=== PATIENT | female | born 1985 | race Caucasian/White ===

== ENCOUNTER 2017-02-21 11:07 | Emergency (ER) | payer MEDICAID, SELFPAY ==
[2017-02-21 11:39] VITALS: BP 122/83; PULSE 104; RESP 18; TEMP 36.9; O2SAT 97; BMI 53.9
--- NOTE | 2017-02-21 12:00 | HMH.EDUTC ---
[facility] [place] Clinical Impression: Otitis media, Nausea & vomiting, Rash Disposition: Home, Self-Care Condition on Discharge: Good Instructions: Ear Infections (Alternative Therapy), DI for Nausea -- Adult, DI for Rash Additional Instructions: Take medication as prescribed Follow up with family doctor Return if needed Over the counter Motrin/Tylenol as needed for fever or pain Prescriptions: Amoxicillin [Amoxicillin 500mg Cap] 500 mg PO TID #30 cap Ondansetron [Zofran 4mg ODT] 4 mg PO DIRECTED #20 tab.rapdis Referrals: Alka Tracy [Primary Care Provider] - Time of Disposition: 12:29 Medical Decision Making Vital Signs: 02/21/17 11:39 Temperature 98.4 F Temperature Source Oral Pulse Rate [Right Brachial] 104 H Respiratory Rate 18 Blood Pressure [Right Arm] 122/83 Blood Pressure Mean [Right Arm] 96 Blood Pressure Source [Right Arm] Automatic Cuff Blood Pressure Position [Right Arm] Supine 02 Sat by Pulse Oximetry 97 Oxygen Delivery Method Room Air - Travon Inquiry Pt receiving controlled substance: No Travon was queried for this patient: No [facility] [place] - General Stated complaint: vomiting chills Time Seen by Provider: 02/21/17 12:02 Mode of Arrival: Ambulatory Source of Information: Patient Limitations: No Limitations Description of Symptoms (Recalled from Triage Doc. by RN): FLU LIKE SYMPTOMS; RASH ON BOTH ARMS SINCE YESTERDAY HEENT Symptoms (Recalled from RN notes): Yes Resp Symptoms (Recalled from RN notes): Yes (FLU LIKE SYMPTOMS) Skin Symptoms (Recalled from RN notes): Yes (RASH ON SKIN) MS Symptoms (Recalled from RN notes): No Functional Status (Recalled from RN notes): Na - History of Present Illness Provider Complaint: Patient state that she has been having some eppisodes of vomiting along with fever and chills State that she is also having pain in her left ear State that ear feels full and hurts State that her symptoms have continued to get worse so she came in to get checked out Onset (ago): day(s) (2) Radiation: non-radiation Severity: mild Severity scale (1-10): 4 Quality: other Consistency: constant, intermittent Relieving factors: none Exacerbating factors: none Associated symptoms: cough, fever/chills, nausea/vomiting, other Treatments prior to arrival: none - Related Data Previous Rx's Medication Instructions Recorded Amoxicillin [Amoxicillin 500mg 500 mg PO TID #30 cap 02/21/17 Cap] Ondansetron [Zofran 4mg ODT] 4 mg PO DIRECTED #20 tab.rapdis 02/21/17 Allergies Allergy/AdvReac Type Severity Reaction Status Date / Time No Known Allergies Allergy Verified 02/21/17 11:44 - Worker's Comp Is this a Worker's Comp case?: No [facility] History Medical History: Denies:: Cancer, Diabetes Mellitus Type 1, Diabetes Mellitus Type 2, MRSA Amputation: No Fractures: No - *Social History Smoking Status: Never smoker Alcohol Intake: never - Psychiatric History Expresses thoughts of harming self/others: None Suicide Plan Description: No Plan - Constitutional Reports chills, Reports fever(s) - ENT Reports ear pain - Cardiovascular Denies chest pain - Respiratory Denies chest congestion, Denies shortness of breath - Gastrointestinal Reports nausea, Reports vomiting - Integumentary/Breasts Reports rash Physical Exam Patient state that she has been having nausea and vomiting, state that she is also having pain in her left ear State that ear feels full - General General appearance: alert - Eye Eye exam: Present: normal appearance, PERRL - Expanded ENT Exam TM/Canal exam: Left TM: erythema, bulging - Neck Neck exam: Present: normal inspection - Chest Chest inspection: Present: normal inspection - Respiratory Respiratory exam: Present: normal lung sounds bilaterally. Absent: wheezes - Cardiovascular Cardiovascular exam: Present: regular rate - Abdominal Exam Abdominal exam: Present: soft. Absen
--- NOTE | 2017-02-21 12:12 | ED_ITS ---
[facility] [place]ression: Otitis media, Nausea & vomiting, Rash Disposition: Home, Self-Care Condition on Discharge: Good Instructions: Ear Infections (Alternative Therapy), DI for Nausea -- Adult, DI for Rash Additional Instructions: Take medication as prescribed Follow up with family doctor Return if needed Over the counter Motrin/Tylenol as needed for fever or pain Prescriptions: Amoxicillin [Amoxicillin 500mg Cap] 500 mg PO TID #30 cap Ondansetron [Zofran 4mg ODT] 4 mg PO DIRECTED #20 tab.rapdis Referrals: Alka Tracy [Primary Care Provider] - Time of Disposition: 12:29 Medical Decision Making Vital Signs: 02/21/17 11:39 Temperature 98.4 F Temperature Source Oral Pulse Rate [Right Brachial] 104 H Respiratory Rate 18 Blood Pressure [Right Arm] 122/83 Blood Pressure Mean [Right Arm] 96 Blood Pressure Source [Right Arm] Automatic Cuff Blood Pressure Position [Right Arm] Supine 02 Sat by Pulse Oximetry 97 Oxygen Delivery Method Room Air - Travon Inquiry Pt receiving controlled substance: No Travon was queried for this patient: No [facility] [place] - General Stated complaint: vomiting chills Time Seen by Provider: 02/21/17 12:02 Mode of Arrival: Ambulatory Source of Information: Patient Limitations: No Limitations Description of Symptoms (Recalled from Triage Doc. by RN): FLU LIKE SYMPTOMS; RASH ON BOTH ARMS SINCE YESTERDAY HEENT Symptoms (Recalled from RN notes): Yes Resp Symptoms (Recalled from RN notes): Yes (FLU LIKE SYMPTOMS) Skin Symptoms (Recalled from RN notes): Yes (RASH ON SKIN) MS Symptoms (Recalled from RN notes): No Functional Status (Recalled from RN notes): Na - History of Present Illness Provider Complaint: Patient state that she has been having some eppisodes of vomiting along with fever and chills State that she is also having pain in her left ear State that ear feels full and hurts State that her symptoms have continued to get worse so she came in to get checked out Onset (ago): day(s) (2) Radiation: non-radiation Severity: mild Severity scale (1-10): 4 Quality: other Consistency: constant, intermittent Relieving factors: none Exacerbating factors: none Associated symptoms: cough, fever/chills, nausea/vomiting, other Treatments prior to arrival: none - Related Data Previous Rx's Medication Instructions Recorded Amoxicillin [Amoxicillin 500mg 500 mg PO TID #30 cap 02/21/17 Cap] Ondansetron [Zofran 4mg ODT] 4 mg PO DIRECTED #20 tab.rapdis 02/21/17 Allergies Allergy/AdvReac Type Severity Reaction Status Date / Time No Known Allergies Allergy Verified 02/21/17 11:44 - Worker's Comp Is this a Worker's Comp case?: No [facility] History Medical History: Denies:: Cancer, Diabetes Mellitus Type 1, Diabetes Mellitus Type 2, MRSA Amputation: No Fractures: No - *Social History Smoking Status: Never smoker Alcohol Intake: never - Psychiatric History Expresses thoughts of harming self/others: None Suicide Plan Description: No Plan - Constitutional Reports chills, Reports fever(s) - ENT Reports ear pain - Cardiovascular Denies chest pain - Respiratory Denies chest congestion, Denies shortness of breath - Gastrointestinal Reports nausea, Reports vomiting - Integumentary/[place]
[2017-02-21 16:25] LABS: UTC Influenza A Antigen Negative (Negative); UTC Influenza B Antigen Negative (Negative)
== END 2017-02-21 12:49 | disposition home or self-care (01) ==
PROVIDERS: Emergency Provider Nurse Practitioner; Family Provider Nurse Practitioner Family; PCP Nurse Practitioner Family
DX: H66.92 Otitis media, unspecified, left ear (principal); R21 Rash and other nonspecific skin eruption
CPT/HCPCS: 87276; 87430; 87804; 87880; 96372; 99202

== ENCOUNTER → 2017-07-05 08:34 | Outpatient (CLI) | payer OTHER, SELFPAY ==
--- NOTE | 2017-07-05 08:49 | XR_ITS ---
XR knee LT 3V HISTORY: ITS.REASON: LEFT KNEE PAIN ORDERING PHYSICIAN: Alka Tracy PATIENT AGE: 32 years COMPARISON: 12/20/2016 FINDINGS: There are mild tricompartmental osteoarthritic changes similar to the previous exam. No fracture or dislocation. No lytic or blastic change. IMPRESSION: Overall no change mild tricompartmental osteoarthritis
== END ==
PROVIDERS: PCP Nurse Practitioner Family; Visit Provider Nurse Practitioner Family
DX: M25.562 Pain in left knee (principal)
CPT/HCPCS: 73562

== ENCOUNTER → 2017-09-29 11:29 | Outpatient (CLI) | payer MEDICAID, SELFPAY ==
[2017-09-29 13:13] LABS: Alanine Aminotransferase 25 U/L (12-78); Albumin Level 3.7 gm/dL (3.4-5.0); Albumin/Globulin Ratio 0.9 (1.1-1.8); Alkaline Phosphatase 114 U/L (46-116); Anion Gap 14.1 mEq/L (5-15); Aspartate Amino Transferase 10 U/L (15-37); Bilirubin,Total 0.3 mg/dL (0.2-1.0); Blood Urea Nitrogen 13 mg/dL (7-18); Carbon Dioxide 28 mmol/L (21.0-32.0); Chloride 102 mmol/L (98-107); Creatinine,Serum 1.25 mg/dL (0.55-1.02); Estimated Glomerular Filt Rate 49 ml/min (>60); GFR (African American) 59 ML/MIN (>60); Glucose 150 mg/dL (74-106); HCG,Quantitative 0 mIU/mL; Potassium 4.1 mmoL/L (3.5-5.1); Sodium 140 mmol/L (136-145); Total Protein,Serum 7.7 gm/dL (6.4-8.2)
[2017-09-29 13:30] LABS: Basophils # 0.1 K/mm3 (0-0.2); Basophils % 0.6 % (0.1-2.0); Eosinophils # 0.3 K/mm3 (0.0-0.4); Eosinophils % 3.5 % (0.1-12.0); Hematocrit 43.8 % (37.0-47.0); Hemoglobin 14.3 g/dL (12.2-16.2); Lymphocytes # 1.5 K/mm3 (0.7-4.5); Lymphocytes % 19.3 K/mm3 (10-50); Mean Corpuscular HGB Conc 32.6 g/dL (31.8-35.4); Mean Corpuscular Hemoglobin 29.5 pg (27.0-31.2); Mean Corpuscular Volume 90.3 fl (81-99); Mean Platelet Volume 8.7 fl (7.4-10.4); Monocytes # 0.3 K/mm3 (0.1-1.0); Monocytes % 3.8 % (1.7-9.3); Neutrophils # 5.6 K/mm3 (1.8-7.8); Neutrophils % 72.9 % (37.0-80.0); Platelet Count 386 K/mm3 (142-424); Red Blood Count 4.85 M/mm3 (4.20-5.40); Red Cell Distribution Width 13.5 % (11.5-17.5); White Blood Count 7.6 K/mm3 (4.8-10.8)
== END ==
PROVIDERS: Visit Provider Surgery
DX: K80.80 Other cholelithiasis without obstruction (principal)
CPT/HCPCS: 36415; 80053; 84702; 85025

== ENCOUNTER → 2018-11-14 20:03 | Outpatient (CLI) | payer MEDICARE, MEDICAID, SELFPAY | PROVIDERS: PCP Nurse Practitioner Family; Visit Provider Nurse Practitioner Psychiatric/Mental Health | DX: G47.33 Obstructive sleep apnea (adult) (pediatric) (principal); G47.30 Sleep apnea, unspecified; E66.9 Obesity, unspecified | CPT/HCPCS: 95810 ==

== ENCOUNTER → 2019-01-28 09:35 | Outpatient (CLI) | payer MEDICARE, MEDICAID, SELFPAY ==
[2019-01-28 11:20] LABS: Anion Gap 16.9 mEq/L (5-15); Blood Urea Nitrogen 8 mg/dL (7-18); Calcium 8.7 mg/dL (8.5-10.1); Carbon Dioxide 22 mmol/L (21.0-32.0); Chloride 107 mmol/L (98-107); Creatinine,Serum 1.16 mg/dL (0.55-1.02); Estimated Glomerular Filt Rate 53 ml/min (>60); GFR (African American) 64 ML/MIN (>60); Glucose 104 mg/dL (74-106); Potassium 3.9 mmoL/L (3.5-5.1); Sodium 142 mmol/L (136-145)
== END ==
PROVIDERS: Visit Provider Nurse Practitioner Family
DX: R89.9 Unspecified abnormal finding in specimens from other organs, systems and tissues (principal)
CPT/HCPCS: 36415; 80048

== ENCOUNTER → 2019-02-11 10:20 | Outpatient (CLI) | payer MEDICARE, MEDICAID, SELFPAY ==
[2019-02-11 14:03] LABS: Anion Gap 16.7 mEq/L (5-15); Blood Urea Nitrogen 12 mg/dL (7-18); Calcium 8.6 mg/dL (8.5-10.1); Carbon Dioxide 22 mmol/L (21.0-32.0); Chloride 105 mmol/L (98-107); Creatinine,Serum 1.08 mg/dL (0.55-1.02); Estimated Glomerular Filt Rate 58 ml/min (>60); GFR (African American) 70 ML/MIN (>60); Glucose 92 mg/dL (74-106); Potassium 4.7 mmoL/L (3.5-5.1); Sodium 139 mmol/L (136-145)
== END ==
PROVIDERS: Visit Provider Nurse Practitioner Family
DX: R89.9 Unspecified abnormal finding in specimens from other organs, systems and tissues (principal)
CPT/HCPCS: 36415; 80048

== ENCOUNTER → 2019-02-25 11:51 | Outpatient (CLI) | payer MEDICARE, MEDICAID, SELFPAY ==
[2019-02-25 14:06] LABS: Hemoglobin A1C 5.8 % (0.0-7.0)
[2019-02-25 21:01] LABS: Thyroid Stimulating Hormone 4.85 uIU/ml (0.358-3.740)
[2019-02-26 08:33] LABS: Iron 54 ug/dL (27-159); UIBC 246 ug/dL (131-425)
[2019-02-26 16:10] LABS: Iron Saturation 18 % (15-55); Progesterone 0.2 ng/mL (.); Vitamin B12 295 pg/mL (232-1245)
[2019-02-28 08:14] LABS: Testosterone, Total, LC/MS 11.5 ng/dL (10.0-55.0)
[2019-03-01 06:29] LABS: Estrogen 121 pg/mL (.)
== END ==
PROVIDERS: Visit Provider Nurse Practitioner Psychiatric/Mental Health
DX: Z00.00 Encounter for general adult medical examination without abnormal findings (principal); R53.83 Other fatigue; Z79.899 Other long term (current) drug therapy
CPT/HCPCS: 36415; 82607; 82652; 82672; 83036; 83540; 83550; 84144; 84403; 84443

== ENCOUNTER → 2019-04-26 09:37 | Outpatient (CLI) | payer MEDICARE, MEDICAID, SELFPAY ==
[2019-04-26 10:45] LABS: Chloride 105 mmol/L (98-107); Potassium 4.2 mmoL/L (3.5-5.1); Sodium 140 mmol/L (136-145)
[2019-04-26 10:48] LABS: Blood Urea Nitrogen 13 mg/dl (7-17); Estimated Glomerular Filt Rate 63 ml/min (>60); GFR (African American) 76 ML/MIN (>60)
[2019-04-26 10:49] LABS: Anion Gap 15.2 mEq/L (5-15); Calcium 9.3 mg/dl (8.4-10.2); Carbon Dioxide 24 mmol/L (22.0-30.0); Glucose 130 mg/dl (74-100)
== END ==
PROVIDERS: Visit Provider Nurse Practitioner Family
DX: R89.9 Unspecified abnormal finding in specimens from other organs, systems and tissues (principal)
CPT/HCPCS: 36415; 80048

== ENCOUNTER 2019-10-08 10:26 | Emergency (ER) | payer MEDICARE, MEDICAID, SELFPAY ==
[2019-10-08 10:35] VITALS: BP 132/91; PULSE 113; RESP 20; TEMP 36.6; O2SAT 98; BMI 58.5
--- NOTE | 2019-10-08 10:38 | HMH.EDGENADL ---
ED Disposition Clinical Impression: Sinusitis Qualifiers: Sinusitis location: maxillary Chronicity: acute Recurrence: non-recurrent Qualified Code(s): J01.00 - Acute maxillary sinusitis, unspecified Disposition: Home, Self-Care Condition on Discharge: Good Instructions: DI for Sinusitis Referrals: Alka Tracy [Primary Care Provider] - 3 days - Critical Care Critical Care Time: No Attestation: On , the high probability of a clinically significant, sudden or life threatening deterioration of the following system(s) required my full and direct attention, intervention and personal management. The time I documented below is in addition to time spent performing reported procedures but includes the following listed in this critical care notation. Medical Decision Making - Medical Records Medical records reviewed: Yes: I reviewed the patient's medical records. - Travon Inquiry Pt receiving controlled substance: No Medical Decision Narrative: Patient with facial tenderness, but no fever and no purulent nasal drainage, unlikely acute bacterial sinusitis at this time. Possibly viral or allergic in nature. Recommended [id number] decongestants and ibuprofen/Tylenol for general malaise or discomfort. Advise follow-up with PCP within 3 days for reevaluation. Discharged home. General Adult HPI - General Stated complaint: sinus face swollen on left side Time Seen by Provider: 10/08/19 10:38 Source of Information: Patient Limitations: No Limitations - History of Present Illness HPI narrative: This is a 34-year-old female with a past medical history significant for legal blindness who presents to the emergency department for evaluation of nasal congestion, ear popping , dry cough for the last several days. She feels like the left side of her face is swollen and has tenderness along her sinuses. No fevers. No vomiting or difficulty breathing. She feels generally weak and unwell. She has not tried any medications. She does take Claritin daily. - Related Data Home Medications Medication Instructions Recorded Confirmed amitriptyline 100 mg tablet 100 mg PO DAILY 03/12/18 04/22/19 cyclobenzaprine 5 mg tablet 5 mg PO BID PRN tab 03/12/18 04/22/19 dicyclomine 20 mg tablet 20 mg PO .COMPLEX 03/12/18 04/22/19 fluticasone propionate 50 1 inh INHALATION BID 03/12/18 04/22/19 mcg/actuation blister powder for inhalation loratadine 10 mg tablet 10 mg PO DAILY 03/12/18 04/22/19 omeprazole 40 mg capsule,delayed 40 mg PO DAILY 03/12/18 04/22/19 release ropinirole 2 mg tablet 2 mg PO QHS 03/12/18 04/22/19 topiramate 100 mg tablet 100 mg PO BID 07/26/18 04/22/19 oxybutynin chloride 5 mg tablet 5 mg PO DAILY #60 tab 11/07/18 04/22/19 sumatriptan succinate 50 mg tablet PO #9 tab 11/07/18 04/22/19 levothyroxine 88 mcg tablet 88 mcg PO DAILY #30 tab 12/25/18 04/22/19 Previous Rx's Medication Instructions Recorded hydroxyzine pamoate 50 mg capsule 50 mg PO .COMPLEX #120 cap 09/23/19 mirtazapine 30 mg tablet 45 mg PO QHS #45 tab 09/23/19 paroxetine HCl 20 mg tablet 20 mg PO DAILY #30 tab 09/23/19 prazosin 1 mg capsule 3 mg PO .COMPLEX #90 cap 09/23/19 sertraline 100 mg tablet 100 mg PO DAILY #30 tab 09/23/19 Allergies Allergy/AdvReac Type Severity Reaction Status Date / Time No Known Allergies Allergy Verified 05/20/19 11:15 [facility] History - Hepatitis A Screen Attestation statement:: This patient has been screened for Hepatitis A risk factors. I have reviewed the patient's past medical history: Yes Medical History: Reports:: Anxiety, Depression, Gastroesophageal Reflux Disease(GERD), Migraine, Ulcer Denies:: Cancer, Diabetes Mellitus Type 1, Diabetes Mellitus Type 2, MRSA Other Medical History: Reports: Thyroid Disease, Other Comment: TIAGO, blindness Laterality Cases: Bilateral: Carpal Tunnel Release Other Surgeries: Yes: Cholecystectomy Amputation: No Fractures: No - Social History Smoking St
[2019-10-08 11:01] VITALS: BP 132/91; PULSE 113; RESP 20; TEMP 36.6; O2SAT 98
== END 2019-10-08 11:03 | disposition home or self-care (01) ==
PROVIDERS: Emergency Provider Emergency Medicine; PCP Nurse Practitioner Family
DX: J01.00 Acute maxillary sinusitis, unspecified (principal); H54.8 Legal blindness, as defined in USA; E03.9 Hypothyroidism, unspecified; F41.8 Other specified anxiety disorders; K21.9 Gastro-esophageal reflux disease without esophagitis; G43.709 Chronic migraine without aura, not intractable, without status migrainosus; Z90.49 Acquired absence of other specified parts of digestive tract; Z79.899 Other long term (current) drug therapy
CPT/HCPCS: 99281

== ENCOUNTER → 2019-12-16 10:53 | Outpatient (CLI) | payer MEDICARE, MEDICAID, SELFPAY ==
[2019-12-16 12:11] LABS: Basophils % 0.3 % (0.1-2.0); Eosinophils # 0.2 K/mm3 (0.0-0.4); Eosinophils % 2.2 % (0.1-12.0); Hematocrit 37.2 % (37.0-47.0); Hemoglobin 11.4 g/dL (12.2-16.2); Lymphocytes # 1.3 K/mm3 (0.7-4.5); Lymphocytes % 17.4 % (10-50); Mean Corpuscular HGB Conc 30.6 g/dL (31.8-35.4); Mean Corpuscular Hemoglobin 28.5 pg (27.0-31.2); Mean Platelet Volume 8.2 fl (7.4-10.4); Monocytes # 0.3 K/mm3 (0.1-1.0); Monocytes % 4.6 % (1.7-9.3); Neutrophils # 5.7 K/mm3 (1.8-7.8); Neutrophils % 75.5 % (37.0-80.0); Platelet Count 275 K/mm3 (142-424); White Blood Count 7.5 K/mm3 (4.8-10.8)
[2019-12-16 12:54] LABS: Chloride 106 mmol/L (98-107); Potassium 4.1 mmoL/L (3.5-5.1); Sodium 139 mmol/L (136-145)
[2019-12-16 12:56] LABS: Blood Urea Nitrogen 11 mg/dl (7-17); Estimated Glomerular Filt Rate 63 ml/min (>60); GFR (African American) 76 ML/MIN (>60)
[2019-12-16 12:57] LABS: Alanine Aminotransferase 20 U/L (12-78); Albumin Level 4.3 g/dl (3.5-5.0); Albumin/Globulin Ratio 1.4 (1.1-1.8); Alkaline Phosphatase 78 U/L (38-126); Anion Gap 15.1 mEq/L (5-15); Aspartate Amino Transferase 20 U/L (14-36); Bilirubin,Total 0.4 mg/dl (0.2-1.3); Calcium 9.4 mg/dl (8.4-10.2); Carbon Dioxide 22 mmol/L (22.0-30.0); Globulin 3.1 g/dL (1.3-3.2); Glucose 140 mg/dl (74-100); Total Protein,Serum 7.4 g/dl (6.3-8.2)
[2019-12-16 13:29] LABS: Thyroid Stimulating Hormone 6.37 uIU/mL (0.465-4.68)
== END ==
PROVIDERS: Visit Provider Nurse Practitioner Family
DX: E03.9 Hypothyroidism, unspecified (principal); B37.2 Candidiasis of skin and nail; Z79.899 Other long term (current) drug therapy
CPT/HCPCS: 36415; 80053; 83036; 84443; 85025

== ENCOUNTER → 2020-01-31 09:49 | Outpatient (CLI) | payer MEDICARE, MEDICAID, SELFPAY ==
--- NOTE | 2020-01-31 10:00 | MR_ITS ---
PROCEDURE: MR CERVICAL SPINE WO/W CON CLINICAL INDICATION: NECK PAIN Neck pain, evaluate for possible surgery COMPARISON: No exams were available for comparison TECHNIQUE: Standard multiplanar multiecho sequences are performed without contrast. 3-D MIP and myelographic images are also rendered and reviewed FINDINGS: There is dorsal angulation of the odontoid process. This is without compression upon the spinal cord. C2-C3: Mild facet hypertrophic changes with mild right-sided foraminal narrowing. C3-C4: Mild facet hypertrophic changes with mild bilateral foraminal narrowing. C4-C5: Unremarkable. C5-C6: Degenerative disc disease. There appears to be a bilobular disc osteophyte complex in both the right paracentral and the left paracentral region. This is causing compression upon the spinal cord with canal stenosis. The canal only measures approximately 5 mm in AP dimension centrally. The disc osteophyte complex does show some contrast enhancement. The cord compression is slightly greater on the right. C6-C7 and C7-T1 have an unremarkable appearance. IMPRESSION: There is a prominent central disc protrusion/disc osteophyte complex at C5-C6 as described above with resultant canal stenosis which does appear to be slightly eccentric toward the right on the post enhanced images causing cord compression and cord flattening on the right.. There is some enhancement around this area suggesting some inflammatory changes. Dictated by: Mele Munoz MD 02/01/2020 12:03 Mele Munoz MD in [place] 02/01/2020 12:03
== END ==
PROVIDERS: PCP Nurse Practitioner Family; Visit Provider Ophthalmology Neuro-ophthalmology
DX: M48.02 Spinal stenosis, cervical region (principal)
CPT/HCPCS: 72156; 76376; A9576

== ENCOUNTER 2020-08-10 10:30 | Outpatient (RCR) | payer MEDICARE, MEDICAID, SELFPAY | END 2020-08-10 10:35 | disposition home or self-care (01) | LOC: PT 10:30 | PROVIDERS: PCP Nurse Practitioner Family | DX: M54.2 Cervicalgia (principal); Z98.1 Arthrodesis status | CPT/HCPCS: 97010; 97014; 97035; 97110; 97163; G0283 ==

== ENCOUNTER → 2020-12-09 08:01 | Outpatient (CLI) | payer MEDICARE, MEDICAID, SELFPAY ==
--- NOTE | 2020-12-09 08:05 | CT_ITS ---
PROCEDURE: CT CERVICAL SPINE WO CON CLINICAL INDICATION: CERVICAL MYELOPATHY COMPARISON: MR MR CERVICAL SPINE WO CON from 12/09/2020 TECHNIQUE: Axial images obtained with sagittal and coronal reformats. All CT scans at the facility use one or more dose reduction, viz: automated exposure control, ma/kV adjustment per patient size (including targeted exams where dose is matched to indication, i.e. head), or iterative reconstruction technique. Axial spiral CT scanning performed of the cervical spine beginning at the base of the skull and continuing to the upper T-spine. 3-D multiplanar reconstruction with 3-D manipulation of volumetric data set in image rendering was completed by the radiologist and/or technologist with the supervision of the radiologist on independent workstation. FINDINGS: There is normal alignment with straightening of the cervical lordosis. The craniocervical junction has an unremarkable appearance. C2-C3: Unremarkable. C3-C4: There is a small osteophyte projecting from the inferior and medial aspect of the facet at C3 causing mild right foraminal narrowing. C4-C5: Unremarkable. C5-C6: Postsurgical changes. Prior anterior cervical disc fusion with disc spacer device. C6-C7: Unremarkable. Thyroid gland is somewhat prominent with scattered areas of decreased density suggesting small nodules. IMPRESSION: 1. Postsurgical changes at C5-C6 with prior anterior cervical disc fusion and disc spacer device. No canal stenosis. 2. Mild right foraminal narrowing at C3-C4 from a medial osteophyte from the facet of C3. Dictated by: Mele Munoz MD 12/10/2020 07:32 Mele Munoz MD in [place] 12/10/2020 07:32
--- NOTE | 2020-12-09 08:41 | MR_ITS ---
PROCEDURE INFORMATION: Exam: MR Cervical Spine Without Contrast Exam date and time: 12/09/2020 8:41 AM Age: 35 years old Clinical indication: Neck pain; Prior surgery; Surgery date: 6+ months; Additional info: Cervical myelopathy. Prior HX neck surgery May 26 2020. Intermittent bilateral arm pain. Headache. Neck pain worse after surgery. Prior MR 01-31-20 TECHNIQUE: Imaging protocol: Multiplanar magnetic resonance images of the cervical spine without contrast. COMPARISON: CT CERVICAL SPINE WO CON 12/09/2020 8:22 AM FINDINGS: Vertebrae: The patient has had prior anterior cervical fusion at C5/6. Surgical hardware causes moderate magnetic susceptibility artifact which limits evaluation of the surrounding anatomy. Spinal cord: Normal signal. Mild deformity of the cervical cord at C5/6 due to disc herniation. C2-C3: No significant disc disease. No significant spinal stenosis. C3-C4: There is bilateral uncovertebral joint arthropathy, worse on the left. There is moderate left-sided neuroforaminal narrowing. C4-C5: No significant disc disease. No significant spinal stenosis. C5-C6: There is a small central disc protrusion. There is effacement of the ventral subarachnoid space and indentation of the ventral cervical cord. There is mild/moderate spinal canal stenosis. C6-C7: There is a small central disc protrusion. There is mild spinal canal stenosis. C7-T1: No significant disc disease. No significant spinal stenosis. Soft tissues: Unremarkable. IMPRESSION: 1. The patient has had prior anterior cervical fusion at C5/6. Surgical hardware causes moderate magnetic susceptibility artifact which limits evaluation of the surrounding anatomy. Please correlate with surgical history. 2. Multilevel degenerative changes as described above. Central disc herniation at C5/6 with associated spinal canal stenosis and deformity of the cervical cord.
== END ==
PROVIDERS: PCP Nurse Practitioner Family; Visit Provider Nurse Practitioner Family
DX: G95.9 Disease of spinal cord, unspecified (principal)
CPT/HCPCS: 72125; 72141; 76376

== ENCOUNTER → 2021-01-07 08:48 | Outpatient (POV) | payer MEDICARE, MEDICAID, SELFPAY ==
[2021-01-07 09:29] VITALS: BP 142/94; PULSE 85; RESP 18; O2SAT 99; BMI 55.7
--- NOTE | 2021-01-07 12:12 | HMH.PMCON ---
Assessment and Plan (1) Degenerative joint disease of cervical spine Status: Chronic Category: Medical Code(s): M47.812 - Spondylosis without myelopathy or radiculopathy, cervical region (2) Cervical radiculopathy Status: Chronic Category: Medical Code(s): M54.12 - Radiculopathy, cervical region - Assessment and plan all Dx Assessment and Plan for all problems:: Patient is a 35-year-old female who is post ACDF from May 26, 2020 at C5-C6 area. This was performed by Dr. Doll at [facility]. The patient says her pain has worsened since surgery. She is having pain in the neck bilateral upper extremities as well as weakness in her bilateral hands. She is having numbness and tingling as well. She is currently undergoing Botox injections with [facility]. She does have chronic headaches and migraines. She has never had injective therapy and was referred to our clinic for injections. She does have imaging from her cervical spine that we did review today. Given her imaging results and symptoms, we will schedule the patient for cervical epidural steroid injection at C5-C6 area. Patient is not on any anticoagulation therapy. She is not diabetic. We will schedule her for the injection and see her back afterwards for reevaluation of symptoms. Possible side effects of corticosteroids have been discussed with the patient. Risks and benefits of the procedure have been explained to the patient. Patient would like to proceed with the procedure. Patient has been instructed to contact the clinic with any concerns before the next appointment. Dr. Michelle has reviewed this note and agrees with this plan of care. This note was dictated using voice recognition software and make contain errors or omissions. Patient has been instructed to contact the clinic with any concerns before the next appointment. Dr. Michelle has reviewed this note and agrees with this plan of care. This note was dictated using voice recognition software and make contain errors or omissions. HPI - Data of Consult Patient: new to practice Consult date: 01/07/21 Requesting Physician: Georgie Madsen APRN - Consult Narrative Reason for consult: Neck pain History of present illness: Ms. Bell is a 35 year old female who presents today for consultation for worsening neck pain. Patient has been seen by neurosurgery at [facility] and did undergo surgical intervention in May 2020 with ACDF. Prior to surgery, the patient was having severe neck pain with radiation into bilateral upper extremities. Since surgery, she has now having more tingling in her hands which is worsening each day. The pain is sharp in nature. She says that the pain is also made worse with any type of movement of her neck. She does undergo Botox injections for chronic neck pain and headaches. She is now having difficulty grasping objects due to weakness and pain in her bilateral hands. She has been to physical therapy prior to and following surgery for more than 6 weeks with minimal relief. She is also tried home stretching and anti-inflammatories with minimal relief. She has difficulty raising her arms. She has significant pain with decreased range of motion. She does have an area to her right forearm that she says is a knot-like area that seems to be worsening the pain as well. She is unsure if this is the reason she is now having numbness and tingling in her hands. She has had carpal tunnel surgery in the past. Today, the patient's pain is a 7 or an 8 out of 10. CC: Georgie Madsen APRN [facility] History I have reviewed the patient's past medical history: Yes Medical History: Reports:: Anxiety, Depression, Gastroesophageal Reflux Disease(GERD), Migraine, Ulcer Denies:: Cancer, Diabetes Mellitus Type 1, Diabetes Mellitus Type 2, MRSA *Have you ever received a pneumonia vaccine?: No *Have you received a flu vaccine this season?: No Other Medical History: [place]
== END ==
PROVIDERS: Visit Provider Clinical Nurse Specialist Family Health
DX: M47.892 Other spondylosis, cervical region (principal); M54.12 Radiculopathy, cervical region
CPT/HCPCS: 99202; G0463

== ENCOUNTER → 2021-01-18 20:31 | Outpatient (CLI) | payer MEDICARE, MEDICAID, SELFPAY | PROVIDERS: PCP Nurse Practitioner Family; Visit Provider Nurse Practitioner Family | DX: G47.33 Obstructive sleep apnea (adult) (pediatric) (principal); R09.02 Hypoxemia | CPT/HCPCS: 95810 ==

== ENCOUNTER 2021-02-05 09:49 | Day surgery (SDC) | payer MEDICARE, MEDICAID, SELFPAY ==
[2021-02-05 10:10] VITALS: BP 138/72; PULSE 102; RESP 18; TEMP 36.4; O2SAT 98; BMI 126.5
[2021-02-05 10:40] VITALS: BP 151/84; PULSE 101; RESP 18; O2SAT 99
[2021-02-05 10:41] VITALS: PULSE 102; RESP 18; O2SAT 100
--- NOTE | 2021-02-05 10:50 | P.PCN_ITS ---
- Procedure Date: 02/05/21 Time: 10:50 Anesthesiologist:: Shaista Trujillo MD Complications:: None Pre-procedure Diagnosis:: degenerative disease of the cervical spine, cervical radiculopathy Post-procedure Diagnosis:: Same Indications for Procedure:: Patient is a very pleasant 35-year-old white female who presents today with chronic neck pain radiating to her arms related to the above diagnosis. She has previously undergone ACDF on May 26, 2020 at C5-C6. Unfortunately she continues to experience pain in her neck radiating down her arms into her hands. She also notes numbness and tingling in this distribution as well. Of note, she also has chronic headaches and migraines and is undergoing Botox injections at [facility]. She has trialed and failed conservative treatment including oral pain medications and home stretching program for greater than 6 weeks. The plan for today is for the patient to undergo a cervical epidural steroid injection under fluoroscopy at C7-T1 #1. Procedure Details:: Cervical epidural steroid injection under fluoroscopy Informed consent was obtained and the risks and benefits of the procedure was explained to the patient. The patient was taken to the procedure room placed prone on the procedure table. The neck was prepped using ChloraPrep. The skin and subcutaneous tissues were anesthetized using lidocaine. I placed a 18-gauge epidural needle into the knee C7-T1 interspace and advanced using [id number] to air and fluoroscopic guidance. After confirmation of needle placement in the epidural space with dye, I injected 3 mL's lidocaine 1.0% and Depo-Medrol 80 mg. The patient tolerated the procedure well with no complications. Plan and Disposition:: We will follow-up with this patient in 2 weeks. Will reevaluate pain symptoms at that time.
[2021-02-05 11:01] VITALS: BP 134/83; PULSE 110; RESP 20; O2SAT 99
== END 2021-02-05 11:02 | disposition home or self-care (01) ==
LOC: SC.PAINP 09:50
PROVIDERS: PCP Nurse Practitioner Family; Visit Provider Anesthesiology Pain Medicine
DX: G43.909 Migraine, unspecified, not intractable, without status migrainosus; K21.9 Gastro-esophageal reflux disease without esophagitis; E03.9 Hypothyroidism, unspecified; F32.A Depression, unspecified; Z79.899 Other long term (current) drug therapy; M50.13 Cervical disc disorder with radiculopathy, cervicothoracic region
CPT/HCPCS: 62321; J1040; Q9966

== ENCOUNTER 2021-07-21 10:16 | Emergency (ER) | payer MEDICARE, MEDICAID, SELFPAY ==
--- NOTE | 2021-07-21 10:54 | XR_ITS ---
FINAL REPORT CLINICAL HISTORY: fall 1 week ago, pain in lower back and legs FINDINGS: LUMBAR SPINE. Three views demonstrate no acute fracture. Mild degenerative change with osteophytes are present. There is no malalignment. IMPRESSION: Mild degenerative changes without acute bony abnormality. Reviewed, Interpreted and Dictated by Valdez Thomas III, MD Transcribed by Valeria Doyle Authenticated by Valdez Thomas III, MD on 07/21/2021 12:28:17 PM [facility]
[2021-07-21 10:56] VITALS: BP 141/91; PULSE 102; RESP 19; TEMP 36.6; O2SAT 99; BMI 52.1
--- NOTE | 2021-07-21 11:13 | HMH.EDUTC ---
[facility] [place] Clinical Impression: Low back pain Qualifiers: Chronicity: unspecified Back pain laterality: bilateral Sciatica presence: with sciatica Sciatica laterality: bilateral sciatica Qualified Code(s): M54.42 - Lumbago with sciatica, left side Disposition: Home, Self-Care Condition on Discharge: Good Instructions: Low Back Pain, DI for Low Back Pain, DI for Chronic Pain -- Adult, Ibuprofen Additional Instructions: Ice to area for the first 48 hours then moist heat may help with back pain Make sure to keep active and keep moving around Naproxen as prescribed may help with pain if you need something else and you can take it Tylenol may help Return if needed Straight to ER if any life threatening symptoms Prescriptions: methylPREDNISolone [Medrol 4mg tab] 4 mg PO DIRECTED #21 tab Transmission Status: Received by [facility] Naproxen [Naproxen 500mg tab] 500 mg PO BID PRN #10 tab PRN Reason: Moderate Pain Transmission Status: Received by [facility] Referrals: Alka Tracy [Primary Care Provider] - As needed Medical Decision Making - Travon Inquiry Pt receiving controlled substance: No Travon was queried for this patient: No Vital Signs: 07/21/21 10:56 07/21/21 12:15 Temperature 97.8 F 97.8 F Temperature Source Oral Pulse Rate 102 H Pulse Rate [Left Radial] 102 H Respiratory Rate 19 19 Blood Pressure 141/91 H Blood Pressure [Right Arm] 141/91 H Blood Pressure Mean [Right Arm] 107 Blood Pressure Source [Right Arm] Automatic Cuff Blood Pressure Position [Right Arm] Sitting 02 Sat by Pulse Oximetry 99 Oxygen Delivery Method Room Air Room Air - Radiology Data #1 Image(s): L-Spine Image Reviewed: Yes I reviewed the patient's radiology image Preliminary Findings: No Fracture Seen Medical Decision Narrative: Patient states that she has taken ibuprofen in the past without complications or reactions denies [facility] [place] H[place] - General Stated complaint: ao 07/11 fall, back pain and bilateral leg pain Time Seen by Provider: 07/21/21 11:13 Mode of Arrival: Ambulatory Source of Information: Patient Limitations: No Limitations Description of Symptoms (Recalled from Triage Doc. by RN): c/o fell 2 weeks ago and is having lower back pain and both legs HEENT Symptoms (Recalled from RN notes): No Resp Symptoms (Recalled from RN notes): No Skin Symptoms (Recalled from RN notes): No MS Symptoms (Recalled from RN notes): Yes Functional Status (Recalled from RN notes): na - History of Present Illness Provider Complaint: Patient states that she fell about 2 weeks ago States that she woke up this morning with pain in her lower back that radiates into her buttock area and down up upper legs States that pain is worse with movement Denies loss of control of bowel or bladder Denies numbness or tingling Denies new injury - Related Data Home Medications Medication Instructions Recorded Confirmed cyclobenzaprine 5 mg tablet 5 mg PO BID PRN tab 03/12/18 06/08/21 dicyclomine 20 mg tablet 20 mg PO .COMPLEX 03/12/18 06/08/21 loratadine 10 mg tablet 10 mg PO DAILY 03/12/18 06/08/21 ropinirole 2 mg tablet 2 mg PO QHS 03/12/18 06/08/21 oxybutynin chloride 5 mg tablet 5 mg PO DAILY #60 tab 11/07/18 06/08/21 erenumab-aooe 70 mg/mL 1 mg SQ MONTHLY 10/21/20 06/08/21 subcutaneous auto-injector medroxyprogesterone 150 mg/mL 150 mg IM [id number] ml 10/21/20 06/08/21 intramuscular suspension rizatriptan 10 mg tablet 10 mg PO DAILY tab 10/21/20 06/08/21 levothyroxine 112 mcg tablet 112 mcg PO DAILY tab 01/28/21 06/08/21 pantoprazole 40 mg tablet,delayed 40 mg PO DAILY tab 01/28/21 06/08/21 release topiramate 100 mg tablet 150 mg PO BID tab 01/28/21 06/08/21 Previous Rx's Medication Instructions Recorded amitriptyline 100 mg tablet 125 mg PO DAILY #38 tab 06/08/21 buspirone 10 mg tablet 10 mg PO BID #60 tab 06/08/21 hydroxyzine pamoate 50 mg capsule 50 mg PO .COMPLE
[2021-07-21 12:15] VITALS: BP 141/91; PULSE 102; RESP 19; TEMP 36.6; O2SAT 99
== END 2021-07-21 12:21 | disposition home or self-care (01) ==
PROVIDERS: Emergency Provider Nurse Practitioner; PCP Nurse Practitioner Family
DX: M54.42 Lumbago with sciatica, left side (principal); F41.8 Other specified anxiety disorders; K21.9 Gastro-esophageal reflux disease without esophagitis; E03.9 Hypothyroidism, unspecified
CPT/HCPCS: 72100; 99212; G0463

== ENCOUNTER → 2021-08-18 10:35 | Outpatient (CLI) | payer MEDICARE, MEDICAID, SELFPAY ==
--- NOTE | 2021-08-18 | CA_ITS ---
FINAL REPORT CLINICAL HISTORY: .Extreme body habitus, with leg pain FINDINGS: Color Doppler, duplex Doppler and compression sonography of the bilateral lower extremities was performed. There is no evidence of deep venous thrombosis from the level of the groin to the calf. The deep veins are patent and compressible. IMPRESSION: No evidence of deep venous thrombosis bilateral lower extremities. Reviewed, Interpreted and Dictated by Valdez Thomas III, MD Transcribed by Lucille Howell Authenticated and [facility]
== END ==
PROVIDERS: PCP Nurse Practitioner Family
DX: R60.0 Localized edema (principal); M79.605 Pain in left leg; M79.604 Pain in right leg
CPT/HCPCS: 93970

== ENCOUNTER → 2021-08-27 13:45 | Outpatient (CLI) | payer MEDICARE, MEDICAID, SELFPAY ==
[2021-08-27 13:49] LABS: Microscopic, Urine URINE MICROSCOPIC (MICROSCOPIC)
[2021-08-27 14:00] LABS: Appearance,Urine CLEAR (Clear); Bilirubin,Urine Negative (Negative); Blood, Urine Negative (Negative); Color,Urine YELLOW (Yellow); Glucose,Urine (UA) Negative (Negative); Ketones,Urine Negative (Negative); Leukocyte Esterase,Urine Negative (Negative); Nitrate,Urine Negative (Negative); Protein,Urine Negative (Negative); Specific Gravity, Urine >= 1.030 (1.005-1.030); Urobilinogen,Urine 0.2 EU/dl (0.2)
[2021-08-27 14:23] LABS: Bacteria,Urine 1+ /lpf; Calcium Oxalate Crystals,Urine 4+ /lpf
== END ==
PROVIDERS: Visit Provider Nurse Practitioner Family
DX: R30.0 Dysuria (principal); R35.0 Frequency of micturition
CPT/HCPCS: 81001; 87086

== ENCOUNTER → 2021-12-02 11:35 | Outpatient (CLI) | payer MEDICARE, MEDICAID, SELFPAY ==
--- NOTE | 2021-12-02 11:40 | XR_ITS ---
FINAL REPORT CLINICAL HISTORY: ACUTE PAIN LEFT KNEE COMPARISON: June 2017 FINDINGS: 2 views of the left knee were obtained. There is no acute fracture or dislocation. The joint spaces are intact. There is no acute soft tissue abnormality. IMPRESSION: No acute process. Reviewed, Interpreted and Dictated by José Antonio Betancur MD Transcribed by Marcelino Cross Authenticated and [facility]
== END ==
PROVIDERS: PCP Nurse Practitioner Family; Visit Provider Nurse Practitioner Family
DX: M25.562 Pain in left knee (principal)
CPT/HCPCS: 73560

== ENCOUNTER 2021-12-31 11:08 | Emergency (ER) | payer MEDICARE, MEDICAID, SELFPAY ==
[2021-12-31 11:16] VITALS: BP 130/72; PULSE 82; RESP 18; TEMP 37.2; O2SAT 98; BMI 59.4
[2021-12-31 11:31] VITALS: BP 124/65; PULSE 81; RESP 22; O2SAT 99
--- NOTE | 2021-12-31 11:45 | XR_ITS ---
FINAL REPORT CLINICAL HISTORY: pain COMPARISON: 12/02/2021 FINDINGS: Left knee Three views were obtained. There is no acute fracture or dislocation. There is mild medial compartment joint space narrowing which appears more evident than previous but probably related to differences in rotation. No soft tissue abnormality is identified. IMPRESSION: Mild degenerative change of the medial compartment. Reviewed, Interpreted and Dictated by José Antonio Betancur MD Transcribed by Valeria Doyle Authenticated and [facility]
[2021-12-31 12:01] VITALS: BP 138/69; PULSE 85; RESP 22; O2SAT 98
[2021-12-31 12:32] VITALS: BP 136/47; PULSE 77; RESP 18; O2SAT 97
--- NOTE | 2021-12-31 13:16 | PC.NURSE ---
checked on pt at this time, pt requesting a lunch. Contacting [employer] for tray for pt. notified pt we are waiting on final xray reports
--- NOTE | 2021-12-31 13:29 | HMH.EDEXTP ---
Discharge Plan Disposition Patient Disposition: Home, Self-Care Condition: Good Prescriptions Prescriptions: No Action ropinirole 2 mg tablet 2 mg PO QHS loratadine 10 mg tablet 10 mg PO DAILY dicyclomine 20 mg tablet 20 mg PO .COMPLEX Label Comments: 20 mg PO twice daily; Rx Instructions: 20 mg PO twice daily; cyclobenzaprine 5 mg tablet 5 mg PO BID PRN (Reason: MUSCLE SPASMS) topiramate [Topamax] 100 mg tablet 150 mg PO BID rizatriptan 10 mg tablet 10 mg PO DAILY Label Comments: TAKE 1 TABLET BY MOUTH AT ONSET OF MIGRAINE. MAY REPEAT ONCE AFTER 2 HOURS IF NEEDED Aimovig Autoinjector 70 mg/mL auto-injector 1 mg SQ MONTHLY medroxyprogesterone 150 mg/mL suspension 150 mg IM [id number] Label Comments: INJECT 1ML INTRAMUSCULARLY ONCE EVERY 3 MONTHS DIRECTED levothyroxine 112 mcg tablet 112 mcg PO DAILY pantoprazole 40 mg tablet,delayed release (DR/EC) 40 mg PO DAILY Ubrelvy 50 mg tablet 50 mg PO PRN oxybutynin chloride 5 mg tablet 5 mg PO DAILY Qty: 60 amitriptyline 100 mg tablet 125 mg PO DAILY Qty: 38 1RF buspirone 10 mg tablet 10 mg PO BID Qty: 60 1RF hydroxyzine pamoate [Vistaril] 50 mg capsule 50 mg PO .COMPLEX Qty: 120 1RF Rx Instructions: 50 mg PO take BID PRN; and 2 capsule scheduled at bedtime; not to exceed 4 capsules per day paroxetine HCl 20 mg tablet 20 mg PO DAILY Qty: 30 1RF prazosin 2 mg capsule 4 mg PO QHS Qty: 60 1RF quetiapine [Seroquel] 100 mg tablet 100 mg PO QHS Qty: 30 1RF sertraline 100 mg tablet 100 mg PO DAILY Qty: 30 1RF naproxen 500 MG tablet 500 mg PO BID PRN (Reason: Moderate Pain) Qty: 10 0RF Referrals Follow up/Referrals: Alka Tracy [Primary Care Provider] - See instructions Clinical Impressions Clinical Impression: Acute pain of left knee Instructions Patient Instructions: DI for Knee Pain, DI for Macias Cyst Discharge ED Provider: Juan Grajeda Extremity Problem HPI General Chief complaint: Extremity Injury, Lower Stated complaint: AO [id number], Left knee twisted and popped Time Seen by Provider: 12/31/21 11:15 Mode of Arrival: Wheelchair Source of Information: Patient Limitations: No Limitations Description of Symptoms (Recalled from ER Triage Doc. by RN): Pt c/o L knee pain. Pt reports she kicked her leg out and had a pulling sensaton in posterior knee area. Pt reports unable to bear weight on LLE at this time r/t pain. Pt reports had a shot in her L knee done yesterday by Dr. Noble. Pt reports the shot was for pain but unknown what the medication injected was. Pt reports hx of arthritis. History of Present Illness HPI Narrative: Patient is a 36-year-old female with a history of chronic left knee pain who presents with concern for acute left knee pain. She says that she had a left knee intra-articular injection yesterday. She says that her symptoms improved but she kicked her leg out today and then had a pulling sensation in the back of her knee. She says that she has been unable to really walk since then due to pain and was concerned that something may have broke. She denies any numbness or tingling into the extremity. She did not fall and no loss consciousness. Related Data Home Medications Medication Instructions Recorded Confirmed cyclobenzaprine 5 mg tablet 5 mg PO BID PRN MUSCLE SPASMS 03/12/18 12/09/21 dicyclomine 20 mg tablet 20 mg PO .COMPLEX STOMACH 03/12/18 12/09/21 loratadine 10 mg tablet 10 mg PO DAILY ALLERGIES 03/12/18 12/09/21 ropinirole 2 mg tablet 2 mg PO QHS * 03/12/18 12/09/21 oxybutynin chloride 5 mg tablet 5 mg PO DAILY * #60 tabs 11/07/18 12/09/21 erenumab-aooe 70 mg/mL 1 mg SQ MONTHLY MIGRAINE 10/21/20 12/09/21 subcutaneous auto-injector (Aimovig Autoinjector) medroxyprogesterone 150 mg/mL 150 mg IM [id number] control 10/21/20 12/09/21 intramuscula
[2021-12-31 13:31] VITALS: BP 143/98; PULSE 73; RESP 16; RESP 18; TEMP 37.2; O2SAT 99
== END 2021-12-31 13:31 | disposition home or self-care (01) ==
PROVIDERS: Emergency Provider Student in an Organized Health Care Education/Training Program; PCP Nurse Practitioner Family
DX: M25.562 Pain in left knee (principal); Z79.899 Other long term (current) drug therapy; K21.9 Gastro-esophageal reflux disease without esophagitis; G43.909 Migraine, unspecified, not intractable, without status migrainosus; F41.9 Anxiety disorder, unspecified; F31.81 Bipolar II disorder
CPT/HCPCS: 73562; 99283

== ENCOUNTER → 2022-01-03 16:55 | Outpatient (CLI) | payer MEDICARE, MEDICAID, SELFPAY | PROVIDERS: Visit Provider Podiatrist | DX: L98.9 Disorder of the skin and subcutaneous tissue, unspecified (principal) | CPT/HCPCS: 87220 ==

== ENCOUNTER → 2022-01-27 09:01 | Outpatient (CLI) | payer MEDICARE, MEDICAID, SELFPAY ==
--- NOTE | 2022-01-27 09:05 | XR_ITS ---
FINAL REPORT CLINICAL HISTORY: foot pain FINDINGS: RIGHT FOOT Three weight. views of the right foot demonstrate no acute fracture or dislocation. There are mild degenerative changes. There is a small posterior calcaneal spur. There is a calcification in the distal Achilles tendon. The soft tissues are unremarkable. IMPRESSION: Mild degenerative changes with a small posterior calcaneal spur. Reviewed, Interpreted and Dictated by Valdez Thomas III, MD Transcribed by Lucille Howell Authenticated and [facility]
--- NOTE | 2022-01-27 09:05 | XR_ITS ---
FINAL REPORT CLINICAL HISTORY: foot pain FINDINGS: LEFT FOOT Three weight-bearing views of the left foot demonstrate no acute fracture or dislocation. There are mild degenerative changes. There are small calcaneal spurs. There are calcifications in the distal Achilles tendon. The soft tissues are unremarkable. IMPRESSION: Mild degenerative changes with small calcaneal spurs. Reviewed, Interpreted and Dictated by Valdez Thomas III, MD Transcribed by Lucille Howell Authenticated and [facility]
== END ==
PROVIDERS: PCP Nurse Practitioner Family; Visit Provider Podiatrist
DX: M72.2 Plantar fascial fibromatosis (principal); M79.672 Pain in left foot; M79.671 Pain in right foot
CPT/HCPCS: 73630

== ENCOUNTER → 2022-03-08 12:47 | Outpatient (CLI) | payer MEDICARE, MEDICAID, SELFPAY ==
--- NOTE | 2022-03-08 12:52 | MR_ITS ---
FINAL REPORT TECHNIQUE: Multiplanar and multisequence imaging the left knee was obtained without contrast. CLINICAL HISTORY: PAIN IN KNEE DUE TO A TEAR LEFT KNEE PAIN X 2 MONTH FINDINGS: Bones: There is no acute fracture or marrow edema. There is mild degenerative joint disease. There are no full thickness cartilage defects. Menisci: There is intrameniscal degeneration bobbing the posterior horn of the medial meniscus. There may be a radial tear of the posterior horn of the medial meniscus at the meniscal tibial root attachment. The lateral meniscus is intact. Ligaments: No cruciate or collateral ligament tear is present. Tendons/Muscles: The quadriceps and patellar tendons are within normal limits. The biceps femoris tendon and iliotibial tract are intact. The popliteus tendon is normal. Other: There is is a small joint effusion. There is prepatellar edema. Remaining soft tissues are normal. IMPRESSION: Mild degenerative joint disease. Possible radial tear posterior horn medial meniscus. Reviewed, Interpreted and Dictated by Samaria Aguilar MD Transcribed by Valeria Doyle Authenticated and . [facility]
== END ==
PROVIDERS: PCP Nurse Practitioner Family; Visit Provider Orthopaedic Surgery Adult Reconstructive Orthopaedic Surgery
DX: M25.562 Pain in left knee (principal)
CPT/HCPCS: 73721

== ENCOUNTER → 2022-04-12 09:20 | Outpatient (CLI) | payer MEDICARE, MEDICAID, SELFPAY ==
[2022-04-12 09:24] LABS: Microscopic, Urine URINE MICROSCOPIC (MICROSCOPIC)
[2022-04-12 09:42] LABS: Appearance,Urine CLEAR (Clear); Bilirubin,Urine Negative (Negative); Blood, Urine Negative (Negative); Color,Urine YELLOW (Yellow); Glucose,Urine (UA) Negative (Negative); Ketones,Urine Negative (Negative); Leukocyte Esterase,Urine TRACE (Negative); Nitrate,Urine Negative (Negative); Protein,Urine Negative (Negative); Specific Gravity, Urine >= 1.030 (1.005-1.030); Urobilinogen,Urine 0.2 EU/dl (0.2)
[2022-04-12 09:54] LABS: RBC,Urine Occasional #/hpf (0-3)
== END ==
PROVIDERS: PCP Nurse Practitioner Family; Visit Provider Nurse Practitioner Family
DX: R11.2 Nausea with vomiting, unspecified (principal)
CPT/HCPCS: 81001

== ENCOUNTER → 2022-05-12 12:57 | Outpatient (CLI) | payer MEDICARE, MEDICAID, SELFPAY ==
--- NOTE | 2022-05-12 13:02 | CT_ITS ---
FINAL REPORT TECHNIQUE: Axial images through the abdomen and pelvis were performed without contrast.This study was performed with techniques to keep radiation doses as low as reasonably achievable, (ALARA). Individualized dose reduction techniques using automated exposure control or adjustment of mA and/or kV according to the patient's size were employed. CLINICAL HISTORY: Mid ABD PAIN FINDINGS: ABDOMEN: The lung bases are clear. The heart size is normal. Limited images of the liver are unremarkable. Gallbladder is not visualized. The spleen is normal. No adrenal mass is identified. The aorta is normal in caliber. There is no significant free fluid or adenopathy. There is no nephrolithiasis. There is no hydronephrosis. PELVIS: The appendix is not identified. The urinary bladder is unremarkable. There is no significant free fluid or adenopathy. IMPRESSION: No acute process. Reviewed, Interpreted and Dictated by José Antonio Betancur MD Transcribed by Geovanna Florentino Authenticated and [facility]
== END ==
PROVIDERS: PCP Nurse Practitioner Family; Visit Provider Nurse Practitioner Family
DX: R10.84 Generalized abdominal pain (principal); R63.4 Abnormal weight loss
CPT/HCPCS: 74176

== ENCOUNTER 2022-10-17 08:41 | Emergency (ER) | payer MEDICARE, MEDICAID, SELFPAY ==
[2022-10-17 08:51] VITALS: BP 176/104; PULSE 103; RESP 19; TEMP 36.9; O2SAT 99; BMI 57.6
[2022-10-17 09:00] VITALS: BP 165/101; PULSE 94; O2SAT 99
--- NOTE | 2022-10-17 09:00 | XR_ITS ---
FINAL REPORT CLINICAL HISTORY: fall injury, lt arm pain FINDINGS: LEFT ELBOW Four views of the elbow were obtained. There is no acute fracture or dislocation. The joint spaces are intact. There is not soft tissue abnormality. IMPRESSION: No acute fracture Reviewed, Interpreted and Dictated by José Antonio Betancur MD Transcribed by Geovanna Florentino Authenticated and [facility]
--- NOTE | 2022-10-17 09:00 | XR_ITS ---
FINAL REPORT CLINICAL HISTORY: fall injury, lt upper arm pain COMPARISON: None FINDINGS: Two views of the left humerus were obtained. There is no acute fracture or dislocation. The joint spaces are well preserved. There is no acute soft tissue abnormality. IMPRESSION: No acute abnormality identified. Reviewed, Interpreted and Dictated by José Antonio Betancur MD Transcribed by Judith Aparicio Authenticated and [facility]
--- NOTE | 2022-10-17 09:00 | XR_ITS ---
FINAL REPORT CLINICAL HISTORY: twisting injury lt knee, hx of surgery x 1 month ago COMPARISON: None FINDINGS: LEFT KNEE 3 views of the left knee were obtained. There is no acute fracture or dislocation. There is mild narrowing of the medial compartment joint space. Large joint effusion is present. Visualized joint spaces are normally aligned. Soft tissues are unremarkable. IMPRESSION: Large joint effusion. Mild changes of osteoarthritis. Reviewed, Interpreted and Dictated by José Antonio Betancur MD Transcribed by Judith Aparicio Authenticated and [facility]
--- NOTE | 2022-10-17 09:00 | XR_ITS ---
FINAL REPORT CLINICAL HISTORY: fall injury, lt arm pain FINDINGS: LEFT FOREARM 2 views of the left forearm were obtained. There is no acute fracture or dislocation. The joints are intact. There are no soft tissue abnormalities. IMPRESSION: No acute process. Reviewed, Interpreted and Dictated by José Antonio Betancur MD Transcribed by Geovanna Florentino Authenticated and [facility]
--- NOTE | 2022-10-17 09:01 | HMH.EDGENADL ---
Discharge Plan Disposition Patient Disposition: Home, Self-Care Prescriptions Prescriptions: New ibuprofen 800 mg tablet 800 mg PO TID PRN (Reason: pain) 7 Days Qty: 20 0RF cyclobenzaprine 5 mg tablet 5 mg PO TID PRN (Reason: muscle spasm) 5 Days Qty: 15 0RF No Action ropinirole 2 mg tablet 2 mg PO QHS loratadine 10 mg tablet 10 mg PO DAILY dicyclomine 20 mg tablet 20 mg PO .COMPLEX Patient Comments: 20 mg PO twice daily; Rx Instructions: 20 mg PO twice daily; cyclobenzaprine 5 mg tablet 5 mg PO BID PRN (Reason: MUSCLE SPASMS) topiramate [Topamax] 100 mg tablet 150 mg PO BID Aimovig Autoinjector 70 mg/mL auto-injector 1 mg SQ MONTHLY medroxyprogesterone 150 mg/mL suspension 150 mg IM [id number] Patient Comments: INJECT 1ML INTRAMUSCULARLY ONCE EVERY 3 MONTHS DIRECTED pantoprazole 40 mg tablet,delayed release (DR/EC) 40 mg PO DAILY Ubrelvy 50 mg tablet 50 mg PO PRN levothyroxine 125 mcg tablet 125 mcg PO DAILY Patient Comments: TAKE ONE TABLET BY MOUTH EVERY DAY amitriptyline 100 mg tablet 125 mg PO DAILY Qty: 38 1RF paroxetine HCl 20 mg tablet 20 mg PO DAILY Qty: 30 1RF oxycodone-acetaminophen 5-325 mg tablet 1 tab PO PRN buspirone 10 mg tablet 10 mg PO BID Qty: 60 1RF hydroxyzine pamoate [Vistaril] 50 mg capsule 50 mg PO .COMPLEX Qty: 120 1RF Rx Instructions: 50 mg PO take BID PRN; and 2 capsule scheduled at bedtime; not to exceed 4 capsules per day prazosin 2 mg capsule 4 mg PO QHS Qty: 60 1RF oxybutynin chloride 5 mg tablet 5 mg PO DAILY Qty: 60 meloxicam 7.5 mg tablet See Rx Instructions .ROUTE .COMPLEX Qty: 30 2RF Dose Instruction: TAKE ONE TABLET BY MOUTH EVERY DAY FOR PAIN --TAKE WITH FOOD-- Rx Instructions: TAKE ONE TABLET BY MOUTH EVERY DAY FOR PAIN --TAKE WITH FOOD-- naproxen 500 MG tablet 500 mg PO BID PRN (Reason: Moderate Pain) Qty: 10 0RF Referrals Follow up/Referrals: Alka Tracy [Primary Care Provider] - See instructions Activity Restrictions/Add. Instructions Additional Instructions/Restrictions: Follow-up with your orthopedic surgeon if your symptoms do not improve for an outpatient MRI of your knee. Clinical Impressions Clinical Impression: Left knee sprain, Contusion of arm, left, Effusion of knee joint, left Discharge ED Provider: Fransico Oliva General Adult HPI General Chief complaint: Fall Stated complaint: AO [id number] left knee pain, same surgery knee Time Seen by Provider: 10/17/22 08:57 Mode of Arrival: Ambulatory Source of Information: Patient Limitations: No Limitations Description of Symptoms (Recalled from ER Triage Doc. by RN): 37 yo F presents to ED with c/o left knee pain. pt has hx of surgery on that knee approx 1 month ago. pt reports pain began yesterday after she twisted it while walking on carpet. pt called surgeon and he instructed her to come to ED. History of Present Illness HPI narrative: Patient is a 37-year-old female who presented to the emergency department with left knee pain. States that she had surgery with Dr. Gaitan in [place] on the of last month for a meniscal tear this was a scope. She twisted her knee yesterday and had significant pain in the knee called their office and they told her to come to the emergency department get an x-ray. Additionally while she was waiting to see me she tried to sit on the side of the stretcher and fell off the side and hit her left arm into the wall with significant force she states. She now has a left humeral elbow and forearm pain from the fall while she was in the emergency department. Related Data Home Medications Medication Instructions Recorded Confirmed cyclobenzaprine 5 mg tablet 5 mg PO BID PRN MUSCLE SPASMS 03/12/18 09/29/22 dicyclomine 20 mg tablet 20 mg PO .COMPLEX STOMACH 03/12/18 09/29/22 loratadine 10 mg tablet 1
[2022-10-17 09:54] VITALS: BP 160/98; PULSE 90; RESP 20; TEMP 36.8; O2SAT 97
== END 2022-10-17 09:56 | disposition home or self-care (01) ==
PROVIDERS: Emergency Provider Student in an Organized Health Care Education/Training Program; PCP Nurse Practitioner Family
DX: S83.92XA Sprain of unspecified site of left knee, initial encounter (principal); S40.022A Contusion of left upper arm, initial encounter; M25.462 Effusion, left knee; X50.1XXA Overexertion from prolonged static or awkward postures, initial encounter; F41.1 Generalized anxiety disorder; F31.81 Bipolar II disorder; K21.9 Gastro-esophageal reflux disease without esophagitis; G47.33 Obstructive sleep apnea (adult) (pediatric)
CPT/HCPCS: 73060; 73080; 73090; 73562; 99285

== ENCOUNTER → 2022-11-10 09:04 | Outpatient (CLI) | payer MEDICARE, MEDICAID, SELFPAY ==
[2022-11-10 10:44] LABS: Basophils # 0.1 K/mm3 (0-0.2); Basophils % 0.7 % (0.1-2.0); Eosinophils # 0.3 K/mm3 (0.0-0.4); Eosinophils % 2.7 % (0.1-12.0); Hematocrit 47.7 % (37.0-47.0); Hemoglobin 15.2 g/dL (12.2-16.2); Lymphocytes # 1.8 K/mm3 (0.7-4.5); Lymphocytes % 16.5 % (10-50); Mean Corpuscular HGB Conc 31.9 g/dL (31.8-35.4); Mean Corpuscular Hemoglobin 30.3 pg (27.0-31.2); Mean Corpuscular Volume 94.8 fl (81-99); Monocytes # 0.4 K/mm3 (0.1-1.0); Monocytes % 3.9 % (1.7-9.3); Neutrophils # 8.4 K/mm3 (1.8-7.8); Neutrophils % 76.2 % (37.0-80.0); Platelet Count 426 K/mm3 (142-424); Red Blood Count 5.03 M/mm3 (4.20-5.40); Red Cell Distribution Width 13.4 % (11.5-17.5)
[2022-11-10 11:04] LABS: Alanine Aminotransferase 31 U/L (12-78); Albumin Level 4.2 g/dl (3.5-5.0); Albumin/Globulin Ratio 1.3 (1.1-1.8); Alkaline Phosphatase 95 U/L (38-126); Anion Gap 15.7 mEq/L (5-15); Aspartate Amino Transferase 27 U/L (14-36); Bilirubin,Total 0.6 mg/dl (0.2-1.3); Blood Urea Nitrogen 12 mg/dl (7-17); Calcium 9.7 mg/dl (8.4-10.2); Carbon Dioxide 23 mmol/L (22.0-30.0); Chloride 103 mmol/L (98-107); Estimated Glomerular Filt Rate 80 ml/min (>60); GFR (African American) 97 ML/MIN (>60); Globulin 3.3 g/dL (1.3-3.2); Glucose 172 mg/dl (74-100); Potassium 4.7 mmoL/L (3.5-5.1); Sodium 137 mmol/L (136-145); Total Protein,Serum 7.5 g/dl (6.3-8.2)
[2022-11-10 11:10] LABS: Hemoglobin A1C 7.1 % (4.0-6.0)
[2022-11-10 11:34] LABS: Thyroid Stimulating Hormone 4.15 uIU/mL (0.465-4.68)
== END ==
PROVIDERS: PCP Nurse Practitioner Family; Visit Provider Nurse Practitioner Family
DX: Z00.00 Encounter for general adult medical examination without abnormal findings (principal); R73.09 Other abnormal glucose; Z79.899 Other long term (current) drug therapy
CPT/HCPCS: 36415; 80053; 83036; 84443; 85025

== ENCOUNTER 2023-02-14 12:08 | Emergency (ER) | payer MEDICARE, MEDICAID, SELFPAY ==
--- NOTE | 2023-02-14 13:00 | EXP.UTC ---
Discharge Plan Disposition Patient Disposition: Home, Self-Care Condition: Good Prescriptions Prescriptions: New amoxicillin [amoxicillin] 875 mg tablet 875 mg PO Q12H Qty: 20 0RF benzonatate [benzonatate] 100 mg capsule 100 mg PO TIDP PRN (Reason: Cough) Qty: 30 0RF prednisone [prednisone] 20 mg tablet 20 mg PO BID 4 Days Qty: 8 0RF No Action ropinirole 2 mg tablet 2 mg PO QHS loratadine 10 mg tablet 10 mg PO DAILY dicyclomine 20 mg tablet 20 mg PO .COMPLEX Patient Comments: 20 mg PO twice daily; Rx Instructions: 20 mg PO twice daily; topiramate [Topamax] 100 mg tablet 150 mg PO BID Aimovig Autoinjector 70 mg/mL auto-injector 1 mg SQ MONTHLY medroxyprogesterone 150 mg/mL suspension 150 mg IM [id number] Patient Comments: INJECT 1ML INTRAMUSCULARLY ONCE EVERY 3 MONTHS DIRECTED pantoprazole 40 mg tablet,delayed release (DR/EC) 40 mg PO DAILY Ubrelvy 50 mg tablet 50 mg PO PRN levothyroxine 125 mcg tablet 125 mcg PO DAILY Patient Comments: TAKE ONE TABLET BY MOUTH EVERY DAY amitriptyline 100 mg tablet 125 mg PO DAILY Qty: 38 1RF oxybutynin chloride 5 mg tablet 5 mg PO DAILY Qty: 60 topiramate 50 mg tablet 50 mg PO DAILY Patient Comments: TAKE THREE TABLETS BY MOUTH TWICE DAILY (DME) BD Luer-George Syringe 3 mL 25 gauge x 1 syringe See Rx Instructions .ROUTE .MEDSUPPLY Qty: 1 Patient Comments: USE DIRECTED FOR depo shot Rx Instructions: As directed amitriptyline 25 mg tablet 25 mg PO DAILY Patient Comments: TAKE ONE TABLET BY MOUTH EVERY NIGHT fluticasone propionate 50 mcg/actuation spray,suspension 1 spray intranasal DAILY nystatin 100,000 unit/gram cream topical Patient Comments: APPLY TOPICALLY TO THE AFFECTED AREA(S) TWICE DAILY -- FOR EXTERNAL USE ONLY-- cyclosporine [Restasis] 0.05 % dropperette 1 drp Eye-Both ONCE neomycin-polymyxin B-dexameth 3.5mg/mL-10,000 unit/mL-0.1 % drops,suspension 1 drp Eye-Both Q6H Patient Comments: INSTILL ONE DROP IN EACH EYE FOUR TIMES DAILY FOR 7 DAYS meloxicam 7.5 mg tablet See Rx Instructions .ROUTE .COMPLEX Qty: 30 2RF Dose Instruction: TAKE ONE TABLET BY MOUTH EVERY DAY FOR PAIN --TAKE WITH FOOD-- Rx Instructions: TAKE ONE TABLET BY MOUTH EVERY DAY FOR PAIN --TAKE WITH FOOD-- paroxetine HCl 20 mg tablet 20 mg PO DAILY Qty: 30 1RF prazosin 2 mg capsule 4 mg PO QHS Qty: 60 1RF buspirone 10 mg tablet 10 mg PO BID Qty: 60 1RF hydroxyzine pamoate 50 mg capsule 50 mg PO .COMPLEX Qty: 120 1RF Rx Instructions: 50 mg PO take BID PRN; and 2 capsule scheduled at bedtime; not to exceed 4 capsules per day naproxen 500 MG tablet 500 mg PO BID PRN (Reason: Moderate Pain) Qty: 10 0RF cyclobenzaprine 5 mg tablet 5 mg PO TID PRN (Reason: muscle spasm) 5 Days Qty: 15 0RF Referrals Follow up/Referrals: Alka Tracy [Primary Care Provider] - See instructions Activity Restrictions/Add. Instructions Additional Instructions/Restrictions: Drink plenty of fluids. Take tylenol or ibuprofen for pain or fever. Take the medications as directed. Follow up with your regular doctor. GO TO THE ER FOR ANY WORSENING SYMPTOMS Clinical Impressions Clinical Impression: Pharyngitis, Bronchitis Instructions Patient Instructions: DI for Pharyngitis/Tonsillopharyngitis -- Adult, DI for Acute Bronchitis [place] ED [place]ud[place] [facility] [place] General Stated complaint: cough, congestion, sore throat Time Seen by Provider: 02/14/23 13:00 History of Present Illness Provider Complaint: She states that she has had sore throat, productive cough, and she has felt bad for the past 3 days. Related Data Home Medications Medication Instructions Recorded Confirmed dicyclomine 20 mg tablet 20 mg PO .COMPLEX STOMACH 03/12/18 11/10/22 loratadine 10 mg tablet 10 mg PO DAILY ALLERGIES 03/12/18 11/10/22 ropinirole 2 mg tablet 2 mg PO QHS * 03/12/18 11/10/22 oxybutynin chloride 5 mg tablet 5 mg PO DAILY * #60 tabs 11/07/18 11/10/22 erenumab-aooe 70 mg/mL 1 mg SQ MONTHLY MIGRAINE 10/21/20 11/10/22 subcutaneous auto-injector (Aimovig Autoinjector) medroxyprogesterone 150 mg/mL 150 mg IM [id number] control 10/21/20 11/10/22 intramuscular suspension pantoprazole 40 mg tablet,delayed 40 mg PO DAILY ACID REFLUX 01/28/21 11/10/22 release topiramate 100 mg tablet (Topamax) 150 mg PO BID * 01/28/21 11/10/22 ubrogepant 50 mg tablet (Ubrelvy) 50 mg PO PRN 12/09/21 11/10/22 levothyroxine 125 mcg tablet 125 mcg PO DAILY 03/10/22 11/10/22 amitriptyline 25 mg tablet 25 mg PO DAILY 12/29/22 12/29/22 cyclosporine 0.05 % eye drops in a 1 drp Eye-Both ONCE 12/29/22 12/29/22 dropperette (Restasis) fluticasone propionate 50 1 spray intranasal DAILY 12/29/22 12/29/22 mcg/actuation nasal spray,suspension hniwiobz-ggmhssbpq-yviopacl 3.5 1 drp Eye-Both Q6H 12/29/22 12/29/22 mg/mL-10,000 unit/mL-0.1% eye drops nystatin 100,000 unit/gram topical topical 12/29/22 12/29/22 cream syringe with needle 3 mL 25 gauge #1 ea 12/29/22 12/29/22 x 1 (BD Luer-George Syringe) topiramate 50 mg tablet 50 mg PO DAILY 12/29/22 12/29/22 Previous Rx's Medication Instructions Recorded naproxen 500 mg tablet 500 mg PO BID PRN Moderate Pain 07/21/21 #10 tabs meloxicam 7.5 mg tablet See Rx Instructions .Route 07/07/22 .COMPLEX #30 tabs amitriptyline 100 mg tablet 125 mg PO DAILY Depression #38 tabs 08/09/22 cyclobenzaprine 5 mg tablet 5 mg PO TID PRN muscle spasm 5 10/17/22 days #15 tabs paroxetine HCl 20 mg tablet 20 mg PO DAILY Depression #30 tabs 12/13/22 buspirone 10 mg tablet 10 mg PO BID Depression #60 tabs 02/08/23 hydroxyzine pamoate 50 mg capsule 50 mg PO .COMPLEX increased 02/08/23 anxiety #120 caps prazosin 2 mg capsule 4 mg PO QHS * #60 caps 02/08/23 amoxicillin 875 mg tablet 875 mg PO Q12H #20 tabs 02/14/23 benzonatate 100 mg capsule 100 mg PO TIDP PRN Cough #30 caps 02/14/23 prednisone 20 mg tablet 20 mg PO BID 4 days #8 tabs 02/14/23 Allergies Allergy/AdvReac Type Severity Reaction Status Date / Time No Known Allergies Allergy Verified 12/29/22 09:06 [facility] Disclaimer: The information contained in this section may have been updated after the patient was seen, as this information can be updated by other users. Medical History Anxiety Bipolar II disorder Depression Generalized anxiety disorder GERD (gastroesophageal reflux disease) Insomnia Migraine TIAGO on CPAP Severe TIAGO with hypoxemia. Poor compliance in the setting of GI symptoms Severe obesity (BMI >= 40) Ulcer Surgical History History of bilateral carpal tunnel release History of fusion of cervical spine Hx of cholecystectomy Family History Other Family history unknown Social History Smoking Status: Never smoker alcohol intake: never substance use type: denies use current occupational status: disabled Travel in the last 8 weeks: None household members: none housing: apartment number of children: 0 caffeine: Yes ROS Obtained: Yes All systems reviewed & no additional complaints except as documented Constitutional Constitutional: Reports chills and Reports fever(s) Eyes Eyes: Denies eye discharge ENT Ears, Nose, Mouth, and Throat: Reports as per HPI Cardiovascular Cardiovascular: Denies chest pain Respiratory Respiratory: Denies chest congestion and Reports cough Gastrointestinal Gastrointestingal: Reports nausea; Denies abdominal pain, constipation, cramping, diarrhea or vomiting Musculoskeletal Musculoskeletal: Denies arthralgias Integumentary/Breasts Skin/Breast: Denies rash Neurologic Neurologic: Denies paresthesias Physical Exam General General appearance: alert and in no apparent distress Head Head exam: atraumatic, normocephalic and normal inspection Eye Eye exam: Present normal appearance, PERRL and EOMI ENT ENT exam: Present mucous membranes moist and normal external ear exam Expanded ENT Exam TM/Canal exam: Bilateral TM: erythema and bulging Nose exam: Absent sinus tenderness Mouth exam: Present normal external inspection; Absent drooling Teeth exam: Present normal inspection Throat exam: Present tonsillar erythema, tonsillomegaly and tonsillar exudate Neck Neck exam: Present normal inspection, full ROM and trachea midline; Absent tenderness, meningismus or lymphadenopathy Chest Chest inspection: Present normal inspection and symmetric chest wall rise; Absent tenderness Respiratory Respiratory exam: Present normal lung sounds bilaterally; Absent respiratory distress, wheezes or stridor Cardiovascular Cardiovascular exam: Present regular rate and normal rhythm; Absent systolic murmur or diastolic murmur Abdominal Exam Abdominal exam: Present soft and normal bowel sounds; Absent distention, tenderness, guarding, rebound or rigidity Extremities Exam Extremities exam: Present normal inspection and normal capillary refill; Absent calf tenderness Back Exam Back exam: Present normal inspection and full ROM; Absent tenderness, CVA tenderness (R) or CVA tenderness (L) Neurological Exam Neurological exam: Present alert, oriented X3 and CN II-XII intact Psychiatric Psychiatric exam: Present normal affect and normal mood Skin Skin exam: Present warm, dry, intact and normal color Medical Decision Making Medical Records Medical records reviewed: No I reviewed the patient's medical records. Travon Poe Pt receiving controlled substance: No Lab Data Lab results reviewed: Yes I reviewed the patient's lab results.
[2023-02-14 13:06] VITALS: BP 151/94; PULSE 102; RESP 18; TEMP 37; O2SAT 97; BMI 57.8
[2023-02-14 13:16] LABS: UTC Strep Screen (Rapid) Negative (Negative)
[2023-02-14 13:36] VITALS: BP 151/94; PULSE 102; RESP 18; TEMP 37; O2SAT 97
== END 2023-02-14 13:38 | disposition home or self-care (01) ==
PROVIDERS: Emergency Provider Nurse Practitioner Family; PCP Nurse Practitioner Family
DX: J20.9 Acute bronchitis, unspecified (principal); J02.9 Acute pharyngitis, unspecified; R05.9 Cough, unspecified; R09.89 Other specified symptoms and signs involving the circulatory and respiratory systems; K21.9 Gastro-esophageal reflux disease without esophagitis; E66.01 Morbid (severe) obesity due to excess calories; Z68.43 Body mass index [BMI] 50.0-59.9, adult
CPT/HCPCS: 87880; 99212; 99214; G0463

== ENCOUNTER 2023-02-22 23:27 | Emergency (ER) | payer MEDICARE, MEDICAID, SELFPAY ==
[2023-02-22 23:29] VITALS: BP 169/100; PULSE 100; O2SAT 97
[2023-02-22 23:30] VITALS: BP 169/100; PULSE 122; RESP 20; TEMP 36.9; O2SAT 98; BMI 59.4
--- NOTE | 2023-02-22 23:33 | ED_ITS ---
Discharge Plan Disposition Patient Disposition: Home, Self-Care Condition: Good Prescriptions Prescriptions: New loperamide [Imodium A-D] 2 mg tablet 2 mg PO Q6H PRN (Reason: loose stool) Qty: 14 0RF No Action ropinirole 2 mg tablet 2 mg PO QHS loratadine 10 mg tablet 10 mg PO DAILY dicyclomine 20 mg tablet 20 mg PO .COMPLEX Patient Comments: 20 mg PO twice daily; Rx Instructions: 20 mg PO twice daily; topiramate [Topamax] 100 mg tablet 150 mg PO BID Aimovig Autoinjector 70 mg/mL auto-injector 1 mg SQ MONTHLY medroxyprogesterone 150 mg/mL suspension 150 mg IM [id number] Patient Comments: INJECT 1ML INTRAMUSCULARLY ONCE EVERY 3 MONTHS DIRECTED pantoprazole 40 mg tablet,delayed release (DR/EC) 40 mg PO DAILY Ubrelvy 50 mg tablet 50 mg PO DAILY levothyroxine 125 mcg tablet 125 mcg PO DAILY Patient Comments: TAKE ONE TABLET BY MOUTH EVERY DAY amitriptyline 100 mg tablet 125 mg PO DAILY Qty: 38 1RF oxybutynin chloride 5 mg tablet 5 mg PO DAILY Qty: 60 topiramate 50 mg tablet 50 mg PO DAILY Patient Comments: TAKE THREE TABLETS BY MOUTH TWICE DAILY amitriptyline 25 mg tablet 25 mg PO DAILY Patient Comments: TAKE ONE TABLET BY MOUTH EVERY NIGHT fluticasone propionate 50 mcg/actuation spray,suspension 1 spray intranasal DAILY meloxicam 7.5 mg tablet See Rx Instructions .ROUTE .COMPLEX Qty: 30 2RF Dose Instruction: TAKE ONE TABLET BY MOUTH EVERY DAY FOR PAIN --TAKE WITH FOOD-- Rx Instructions: TAKE ONE TABLET BY MOUTH EVERY DAY FOR PAIN --TAKE WITH FOOD-- paroxetine HCl 20 mg tablet 20 mg PO DAILY Qty: 30 1RF prazosin 2 mg capsule 4 mg PO QHS Qty: 60 1RF buspirone 10 mg tablet 10 mg PO BID Qty: 60 1RF hydroxyzine pamoate 50 mg capsule 50 mg PO .COMPLEX Qty: 120 1RF Rx Instructions: 50 mg PO take BID PRN; and 2 capsule scheduled at bedtime; not to exceed 4 capsules per day naproxen 500 MG tablet 500 mg PO BID PRN (Reason: Moderate Pain) Qty: 10 0RF cyclobenzaprine 5 mg tablet 5 mg PO TID PRN (Reason: muscle spasm) 5 Days Qty: 15 0RF prednisone [prednisone] 20 mg tablet 20 mg PO BID 4 Days Qty: 8 0RF Activity Restrictions/Add. Instructions Additional Instructions/Restrictions: You were evaluated in the emergency department today. Please car pick up driver your prescription and take as needed for diarrhea. Make sure that you are staying hydrated. Eat a bland diet until your symptoms resolve. 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 Take Tylenol at home as needed for pain. Clinical Impressions Clinical Impression: Diarrhea, Abdominal pain Instructions Patient Instructions: DI for Diarrhea and Traveler's Diarrhea -- Adult, DI for Acute Abdominal Pain, DI for Nausea -- Adult Discharge ED Provider: Amy Jeter General Adult HPI General Chief complaint: Abdominal Pain Stated complaint: diarrhea x 2 weeks Time Seen by Provider: 02/22/23 23:28 History of Present Illness HPI narrative: This patient is a 37-year-old female with a history of morbid obesity, IBS, bipolar disorder, anxiety, TIAGO, peptic ulcers, and recurrent diarrhea presenting to the emergency department for evaluation with concern for diarrhea that start ed 02/10/2023. Patient reports that every time she eats, she has a loose bowel movement. She notes she has approximately 4 loose bowel movements in a day. Her diarrhea is nonbloody and there is no melena. She has had associated abdominal pain all across her upper abdomen that is not localized. She notes she is also had chills. She had nausea and 1 episode of emesis today that was nonbloody and nonbilious. She has a history of cholecystectomy but denies prior other intra-abdominal history. She states she has had a colonoscopy in the past but was not told that anything was abnormal. She denies any recent changes in medications aside from starting antibiotics on 02/14 2023, and she was diagnosed with bronchitis at the urgent treatment center. She was also put on steroids at that time. On medical record review, it appears that she was prescribed amoxicillin, Tessalon Perles, and prednisone. Patient arrives by EMS who noted that she was hemodynamically stable en route. Related Data Home Medications Medication Instructions Recorded Confirmed dicyclomine 20 mg tablet 20 mg PO .COMPLEX STOMACH 03/12/18 02/22/23 loratadine 10 mg tablet 10 mg PO DAILY ALLERGIES 03/12/18 02/22/23 ropinirole 2 mg tablet 2 mg PO QHS * 03/12/18 02/22/23 oxybutynin chloride 5 mg tablet 5 mg PO DAILY * #60 tabs 11/07/18 02/22/23 erenumab-aooe 70 mg/mL 1 mg SQ MONTHLY MIGRAINE 10/21/20 02/22/23 subcutaneous auto-injector (Aimovig Autoinjector) medroxyprogesterone 150 mg/mL 150 mg IM [id number] control 10/21/20 02/22/23 intramuscular suspension pantoprazole 40 mg tablet,delayed 40 mg PO DAILY ACID REFLUX 01/28/21 02/22/23 release topiramate 100 mg tablet (Topamax) 150 mg PO BID * 01/28/21 02/22/23 ubrogepant 50 mg tablet (Ubrelvy) 50 mg PO DAILY 12/09/21 02/22/23 levothyroxine 125 mcg tablet 125 mcg PO DAILY 03/10/22 02/22/23 amitriptyline 25 mg tablet 25 mg PO DAILY 12/29/22 02/22/23 fluticasone propionate 50 1 spray intranasal DAILY 12/29/22 02/22/23 mcg/actuation nasal spray,suspension topiramate 50 mg tablet 50 mg PO DAILY 12/29/22 02/22/23 Previous Rx's Medication Instructions Recorded naproxen 500 mg tablet 500 mg PO BID PRN Moderate Pain 07/21/21 #10 tabs meloxicam 7.5 mg tablet See Rx Instructions .Route 07/07/22 .COMPLEX #30 tabs amitriptyline 100 mg tablet 125 mg PO DAILY Depression #38 tabs 08/09/22 cyclobenzaprine 5 mg tablet 5 mg PO TID PRN muscle spasm 5 10/17/22 days #15 tabs paroxetine HCl 20 mg tablet 20 mg PO DAILY Depression #30 tabs 12/13/22 buspirone 10 mg tablet 10 mg PO BID Depression #60 tabs 02/08/23 hydroxyzine pamoate 50 mg capsule 50 mg PO .COMPLEX increased 02/08/23 anxiety #120 caps prazosin 2 mg capsule 4 mg PO QHS * #60 caps 02/08/23 prednisone 20 mg tablet 20 mg PO BID 4 days #8 tabs 02/14/23 loperamide 2 mg tablet (Imodium 2 mg PO Q6H PRN loose stool #14 02/23/23 A-D) tabs Allergies Allergy/AdvReac Type Severity Reaction Status Date / Time No Known Allergies Allergy Verified 12/29/22 09:06 [facility] Disclaimer: The information contained in this section may have been updated after the patient was seen, as this information can be updated by other users. Medical History Anxiety Bipolar II disorder Depression Generalized anxiety disorder GERD (gastroesophageal reflux disease) Insomnia Migraine TIAGO on CPAP Severe obesity (BMI >= 40) Ulcer Surgical History History of bilateral carpal tunnel release History of fusion of cervical spine Hx of cholecystectomy Family History Other Family history unknown Social History Smoking Status: Never smoker alcohol intake: never substance use type: denies use current occupational status: disabled Travel in the last 8 weeks: None household members: none housing: apartment number of children: 0 caffeine: Yes ROS Obtained: Yes All systems reviewed & no additional complaints except as documented Physical Exam General General appearance: alert, in no apparent distress and obese Head Head exam: atraumatic and normocephalic Eye Eye exam: Present normal appearance, PERRL and EOMI ENT ENT exam: Present normal exam, normal oropharynx, mucous membranes moist and normal external ear exam Neck Neck exam: Present normal inspection, full ROM and trachea midline; Absent tenderness Chest Chest inspection: Present normal inspection and symmetric chest wall rise; Absent tenderness Respiratory Respiratory exam: Present normal lung sounds bilaterally; Absent respiratory distress, wheezes, stridor or accessory muscle use Cardiovascular Cardiovascular exam: Present regular rate and normal rhythm Abdominal Exam Abdominal exam: Present soft; Absent distention, tenderness, guarding, rebound or rigidity Extremities Exam Extremities exam: Present normal inspection, full ROM and normal capillary refill; Absent tenderness or edema Back Exam Back exam: Present normal inspection and full ROM; Absent tenderness Neurological Exam Neurological exam: Present alert, oriented X3, CN II-XII intact and normal gait; Absent motor sensory deficit Psychiatric Psychiatric exam: Present normal affect and normal mood Skin Skin exam: Present warm and dry Medical Decision Making Medical Records Medical records reviewed: Yes I reviewed the patient's medical records. Travon Inquiry Pt receiving controlled substance: No Vital Signs: 02/22/23 23:30 02/22/23 23:29 02/23/23 01:55 Temperature 98.5 F Temperature Source Oral Pulse Rate 100 H 119 H Pulse Rate [Left Radial] 122 H Respiratory Rate 20 20 Blood Pressure 169/100 H 129/99 H Blood Pressure [Right Arm] 169/100 H Blood Pressure Mean 116 Blood Pressure Mean [Right Arm] 123 02 Sat by Pulse Oximetry 98 97 Oxygen Delivery Method Room Air Lab Data Lab results reviewed: Yes I reviewed the patient's lab results. Lab Results 02/22/23 23:34: Urine Color Yellow, Urine Appearance Clear, Urine pH 6.0, Ur Specific [place] >= 1.030, Urine Protein Negative, Urine Glucose (UA) Negative, Urine Ketones Negative, Urine Blood Negative, Urine Nitrate Negative, Urine Bi lirubin Negative, Urine Urobilinogen 0.2, Ur Leukocyte Esterase Negative, Urine RBC None, Urine WBC Occasional, Ur Squamous Epith Cells 3-5, Urine Bacteria Trace, Urine Mucus Trace 02/23/23 00:00: Urine HCG, Qual Negative 02/23/23 00:20: WBC 14.5 H, RBC 4.97, Hgb 15.7, Hct 46.1, MCV 92.9, MCH 31.6 H, MCHC 34.0, RDW 14.1, Plt Count 404, MPV 8.1, Neut % (Auto) 75.5, Lymph % (Auto) 15.8, Stewart % (Auto) 5.2, Eos % (Auto) 2.8, Baso % (Auto) 0.5, Neut # (Auto) 11.0 H, Lymph # (Auto) 2.3, Stewart # (Auto) 0.8, Eos # (Auto) 0.4, Baso # (Auto) 0.1, Sodium 134 L, Potassium 4.3, Chloride 100, Carbon Dioxide 26, Anion Gap 12.3, BUN 13, Creatinine 0.90, Estimated Creat Clear 66, Estimated GFR 70, Est GFR ( Amer) 84, Glucose 213 H, Calcium 9.4, Magnesium 1.6, Total Bilirubin 0.8, AST 32, ALT 40, Alkaline Phosphatase 114, Total Protein 7.5, Albumin 4.1, Globulin 3.4 H, Albumin/Globulin Ratio 1.2, Lipase 64, TSH 7.44 H, Thyroxine (T4) 11.8 H 02/23/23 00:20 02/23/23 00:20 Orders (Tests/Meds): ED MEDICATIONS Generic Name Dose Route Start Last Admin Trade Name Jose PRN Reason Stop Dose Admin Sodium Chloride 10 ml 02/23/23 01:16 02/23/23 01:17 Sodium Chloride 0.9% 10ml Syr (Rad Only) IV 03/25/23 01:15 10 ml NEEDED PRN Administration Maintain IV Site Discontinued Medications Generic Name Dose Route Start Last Admin Trade Name Freq PRN Reason Stop Dose Admin Acetaminophen 1,000 mg 02/23/23 02:19 02/23/23 02:31 Acetaminophen 1,000mg/100ml Vial IV 02/23/23 02:20 1,000 mg ONCE ONE Administration Lactated Ringer's 1,000 mls @ 999 mls/hr 02/22/23 23:32 02/23/23 00:30 Lactated Ringer's 1000 Ml Bag IV 02/23/23 00:32 999 mls/hr .Q1H1M ONE Administration Iopamidol 75 ml 02/23/23 01:16 02/23/23 01:17 Iopamidol-370 (76%);100ml Bottle IV 02/23/23 01:17 75 ml ONCE ONE Administration Ketorolac Tromethamine 15 mg 02/23/23 02:19 02/23/23 02:31 Ketorolac 30mg/Ml Vial IV 02/23/23 02:20 15 mg ONCE ONE Administration Ondansetron HCl 4 mg 02/22/23 23:32 02/23/23 00:30 Ondansetron 4mg/2ml Vial IV 02/22/23 23:33 4 mg ONCE ONE Administration ORDERS Category Date Time Status CT abdomen pelvis w con Stat Cat Scan 02/23/23 00:37 Completed Complete Blood Count Auto Diff Stat Lab 02/22/23 23:32 Completed Comprehensive Metabolic Panel Stat Lab 02/22/23 23:32 Completed Lipase Stat Lab 02/22/23 23:32 Completed Magnesium Stat Lab 02/22/23 23:32 Completed T4 (Thyroxine) Stat Lab 02/22/23 23:32 Completed Thyroid Stimulating Hormone Stat Lab 02/22/23 23:32 Completed Urinalysis and Microscopic Stat Lab 02/22/23 23:34 Completed Urine , HCG Qual. Stat Lab 02/23/23 00:00 Completed Medical Decision Narrative: In summary, this patient is a 37-year-old female presenting to the Emergency Department for evaluation of diarrhea and abdominal pain. Differential diagnoses considered include but are not limited to gastroenteritis, IBS, colitis, diverticulitis, dehydration, electrolyte derangement. Ruling out the most morbid conditions drove assessment. It should be noted patient's history includes obesity and IBS which are not at goal therapy. This complicates all aspects of care by increasing patient's risk for morbidity. I reviewed patient's past medical records and noted previous evaluations multiple times for abdominal pain and gastrointestinal symptoms in the past. She was prescribed Bentyl. On exam, the patient is well-appearing with benign abdominal exam. Workup included, CMP, lipase, magnesium, TSH, T4, CT scan, and urinalysis. She was given a bolus of IV fluids as well as IV Zofran. I asked if she would be able to provide us with a stool sample here, but she declined and said she would not be able to.. I independently interpreted CT scan prior to the radiologist read and noted no obvious acute inflammation or obstructive pattern. Please see their read for final interpretation. Labs were obtained that demonstrated mild leukocytosis, which could be due to her steroid use in the setting of her upper respiratory infection. No other acutely concerning abnormalities at this time. Radiology did note mild fashion around the pancreas, however lipase is normal.. On reassessment, patient had good improvement after administration of bolus of IV fluids, IV Zofran, IV Toradol, and IV acetaminophen. She states she is feeling better and is ready to go home. Given reassuring workup and exam, feel discharge is appropriate. 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 She was given instructions for supportive management and discharged with strict return precautions. Critical Care Critical Care Time Critical Care Time: No
[2023-02-22 23:36] LABS: Microscopic, Urine URINE MICROSCOPIC (MICROSCOPIC)
[2023-02-22 23:37] LABS: Appearance,Urine CLEAR (Clear); Bilirubin,Urine Negative (Negative); Blood, Urine Negative (Negative); Color,Urine YELLOW (Yellow); Glucose,Urine (UA) Negative (Negative); Ketones,Urine Negative (Negative); Leukocyte Esterase,Urine Negative (Negative); Nitrate,Urine Negative (Negative); Protein,Urine Negative (Negative); Specific Gravity, Urine >= 1.030 (1.005-1.030); Urobilinogen,Urine 0.2 EU/dl (0.2)
[2023-02-22 23:58] LABS: Bacteria,Urine Trace /lpf; Mucus,Urine Trace /lpf; WBC,Urine Occasional #/hpf (0-3)
[2023-02-23] MEDS: ONDANSETRON 4MG/2ML VIAL 4 MG IV (00:30)
[2023-02-23] MEDS: LACTATED RINGERS 1000ML 1,000 ML 999 ML IV (00:30)
[2023-02-23 00:34] LABS: Basophils # 0.1 K/mm3 (0-0.2); Basophils % 0.5 % (0.1-2.0); Chloride 100 mmol/L (98-107); Eosinophils # 0.4 K/mm3 (0.0-0.4); Eosinophils % 2.8 % (0.1-12.0); Hematocrit 46.1 % (37.0-47.0); Hemoglobin 15.7 g/dL (12.2-16.2); Lymphocytes # 2.3 K/mm3 (0.7-4.5); Lymphocytes % 15.8 % (10-50); Mean Corpuscular Hemoglobin 31.6 pg (27.0-31.2); Mean Corpuscular Volume 92.9 fl (81-99); Mean Platelet Volume 8.1 fl (7.4-10.4); Monocytes # 0.8 K/mm3 (0.1-1.0); Monocytes % 5.2 % (1.7-9.3); Neutrophils % 75.5 % (37.0-80.0); Platelet Count 404 K/mm3 (142-424); Potassium 4.3 mmoL/L (3.5-5.1); Red Blood Count 4.97 M/mm3 (4.20-5.40); Red Cell Distribution Width 14.1 % (11.5-17.5); Sodium 134 mmol/L (136-145); White Blood Count 14.5 K/mm3 (4.8-10.8)
[2023-02-23 00:36] LABS: Alanine Aminotransferase 40 U/L (12-78); Aspartate Amino Transferase 32 U/L (14-36); Blood Urea Nitrogen 13 mg/dl (7-17); Creatinine Clearance Estimated 66 mL/min (50-200); Estimated Glomerular Filt Rate 70 ml/min (>60); GFR (African American) 84 ML/MIN (>60)
[2023-02-23 00:37] LABS: Albumin Level 4.1 g/dl (3.5-5.0); Albumin/Globulin Ratio 1.2 (1.1-1.8); Alkaline Phosphatase 114 U/L (38-126); Anion Gap 12.3 mEq/L (5-15); Bilirubin,Total 0.8 mg/dl (0.2-1.3); Calcium 9.4 mg/dl (8.4-10.2); Carbon Dioxide 26 mmol/L (22.0-30.0); Globulin 3.4 g/dL (1.3-3.2); Glucose 213 mg/dl (74-100); Lipase 64 U/L (23-300); Magnesium 1.6 mg/dl (1.6-2.3); Total Protein,Serum 7.5 g/dl (6.3-8.2)
--- NOTE | 2023-02-23 00:37 | CT_ITS ---
PROCEDURE INFORMATION: Exam: CT Abdomen And Pelvis With Contrast Exam date and time: 02/23/2023 1:07 AM Age: 37 years old Clinical indication: Abdominal pain; Additional info: Abd pain, diarrhea TECHNIQUE: Imaging protocol: Computed tomography of the abdomen and pelvis with contrast. Radiation optimization: All CT scans at this facility use at least one of these dose optimization techniques: automated exposure control; mA and/or kV adjustment per patient size (includes targeted exams where dose is matched to clinical indication); or iterative reconstruction. Contrast material: ISOVUE; Contrast volume: 75 ml; Contrast route: IV; COMPARISON: 1. CT ABDOMEN PELVIS WO CON 05/12/2022 1:11 PM 2. PTV US PELVIS-TRANSVAGINAL ONLY 11/10/2016 11:18 AM 3. CR XR LUMBAR SPINE 2-3V 07/21/2021 11:01 AM FINDINGS: Liver: There is early morphologic changes of cirrhosis with volume redistribution. No concerning focal liver lesion. Gallbladder and bile ducts: The patient is status post cholecystectomy. Pancreas: Mild stranding adjacent to the pancreatic tail is perhaps minimally increased please correlate any abnormalities. There is fatty replacement of the pancreas. Spleen: The spleen is normal in size and attenuation. No splenic masses or cysts are observed. Adrenal glands: The adrenal glands appear normal. 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 Stomach and bowel: The stomach, small bowel, and colon are well-distended and show no evidence of wall thickening, masses, or obstruction. Appendix: No evidence of appendicitis. Intraperitoneal space: Unremarkable. No free air. No significant fluid collection. Vasculature: The abdominal aorta and its major branches appear normal without evidence of aneurysm or stenosis. There are pelvic phleboliths. Lymph nodes: There are mildly prominent but nonenlarged and nonspecific retroperitoneal nodes. Mildly prominent nodes in the central mesentery, nonspecific. Urinary bladder: Unremarkable as visualized. Reproductive: Is some stable stranding associated with the ovaries of uncertain significance. Bones/joints: The visualized osseous structures of the abdomen and pelvis appear intact and normal for patient age with no evidence of fractures or lytic or sclerotic lesions. Soft tissues: There is a small fat containing umbilical hernia. IMPRESSION: 1. Mild stranding adjacent to the pancreatic tail is perhaps minimally increased; please correlate any abnormalities. 2. Otherwise, incidental findings as above.
[2023-02-23 00:54] LABS: T4 (Thyroxine) 11.8 ug/dl (5.53-11.0)
--- NOTE | 2023-02-23 01:07 | PC.NURSE ---
pt in CT
[2023-02-23 01:08] LABS: Thyroid Stimulating Hormone 7.44 uIU/mL (0.465-4.68)
[2023-02-23 01:12] LABS: Urine Pregnancy, HCG Qual. Negative (Negative)
[2023-02-23] MEDS: SODIUM CHLORIDE 0.9% 10ML SYR (RAD ONLY) 10 ML IV (01:17)
[2023-02-23] MEDS: IOPAMIDOL-370 (76%);100ML BOTTLE 75 ML IV (01:17)
[2023-02-23 01:55] VITALS: BP 129/99; PULSE 119; RESP 20
--- NOTE | 2023-02-23 01:57 | PC.NURSE ---
pt assisted to bathroom and given a warm blanket
[2023-02-23] MEDS: ACETAMINOPHEN 1,000MG/100ML VIAL 1000 MG IV (02:31)
[2023-02-23] MEDS: KETOROLAC 30MG/ML VIAL 15 MG IV (02:31)
--- NOTE | 2023-02-23 02:36 | PC.NURSE ---
120 ML of Starry drink given to patient for PO challenge
[2023-02-23 02:51] VITALS: BP 138/97; PULSE 113; RESP 20; TEMP 36.8
--- NOTE | 2023-02-23 02:52 | PC.NURSE ---
Patient was able to keep liquid down. States she feels better and is ready to go home but declines having a ride.
--- NOTE | 2023-02-23 02:58 | PC.NURSE ---
Police is unable to take patient home. Kb her emergency contact was called per patient request. Kb states she will try to come up here patient informed. Patient wanted to sit in lobby.
== END 2023-02-23 03:06 | disposition home or self-care (01) ==
PROVIDERS: Emergency Provider Emergency Medicine; PCP Nurse Practitioner Family
DX: R10.9 Unspecified abdominal pain (principal); R19.7 Diarrhea, unspecified; R11.2 Nausea with vomiting, unspecified; G47.33 Obstructive sleep apnea (adult) (pediatric)
CPT/HCPCS: 74177; 80053; 81001; 81025; 83690; 83735; 84436; 84443; 85025; 96361; 96374; 96375; 99285; J0131; J2405; Q9967

== ENCOUNTER 2023-03-23 09:56 | Day surgery (SDC) | payer MEDICARE, MEDICAID, SELFPAY ==
[2023-03-21 13:54] VITALS: BMI 59.6
[2023-03-23 10:16] VITALS: BP 124/71; PULSE 97; RESP 17; TEMP 36.1; O2SAT 96
[2023-03-23 10:26] LABS: Urine Pregnancy, HCG Qual. Negative (Negative)
--- NOTE | 2023-03-23 10:48 | EXP.ANES.CKL ---
[facility] Disclaimer: The information contained in this section may have been updated after the patient was seen, as this information can be updated by other users. Medical History Anxiety Bipolar II disorder Depression Generalized anxiety disorder GERD (gastroesophageal reflux disease) Insomnia Migraine TIAGO on CPAP Severe obesity (BMI >= 40) Ulcer Surgical History History of bilateral carpal tunnel release History of fusion of cervical spine Hx of cholecystectomy Family History Other Family history unknown Social History Smoking Status: Never smoker alcohol intake: never substance use type: denies use current occupational status: disabled Travel in the last 8 weeks: None household members: none housing: apartment number of children: 0 caffeine: No [facility] Anesthesia Checklist Patient Identification Patient Identification: Arm Band Structural Data Admitted From: Home Planned Operative Procedure/s: EGD Consent for Planned Operative Procedure(s) Verified: Yes Verified Documents: Surgical Consent and History and Physical NPO Status Verified Time NPO: 00:00 Additional verifications Anesthesia Reactions: No Airway Assessment Mallampati Score:: Class III C-Spine Mobility Assessed: Yes TMJ Mobility Assessed: Yes Dentition: Edentulous Neurological Assessment Level of Consciousness: Awake and Alert Anesthesia Plan Anesthesia Risk discussed: Yes Anesthesia Plan: Verified ASA Class: III Anesthesia Type: MAC
[2023-03-23 10:49] VITALS: O2SAT 96
--- NOTE | 2023-03-23 11:02 | HMH.SCOPE ---
Procedure: Date: 03/23/23 Patient Date of :: 1985 Procedure Performed:: EGD & biopsies and dilation Indications:: Dysphagia, dyspepsia Performing Provider:: Munir Matta MD Referring Provider:: Lucille Matta APRN Sedation:: Propofol Procedure:: The gastroscope was gently passed through the incisoral orifice into the oral cavity and under direct visualization the esophagus was intubated. The endoscope was passed down the esophagus, through the stomach, and into the duodenum. Color, texture, mucosa, and anatomy of the esophagus, stomach, and duodenum were carefully examined with the scope. Findings:: Oropharynx: normal Esophagus: normal, grade B distal esophagitis noted, empiric bougie dilation performed EG Junction: intact at 40 cm Cardia: normal Fundus: normal, biopsies obtained for evaluation of h.pylori Body: normal Antrum: normal Duodenal bulb: normal Duodenum (second and third portion): normal Impression: Distal reflux esophagitis Symptomatic dysphagia treated with bougie dilation Specimens:: Gastric Recommendations:: PPI therapy, no food at least 4 hours before bed time Rpeat EGD and dilation in about THREE years or so, sooner if clinically indicated. Complications:: None Estimated blood obtained (mL): 0 Colonoscopy Component Colonoscopy Component Was a colonoscopy performed during today's procedure?: No
[2023-03-23 11:05] VITALS: BP 145/84; PULSE 92; RESP 18; TEMP 36.2; O2SAT 95
[2023-03-23 11:15] VITALS: BP 152/93; PULSE 92; RESP 18; O2SAT 96
[2023-03-23 11:25] VITALS: BP 184/81; PULSE 92; RESP 18; O2SAT 95
[2023-03-23 11:35] VITALS: BP 186/90; PULSE 94; RESP 18; O2SAT 97
== END 2023-03-23 11:35 | disposition home or self-care (01) ==
PROVIDERS: PCP Nurse Practitioner Family; Visit Provider Internal Medicine Gastroenterology
PROC: 0DJ08ZZ Inspection of Upper Intestinal Tract, Via Natural or Artificial Opening Endoscopic (ICD-10-PCS; CPT 43235; principal; 2023-03-23 11:00)
DX: R13.10 Dysphagia, unspecified (principal); R10.13 Epigastric pain; K31.89 Other diseases of stomach and duodenum; K21.00 Gastro-esophageal reflux disease with esophagitis, without bleeding
CPT/HCPCS: 43239; 43248; 81025; 88305

== ENCOUNTER 2023-05-05 13:50 | Outpatient (CLI) | payer MEDICARE, MEDICAID, SELFPAY ==
--- NOTE | 2023-05-05 13:53 | MM_ITS ---
PROCEDURE INFORMATION: Exam: MG Bilateral Screening 3D Mammography Exam date and time: 05/05/2023 1:46 PM Age: 38 years old Clinical indication: Screening examination TECHNIQUE: Imaging protocol: Bilateral Screening tomosynthesis and 2D mammography including computer-aided detection (CAD) when performed. COMPARISON: No relevant prior studies available. FINDINGS: MAMMOGRAPHY: Breast composition: The breasts are almost entirely fatty. Mass: None. Architectural distortion: None. Calcifications: No suspicious calcifications. Asymmetric density: None. Skin thickening: None. Axillary adenopathy: None. IMPRESSION: No mammographic evidence of malignancy. Annual screening is recommended unless otherwise clinically indicated. ASSESSMENT: BI-RADS Category 1: Negative
== END 2023-05-05 23:59 ==
PROVIDERS: PCP Nurse Practitioner Family; Visit Provider Nurse Practitioner Family
DX: Z12.31 Encounter for screening mammogram for malignant neoplasm of breast (principal)
CPT/HCPCS: 77063; 77067

== ENCOUNTER 2023-05-30 13:54 | Outpatient (CLI) | payer MEDICARE, MEDICAID, SELFPAY ==
[2023-05-31 08:55] VITALS: BMI 26.4
== END 2023-05-30 23:59 ==
LOC: DIETICIAN 13:54
PROVIDERS: PCP Nurse Practitioner Family; Visit Provider Nurse Practitioner Family
DX: E11.9 Type 2 diabetes mellitus without complications (principal); Z71.3 Dietary counseling and surveillance
CPT/HCPCS: 97802

== ENCOUNTER 2023-06-29 10:30 | Emergency (ER) | payer MEDICARE, MEDICAID, SELFPAY ==
[2023-06-29 10:40] VITALS: BP 145/86; PULSE 99; RESP 20; TEMP 36.6; O2SAT 98; BMI 55.2
--- NOTE | 2023-06-29 10:58 | EXP.UTC ---
Discharge Plan Disposition Patient Disposition: Home, Self-Care Condition: Good Prescriptions Prescriptions: New triamcinolone acetonide 0.1 % cream 1 applic topical BID PRN (Reason: itching) Qty: 30 0RF No Action ropinirole 2 mg tablet 2 mg PO QHS loratadine 10 mg tablet 10 mg PO DAILY dicyclomine 20 mg tablet 20 mg PO .COMPLEX Patient Comments: 20 mg PO twice daily; Rx Instructions: 20 mg PO twice daily; topiramate [Topamax] 100 mg tablet 150 mg PO HS Aimovig Autoinjector 70 mg/mL auto-injector 1 mg SQ MONTHLY medroxyprogesterone [Depo-Provera] 150 mg/mL suspension 150 mg IM [id number] Patient Comments: INJECT 1ML INTRAMUSCULARLY ONCE EVERY 3 MONTHS DIRECTED pantoprazole 40 mg tablet,delayed release (DR/EC) 40 mg PO DAILY Ubrelvy 50 mg tablet 50 mg PO DAILY PRN levothyroxine 125 mcg tablet 125 mcg PO DAILY Patient Comments: TAKE ONE TABLET BY MOUTH EVERY DAY mirtazapine [Remeron] 30 mg tablet 30 mg PO QHS Qty: 30 1RF urea 40 % cream 1 applic topical BID 30 Days Qty: 28 3RF methylprednisolone [Medrol (Martell)] 4 mg tablets,dose pack 4 mg PO PER PKG DIR Qty: 21 0RF oxybutynin chloride 5 mg tablet 5 mg PO DAILY Qty: 60 topiramate [Topamax] 50 mg tablet 50 mg PO DAILY Patient Comments: TAKE THREE TABLETS BY MOUTH TWICE DAILY fluticasone propionate 50 mcg/actuation spray,suspension 1 spray intranasal DAILY meloxicam 7.5 mg tablet See Rx Instructions .ROUTE .COMPLEX Qty: 30 2RF Dose Instruction: TAKE ONE TABLET BY MOUTH EVERY DAY FOR PAIN --TAKE WITH FOOD-- Rx Instructions: TAKE ONE TABLET BY MOUTH EVERY DAY FOR PAIN --TAKE WITH FOOD-- paroxetine HCl 20 mg tablet 20 mg PO DAILY Qty: 30 1RF buspirone 10 mg tablet 10 mg PO BID Qty: 60 1RF prazosin 2 mg capsule 4 mg PO QHS Qty: 60 1RF hydroxyzine pamoate 50 mg capsule 100 mg PO QID Qty: 120 1RF Rx Instructions: 50 mg PO take BID PRN; and 2 capsule scheduled at bedtime; not to exceed 4 capsules per day naproxen 500 MG tablet 500 mg PO BID PRN (Reason: Moderate Pain) Qty: 10 0RF amitriptyline 100 mg tablet 125 mg PO HS loperamide [Imodium A-D] 2 mg tablet 2 mg PO Q6H PRN (Reason: loose stool) Qty: 14 0RF Referrals Follow up/Referrals: Alka Tracy [Primary Care Provider] - See instructions Activity Restrictions/Add. Instructions Additional Instructions/Restrictions: Try to identify and avoid contact with the offending substance. Don't put the topical steroids (triamcinolone) on your face or your groin. Follow up with your regular doctor regarding this rash and the swelling of your feet. GO TO THE ER FOR ANY WORSENING SYMPTOMS OR CONCERNS Clinical Impressions Clinical Impression: Contact dermatitis, Pedal edema Instructions Patient Instructions: DI for Contact Dermatitis, DI for Dependent Edema, Triamcinolone Topical Discharge ED Provider: Terry Agudelo [facility] General Stated complaint: red bumps on breast Time Seen by Provider: 06/29/23 10:54 History of Present Illness Provider Complaint: She states that for the past 2 days she has had a rash on her left breast. She denies that it itches or hurts. She denies any fever/chills/malaise. She also states that her feet have been swelling on and off over the past few weeks. She denies that they are swollen now. Related Data Home Medications Medication Instructions Recorded Confirmed dicyclomine 20 mg tablet 20 mg PO .COMPLEX STOMACH 03/12/18 06/16/23 loratadine 10 mg tablet 10 mg PO DAILY ALLERGIES 03/12/18 06/16/23 ropinirole 2 mg tablet 2 mg PO QHS * 03/12/18 06/16/23 oxybutynin chloride 5 mg tablet 5 mg PO DAILY * #60 tabs 11/07/18 06/16/23 erenumab-aooe 70 mg/mL 1 mg SQ MONTHLY MIGRAINE 10/21/20 06/16/23 subcutaneous auto-injector (Aimovig Autoinjector) medroxyprogesterone 150 mg/mL 150 mg IM [id number] control 10/21/20 06/16/23 intramuscular suspension (Depo-Provera) pantoprazole 40 mg tablet,delayed 40 mg PO DAILY ACID REFLUX 01/28/21 06/16/23 release topiramate 100 mg tablet (Topamax) 150 mg PO HS * 01/28/21 06/16/23 levothyroxine 125 mcg tablet 125 mcg PO DAILY 03/10/22 06/16/23 fluticasone propionate 50 1 spray intranasal DAILY 12/29/22 06/16/23 mcg/actuation nasal spray,suspension topiramate 50 mg tablet (Topamax) 50 mg PO DAILY 12/29/22 06/16/23 amitriptyline 100 mg tablet 125 mg PO HS Depression 03/21/23 06/16/23 ubrogepant 50 mg tablet (Ubrelvy) 50 mg PO DAILY PRN 03/28/23 06/16/23 Previous Rx's Medication Instructions Recorded naproxen 500 mg tablet 500 mg PO BID PRN Moderate Pain 07/21/21 #10 tabs meloxicam 7.5 mg tablet See Rx Instructions .Route 07/07/22 .COMPLEX #30 tabs paroxetine HCl 20 mg tablet 20 mg PO DAILY Depression #30 tabs 12/13/22 loperamide 2 mg tablet (Imodium 2 mg PO Q6H PRN loose stool #14 02/23/23 A-D) tabs buspirone 10 mg tablet 10 mg PO BID Depression #60 tabs 06/07/23 hydroxyzine pamoate 50 mg capsule 100 mg (2 x 50 mg) PO QID 06/07/23 increased anxiety #120 caps prazosin 2 mg capsule 4 mg (2 x 2 mg) PO QHS * #60 caps 06/07/23 methylprednisolone 4 mg tablets in 4 mg PO PER PKG DIR #21 tabs 06/15/23 a dose pack (Medrol (Martell)) urea 40 % topical cream 1 applic topical BID 30 days #28 06/15/23 grams mirtazapine 30 mg tablet (Remeron) 30 mg PO QHS #30 tabs 06/19/23 triamcinolone acetonide 0.1 % 1 applic topical BID PRN itching 06/29/23 topical cream #30 grams Allergies Allergy/AdvReac Type Severity Reaction Status Date / Time No Known Allergies Allergy Verified 06/15/23 11:11 [facility] Disclaimer: The information contained in this section may have been updated after the patient was seen, as this information can be updated by other users. Medical History Severe obesity (BMI >= 40) TIAGO on CPAP Severe TIAGO with hypoxemia. Perfect compliance since 03/23/2023, status post EGD with dilatation Insomnia Generalized anxiety disorder Bipolar II disorder Ulcer Migraine GERD (gastroesophageal reflux disease) Depression Anxiety Surgical History History of fusion of cervical spine Hx of cholecystectomy History of bilateral carpal tunnel release Family History Other Family history unknown Social History Smoking Status: Never smoker alcohol intake: never substance use type: denies use current occupational status: disabled Travel in the last 8 weeks: None household members: none housing: apartment number of children: 0 caffeine: No ROS Obtained: Yes All systems reviewed & no additional complaints except as documented Constitutional Constitutional: Denies chills and Denies fever(s) Eyes Eyes: Denies eye discharge ENT Ears, Nose, Mouth, and Throat: Denies dizziness, Denies otalgia and Denies sore throat Cardiovascular Cardiovascular: Denies chest pain Respiratory Respiratory: Denies shortness of breath, Denies chest congestion, Denies cough, Denies stridor and Denies wheezing Gastrointestinal Gastrointestingal: Denies nausea or vomiting Musculoskeletal Musculoskeletal: Reports system reviewed and no additional complaints, except as documented and Denies arthralgias Integumentary/Breasts Skin/Breast: Reports as per HPI and Reports rash Neurologic Neurologic: Denies dizziness and Denies paresthesias Allergic/Immunologic Allergic/Immunologic: Denies wheezing Physical Exam General General appearance: alert and in no apparent distress Head Head exam: atraumatic, normocephalic and normal inspection Eye Eye exam: Present normal appearance, PERRL and EOMI ENT ENT exam: Present normal exam, normal oropharynx, mucous membranes moist, TM's normal bilaterally and normal external ear exam Neck Neck exam: Present normal inspection, full ROM and trachea midline; Absent meningismus or lymphadenopathy Chest Chest inspection: Present normal inspection and symmetric chest wall rise; Absent tenderness Respiratory Respiratory exam: Present normal lung sounds bilaterally; Absent respiratory distress Cardiovascular Cardiovascular exam: Present regular rate and normal rhythm; Absent JVD Abdominal Exam Abdominal exam: Present soft and normal bowel sounds; Absent distention, tenderness or guarding Extremities Exam Extremities exam: Present normal inspection, full ROM and normal capillary refill; Absent calf tenderness Back Exam Back exam: Present normal inspection; Absent tenderness Neurological Exam Neurological exam: Present alert and oriented X3 Psychiatric Psychiatric exam: Present normal affect and normal mood Skin Skin exam: Present rash (there is a patch of maculopapular lesions on the lateral aspect of her left breast. no erythema, no edema, no wounds noted. ) Lymphatic Lymphatic Findings: no adenopathy Medical Decision Making Medical Records Medical records reviewed: No I reviewed the patient's medical records. [place] Inquiry Pt receiving controlled substance: No Lab Data Lab results reviewed: Yes I reviewed the patient's lab results.
[2023-06-29 11:50] VITALS: BP 145/86; PULSE 99; RESP 20; TEMP 36.6; O2SAT 98
== END 2023-06-29 11:54 | disposition home or self-care (01) ==
PROVIDERS: Emergency Provider Nurse Practitioner Family; PCP Nurse Practitioner Family
DX: L25.9 Unspecified contact dermatitis, unspecified cause (principal); R60.0 Localized edema
CPT/HCPCS: 99212; 99214; G0463

== ENCOUNTER 2023-07-10 15:32 | Outpatient (CLI) | payer MEDICARE, MEDICAID, SELFPAY ==
--- NOTE | 2023-07-10 15:37 | MR_ITS ---
FINAL REPORT CLINICAL HISTORY: LEFT KNEE PAIN HX OF TON MENISCUS 1 YR AGO POPPING ON MEDIAL SIDE OF KNEE X2 MONTHS COMPARISON: 03/08/2022 FINDINGS: Multi planar MR imaging was performed of the right knee. The anterior and posterior cruciate ligaments are intact. The quadriceps and patellar tendons are intact. The lateral meniscus is intact. There is linear abnormal signal in the posterior horn of the medial meniscus which appears to extend to the medial aspect of the posterior horn, best seen on image #18 of series 10. The lateral meniscus is intact. The medial and lateral collateral ligaments appear intact. The medial and lateral retinacula appear intact. There are osteochondral lesions of the medial femoral condyle, new since prior exam, measuring up to 8 mm in size. There is a new osteochondral lesion in the medial tibial plateau, measuring 7 mm in size. There is mild hypertrophic change of the medial and lateral joint compartments. No evidence of soft tissue inflammatory reaction. IMPRESSION: Linear signal posterior horn of the medial meniscus which appears to extend to the medial aspect of the posterior horn as described. New osteochondral lesions in the medial femoral condyle and the medial tibial plateau when compared to the prior exam of February 2022. Reviewed, Interpreted and Dictated by José Antonio Betancur MD Transcribed by Brittany Valdez Authenticated and [facility]
== END 2023-07-10 23:59 | disposition home or self-care (01) ==
LOC: RAD 15:32
PROVIDERS: PCP Nurse Practitioner Family; Visit Provider Orthopaedic Surgery Adult Reconstructive Orthopaedic Surgery
DX: M25.562 Pain in left knee (principal)
CPT/HCPCS: 73721

== ENCOUNTER 2023-09-13 08:42 | Outpatient (CLI) | payer MEDICARE, MEDICAID, SELFPAY ==
--- NOTE | 2023-09-13 | MR_ITS ---
FINAL REPORT TECHNIQUE: Multiplanar MR, without and with gadolinium enhancement CLINICAL HISTORY: HEADACHE COMPARISON: None FINDINGS: Diffusion sequences show no signal abnormality to indicate acute infarct. No mass, hemorrhage or edema is seen. Ventricles are normal. Major vascular flow voids are intact. Following contrast administration, no mass or abnormal enhancement is seen. Chronic left maxillary sinusitis is present. IMPRESSION: Unremarkable MR evaluation the brain with and without contrast Chronic left maxillary sinusitis. Reviewed, Interpreted and Dictated by See Appiah MD Transcribed by Brittany Valdez Authenticated and . [facility]
[2023-09-13] MEDS: SODIUM CHLORIDE 0.9% 10ML SYR (RAD ONLY) 10 ML IV (09:48)
[2023-09-13] MEDS: GADOTERIDOL INJ 10ML SYRINGE 8 ML IV (09:48)
[2023-09-13] MEDS: GADOTERIDOL INJ 20ML SYRINGE 20 ML IV (09:49)
== END 2023-09-13 23:59 | disposition home or self-care (01) ==
LOC: RAD 08:43
PROVIDERS: PCP Nurse Practitioner Family; Visit Provider Ophthalmology Neuro-ophthalmology
DX: R51.9 Headache, unspecified (principal); G95.9 Disease of spinal cord, unspecified
CPT/HCPCS: 70553; A9576

== ENCOUNTER 2023-09-13 10:01 | Emergency (ER) | payer MEDICARE, MEDICAID, SELFPAY ==
[2023-09-13 10:25] VITALS: BP 139/88; PULSE 102; RESP 21; TEMP 36.9; O2SAT 100; BMI 56.1
[2023-09-13 10:37] LABS: Apearance,Urine Clear (Clear); Bilirubin,Urine Negative (Negative); Blood, Urine Negative (Negative); Color,Urine Yellow (Yellow); Glucose,Urine (UA) Negative (Negative); Ketones,Urine Negative (Negative); Protein,Urine Negative (Negative); Specific Gravity, Urine <= 1.005 (1.005-1.030); UTC Leukocyte Esterase,Urine Negative (Negative); UTC Nitrate,Urine Negative (Negative); Urobilinogen,Urine 0.2 EU/dl (0.2)
--- NOTE | 2023-09-13 10:45 | EXP.UTC ---
Discharge Plan Disposition Patient Disposition: Home, Self-Care Condition: Good Prescriptions Prescriptions: No Action ropinirole 2 mg tablet 2 mg PO QHS loratadine 10 mg tablet 10 mg PO DAILY dicyclomine 20 mg tablet 20 mg PO .COMPLEX Patient Comments: 20 mg PO twice daily; Rx Instructions: 20 mg PO twice daily; topiramate [Topamax] 100 mg tablet 150 mg PO HS Aimovig Autoinjector 70 mg/mL auto-injector 1 mg SQ MONTHLY medroxyprogesterone [Depo-Provera] 150 mg/mL suspension 150 mg IM [id number] Patient Comments: INJECT 1ML INTRAMUSCULARLY ONCE EVERY 3 MONTHS DIRECTED pantoprazole 40 mg tablet,delayed release (DR/EC) 40 mg PO DAILY Ubrelvy 50 mg tablet 50 mg PO DAILY PRN levothyroxine 125 mcg tablet 125 mcg PO DAILY Patient Comments: TAKE ONE TABLET BY MOUTH EVERY DAY urea 40 % cream 1 applic topical BID 30 Days Qty: 28 3RF methylprednisolone [Medrol (Martell)] 4 mg tablets,dose pack 4 mg PO PER PKG DIR Qty: 21 0RF oxybutynin chloride 5 mg tablet 5 mg PO DAILY Qty: 60 topiramate [Topamax] 50 mg tablet 50 mg PO DAILY Patient Comments: TAKE THREE TABLETS BY MOUTH TWICE DAILY fluticasone propionate 50 mcg/actuation spray,suspension 1 spray intranasal DAILY meloxicam 7.5 mg tablet See Rx Instructions .ROUTE .COMPLEX Qty: 30 2RF Dose Instruction: TAKE ONE TABLET BY MOUTH EVERY DAY FOR PAIN --TAKE WITH FOOD-- Rx Instructions: TAKE ONE TABLET BY MOUTH EVERY DAY FOR PAIN --TAKE WITH FOOD-- paroxetine HCl 20 mg tablet 20 mg PO DAILY Qty: 30 1RF buspirone 10 mg tablet 10 mg PO BID Qty: 60 3RF hydroxyzine pamoate 50 mg capsule 100 mg PO QID Qty: 120 3RF Rx Instructions: 50 mg PO take BID PRN; and 2 capsule scheduled at bedtime; not to exceed 4 capsules per day prazosin 2 mg capsule 4 mg PO QHS Qty: 60 1RF mirtazapine 30 mg tablet See Rx Instructions .ROUTE .COMPLEX Qty: 30 1RF Dose Instruction: TAKE ONE TABLET BY MOUTH EVERY DAY AT BEDTIME Rx Instructions: TAKE ONE TABLET BY MOUTH EVERY DAY AT BEDTIME naproxen 500 MG tablet 500 mg PO BID PRN (Reason: Moderate Pain) Qty: 10 0RF triamcinolone acetonide 0.1 % cream 1 applic topical BID PRN (Reason: itching) Qty: 30 0RF amitriptyline 100 mg tablet 125 mg PO HS loperamide [Imodium A-D] 2 mg tablet 2 mg PO Q6H PRN (Reason: loose stool) Qty: 14 0RF Referrals Follow up/Referrals: Alka Tracy [Primary Care Provider] - See instructions Activity Restrictions/Add. Instructions Additional Instructions/Restrictions: Follow up with your Family Doctor if symptoms persist Return if needed Straight to ER if any life threatening symptoms Clinical Impressions Clinical Impression: UTI symptoms Instructions Patient Instructions: DI for Dysuria -- Adult Print Language Print Language: French Discharge ED Provider: Eda Yi [facility] General Stated complaint: freq. urination and pain in back Mode of Arrival: Ambulatory Source of Information: Patient Limitations: No Limitations Time Seen by Provider: 09/13/23 10:46 Description of Symptoms (Recalled from Triage Doc. by RN): PATIENT C/O PAIN AND FREQUENCY WITH URINATION, LOWER BACK PAIN AND HEADACHE X 2 DAYS HEENT Symptoms (Recalled from RN notes): No Resp Symptoms (Recalled from RN notes): No Skin Symptoms (Recalled from RN notes): No MS Symptoms (Recalled from RN notes): No Functional Status (Recalled from RN notes): WNL History of Present Illness Provider Complaint: Patient states that she she wanted to get checked for UTI States that she has been urinating more frequently than she normally does and having achy like feeling on and off in her lower back so today she came in wanting to get checked for UTI Related Data Home Medications ?Medication ?Instructions ?Recorded ?Confirmed dicyclomine 20 mg tablet 20 mg PO .COMPLEX STOMACH 03/12/18 08/07/23 loratadine 10 mg tablet 10 mg PO DAILY ALLERGIES 03/12/18 08/07/23 ropinirole 2 mg tablet 2 mg PO QHS * 03/12/18 08/07/23 oxybutynin chloride 5 mg tablet 5 mg PO DAILY * #60 tabs 11/07/18 08/07/23 erenumab-aooe 70 mg/mL 1 mg SQ MONTHLY MIGRAINE 10/21/20 08/07/23 subcutaneous auto-injector (Aimovig Autoinjector) medroxyprogesterone 150 mg/mL 150 mg IM [id number] control 10/21/20 08/07/23 intramuscular suspension (Depo-Provera) pantoprazole 40 mg tablet,delayed 40 mg PO DAILY ACID REFLUX 01/28/21 08/07/23 release topiramate 100 mg tablet (Topamax) 150 mg PO HS * 01/28/21 08/07/23 levothyroxine 125 mcg tablet 125 mcg PO DAILY 03/10/22 08/07/23 fluticasone propionate 50 1 spray intranasal DAILY 12/29/22 08/07/23 mcg/actuation nasal spray,suspension topiramate 50 mg tablet (Topamax) 50 mg PO DAILY 12/29/22 08/07/23 amitriptyline 100 mg tablet 125 mg PO HS Depression 03/21/23 08/07/23 ubrogepant 50 mg tablet (Ubrelvy) 50 mg PO DAILY PRN 03/28/23 08/07/23 Previous Rx's ?Medication ?Instructions ?Recorded naproxen 500 mg tablet 500 mg PO BID PRN Moderate Pain 07/21/21 #10 tabs meloxicam 7.5 mg tablet See Rx Instructions .Route 07/07/22 .COMPLEX #30 tabs paroxetine HCl 20 mg tablet 20 mg PO DAILY Depression #30 tabs 12/13/22 loperamide 2 mg tablet (Imodium 2 mg PO Q6H PRN loose stool #14 02/23/23 A-D) tabs methylprednisolone 4 mg tablets in 4 mg PO PER PKG DIR #21 tabs 06/15/23 a dose pack (Medrol (Martell)) urea 40 % topical cream 1 applic topical BID 30 days #28 06/15/23 grams triamcinolone acetonide 0.1 % 1 applic topical BID PRN itching 06/29/23 topical cream #30 grams buspirone 10 mg tablet 10 mg PO BID Depression #60 tabs 08/02/23 hydroxyzine pamoate 50 mg capsule 100 mg (2 x 50 mg) PO QID 08/02/23 increased anxiety #120 caps prazosin 2 mg capsule 4 mg (2 x 2 mg) PO QHS * #60 caps 08/08/23 mirtazapine 30 mg tablet See Rx Instructions .Route 08/29/23 .COMPLEX #30 tabs Allergies Allergy/AdvReac Type Severity Reaction Status Date / Time No Known Allergies Allergy Verified 08/07/23 15:33 Worker's Comp Is this a Worker's Comp case?: No [facility] Disclaimer: The information contained in this section may have been updated after the patient was seen, as this information can be updated by other users. Medical History Severe obesity (BMI >= 40) TIAGO on CPAP Severe TIAGO with hypoxemia. Perfect compliance since 03/23/2023, status post EGD with dilatation Insomnia Generalized anxiety disorder Bipolar II disorder Ulcer Migraine GERD (gastroesophageal reflux disease) Depression Anxiety Surgical History History of fusion of cervical spine Hx of cholecystectomy History of bilateral carpal tunnel release Family History Other Family history unknown Social History Smoking Status: Never smoker alcohol intake: never substance use type: denies use current occupational status: disabled Travel in the last 8 weeks: None household members: none housing: apartment number of children: 0 caffeine: No ROS Obtained: Yes All systems reviewed & no additional complaints except as documented and Yes Systems reviewed as appropriate & no additional complaints except as documented Constitutional Constitutional: Reports system reviewed and no additional complaints, except as documented and Reports as per HPI ENT Ears, Nose, Mouth, and Throat: Reports system reviewed and no additional complaints, except as documented and Reports as per HPI Cardiovascular Cardiovascular: Reports system reviewed and no additional complaints, except as documented and Reports as per HPI Respiratory Respiratory: Reports system reviewed and no additional complaints, except as documented and Reports as per HPI Gastrointestinal Gastrointestingal: Reports system reviewed and no additional complaints, except as documented and as per HPI; Denies abdominal pain Genitourinary Female Genitourinary: Reports system reviewed and no additional complaints, except as documented, Reports as per HPI, Reports dysuria, Reports urinary frequency and Reports urinary urgency Musculoskeletal Musculoskeletal: Reports system reviewed and no additional complaints, except as documented, Reports as per HPI and Reports other (achy like feeling on and off in lower back) Physical Exam General General appearance: alert and in no apparent distress ENT ENT exam: Present normal exam, normal oropharynx and mucous membranes moist Respiratory Respiratory exam: Present normal lung sounds bilaterally; Absent respiratory distress or wheezes Cardiovascular Cardiovascular exam: Present regular rate and normal heart sounds; Absent normal rhythm or bradycardia Abdominal Exam Abdominal exam: Present soft and normal bowel sounds; Absent distention or tenderness Neurological Exam Neurological exam: Present alert, oriented X3 and normal gait Medical Decision Making Travon Inquiry Pt receiving controlled substance: No Travon was queried for this patient: No Vital Signs: 09/13/23 10:25 Temperature 98.5 F Temperature Source Oral Pulse Rate [Left Brachial] 102 H Respiratory Rate 21 Blood Pressure [Left Arm] 139/88 Blood Pressure Mean [Left Arm] 105 Blood Pressure Source [Left Arm] Automatic Cuff Blood Pressure Position [Left Arm] Sitting 02 Sat by Pulse Oximetry 100 Oxygen Delivery Method Room Air Lab Data Lab results reviewed: Yes I reviewed the patient's lab results. Lab Results 09/13/23 10:36: Urine Color Yellow, Urine Appearance Clear, Urine pH 6.0, Ur Specific [place] <= 1.005, Urine Protein Negative, Urine Glucose (UA) Negative, Urine Ketones Negative, Urine Blood Negative, Urine Nitrate Negative, Urine Bilirubin Negative, Urine Urobilinogen 0.2, Ur Leukocyte Esterase Negative
[2023-09-13 10:56] VITALS: BP 139/88; PULSE 102; RESP 21; TEMP 36.9; O2SAT 100
== END 2023-09-13 10:58 | disposition home or self-care (01) ==
PROVIDERS: Emergency Provider Nurse Practitioner; PCP Nurse Practitioner Family
DX: R51.9 Headache, unspecified (principal); N39.0 Urinary tract infection, site not specified; G43.909 Migraine, unspecified, not intractable, without status migrainosus; M54.50 Low back pain, unspecified
CPT/HCPCS: 70553; 81003; 99212; A9576; G0463

== ENCOUNTER 2023-12-28 12:26 | Outpatient (POV) | payer MEDICARE, MEDICAID, SELFPAY ==
--- NOTE | 2023-12-28 13:12 | EXP.PAIN.OV ---
HPI Data of Consult Patient: new to practice Consult date: 12/28/23 Requesting Physician: Amy Dunn APRN Primary Care Provider: Alka Tracy Consult Narrative Reason for consult: Low back pain, bilateral leg pain, neck pain, bilateral shoulder pain History of present illness: Ms. Bell is a 38 year old female who presents today as a new patient. She is a referral from Alka Tracy's office. Today she rates her pain a 10 out of 10. Patient states she has chronic pain throughout her neck, bilateral shoulders, low back and bilateral lower extremities. Patient does also states she has a torn meniscus in her left knee that also causes additional issues. Patient states that this has all been going on for years and progressively worsened. She describes it as an aching, throbbing sensation with numbness in different areas. Patient does state that above all of it her overall low back and leg symptoms are the worst. She does have numbness that goes from her back all the way down to her feet. Patient does also state that she has neuropathy related to her diabetes. Patient states that she was not aware that she even had diabetes until being diagnosed this summer. Patient states that her A1c had been around 8 but now at her last check it was 6.5 and that she is having it checked again next week. Patient states she is seeing orthopedics for her left knee pain and that she has had a knee scope in the past however where she is legally blind she was given crutches and that set her off balance more than she normally is in any way and she fell. Patient states that she ended up tearing additional areas however the orthopedic doctor will not do another surgery until her BMI is under 45. Patient has tried oral medications such as Tylenol along with heat and ice and topicals with no additional relief. Patient has tried injection therapy in the past with our office and states that it did help. She states that she thinks it has been a couple of years since she has been with those. Patient is open to additional injection therapy. She has tried physical therapy in the past with no additional relief and has continued to do at home stretching exercise for longer than 12 weeks with no additional improvement.She is not on any scheduled medications. Her Travon has been reviewed and is appropriate. CC: Amy Dunn APRN [facility] Disclaimer: The information contained in this section may have been updated after the patient was seen, as this information can be updated by other users. Medical History Borderline personality disorder Severe obesity (BMI >= 40) TIAGO on CPAP Severe TIAGO with hypoxemia. Perfect compliance since 03/23/2023, status post EGD with dilatation Insomnia Generalized anxiety disorder Bipolar II disorder Ulcer Migraine GERD (gastroesophageal reflux disease) Depression Anxiety Surgical History History of fusion of cervical spine Hx of cholecystectomy History of bilateral carpal tunnel release Family History Other Family history unknown Social History Smoking Status: Never smoker alcohol intake: never substance use type: denies use current occupational status: disabled Travel in the last 8 weeks: None household members: none housing: apartment number of children: 0 caffeine: No Review of Systems Review of Systems Review of systems:: pertinent systems reviewed and negative unless documented below Review of systems (narrative): Review of Systems: General: No recent weight changes, no fever, no sleep disturbances Respiratory: No cough, no shortness of air, no recurring pulmonary infections Cardiovascular/peripheral vascular: No chest pain, no palpitations, no edema, no shortness of breath Gastrointestinal: No new onset incontinence, normal bowel movements reported Genitourinary: No new onset incontinence Musculoskeletal: Neck pain, bilateral shoulder pain, low back pain, leg pain, left knee pain Psychiatric: [Normal mood/affect] Neurological: [Denies weakness in extremities], [denies balance issues] Meds Home Medications and Allergies Home Medications ?Medication ?Instructions ?Recorded ?Confirmed ?Type dicyclomine 20 mg tablet 20 mg PO .COMPLEX STOMACH 03/12/18 12/11/23 History loratadine 10 mg tablet 10 mg PO DAILY ALLERGIES 03/12/18 12/11/23 History ropinirole 2 mg tablet 2 mg PO QHS * 03/12/18 10/22/23 History oxybutynin chloride 5 mg tablet 5 mg PO DAILY * #60 tabs 11/07/18 10/22/23 History erenumab-aooe 70 mg/mL 1 mg SQ MONTHLY MIGRAINE 10/21/20 12/11/23 History subcutaneous auto-injector (Aimovig Autoinjector) medroxyprogesterone 150 mg/mL 150 mg IM [id number] control 10/21/20 12/11/23 History intramuscular suspension (Depo-Provera) pantoprazole 40 mg tablet,delayed 40 mg PO DAILY ACID REFLUX 01/28/21 10/22/23 History release topiramate 100 mg tablet (Topamax) 150 mg PO HS * 01/28/21 10/22/23 History naproxen 500 mg tablet 500 mg PO BID PRN Moderate Pain 07/21/21 10/22/23 Rx #10 tabs levothyroxine 125 mcg tablet 125 mcg PO DAILY 03/10/22 12/11/23 History meloxicam 7.5 mg tablet See Rx Instructions .Route 07/07/22 10/22/23 Rx .COMPLEX #30 tabs paroxetine HCl 20 mg tablet 20 mg PO DAILY Depression #30 tabs 12/13/22 10/22/23 Rx fluticasone propionate 50 1 spray intranasal DAILY 12/29/22 12/11/23 History mcg/actuation nasal spray,suspension topiramate 50 mg tablet (Topamax) 50 mg PO DAILY 12/29/22 10/22/23 History loperamide 2 mg tablet (Imodium 2 mg PO Q6H PRN loose stool #14 02/23/23 12/11/23 Rx A-D) tabs amitriptyline 100 mg tablet 125 mg PO HS Depression 03/21/23 12/11/23 History ubrogepant 50 mg tablet (Ubrelvy) 50 mg PO DAILY PRN 03/28/23 10/22/23 History triamcinolone acetonide 0.1 % 1 applic topical BID PRN itching 06/29/23 10/22/23 Rx topical cream #30 grams hydroxyzine pamoate 50 mg capsule 100 mg (2 x 50 mg) PO QID 08/02/23 12/11/23 Rx increased anxiety #120 caps methylprednisolone 4 mg tablets in 4 mg PO PER PKG DIR #21 tabs 09/14/23 10/22/23 Rx a dose pack (Medrol (Martell)) prazosin 2 mg capsule 4 mg (2 x 2 mg) PO QHS * #60 caps 10/03/23 10/22/23 Rx mirtazapine 45 mg tablet 45 mg PO HS #30 tabs 10/05/23 10/05/23 Rx buspirone 10 mg tablet 10 mg PO BID Depression #60 tabs 12/04/23 12/11/23 Rx cyanocobalamin (vitamin B-12) 1,000 mcg IM WEEKLY 12/11/23 12/11/23 History 1,000 mcg/mL injection solution tirzepatide 7.5 mg/0.5 mL mg SQ 12/11/23 12/11/23 History subcutaneous pen injector (Yevgeniy) urea 40 % topical cream 1 applic topical BID 30 days #28 12/11/23 12/11/23 Rx grams New Prescriptions to Start Prescriptions: Allergies Allergy/AdvReac Type Severity Reaction Status Date / Time No Known Allergies Allergy Verified 12/11/23 08:40 Objective Narrative: Physical Exam: General: Alert and oriented x3, no acute distress, pleasant and cooperative Lungs: Respirations even and unlabored, symmetrical chest expansion Eyes: PERRL Musculoskeletal: Flexion and extension of lumbar [spine] somewhat guarded secondary to pain, [antalgic gait noted] extreme point tenderness along the lower lumbar spine with a positive leg raise Neurological: Speech clear, no gross sensory deficit Additional findings Additional findings: FINDINGS: LUMBAR SPINE. Three views demonstrate no acute fracture. Mild degenerative change with osteophytes are present. There is no malalignment. IMPRESSION: Mild degenerative changes without acute bony abnormality. Reviewed, Interpreted and Dictated by Valdez Thomas III, MD Transcribed by Valeria Doyle Authenticated by Valdez Thomas III, MD on 07/21/2021 12:28:[address] [facility] Assessment and Plan *Assessment and plan (1) Low back pain: Status: Acute Qualifiers: Back pain laterality: bilateral Chronicity: unspecified Sciatica laterality: bilateral sciatica Sciatica presence: with sciatica Qualified Code(s): M54.42 - Lumbago with sciatica, left side; M54.41 - Lumbago with sciatica, right side Category: Medical Code(s): M54.50 - Low back pain, unspecified (2) Cervical radiculopathy: Status: Chronic Category: Medical Code(s): M54.12 - Radiculopathy, cervical region (3) Lumbar radiculopathy: Status: Acute Category: Medical Code(s): M54.16 - Radiculopathy, lumbar region (4) Degenerative disc disease, lumbar: Status: Acute Category: Medical Code(s): M51.369 - Other intervertebral disc degeneration, lumbar region without mention of lumbar back pain or lower extremity pain (5) Left knee pain: Status: Acute Category: Medical Code(s): M25.562 - Pain in left knee Plan Patient is experiencing worsening pain in her low back with radiating numbness and tingling running down her bilateral lower extremities. Patient did have limited range of motion of her lumbar spine with extreme point tenderness along her lower lumbar spine during today's exam and a positive leg raise. Patient was counseled that I do believe she would benefit from a lumbar epidural steroid injection. Risk and benefits were discussed with the patient and she would like to proceed forward with this plan of care. Patient has tried and failed conservative therapy including continued at home stretching exercise for longer than 12 weeks. Patient will be scheduled for an LESI L4-L5 under fluoroscopy. I will also order the patient a compounded cream. Patient has been instructed to contact the clinic with any concerns before the next appointment. Dr. Michelle has reviewed this note and agrees with this plan of care. This note was dictated using voice recognition software and make contain errors or omissions. All injections are used with Lidocaine or Bupivacaine and Depo Medrol.
[2023-12-28 14:12] VITALS: BP 134/88; PULSE 93; RESP 18; O2SAT 100; BMI 53.7
== END 2023-12-28 23:59 | disposition home or self-care (01) ==
PROVIDERS: PCP Nurse Practitioner Family; Visit Provider Nurse Practitioner Family
DX: M25.562 Pain in left knee; M51.16 Intervertebral disc disorders with radiculopathy, lumbar region; Z79.899 Other long term (current) drug therapy; M25.511 Pain in right shoulder; M25.512 Pain in left shoulder; M79.604 Pain in right leg; M79.605 Pain in left leg
CPT/HCPCS: 73030; 99202; G0463

== ENCOUNTER 2024-01-31 08:22 | Emergency (ER) | payer MEDICARE, MEDICAID, SELFPAY ==
[2024-01-31 08:30] VITALS: BP 149/101; PULSE 107; RESP 20; TEMP 36.8; O2SAT 98; BMI 53.4
[2024-01-31 08:38] VITALS: BP 149/101; PULSE 107; RESP 20; TEMP 36.8; O2SAT 98
--- NOTE | 2024-01-31 08:42 | ED_ITS ---
Discharge Plan Disposition Patient Disposition: Home, Self-Care Condition: Good Prescriptions Prescriptions: No Action ropinirole 2 mg tablet 2 mg PO QHS loratadine 10 mg tablet 10 mg PO DAILY dicyclomine 20 mg tablet 20 mg PO .COMPLEX Patient Comments: 20 mg PO twice daily; Rx Instructions: 20 mg PO twice daily; topiramate [Topamax] 100 mg tablet 150 mg PO HS Aimovig Autoinjector 70 mg/mL auto-injector 1 mg SQ MONTHLY medroxyprogesterone [Depo-Provera] 150 mg/mL suspension 150 mg IM [id number] Patient Comments: INJECT 1ML INTRAMUSCULARLY ONCE EVERY 3 MONTHS DIRECTED pantoprazole 40 mg tablet,delayed release (DR/EC) 40 mg PO DAILY Ubrelvy 50 mg tablet 50 mg PO DAILY PRN (Reason: .) levothyroxine 125 mcg tablet 125 mcg PO DAILY Patient Comments: TAKE ONE TABLET BY MOUTH EVERY DAY methylprednisolone [Medrol (Martell)] 4 mg tablets,dose pack 4 mg PO PER PKG DIR Qty: 21 0RF cyanocobalamin (vitamin B-12) 1,000 mcg/mL solution 1,000 mcg IM WEEKLY Patient Comments: inject 1 ML into THE deltoid muscle ONCE a WEEK FOR 3 WEEKS STARTING THE WEEK of 10/10/23, THEN inject 1ml monthly FOR 3 MONTHS Mounjaro 7.5 mg/0.5 mL pen injector 7.5 mg SQ DIRECTED Patient Comments: INJECT THE CONTENTS OF 1 PEN (7.5 MG / 0.5ML) SUBCUTANEOUSLY ONCE A WEEK urea 40 % cream 1 applic topical BID 30 Days Qty: 28 3RF oxybutynin chloride 5 mg tablet 5 mg PO DAILY Qty: 60 topiramate [Topamax] 50 mg tablet 50 mg PO DAILY Patient Comments: TAKE THREE TABLETS BY MOUTH TWICE DAILY fluticasone propionate 50 mcg/actuation spray,suspension 1 spray intranasal DAILY meloxicam 7.5 mg tablet See Rx Instructions .ROUTE .COMPLEX Qty: 30 2RF Dose Instruction: TAKE ONE TABLET BY MOUTH EVERY DAY FOR PAIN --TAKE WITH FOOD-- Rx Instructions: TAKE ONE TABLET BY MOUTH EVERY DAY FOR PAIN --TAKE WITH FOOD-- paroxetine HCl 20 mg tablet 20 mg PO DAILY Qty: 30 1RF hydroxyzine pamoate 50 mg capsule 100 mg PO QID Qty: 120 3RF Rx Instructions: 50 mg PO take BID PRN; and 2 capsule scheduled at bedtime; not to exceed 4 capsules per day prazosin 2 mg capsule 4 mg PO QHS Qty: 60 3RF buspirone 10 mg tablet 10 mg PO BID Qty: 60 3RF mirtazapine 45 mg tablet 45 mg PO HS Qty: 30 2RF doxycycline hyclate 100 mg capsule 100 mg PO BID 14 Days Qty: 28 0RF mupirocin 2 % ointment 1 applic topical BID 14 Days Qty: 15 0RF naproxen 500 MG tablet 500 mg PO BID PRN (Reason: Moderate Pain) Qty: 10 0RF triamcinolone acetonide 0.1 % cream 1 applic topical BID PRN (Reason: itching) Qty: 30 0RF amitriptyline 100 mg tablet 125 mg PO HS loperamide [Imodium A-D] 2 mg tablet 2 mg PO Q6H PRN (Reason: loose stool) Qty: 14 0RF Referrals Follow up/Referrals: Alka Tracy [Primary Care Provider] - See instructions Activity Restrictions/Add. Instructions Additional Instructions/Restrictions: Go straight to the Podiatry office for further evaluation and treatment Further care per podiatry Clinical Impressions Clinical Impression: Toe problem Print Language Print Language: Arabic Discharge ED Provider: Eda Yi [facility] General Stated complaint: both big toes infection Mode of Arrival: Ambulatory Source of Information: Patient Limitations: No Limitations Time Seen by Provider: 01/31/24 08:43 Description of Symptoms (Recalled from Triage Doc. by RN): PATIENT C/O REDNESS AND DRAINAGE TO BILATERAL GREAT TOES X 1 WEEK HEENT Symptoms (Recalled from RN notes): No Resp Symptoms (Recalled from RN notes): No Skin Symptoms (Recalled from RN notes): Yes MS Symptoms (Recalled from RN notes): No Functional Status (Recalled from RN notes): WNL History of Present Illness Provider Complaint: Patient states that she has been having infected toenails in her left big toe and now she is starting to have redness in her right States that she has been having some drainage from the left great toe around the toenail, states that she was started on antibiotics last week by Podiatry but they have continued to get worse Related Data Home Medications ?Medication ?Instructions ?Recorded ?Confirmed amitriptyline 100 mg tablet 100 mg PO DAILY 01/31/24 01/31/24 buspirone 10 mg tablet 10 mg PO TID 01/31/24 01/31/24 cyclobenzaprine 5 mg tablet 5 mg PO TID 01/31/24 01/31/24 doxycycline hyclate 100 mg capsule 100 mg PO BID 01/31/24 01/31/24 doxycycline hyclate 100 mg capsule 100 mg PO DAILY 01/31/24 01/31/24 erenumab-aooe 140 mg/mL 140 mg SQ WEEKLY 01/31/24 01/31/24 subcutaneous auto-injector (Aimovig Autoinjector) hydroxyzine pamoate 50 mg capsule 50 mg PO BID 01/31/24 01/31/24 levothyroxine 137 mcg tablet 137 mcg PO DAILY 01/31/24 01/31/24 loratadine 10 mg tablet 10 mg PO DAILY 01/31/24 01/31/24 mirtazapine 45 mg tablet 45 mg PO HS 01/31/24 01/31/24 mupirocin 2 % topical ointment 1 applic topical BID 01/31/24 01/31/24 mupirocin 2 % topical ointment 1 applic topical DAILY 01/31/24 01/31/24 pantoprazole 40 mg tablet,delayed 40 mg PO DAILY 01/31/24 01/31/24 release paroxetine HCl 20 mg tablet 20 mg PO DAILY 01/31/24 01/31/24 prazosin 2 mg capsule 2 mg PO HS 01/31/24 01/31/24 tirzepatide 7.5 mg/0.5 mL 7.5 mg SQ WEEKLY 01/31/24 01/31/24 subcutaneous pen injector (Treunzuleimaro) topiramate 50 mg tablet 50 mg PO DAILY 01/31/24 01/31/24 Allergies Allergy/AdvReac Type Severity Reaction Status Date / Time No Known Allergies Allergy Verified 12/11/23 08:40 Worker's Comp Is this a Worker's Comp case?: No [facility] Disclaimer: The information contained in this section may have been updated after the patient was seen, as this information can be updated by other users. Medical History Borderline personality disorder Severe obesity (BMI >= 40) TIAGO on CPAP Severe TIAGO with hypoxemia. Perfect compliance since 03/23/2023, status post EGD with dilatation Insomnia Generalized anxiety disorder Bipolar II disorder Ulcer Migraine GERD (gastroesophageal reflux disease) Depression Anxiety Surgical History History of fusion of cervical spine Hx of cholecystectomy History of bilateral carpal tunnel release Family History Other Family history unknown Social History (Updated 12/28/23 @ 14:14 by Pepper Lozoya RN) Smoking Status: Never smoker alcohol intake: never substance use type: denies use current occupational status: disabled Travel in the last 8 weeks: None household members: none housing: apartment number of children: 0 caffeine: No ROS Obtained: Yes All systems reviewed & no additional complaints except as documented and Yes Systems reviewed as appropriate & no additional complaints except as documented Constitutional Constitutional: Reports system reviewed and no additional complaints, except as documented and Reports as per HPI Cardiovascular Cardiovascular: Reports system reviewed and no additional complaints, except as documented and Reports as per HPI Respiratory Respiratory: Reports system reviewed and no additional complaints, except as documented and Reports as per HPI Integumentary/Breasts Skin/Breast: Reports system reviewed and no additional complaints, except as documented and Reports as per HPI Comments: redness around toenails on both great toes with left toe being worse Physical Exam General General appearance: alert and in no apparent distress ENT ENT exam: Present mucous membranes moist Respiratory Respiratory exam: Present normal lung sounds bilaterally; Absent respiratory distress or wheezes Cardiovascular Cardiovascular exam: Present regular rate, normal rhythm and normal heart sounds Expanded Lower Extremity Exam bilateral: Foot/toe exam: Present other (mild redness noted bilateral great toes reports pain and reports that she had some drainage from around left great toenail but none noted at this time) Neurological Exam Neurological exam: Present alert, oriented X3 and normal gait Medical Decision Making Medical Records Screening: Per USPSTF and CDC recommendations, given the prevalence of disease in our region, it is our hospital?s policy to screen for HIV and viral Hepatitis for all patients aged 18 and over and those with ongoing risk factors. Travon Inquiry Pt receiving controlled substance: No Travon was queried for this patient: No Vital Signs: 01/31/24 08:30 Temperature 98.3 F Temperature Source Oral Pulse Rate [Left Brachial] 107 H Respiratory Rate 20 Blood Pressure [Left Arm] 149/101 H Blood Pressure Mean [Left Arm] 117 Blood Pressure Source [Left Arm] Automatic Cuff Blood Pressure Position [Left Arm] Sitting 02 Sat by Pulse Oximetry 98 Medical Decision Narrative: Patient is a diabetic and was started on oral antibiotics and topical ointment last week by Podiatry and she reports not getting any better now right great toe is starting to bother her, spoke with Podiatry and they advised to have her come on to the office they have an opening for them to evaluate her spoke with patient and she is agreeable to that patient will be dc'd from the [facility] and will go straight to the Podiatry clinic
== END 2024-01-31 08:45 | disposition home or self-care (01) ==
PROVIDERS: Emergency Provider Nurse Practitioner; PCP Nurse Practitioner Family
DX: M79.674 Pain in right toe(s) (principal); M79.675 Pain in left toe(s)
CPT/HCPCS: 99212; G0381

== ENCOUNTER 2024-02-06 11:40 | Day surgery (SDC) | payer MEDICARE, MEDICAID, SELFPAY ==
[2024-02-06 11:53] VITALS: BP 173/91; PULSE 97; RESP 16; TEMP 36.6; O2SAT 100; BMI 53.2
--- NOTE | 2024-02-06 12:09 | EXP.PAIN.PRO ---
Procedure Date: 02/06/24 Time: 12:00 Anesthesiologist:: Geovany Irving CRNA Complications:: None Pre-procedure Diagnosis:: Degenerative disc lumbar spine multilevels. Lumbar radiculopathy. Post-procedure Diagnosis:: Same. Indications for Procedure:: Patient is a pleasant 38-year-old female who comes our clinic today for repeat lumbar epidural steroid injection. She reports low lumbar back pain as well as bilateral hip and leg radicular symptoms. She rates her pain 7/10. She reports having significant improvement terms of her overall low back pain symptoms as well as radiculopathy symptoms with previous injections at same level. Procedure Details:: Procedure: Lumbar epidural steroid injection under fluoroscopy Informed consent was obtained and the risks and benefits of the procedure were explained to the patient. The patient was taken to the procedure room and noninvasive monitors placed, including noninvasive blood pressure cuff and pulse oximeter. The back was viewed using C-arm Fluoroscopy and prepped using Chloraprep as a cleansing solution and the L4-L5 interspace was palpated. Skin and subcutaneous tissues were anesthetized using lidocaine 1.5% and a 25-gauge needle. After this, an 18-gauge Touhy epidural needle was placed into the L4-L5 interspace and advanced using fluoroscopic guidance and loss of resistance to air until the epidural space was encountered. After confirmation of needle placement in the epidural space, with dye, a solution containing normal saline, 3 mL and Depo-Medrol 80 mg were incrementally injected into the lumbar epidural space. The patient tolerated the procedure well with no complications. The patient was observed in the Pain Clinic and then discharged home neurologically intact. Plan and Disposition:: Patient was discharged without incident.
[2024-02-06 12:26] VITALS: BP 122/76; PULSE 98; RESP 16; O2SAT 99
[2024-02-06] MEDS: methylPREDNISolone ACETATE 80MG/ML VIAL 80 MG (12:29)
== END 2024-02-06 12:26 | disposition home or self-care (01) ==
PROVIDERS: PCP Nurse Practitioner Family; Visit Provider Nurse Anesthetist, Certified Registered
DX: M51.16 Intervertebral disc disorders with radiculopathy, lumbar region (principal)
CPT/HCPCS: 62323; J1010

== ENCOUNTER 2024-02-29 14:00 | Outpatient (POV) | payer MEDICARE, MEDICAID, SELFPAY ==
[2024-02-29 14:52] VITALS: BP 160/97; PULSE 99; RESP 18; O2SAT 100; BMI 53.2
--- NOTE | 2024-02-29 14:53 | A.OFFVIS_ITS ---
[facility] Disclaimer: The information contained in this section may have been updated after the patient was seen, as this information can be updated by other users. Medical History Borderline personality disorder Severe obesity (BMI >= 40) TIAGO on CPAP Severe TIAGO with hypoxemia. Perfect compliance since 03/23/2023, status post EGD with dilatation Insomnia Generalized anxiety disorder Bipolar II disorder Ulcer Migraine GERD (gastroesophageal reflux disease) Depression Anxiety Surgical History History of fusion of cervical spine Hx of cholecystectomy History of bilateral carpal tunnel release Family History Other Family history unknown Social History Smoking Status: Never smoker alcohol intake: never substance use type: denies use current occupational status: disabled Travel in the last 8 weeks: None household members: none housing: apartment number of children: 0 caffeine: No PM Subjective & Objective Subjective Subjective:: Patient is a pleasant 38-year-old female who presents today for follow-up of her lumbar epidural steroid injection L4-L5 on 02/06/2024. Today she rates her pain a 9 out of 10. She denies any new trauma or injury. She does state that she is still experiencing significant pain in her low back that goes into her hips. She states the pain is constant and does seem worse with prolonged sitting or walking. She states she has to change positions frequently and states the pain does interfere with her ability perform activities of daily living such as cooking and cleaning. Patient states that she really did not seem to notice any additional improvement following the lumbar epidural. Patient does also state that she is scheduled for an MRI of her left shoulder on Monday. Patient was going to review over her x-ray imaging follow-up of her bilateral shoulders today as well. Patient has continued conservative therapy with no additional changes. Her Travon has been reviewed and is appropriate. Review of Systems: General: No recent weight changes, no fever, no sleep disturbances Respiratory: No cough, no shortness of air, no recurring pulmonary infections Cardiovascular/peripheral vascular: No chest pain, no palpitations, no edema, no shortness of breath Gastrointestinal: No new onset incontinence, normal bowel movements reported Genitourinary: No new onset incontinence Musculoskeletal: Low back pain, bilateral hip pain Psychiatric: [Normal mood/affect] Neurological: [Denies weakness in extremities], [denies balance issues] Pain at rest (0-10 scale): 9 Objective Objective:: Physical Exam: General: Alert and oriented x3, no acute distress, pleasant and cooperative Lungs: Respirations even and unlabored, symmetrical chest expansion Eyes: PERRL Musculoskeletal: Flexion and extension of lumbar [spine] somewhat guarded secondary to pain, [antalgic gait noted] point tenderness along bilateral SIs with positive bilateral Yanique's, Anil's, Gaenslen's, compression and distraction exam Neurological: Speech clear, no gross sensory deficit Has patient had previous pain injection?: Yes Percent improvement in pain since last injection: Minimal Conservative treatment options previously tried: Home exercise plan Length of treatment: Longer than 12 weeks Meds Home Medications and Allergies Home Medications ?Medication ?Instructions ?Recorded ?Confirmed ?Type amitriptyline 100 mg tablet 100 mg PO DAILY 01/31/24 02/22/24 History buspirone 10 mg tablet 10 mg PO TID 01/31/24 02/22/24 History cyclobenzaprine 5 mg tablet 5 mg PO TID 01/31/24 02/22/24 History doxycycline hyclate 100 mg capsule 100 mg PO BID 01/31/24 02/22/24 History doxycycline hyclate 100 mg capsule 100 mg PO DAILY 01/31/24 02/22/24 History erenumab-aooe 140 mg/mL 140 mg SQ WEEKLY 01/31/24 02/22/24 History subcutaneous auto-injector (Aimovig Autoinjector) hydroxyzine pamoate 50 mg capsule 50 mg PO BID 01/31/24 02/22/24 History levothyroxine 137 mcg tablet 137 mcg PO DAILY 01/31/24 02/22/24 History loratadine 10 mg tablet 10 mg PO DAILY 01/31/24 02/22/24 History mirtazapine 45 mg tablet 45 mg PO HS 01/31/24 02/22/24 History mupirocin 2 % topical ointment 1 applic topical DAILY 01/31/24 02/22/24 History pantoprazole 40 mg tablet,delayed 40 mg PO DAILY 01/31/24 02/22/24 History release tirzepatide 7.5 mg/0.5 mL 7.5 mg SQ WEEKLY 01/31/24 02/22/24 History subcutaneous pen injector (Yevgeniy) topiramate 50 mg tablet 50 mg PO DAILY 01/31/24 02/22/24 History paroxetine HCl 20 mg tablet 20 mg PO DAILY #30 tabs 02/05/24 02/22/24 Rx prazosin 2 mg capsule 2 mg PO HS #30 caps 02/05/24 02/22/24 Rx sulfamethoxazole 800 1 tab PO BID infection 10 days #20 02/09/24 02/22/24 Rx mg-trimethoprim 160 mg tablet tabs (Bactrim DS) erythromycin with ethanol 2 % 1 applic topical BID 14 days #60 02/22/24 02/22/24 Rx topical gel grams mupirocin 2 % topical ointment 1 applic topical BID #22 grams 02/22/24 02/22/24 Rx baclofen 10 mg tablet 10 mg PO TID #42 tabs 02/29/24 Rx New Prescriptions to Start Prescriptions: moizofen Amy Dunn Allergies Allergy/AdvReac Type Severity Reaction Status Date / Time No Known Allergies Allergy Verified 02/22/24 13:14 Assessment and Plan *Assessment and plan (1) Bilateral sacroiliitis: Status: Acute Category: Medical Code(s): M46.1 - Sacroiliitis, not elsewhere classified Plan Patient is experiencing significant pain in her low back and bilateral hips with limited range of motion. Patient did have point tenderness along her bilateral SIs as well as her bilateral greater trochanteric bursa's with positive Yanique's, Anil's, Gaenslen's, compression and distraction exam. I did discuss with the patient that I do believe she would benefit from bilateral SI injections as well as future bursa injections. Risk and benefits were discussed with the patient and she would like to proceed forward with this plan of care. Patient has continued conservative treatment including oral medications, heat and ice, topicals, at home stretching exercise for longer than 12 weeks. Patient has had longstanding low back and hip pain for longer than 3 months. Patient will be scheduled for bilateral SI injections under fluoroscopy. I will also send in a 2-week supply of baclofen 10 mg 3 times daily. Patient was counseled to discontinue the Flexeril. Patient states that it never really seem to make much difference anyway. Patient has been instructed to contact the clinic with any concerns before the next appointment. Dr. Michelle has reviewed this note and agrees with this plan of care. This note was dictated using voice recognition software and make contain errors or omissions. All injections are used with Lidocaine, Bupivacaine and Depo Medrol. Occasionally urine drug screen is needed to verify patient's compliance with our office pain contract. This is ordered based off specific treatments related to chronic pain with the potential to abuse certain medications.
== END 2024-02-29 23:59 | disposition home or self-care (01) ==
PROVIDERS: PCP Nurse Practitioner Family; Visit Provider Nurse Practitioner Family
DX: M46.1 Sacroiliitis, not elsewhere classified (principal); Z73.89 Other problems related to life management difficulty; Z79.899 Other long term (current) drug therapy
CPT/HCPCS: 99212; G0463

== ENCOUNTER 2024-03-28 13:49 | Outpatient (CLI) | payer MEDICARE, MEDICAID, SELFPAY ==
--- NOTE | 2024-03-28 13:53 | MR_ITS ---
FINAL REPORT CLINICAL HISTORY: LT SHOULDER PAIN limited rom x few years pt stated she hurt her shoulder x 7 years ago while lifting a refrigerator COMPARISON: None FINDINGS: Multi planar MR imaging of the left shoulder was performed. The supraspinatus tendon appears intact. There is no abnormal fluid in the subacromial/subdeltoid bursa. The anterior and posterior glenoid radha appear intact. The biceps tendon appears intact. Mild hypertrophic change is present in the acromioclavicular joint. IMPRESSION: Mild hypertrophic change of the acromioclavicular joint. Reviewed, Interpreted and Dictated by José Antonio Betancur MD Transcribed by Brittany Valdez Authenticated and [facility]
== END 2024-03-28 23:59 | disposition home or self-care (01) ==
LOC: RAD 13:50
PROVIDERS: PCP Nurse Practitioner Family; Visit Provider Orthopaedic Surgery Adult Reconstructive Orthopaedic Surgery
DX: M75.42 Impingement syndrome of left shoulder (principal)
CPT/HCPCS: 73221

== ENCOUNTER 2024-04-15 12:00 | Outpatient (CLI) | payer MEDICARE, MEDICAID, SELFPAY ==
[2024-04-15 15:02] LABS: Microscopic, Urine URINE MICROSCOPIC (MICROSCOPIC)
[2024-04-15 16:48] LABS: Appearance,Urine CLEAR (Clear); Bilirubin,Urine Negative (Negative); Blood, Urine Negative (Negative); Color,Urine YELLOW (Yellow); Glucose,Urine (UA) Negative (Negative); Ketones,Urine Negative (Negative); Leukocyte Esterase,Urine TRACE (Negative); Nitrate,Urine Negative (Negative); Protein,Urine Negative (Negative); Specific Gravity, Urine >= 1.030 (1.005-1.030); Urobilinogen,Urine 0.2 EU/dl (0.2)
[2024-04-15 17:27] LABS: Squamous Epithelial Cell,Urine Occasional #/hpf (0-5)
== END 2024-04-15 23:59 | disposition home or self-care (01) ==
LOC: LAB.DROPOF 04-16 16:36
PROVIDERS: PCP Urology; Visit Provider Urology
DX: N32.81 Overactive bladder (principal); N39.3 Stress incontinence (female) (male); R35.1 Nocturia
CPT/HCPCS: 81001; 87086

== ENCOUNTER 2024-05-14 09:54 | Outpatient (CLI) | payer MEDICARE, MEDICAID, SELFPAY ==
--- NOTE | 2024-05-14 09:57 | MM_ITS ---
PROCEDURE INFORMATION: Exam: MG Bilateral Screening 3D Mammography Exam date and time: 05/14/2024 10:06 AM Age: 39 years old Clinical indication: Screening examination TECHNIQUE: Imaging protocol: Bilateral Screening tomosynthesis and 2D mammography including computer-aided detection (CAD) when performed. COMPARISON: MG MM DIG SCREENING MAMM BI W/CAD 05/05/2023 1:46 PM FINDINGS: MAMMOGRAPHY: Breast composition: The breasts are almost entirely fatty. Mass: None. Architectural distortion: None. Calcifications: No suspicious calcifications. Asymmetric density: None. Skin thickening: None. Axillary adenopathy: None. IMPRESSION: No mammographic evidence of malignancy. Annual screening is recommended unless otherwise clinically indicated. ASSESSMENT: BI-RADS Category 1: Negative.
== END 2024-05-14 23:59 | disposition home or self-care (01) ==
LOC: RAD 09:55
PROVIDERS: PCP Urology; Visit Provider Nurse Practitioner Family
DX: Z12.31 Encounter for screening mammogram for malignant neoplasm of breast (principal)
CPT/HCPCS: 77063; 77067

== ENCOUNTER 2024-05-30 20:08 | Emergency (ER) | payer MEDICARE, MEDICAID, SELFPAY ==
[2024-05-30 20:14] VITALS: BP 181/92; PULSE 107; RESP 16; TEMP 36.6; O2SAT 99; BMI 53.2
--- NOTE | 2024-05-30 20:15 | PC.NURSE ---
pt's sugar was 337
[2024-05-30 20:30] VITALS: BP 157/105; PULSE 92; O2SAT 98
--- NOTE | 2024-05-30 20:35 | ED_ITS ---
Discharge Plan Disposition Patient Disposition: Home, Self-Care Condition: Good Prescriptions Prescriptions: New empagliflozin 10 mg tablet 10 mg PO DAILY Qty: 30 2RF No Action mupirocin 2 % ointment 1 applic TOPICAL BID Qty: 22 0RF erythromycin with ethanol 2 % gel 1 applic topical BID 14 Days Qty: 60 0RF oxybutynin chloride 10 mg tablet extended release 24hr 10 mg PO DAILY Qty: 30 1RF estradiol [Estrace] 0.01 % (0.1 mg/gram) cream 1 appful vaginal DAILY Qty: 42.5 2RF Rx Instructions: Use finger technique and not the applicator sticks. Apply daily for 14 days and then 3 times a week thereafter long-term. paroxetine HCl 20 mg tablet 20 mg PO DAILY Qty: 30 3RF sulfamethoxazole-trimethoprim [Bactrim DS] 800-160 mg tablet 1 tab PO BID 10 Days Qty: 20 0RF mirtazapine 45 mg tablet 45 mg PO HS Qty: 30 3RF hydroxyzine pamoate 50 mg capsule See Rx Instructions .ROUTE .COMPLEX PRN (Reason: anxiety) Qty: 120 1RF Rx Instructions: 50mg PO BID PRN; and 2 caps at HS. Not to exceed 4 caps daily. doxycycline hyclate 100 mg capsule 100 mg PO BID 7 Days Qty: 14 0RF mupirocin 2 % ointment 1 applic topical BID 14 Days Qty: 15 0RF prazosin 2 mg capsule 2 mg PO HS Qty: 30 3RF levothyroxine 137 mcg tablet 137 mcg PO DAILY Patient Comments: TAKE ONE TABLET BY MOUTH EVERY DAY doxycycline hyclate 100 mg capsule 100 mg PO BID Patient Comments: TAKE ONE CAPSULE BY MOUTH TWICE DAILY FOR FOURTEEN DAYS FOR infection -- FINISH ALL MEDICINE -- doxycycline hyclate 100 mg capsule 100 mg PO DAILY Patient Comments: TAKE ONE CAPSULE BY MOUTH TWICE DAILY FOR FOURTEEN DAYS FOR infection -- FINISH ALL MEDICINE -- pantoprazole 40 mg tablet,delayed release (DR/EC) 40 mg PO DAILY Patient Comments: TAKE ONE TABLET BY MOUTH TWICE DAILY buspirone 10 mg tablet 10 mg PO TID Patient Comments: TAKE ONE TABLET BY MOUTH THREE TIMES DAILY mupirocin 2 % ointment 1 applic TOPICAL DAILY Patient Comments: APPLY TOPICALLY TO THE AFFECTED AREA(S) TWICE DAILY FOR FOURTEEN DAYS FOR infection amitriptyline 100 mg tablet 100 mg PO DAILY loratadine 10 mg tablet 10 mg PO DAILY Patient Comments: TAKE ONE TABLET BY MOUTH EVERY DAY cyclobenzaprine 5 mg tablet 5 mg PO TID Patient Comments: TAKE ONE TABLET BY MOUTH THREE TIMES DAILY NEEDED FOR MUSCLE SPASMS MAY CAUSE DROWSINESS topiramate 50 mg tablet 50 mg PO DAILY Aimovig Autoinjector 140 mg/mL auto-injector 140 mg SQ WEEKLY Mounjaro 7.5 mg/0.5 mL pen injector 7.5 mg SQ WEEKLY Patient Comments: INJECT THE CONTENTS OF 1 PEN (7.5 MG / 0.5ML) SUBCUTANEOUSLY ONCE A WEEK baclofen 10 mg tablet 10 mg PO TID Qty: 42 0RF Referrals Follow up/Referrals: Alka Tracy [Primary Care Provider] - See instructions Activity Restrictions/Add. Instructions Additional Instructions/Restrictions: Call your family doctor to establish care for this visit to the emergency department and schedule follow-up within 48 hours to ensure improvement. If you have any worsening of your condition or any other concerning signs or symptoms, return to the emergency department or your primary care doctor for further evaluation. Take Jardiance once daily. Continue following up with your family doctor and checking her sugars multiple times a day. Clinical Impressions Clinical Impression: Acute hyperglycemia Instructions Patient Instructions: DI for Hyperglycemia -- Adult Print Language Print Language: Persian Discharge ED Provider: Sandro Lopez General Adult HPI <SHEKHAR Leo - Last Filed: 05/30/24 20:35> General Chief complaint: Hyper/Hypoglycemia Stated complaint: High blood sugar 381 Time Seen by Provider: 05/30/24 20:21 Mode of Arrival: Ambulatory Source of Information: Patient Description of Symptoms (Recalled from ER Triage Doc. by RN): Patient states her glucose at home was 309, then 384. States doctor took her off of [facility]. States last time she ate/drank was 3 hours ago. Current glucose on our machine is 337 Related Data Home Medications ?Medication ?Instructions ?Recorded ?Confirmed amitriptyline 100 mg tablet 100 mg PO DAILY 01/31/24 04/17/24 buspirone 10 mg tablet 10 mg PO TID 01/31/24 04/17/24 cyclobenzaprine 5 mg tablet 5 mg PO TID 01/31/24 04/17/24 doxycycline hyclate 100 mg capsule 100 mg PO BID 01/31/24 04/17/24 doxycycline hyclate 100 mg capsule 100 mg PO DAILY 01/31/24 04/17/24 erenumab-aooe 140 mg/mL 140 mg SQ WEEKLY 01/31/24 04/17/24 subcutaneous auto-injector (Aimovig Autoinjector) levothyroxine 137 mcg tablet 137 mcg PO DAILY 01/31/24 04/17/24 loratadine 10 mg tablet 10 mg PO DAILY 01/31/24 04/17/24 mupirocin 2 % topical ointment 1 applic topical DAILY 01/31/24 04/17/24 pantoprazole 40 mg tablet,delayed 40 mg PO DAILY 01/31/24 04/17/24 release tirzepatide 7.5 mg/0.5 mL 7.5 mg SQ WEEKLY 01/31/24 04/17/24 subcutaneous pen injector (Yevgeniy) topiramate 50 mg tablet 50 mg PO DAILY 01/31/24 04/17/24 Previous Rx's ?Medication ?Instructions ?Recorded paroxetine HCl 20 mg tablet 20 mg PO DAILY #30 tabs 02/05/24 sulfamethoxazole 800 1 tab PO BID infection 10 days #20 02/09/24 mg-trimethoprim 160 mg tablet tabs (Bactrim DS) erythromycin with ethanol 2 % 1 applic topical BID 14 days #60 02/22/24 topical gel grams mupirocin 2 % topical ointment 1 applic topical BID #22 grams 02/22/24 baclofen 10 mg tablet 10 mg PO TID #42 tabs 02/29/24 mirtazapine 45 mg tablet 45 mg PO HS #30 tabs 04/04/24 hydroxyzine pamoate 50 mg capsule See Rx Instructions .Route 04/05/24 .COMPLEX PRN anxiety #120 caps estradiol 0.01% (0.1 mg/gram) 1 appful vaginal DAILY #42.5 grams 04/15/24 vaginal cream (Estrace) oxybutynin chloride 10 mg 10 mg PO DAILY #30 tabs 04/15/24 tablet,extended release 24 hr doxycycline hyclate 100 mg capsule 100 mg PO BID infection 7 days 05/29/24 #14 caps mupirocin 2 % topical ointment 1 applic topical BID infection 14 05/29/24 days #15 grams prazosin 2 mg capsule 2 mg PO HS #30 caps 05/29/24 empagliflozin 10 mg tablet 10 mg PO DAILY #30 tabs 05/30/24 Allergies Allergy/AdvReac Type Severity Reaction Status Date / Time No Known Allergies Allergy Verified 04/15/24 09:22 <Sandro Lopez MD - Last Filed: 05/31/24 16:06> History of Present Illness HPI narrative: Please note that above description of symptoms, in this electronic medical record under categorization of recalled from ER triage doctor by RN are reflective of an initial nursing assessment, however, is not reflective of my full history and physical exam that was personally taken and clarified. Consequentially, this preceding description of symptoms, which may include the patient's categorized chief complaint in the EMR, do not reflect my personal clinical impression, and the ultimate description of history of present illness and patient stated complaints should be deferred to this section of the note. Unless stated otherwise or congruent with this section of the note, additional signs, symptoms, or incongruence should be interpreted as inaccurate with my clinical impression. [facility] <SHEKHAR Leo - Last Filed: 05/30/24 20:35> [facility] Disclaimer: The information contained in this section may have been updated after the patient was seen, as this information can be updated by other users. Medical History Borderline personality disorder Severe obesity (BMI >= 40) TIAGO on CPAP Severe TIAGO with hypoxemia. Perfect compliance since 03/23/2023, status post EGD with dilatation Insomnia Generalized anxiety disorder Bipolar II disorder Ulcer Migraine GERD (gastroesophageal reflux disease) Depression Anxiety Surgical History History of fusion of cervical spine Hx of cholecystectomy History of bilateral carpal tunnel release Family History Other Family history unknown Social History Smoking Status: Never smoker alcohol intake: never substance use type: denies use current occupational status: unemployed Travel in the last 8 weeks: None household members: none housing: apartment number of children: 0 caffeine: No Have you lived/traveled outside [place] in past 30 days?: No Contact w/someone who lives/traveled outside US past 30 days?: No Exposure to someone with infectious disease in past 14 days?: No Do you have a fever (greater than 100.4 F or 38 C)?: No Have you tested positive for COVID-19: No Exposed to someone with COVID-19 in past 14 days?: No Do you have a sore throat?: No Do you have a cough?: No Do you have any weakness?: No Do you have any diarrhea?: No Are you experiencing any unusual bleeding?: No Do you have any muscle aches/pain?: No Do you have any abdominal pain?: No Are you experiencing loss of taste or smell?: No Other Medical History Have you received the Flu Vaccine for this season: No Have you received the Pneumonia Vaccine: No <Sandro Lopez MD - Last Filed: 05/31/24 16:06> ROS Obtained: Yes All systems reviewed & no additional complaints except as documented Physical Exam <Sandro Lopez MD - Last Filed: 05/31/24 16:06> General General appearance: alert Head Head exam: atraumatic and normocephalic Eye Eye exam: Present normal appearance, PERRL and EOMI Neck Neck exam: Present normal inspection, full ROM and trachea midline Respiratory Respiratory exam: Absent respiratory distress, wheezes, stridor, accessory muscle use or prolonged expiratory phase Cardiovascular Cardiovascular exam: Present other (Pulses equal symmetric in upper and lower extremities) Abdominal Exam Abdominal exam: Present soft; Absent distention, tenderness or pulsatile mass Extremities Exam Extremities exam: Absent edema Neurological Exam Neurological exam: Present alert, oriented X3 and CN II-XII intact; Absent motor sensory deficit Skin Skin exam: Present warm and dry; Absent diaphoresis or erythema Medical Decision Making <SHEKHAR Leo - Last Filed: 05/30/24 20:35> Medical Records Screening: Per USPSTF and CDC recommendations, given the prevalence of disease in our region, it is our hospital?s policy to screen for HIV and viral Hepatitis for all patients aged 18 and over and those with ongoing risk factors. Vital Signs: 05/30/24 20:14 05/30/24 20:30 05/30/24 20:55 Temperature 97.9 F Temperature Source Oral Pulse Rate 92 H 98 H Pulse Rate [Right Radial] 107 H Respiratory Rate 16 Blood Pressure 157/105 H Blood Pressure [Right Arm] 181/92 H Blood Pressure Mean [Right Arm] 121 Blood Pressure Source Blood Pressure Source [Right Arm] Automatic Cuff Blood Pressure Position Blood Pressure Position [Right Arm] Sitting 02 Sat by Pulse Oximetry 99 98 97 Oxygen Delivery Method Room Air 05/30/24 21:00 05/30/24 21:15 05/30/24 22:06 Temperature 97.9 F Temperature Source Oral Pulse Rate 87 87 90 Pulse Rate [Right Radial] Respiratory Rate 16 Blood Pressure 152/90 H Blood Pressure [Right Arm] Blood Pressure Mean [Right Arm] Blood Pressure Source Automatic Cuff Blood Pressure Source [Right Arm] Blood Pressure Position Supine Blood Pressure Position [Right Arm] 02 Sat by Pulse Oximetry 95 95 Oxygen Delivery Method Room Air Lab Data Lab Results 05/30/24 20:47: WBC 18.1 H, RBC 5.38, Hgb 16.0, Hct 48.0 H, MCV 89.2, MCH 29.7, MCHC 33.3, RDW 13.0, Plt Count 398, MPV 10.0, Neut % (Auto) 82.6 H, Lymph % (Auto) 10.0, [place] % (Auto) 5.6, Eos % (Auto) 0.6, Baso % (Auto) 0.4, Neut # (Auto) 14.9 H, Lymph # (Auto) 1.8, [place] # (Auto) 1.0, Eos # (Auto) 0.1, Baso # (Auto) 0.1, Total Counted 100, Neutrophils % (Manual) 82 H, Lymphocytes % (Manual) 13, Monocytes % (Manual) 3, Eosinophils % (Manual) 1, Basophils % (Manual) 1.0, Platelet Estimate Normal, RBC Morphology Normal, PT 10.7, INR 0.95, APTT 28.4, VBG pH 7.38, VBG pCO2 42.1, VBG pO2 36.6, VBG HCO3 24.4, VBG Total CO2 25.7, VBG O2 Saturation 71.1 H, VBG Base Excess -0.7, VBG Lactic Acid 2.7 H, Sodium 136, Potassium 4.9, Chloride 99, Carbon Dioxide 25, Anion Gap 16.9 H, BUN 19 H, Creatinine 0.80, Estimated Creat Clear 73, Estimated GFR 79, Est GFR ( Amer) 96, Glucose 356 H, Calcium 9.7, Magnesium 2.0, Total Bilirubin 0.7, AST 24, ALT 30, Alkaline Phosphatase 156 H, Troponin I < 0.01, Total Protein 8.1, Albumin 4.3, Globulin 3.8 H, Albumin/Globulin Ratio 1.1 05/30/24 20:50: Urine Color Yellow, Urine Appearance Clear, Urine pH 6.0, Ur Specific [place] >= 1.030, Urine Protein Negative, Urine Glucose (UA) 3+, Urine Ketones Negative, Urine Blood Negative, Urine Nitrate Negative, Urine Bilirubin Negative, Urine Urobilinogen 0.2, Ur Leukocyte Esterase Negative, Urine RBC None, Urine WBC Occasional, Ur Squamous Epith Cells Occasional, Urine Bacteria Trace 05/30/24 20:47 05/30/24 20:47 Orders (Tests/Meds): ED MEDICATIONS Discontinued Medications Generic Name Dose Route Start Last Admin Trade Name Freq PRN Reason Stop Dose Admin Lactated Ringer's 1,000 mls @ 999 mls/hr 05/30/24 20:29 05/30/24 20:48 Lactated Ringer's 1000 Ml Bag IV 05/30/24 21:29 999 mls/hr .Q1H1M ONE Administration Insulin Human Regular 7 unit 05/30/24 21:54 05/30/24 21:59 Insulin Human Regular 100 Units/Ml 10ml Vial 0.05 unit/kg (7 unit) 05/30/24 21:55 7 unit IV Administration ONCE ONE ORDERS Category Date Time Status Complete Blood Count Auto Diff Stat Lab 05/30/24 20:47 Completed Comprehensive Metabolic Panel Stat Lab 05/30/24 20:47 Completed Magnesium Stat Lab 05/30/24 20:47 Completed PT INR [Prothrombin Time INR] Stat Lab 05/30/24 20:47 Completed PTT [Activated Partial Thrombo Time] Stat Lab 05/30/24 20:47 Completed Troponin I Stat Lab 05/30/24 20:47 Completed Urinalysis and Microscopic Stat Lab 05/30/24 20:50 Completed Venous Blood Gas Stat RT 05/30/24 20:47 Completed <Sandro Lopez MD - Last Filed: 05/31/24 16:06> Medical Records Medical records reviewed: Yes I reviewed the patient's medical records. Travon Inquiry Pt receiving controlled substance: No Travon was queried for this patient: No Vital Signs: 05/30/24 20:14 05/30/24 20:30 05/30/24 20:55 Temperature 97.9 F Temperature Source Oral Pulse Rate 92 H 98 H Pulse Rate [Right Radial] 107 H Respiratory Rate 16 Blood Pressure 157/105 H Blood Pressure [Right Arm] 181/92 H Blood Pressure Mean [Right Arm] 121 Blood Pressure Source Blood Pressure Source [Right Arm] Automatic Cuff Blood Pressure Position Blood Pressure Position [Right Arm] Sitting 02 Sat by Pulse Oximetry 99 98 97 Oxygen Delivery Method Room Air 05/30/24 21:00 05/30/24 21:15 05/30/24 22:06 Temperature 97.9 F Temperature Source Oral Pulse Rate 87 87 90 Pulse Rate [Right Radial] Respiratory Rate 16 Blood Pressure 152/90 H Blood Pressure [Right Arm] Blood Pressure Mean [Right Arm] Blood Pressure Source Automatic Cuff Blood Pressure Source [Right Arm] Blood Pressure Position Supine Blood Pressure Position [Right Arm] 02 Sat by Pulse Oximetry 95 95 Oxygen Delivery Method Room Air Lab Data Lab Results 05/30/24 20:47: WBC 18.1 H, RBC 5.38, Hgb 16.0, Hct 48.0 H, MCV 89.2, MCH 29.7, MCHC 33.3, RDW 13.0, Plt Count 398, MPV 10.0, Neut % (Auto) 82.6 H, Lymph % (Auto) 10.0, [place] % (Auto) 5.6, Eos % (Auto) 0.6, Baso % (Auto) 0.4, Neut # (Auto) 14.9 H, Lymph # (Auto) 1.8, [place] # (Auto) 1.0, Eos # (Auto) 0.1, Baso # (Auto) 0.1, Total Counted 100, Neutrophils % (Manual) 82 H, Lymphocytes % (Manual) 13, Monocytes % (Manual) 3, Eosinophils % (Manual) 1, Basophils % (Manual) 1.0, Platelet Estimate Normal, RBC Morphology Normal, PT 10.7, INR 0.95, APTT 28.4, VBG pH 7.38, VBG pCO2 42.1, VBG pO2 36.6, VBG HCO3 24.4, VBG Total CO2 25.7, VBG O2 Saturation 71.1 H, VBG Base Excess -0.7, VBG Lactic Acid 2.7 H, Sodium 136, Potassium 4.9, Chloride 99, Carbon Dioxide 25, Anion Gap 16.9 H, BUN 19 H, Creatinine 0.80, Estimated Creat Clear 73, Estimated GFR 79, Est GFR ( Amer) 96, Glucose 356 H, Calcium 9.7, Magnesium 2.0, Total Bilirubin 0.7, AST 24, ALT 30, Alkaline Phosphatase 156 H, Troponin I < 0.01, Total Protein 8.1, Albumin 4.3, Globulin 3.8 H, Albumin/Globulin Ratio 1.1 05/30/24 20:50: Urine Color Yellow, Urine Appearance Clear, Urine pH 6.0, Ur Specific [place] >= 1.030, Urine Protein Negative, Urine Glucose (UA) 3+, Urine Ketones Negative, Urine Blood Negative, Urine Nitrate Negative, Urine Bilirubin Negative, Urine Urobilinogen 0.2, Ur Leukocyte Esterase Negative, Urine RBC None, Urine WBC Occasional, Ur Squamous Epith Cells Occasional, Urine Bacteria Trace Orders (Tests/Meds): ED MEDICATIONS Discontinued Medications Generic Name Dose Route Start Last Admin Trade Name Freq PRN Reason Stop Dose Admin Lactated Ringer's 1,000 mls @ 999 mls/hr 05/30/24 20:29 05/30/24 20:48 Lactated Ringer's 1000 Ml Bag IV 05/30/24 21:29 999 mls/hr .Q1H1M ONE Administration Insulin Human Regular 7 unit 05/30/24 21:54 05/30/24 21:59 Insulin Human Regular 100 Units/Ml 10ml Vial 0.05 unit/kg (7 unit) 05/30/24 21:55 7 unit IV Administration ONCE ONE ORDERS Category Date Time Status Complete Blood Count Auto Diff Stat Lab 05/30/24 20:47 Completed Comprehensive Metabolic Panel Stat Lab 05/30/24 20:47 Completed Magnesium Stat Lab 05/30/24 20:47 Completed PT INR [Prothrombin Time INR] Stat Lab 05/30/24 20:47 Completed PTT [Activated Partial Thrombo Time] Stat Lab 05/30/24 20:47 Completed Troponin I Stat Lab 05/30/24 20:47 Completed Urinalysis and Microscopic Stat Lab 05/30/24 20:50 Completed Venous Blood Gas Stat RT 05/30/24 20:47 Completed Medical Decision Narrative: 39-year-old female history of hyperglycemia and diabetes not currently on any antidiabetic medications presenting with hyperglycemia. She states that she is no longer taking Mounjaro, was taken off a couple of weeks ago by her primary care provider. Not placed on any other antidiabetic medications. Patient states that she took her glucose today, it was reading near 400, so came in for further evaluation. She has no other acute symptoms. History was obtained via conversation with patient. On arrival, patient hemodynamically stable, alert, oriented x4, appropriate, GCS 15, moving all extremities spontaneously, pupils equal and reactive to light. Full physical exam performed and significant for chronically ill-appearing female no acute distress. Speaking full sentences, nontachycardic, normotensive, very clinically well. Neurologically intact. Cardiopulmonary exam within normal limits. No abdominal tenderness. Differential includes medication noncompliance, lost to follow-up, chronic diabetes, sepsis, urinary tract infection, ACS, AL, pneumonia, among others. Patient placed on continuous cardiac monitoring and continuous pulse ox with initial blood pressure 181/92, heart rate 107, saturation 99% on room air. Patient was given IV fluids, 0.05 units per keg of insulin for symptomatic management and correction of underlying abnormalities. Workup independently interpreted and significant for nonactionable hematologic labs other than hyperglycemia. Urinalysis negative. On reevaluation, patient still resting comfortably requesting to leave. I feel this is appropriate. Given history, workup this most likely represents uncontrolled diabetes. Empagliflozin was sent to the pharmacy of choice. Close return precautions discussed. Because patient at baseline without signs or symptoms of clinical decompensation, deemed appropriate for discharge. Results were relayed to patient who voiced understanding and were agreeable to outpatient management and follow up. I discussed my clinical impression with patient and answered all questions. At this time, the evidence for any other entities in the differential is insufficient to warrant any further testing or ED observation. This was explained as well. Advisory was given that persistent or worsening symptoms require further evaluation. I confirmed the understanding of this discussion. [employer] Admin disclaimer Much of this encounter note is an electronic environmental health nurse spoken language to printed text. Electronic environmental health nurse of the spoken language may permit errors. Although I have reviewed the note, some errors may still exist. Critical Care <Sandro Lopez MD - Last Filed: 05/31/24 16:06> Critical Care Time Critical Care Time: No
[2024-05-30] MEDS: LACTATED RINGERS 1000ML 1,000 ML 999 ML IV (20:48)
[2024-05-30 20:54] LABS: Lactate Venous 2.7 mmol/L (0.4-2.0); VBG Base Excess -0.7 mmol/L (-2.4-2.3); VBG HCO3 24.4 mmol/L (23-30); VBG Oxygen Saturation 71.1 % (50-70); VBG PCO2 42.1 mmol/L (35-51); VBG PH 7.38 mmol/L (7.31-7.41); VBG PO2 36.6 mmol/L (28-40); VBG Total CO2 25.7 mmol/L (23-27)
[2024-05-30 20:55] VITALS: PULSE 98; O2SAT 97
[2024-05-30 20:56] LABS: Microscopic, Urine URINE MICROSCOPIC (MICROSCOPIC)
[2024-05-30 20:58] LABS: Appearance,Urine CLEAR (Clear); Bilirubin,Urine Negative (Negative); Blood, Urine Negative (Negative); Color,Urine YELLOW (Yellow); Glucose,Urine (UA) 3+ (Negative); Ketones,Urine Negative (Negative); Leukocyte Esterase,Urine Negative (Negative); Nitrate,Urine Negative (Negative); Protein,Urine Negative (Negative); Specific Gravity, Urine >= 1.030 (1.005-1.030); Urobilinogen,Urine 0.2 EU/dl (0.2)
[2024-05-30 20:58] LABS: Basophils # 0.1 K/mm3 (0-0.2); Basophils % 0.4 % (0.1-2.0); Eosinophils # 0.1 K/mm3 (0.0-0.4); Eosinophils % 0.6 % (0.1-12.0); Lymphocytes # 1.8 K/mm3 (0.7-4.5); MANUAL DIFFERENTIAL MANUAL DIFFERENTIAL (MANUAL DIFF); Mean Corpuscular HGB Conc 33.3 g/dL (31.8-35.4); Mean Corpuscular Hemoglobin 29.7 pg (27.0-31.2); Mean Corpuscular Volume 89.2 fl (81-99); Monocytes % 5.6 % (1.7-9.3); Neutrophils # 14.9 K/mm3 (1.8-7.8); Neutrophils % 82.6 % (37.0-80.0); Nucleated Red Blood Cells # 0 10^3/uL; Nucleated Red Blood Cells % 0 %; Platelet Count 398 K/mm3 (142-424); Red Blood Count 5.38 M/mm3 (4.20-5.40); Red Cell Distribution Width-SD 42.1 fL; White Blood Count 18.1 K/mm3 (4.8-10.8)
[2024-05-30 21:00] VITALS: PULSE 87; O2SAT 95
[2024-05-30 21:07] LABS: Activated Partial Thrombo Time 28.4 seconds (22.8-30.6); INR 0.95 (0.9-1.1); Prothrombin Time 10.7 seconds (10.1-12.5)
[2024-05-30 21:15] VITALS: PULSE 87; O2SAT 95
[2024-05-30 21:34] LABS: Alanine Aminotransferase 30 U/L (12-78); Albumin Level 4.3 g/dl (3.5-5.0); Albumin/Globulin Ratio 1.1 (1.1-1.8); Alkaline Phosphatase 156 U/L (38-126); Anion Gap 16.9 mEq/L (5-15); Aspartate Amino Transferase 24 U/L (14-36); Bilirubin,Total 0.7 mg/dl (0.2-1.3); Blood Urea Nitrogen 19 mg/dl (7-17); Calcium 9.7 mg/dl (8.4-10.2); Carbon Dioxide 25 mmol/L (22.0-30.0); Chloride 99 mmol/L (98-107); Creatinine Clearance Estimated 73 mL/min (50-200); Estimated Glomerular Filt Rate 79 ml/min (>60); GFR (African American) 96 ML/MIN (>60); Globulin 3.8 g/dL (1.3-3.2); Glucose 356 mg/dl (74-100); Potassium 4.9 mmoL/L (3.5-5.1); Sodium 136 mmol/L (136-145); Total Protein,Serum 8.1 g/dl (6.3-8.2)
[2024-05-30 21:43] LABS: Eosinophils % 1 % (0-3); Lymphocytes % 13 % (10-50); Monocytes % 3 % (2-9); Neutrophils % 82 % (42-76); Platelet Estimate Normal; RBC Morphology Normal; Total Cells Counted 100
[2024-05-30 21:44] LABS: Bacteria,Urine Trace /lpf; Squamous Epithelial Cell,Urine Occasional #/hpf (0-5); WBC,Urine Occasional #/hpf (0-3)
[2024-05-30 21:44] LABS: Troponin I < 0.01 ng/ml (0.00-0.034)
[2024-05-30] MEDS: INSULIN HUMAN REGULAR 100 UNITS/ML 10ML VIAL 7 UNIT IV (21:59)
[2024-05-30 22:06] VITALS: BP 152/90; PULSE 90; RESP 16; TEMP 36.6; O2SAT 98
--- OUTSIDE RECORDS SUMMARY | 2024-05-30 23:40 | XMS_ITS | Data Portability ---
Author Organization [facility] NATAL[facility] [place] [facility] Address [address] [address] [place] [address] Assessment No assessment recorded. Plan of Treatment Reminders Order Date Submit Date Provider Last Modified By Organization Details Last Modified Time Details Appointments None recorded. Lab None recorded. Referral None recorded. Procedures None recorded. Surgeries None recorded. Imaging None recorded. Medication Orders cefdinir 300 mg capsule 2018 019 [facility], [address] [place] [address] [address] [place], [place], [phone], 9 11:37:02 Medrol (Martell) 4 mg tablets in a dose pack 2018 019 [facility], [address] [place] [address] [address] [place], [place], [phone], 9 11:37:01 Ciprodex 0.3 %-0.1 % ear drops,cody pension [email or web address] [place] [address] [facility]acy [facility], [address] [place] [address] [address] [place], [place], [id number], 9 09:58:54 Patient TargetsNo targets recorded. Patient Instructions Encounter Date Encounter Id Patient Instructions Last Modified By Organization Details Last Modified Time 07/17/2018 [id number] 1. Left ear debridement under microscopy performed 2. Rx - Ciprodex 0.3% otic drops, 5 drops left ear BID for 7 days 3. Dry left ear precautions recommended 4. Auto-inflate the ears using the modified Valsalva maneuver 10 times daily 5. Restart Flonase spray BID 6. TMJ precautions reviewed 7. Heat compress/pad to bilateral jaw/ears BID 8. F/U in 2 weeks with audio [facility] ENT MD Gaurang Conley Not available 07/17/2018 11:01:20 08/01/2018 [id number] earache: care instructions [email or web address] Not available 08/01/2018 10:58:04 08/01/2018 [id number] 1. Audiometry obtained and results reviewed with patient 2. Continue Flonase spray BID and auto-inflation of the ears 10-15x daily 3. Rx - Cefdinir 300mg PO, 2 tablets QD for 7 days 4. Rx - Medrol dose pack, take as directed 5. F/U in [address] Harvey for continued monitoring of left AOM and bilateral otalgia. If symptoms and issues persist, may be a candidate for left MT placement. She may also benefit for TMJ therapy at [facility]. [facility] ENT MD Gaurang Harvey [email or web address] Not available 08/01/2018 11:39:10 08/15/2018 [id number] hearing loss: care instructions [email or web address] Not available 08/16/2018 14:34:18 08/15/2018 [id number] 1. Audiogram obtained today- Type A tymps in the right, Type B tymps in the left, 15dbs in the right, 35dbs in the left, Right mild SNHL, Left moderate/mild SNHL 2. Keep scheduled dental appt on August 20 3. Continue using allergy nasal spray daily 4. F/u prn [email or web address] Not available 08/15/2018 15:48:29 She obviously tomlin s some middle ear effusion on the left but the bilateral ear pain is not explained by her effusion. Her audiogram findings were fair to say the least and her pure-tone stenotic coincide with her speech temporary receptionist numbers. She does have significant dental caries suspect this could be contributed to her referred otalgia. She is scheduled to see a dentist within the next 10 days. I suspect she'll need to have multiple extractions done. If her symptoms persist beyond the recovery period, she will contact us and we can reevaluate her. [email or web address] Not available 08/15/2018 17:00:42 Reason for Referral None Reported. Problems No Known Problems Procedures Surgical History Date Name Laterality Status Provider Name and Address Organization Details Recorded Time 9 Tympanogram completed KAE CLARK, AUD [address] [place], [address], [facility] 08/16/2018 14:33:22 9 Audiogram completed KAE CLARK, AUD [address] [place], [address], [facility] 08/16/2018 14:33:20 9 Tympanogram completed CARRILLO SUAREZ, AUD [address] [place], [address], [facility] 08/01/2018 10:56:38 9 Audiogram completed CARRILLO SUAREZ, AUD [address] [place], [address], [facility] 08/01/2018 10:56:36 9 Binocular Microscopy completed JULIANA SCHERER, [employer]ER [address] [place], [address], [facility] 07/17/2018 10:58:13 Imaging Results None recorded. Procedure Notes None recorded. Medical Equipment None Reported. Allergies No known drug allergies Medications Name Sig Start Date Stop Date Status Note LastModified by Organization Details LastModified Time clindamycin HCl 300 mg capsule 08/01 completed Not Available Not Available Not Available azithromyci n 250 mg tablet 08/01 completed Not Available Not Available Not Available prazosin 1 mg capsule active Not Available Not Available N ot Available meloxicam 15 mg tablet active Not Available Not Available Not Available prednisone 20 mg tablet 08/01 completed Not Available Not Available Not Available sertraline 100 mg tablet active Not Available Not Available Not Available sumatriptan 50 mg tablet active Not Available Not Available Not Available hydroxyzine pamoate 50 mg capsule active Not Available Not Available N ot Available topiramate 25 mg tablet 08/01 completed Not Available Not Available Not Available ciprofloxac in 500 mg tablet active Not Available Not Available Not Available omeprazole 40 mg capsule,del ayed release active Not Available Not Available Not Available triamcinolo ne acetonide 0.1 % topical cream 08/01 completed Not Available Not Available Not Available levothyroxi ne 75 mcg tablet active Not Available Not Available Not Available levothyroxi ne 88 mcg tablet active Not Available Not Available Not Available amoxicillin 875 mg tablet 08/01 completed Not Available Not Available Not Available dicyclomine 20 mg tablet active Not Available Not Available Not Available levothyroxi ne 50 mcg tablet 08/01 completed Not Available Not Available Not Available ropinirole 2 mg tablet active Not Available Not Available Not Available paroxetine 30 mg tablet active Not Available Not Available Not Available paroxetine 20 mg tablet active Not Available Not Available Not Available mirtazapine 30 mg tablet active Not Available Not Available Not Available neomycin-po lymyxin-dex ameth 3.5 mg/mL-10,00 0 unit/mL-0.1 % eye drops 08/01 completed Not Available Not Available Not Available ranitidine 150 mg tablet active Not Available Not Available Not Available nystatin-tr iamcinolone 100,000 unit/g-0.1 % topical cream active Not Available Not Available Not Available mirtazapine 15 mg tablet active Not Available Not Available Not Available nystatin 100,000 unit/gram topical powder active Not Available Not Available Not Available lorazepam 1 mg tablet active Not Available Not Available No t Available methylpredn isolone 4 mg tablets in a dose pack Take as directed, tapering over 6 days active Not Available Not Available No t Available paroxetine 40 mg tablet active Not Available Not Available Not Available oxybutynin chloride 5 mg tablet active Not Available Not Available No t Available cefdinir 300 mg capsule Take 2 capsules every day by oral route for 7 days. active Not Available Not Available No t Available topiramate 100 mg tablet active Not Available Not Available Not Available fluticasone propionate 50 mcg/actuati on nasal spray,suspe nsion active Not Available Not Available Not Available sertraline 50 mg tablet active Not Available Not Available Not Available amitriptyli ne 100 mg tablet active Not Available Not Available Not Available medroxyprog esterone 150 mg/mL intramuscul ar suspension 08/01 completed Not Available Not Available Not Available amoxicillin 875 mg-potassiu m clavulanate 125 mg tablet 08/01 completed Not Available Not Available Not Available tobramycin 0.3 %-dexametha sone 0.1 % eye drops,suspe nsion 08/01 completed Not Available Not Available Not Available neomycin-po lymyxin-hyd rocort 3.5 mg-10,000 unit/mL-1 % ear drops,susp 08/01 completed Not Available Not Available Not Available Ciprodex 0.3 %-0.1 % ear drops,suspe nsion Instill 5 drops in left ear BID for 7 days 08/01 completed Not Available Not Available Not Available Vitals Date Recorded Body height Body mass index (BMI) Body weight Body temperature Provider Name and Address Organization Details Last Updated DateTime 07/17/2018 157.48 cm 54 kg/m2 286012.75 g 97.7 [degF] Whitleyeunice Wises [facility] 07/17/2018 09:19:05 Date Recorded Body height Body temperature Body mass index (BMI) Body weight Heart rate Systolic blood pressure Diastolic blood pressure Provider Name and Address Organization Details Last Updated DateTime 9 157.48 cm 97.7 [degF] 54 kg/m2 072777. 75 g 103 /min 127 mm[Hg] 82 mm[Hg] [facility] 9 09:58:22 Date Recorded Body height Body temperature Heart rate Body mass index (BMI) Body weight Systolic blood pressure Diastolic blood pressure Provider Name and Address Organization Details Last Updated DateTime 9 157.48 cm 97.5 [degF] 113 /min 54 kg/m2 289469. 75 g 132 mm[Hg] 91 mm[Hg] [facility] 9 14:38:12 Social History Question Answer Notes LastModified by Organizat ion Details LastModified Time Tobacco Smoking Status Never Smoker Whitleyeunice Wises [facility] 07/17/2018 09:15:25 What Is Your Level Of Alcohol Consumption? None Information not available 07/17/2018 How Much Tobacco Do You Chew? None Information not available 07/17/2018 What Was The Date Of Your Most Recent Tobacco Screening? 07/17/2018 Information not available 04/09/2019 How Much Tobacco Do You Smoke? No Information not available 07/17/2018 Has Tobacco Cessation Counseling Been Provided? No Information not available 07/17/2018 Sex: Unknown Functional Status None recorded. Mental Status None recorded. Family History Relationship Description Onset Age of this Age Resolved Age Notes LastModified by Organization Details LastModified Time Father No current problems or disability Not available 07/17 09:15:18 Mother No current problems or disability Not available 07/17 09:15:18 Medical History Condition Response Anxiety Disorder Y Depression Y Stomach trouble Y Gynecological HistoryNo gynecological history recorded. Obstetrics History GPAL:G 0 P 0 0 0 0 Past Encounters Encounter ID Performer Location Encounter Start Date Encounter Closed Date Diagnosis/Indication Diagnosis SNOMED-CT Code Diagnosis ICD10 Code Diagnosis Note [id number] JULIANA SCHERER APRN [place] [facility] [address] [address] 07/17/2018 09:08:56 07/17/2018 11:46:02 Dysfunction of bilateral eustachian tubes 4680297421 628875 H69.93 Acute righ t otitis media 578323024 H66.91 Acute otit is externa of left ear 3629797883 229869 H60.502 Bilateral earache 211353 003 H92.03 - Temporoman dibular joint disorder 44483558 M26.346 [id number] DEVORAH KE[facility] [address] [place] [address] 08/01/2018 09:49:19 08/06/2018 12:05:12 Dysfunction of bilateral eustachian tubes 5250407263 811776 H69.93 - no improvemen t Acute otit is externa of left ear 3265121857 122282 H60.502 - resolved Bilateral earache 100163 003 H92.03 - secondary to combinatio n ETD and TMJ Temporoman dibular joint disorder 19956940 M26.609 Acute left otitis media 839577379 H66.92 Conductive hearing loss, bilateral 247391587 H90.0 - 08/01/18: mild, right tymp-A and left tymp-B, Speech R-100 and L-188 [id number] JOANN CASTORENA ENT [address] [place] [address] 08/01/2018 10:51:27 08/01/2018 10:58:51 Otalgia 00832226 H92.01 [id number] HOLLIE HARVEY III, MD [place] [facility] [address] [place] [address] 08/15/2018 14:27:51 08/24/2018 10:34:27 Dysfunction of bilateral eustachian tubes 5713949631 540348 H69.93 Acute left otitis media 261156856 H66.92 - Resolved Temporoman dibular joint disorder 61370838 M26.609 Dental caries 98219286 K 02.9 Asymmetric al sensorineural hearing loss 488182618 H90.5 Legal blindness 33346771 H54.8 Referred otalgia 3259784 8 H92.09 [id number] JOANN ANGELA [place] [facility] [address] [place] [address] 08/16/2018 14:33:07 08/16/2018 14:34:54 Bilateral earache 789167650 H92.03 Sensorineu ral hearing loss of bilateral ears 486802069 H90.3 Asymmetric al sensorineural hearing loss 585466655 H90.5 Dysfunctio n of bilateral eustachian tubes 7285102570 903962 H69.93 Health Concerns Section Related Observation LastModified by Organization Detai ls LastModified Time None Recorded Concern Status LastModified by Organization Details LastModified Time None Recorded Advance Directives Directive None Recorded Payers Encounter Date Sequence Insurance Name Policy Number Policy Martino Covered Member ID Martino Member ID Guarantor Name 07/17/2018 1 [place] Chantal Buitrago Immel [id number] Chantal Immel 07/17/2018 2 MEDICAID-[facility] L[employer] - FFS/TRADITIO NAL Chantal Buitrago Immel [id number] Chantal Immel 08/01/2018 1 [place] Chantal Buitrago Immel [id number] Chantal Immel 08/01/2018 2 MEDICAID-[facility] [employer] CHOICES - FFS/TRADITIO NAL Chantal Buitrago Immnanda [id number] Chantal Immel 08/01/2018 1 [place] Chantal Buitrago Immel [id number] Chantal Bell 08/01/2018 2 [facility]ICA[facility] CHOICES - FFS/TRADITIO NAL Chantal Bell [id number] Chantal Bell 08/15/2018 1 [place] Chantal Bell [id number] Chantal Bell 08/15/2018 2 [place] [facility] [place] - FFS/TRADITIO NAL Chantal Bell [id number] Chantal Bell 08/15/2018 1 [place] Chantal Bell [id number] Chantal Bell 08/15/2018 2 [place] [facility] [place] - FFS/TRADITIO NAL Chantal Bell [id number] Chantal Bell Notes Date Note Type Note Provider Name and Address Organization Details Recorded Time 07/17/2018 text/html Chantal Bell is seen today referred by [facility] for consultation of ear infection. She states that 2 weeks ago she began to experience bilateral ear aches with decreased hearing. Over those next few days the pain became worse. She was seen at the [facility] on 07/[facility]18 and placed on Medrol pack, Augmentin, and Cortisporin drops for a left otitis media and externa. There was no improvement after a few days so she was seen again a week and switched to a new antibiotic but she is unsure the name. She denies discharge or fever. She considers her baseline hearing to be good . She has never had her hearing tested. She does have a history of getting intermittent ear pain or infections. JULIANA SCHERER, [employer]ER [address] [place], [address], [facility] 07/17/2018 11:02:51 08/01/2018 text/html Chantal Bell returns today for follow up of ETD with left otitis media and left otitis externa. She was evaluated on 07/17/18 and the left ear was debrided and she was placed on Ciprodex drops. She was also advised to auto-inflate the ears and started on Flonase spray. There was evidence of TMJ upon examination and TMJ precautions were reviewed and use of heat compress recommended. Ms. Bell says that she continues to have intermittent, bilateral ear pain and pressure. Her hearing still feels muffled. There has been no discharge or fever. The ears are clearing easier. She denies jaw pain or lock-jaw. Ms. Bell has a history of migraines and is managed by neurology at . HPI from 07/17/18: Chantal Bell is seen today referred by [facility] for consultation of ear infection. She states that 2 weeks ago she began to experience bilateral ear aches with decreased hearing. Over those next few days the pain became worse. She was seen at the [facility] on 07/06/18 and placed on Medrol pack, Augmentin, and Cortisporin drops for a left otitis media and externa. There was no improvement after a few days so she was seen again a week and switched to a new antibiotic but she is unsure the name. She denies discharge or fever. She considers her baseline hearing to be good . She has never had her hearing tested. She does have a history of getting intermittent ear pain or infections. JULIANA SCHERER, [address] [place], [address], [facility] 08/01/2018 11:39:34 08/15/2018 text/html Chantal comes in today in follow up of acute left otitis media, bilateral eustachian tube dysfunction, bilateral conductive hearing loss along with TMJ Dysfunction. She was most recently seen by Gordon Scherer on 08/01/18 as was treated with a Medrol Dose Martell and a round of Cefdinir. Both ears hurt today. She is very sensitive to loud noises as well. Her hearing continues to be affected. Her symptoms initially began about a month ago. Chantal is legally blind. She has not had surgery on te ears in the past. She has dealt with left serous otitis media for about 6 weeks now. She is using an allergy nasal spray. She does have dental concerns, and has an appointment with her dentist on August 20. HOLLIE HARVEY III, MD [address] [place], [address], [facility] 08/15/2018 17:01:01 OBGyn Episode No OBEpisode recorded.
== END 2024-05-30 22:07 | disposition home or self-care (01) ==
PROVIDERS: Emergency Provider Emergency Medicine; PCP Nurse Practitioner Family
DX: E11.65 Type 2 diabetes mellitus with hyperglycemia (principal)
CPT/HCPCS: 80053; 81001; 82803; 83735; 84484; 85007; 85025; 85027; 85610; 85730; 96360; 99284; J7120

== ENCOUNTER 2024-06-19 08:37 | Outpatient (CLI) | payer MEDICARE, MEDICAID, SELFPAY ==
--- NOTE | 2024-06-19 08:40 | XR_ITS ---
FINAL REPORT CLINICAL HISTORY: lt knee pain COMPARISON: 10/17/2022 FINDINGS: LEFT KNEE Three views were obtained. There is no fracture or dislocation. There is moderate narrowing of the medial compartment. Osteophytes are seen in the medial joint margin. There are small osteophytes along the undersurface of the patella. No soft tissue abnormality is identified. IMPRESSION: Degenerative changes as above. Reviewed, Interpreted and Dictated by José Antonio Betancur MD Transcribed by Valeria Doyle Authenticated and [facility]
== END 2024-06-19 23:59 | disposition home or self-care (01) ==
LOC: RAD 08:38
PROVIDERS: PCP Nurse Practitioner Family; Visit Provider Orthopaedic Surgery
DX: M25.562 Pain in left knee (principal)
CPT/HCPCS: 73562

== ENCOUNTER 2024-07-03 08:48 | Outpatient (CLI) | payer MEDICARE, MEDICAID, SELFPAY ==
--- OUTSIDE RECORDS SUMMARY | 2024-07-03 08:50 | XMS_ITS | Data Portability ---
Author Organization [facility] [place] [facility] Address [address] [place] [address] Assessment No assessment recorded. Plan of Treatment Reminders Order Date Submit Date Provider Last Modified By Organization Details Last Modified Time Details Appointments None recorded. Lab None recorded. Referral None recorded. Procedures None recorded. Surgeries None recorded. Imaging None recorded. Medication Orders cefdinir 300 mg capsule 2018 019 [facility], [address] [place] [address] [address] [place], [id number], 9 11:37:02 Medrol (Martell) 4 mg tablets in a dose pack 2018 019 [facility], [address] [place] [address] [address] [place], [id number], 9 11:37:01 Ciprodex 0.3 %-0.1 % ear drops,cody pension [email or web address] [place] [address] Pharmacy [facility], [address] [place] [address] [address] [place], [place], [id number], 9 09:58:54 Patient TargetsNo targets recorded. Patient Instructions Encounter Date Encounter Id Patient Instructions Last Modified By Organization Details Last Modified Time 07/17/2018 [id number] 1. Left ear debridement under microscopy performed [...] Gaurang Conley Not available 07/17/2018 11:01:20 08/01/2018 [id number] earache: care instructions [email or web address] Not available 08/01/2018 10:58:04 08/01/2018 [id number] 1. Audiometry obtained and results reviewed with [...] may also benefit for TMJ therapy at [facility]. [facility] E[facility] MD Gaurang Harvey [email or web address] Not available 08/01/2018 11:39:10 08/15/2018 [id number] hearing loss: care instructions [email or web address] Not available 08/16/2018 14:34:18 08/15/2018 [id number] 1. Audiogram obtained today- Type A tymps [...] her pure-tone stenotic coincide with her speech information receptionist numbers. She does have significant dental [...] Tympanogram completed KAE CLARK, AUD [address] [place], [address], [facility] 08/16/2018 14:33:22 9 Audiogram completed KAE CLARK, AUD [address] [place], [address], [facility] 08/16/2018 14:33:20 9 Tympanogram completed CARRILLO SUAREZ, AUD [address] [place], [address], [facility] 08/01/2018 10:56:38 9 Audiogram completed CARRILLO SUAREZ, AUD [address] [place], [address], [facility] 08/01/2018 10:56:36 9 Binocular Microscopy completed JULIANA SCHERER, ONCOLOGY NAVIGATOR [address] [place], [address], [facility] 07/17/2018 10:58:13 Imaging Results None recorded. Procedure [...] Updated DateTime 07/17/2018 157.48 cm 54 kg/m2 409000.75 g 97.7 [degF] [facility] 07/17/2018 09:19:05 Date Recorded Body height Body temperature Body mass index (BMI) Body weight Heart rate Systolic blood pressure Diastolic blood pressure Provider Name and Address Organization Details Last Updated DateTime 9 157.48 cm 97.7 [degF] 54 kg/m2 199667. 75 g 103 /min 127 mm[Hg] 82 mm[Hg] [facility] 9 09:58:22 Date Recorded Body height Body temperature Heart rate Body mass index (BMI) Body weight Systolic blood pressure Diastolic blood pressure Provider Name and Address Organization Details Last Updated DateTime 9 157.48 cm 97.5 [degF] 113 /min 54 kg/m2 098500. 75 g 132 mm[Hg] 91 mm[Hg] [facility] 9 14:38:12 Social History Question Answer Notes LastModified by Organizat ion Details LastModified Time Tobacco Smoking Status Never Smoker [facility]unice [facility] 07/17/2018 09:15:25 How Much Tobacco Do You Chew? None Information not available 07/17/2018 What Was The Date Of Your Most Recent Tobacco Screening? 07/17/2018 [id number] Information not available 04/09/2019 How Much Tobacco Do You Smoke? No Information not available 07/17/2018 Has Tobacco Cessation Counseling Been Provided? No Information not available 07/17/2018 Sex: Unknown Functional Status Question Answer Note LastModified by Organization D etails LastModified Time What is your level of alcohol consumption? None Information not available 07/17/2018 Mental Status None recorded. Family History Relationship [...] SNOMED-CT Code Diagnosis ICD10 Code Diagnosis Note [id number] DEVORAH KEARNS [facility] [place] [facility] [address] [place] [address] 07/17/2018 09:08:56 07/17/2018 11:46:02 Dysfunction of bilateral eustachian tubes 5667667615 725583 H69.93 Acute righ t otitis media 476532728 H66.91 Acute otit is externa of left ear 9298194297 032923 H60.502 Bilateral earache 045604 003 H92.03 - Temporoman dibular joint disorder 69944895 M26.826 [id number] DEVORAH KEARNS [address] [address] [place] [address] 08/01/2018 09:49:19 08/06/2018 12:05:12 Dysfunction of bilateral eustachian tubes 1742502649 592997 H69.93 - no improvemen t Acute otit is externa of left ear 9142058975 086907 H60.502 - resolved Bilateral earache 794079 003 H92.03 - secondary to combinatio n ETD and TMJ Temporoman dibular joint disorder 62230257 M26.609 Acute left otitis media 261978017 H66.92 Conductive hearing loss, bilateral 494473714 H90.0 - 08/01/18: mild, right tymp-A and left tymp-B, Speech R-100 and L-061 [id number] JOANN CASTORENA ENT [address] [place] [address] 08/01/2018 10:51:27 08/01/2018 10:58:51 Otalgia 34212830 H92.01 [id number] HOLLIE HARVEY III, MD [place] [facility] [address] [place] [address] 08/15/2018 14:27:51 08/24/2018 10:34:27 Dysfunction of bilateral eustachian tubes 3063176119 101596 H69.93 Acute left otitis media 441243261 H66.92 - Resolved Temporoman dibular joint disorder 58724303 M26.609 Dental caries 69459013 K 02.9 Asymmetric al sensorineural hearing loss 064540443 H90.5 Legal blindness 07121276 H54.8 Referred otalgia 3807358 8 H92.09 [id number] JOANN ANGELA [place] [facility] [address] [place] [address] 08/16/2018 14:33:07 08/16/2018 14:34:54 Bilateral earache 425390986 H92.03 Sensorineu ral hearing loss of bilateral ears 464284729 H90.3 Asymmetric al sensorineural hearing loss 914225425 H90.5 Dysfunctio n of bilateral eustachian tubes 4402713743 371195 H69.93 Health Concerns Section Related Observation LastModified by Organization Detai ls LastModified Time None Recorded Concern Status LastModified by Organization Details LastModified Time None Recorded Advance Directives Directive None Recorded Payers Insurance Date Sequence Insurance Name Policy Number Policy Martino Covered Member ID Martino Member ID Guarantor Name 01/15/2020 2 MEDICAID-[facility] CHO[facility] - FFS/TRADITIO NAL Chantal Buitrago Ray [id number] Chantal Bell 01/15/2020 1 [place] Chantal Bell [id number] Chantal Bell Notes Date Note Type Note Provider Name and Address Organization Details Recorded Time 07/17/2018 text/html Chantal Bell is seen today referred by [facility] for consultation of ear infection. She states that 2 weeks ago she began to experience bilateral ear aches with decreased hearing. Over those next few days the pain became worse. She was seen at the [facility] on 07/06/18 and placed on Medrol pack, [...] intermittent ear pain or infections. JULIANA SCHERER, ONCOLOGY NAVIGATOR [address] [place], [address], [facility] 07/17/2018 11:02:51 08/01/2018 text/html Chantal Bell returns [...] Chantal Bell is seen today referred by [facility] for consultation of ear infection. She states that 2 weeks ago she began to experience bilateral ear aches with decreased hearing. Over those next few days the pain became worse. She was seen at the [facility] on 07/06/18 and placed on Medrol pack, [...] intermittent ear pain or infections. JULIANA SCHERER, ONCOLOGY NAVIGATOR [address] [place], [address], [facility] 08/01/2018 11:39:34 08/15/2018 text/html Chantal comes in [...] on August 20. HOLLIE HARVEY III, MD [facility] [place], [address], [facility] 08/15/2018 17:01:01 OBGyn Episode No OBEpisode recorded.
--- NOTE | 2024-07-03 09:00 | XR_ITS ---
FINAL REPORT CLINICAL HISTORY: Screening due to age/depo usage COMPARISON: None FINDINGS: Using L1-4, the bone mineral density of the spine is 0.010 g/cm2, corresponding to T-score of -0.3, within normal limits. Using the left hip, the bone mineral density of the femoral neck is 0.853 g/cm2, corresponding to a T-score of 0.0, within normal limits. Using the right hip, the bone mineral density of the femoral neck is 0.826 g/cm2, corresponding to a T-score of -0.2, within normal limits. FRAX not reported because all T-scores at or above -1.0. NOTE: T-score: Standard deviation compared with peak bone mass of young adult mean. *Following the recommendations of the International Society of Bone densitometry, classification of hip BMD is based on the lower of two T-scores; total hip or femoral neck. IMPRESSION: Normal bone mineral density of the lumbar spine and hips. Reviewed, Interpreted and Dictated by José Antonio Betancur MD Transcribed by Judith Aparicio Authenticated and [facility]
--- NOTE | 2024-07-03 09:15 | US_ITS ---
PROCEDURE: US TRANSVAGINAL CLINICAL INDICATION: Breakthrough bleeding COMPARISON: CT CT ABDOMEN PELVIS W CON from 02/23/2023 FINDINGS: Transvaginal sonographic images of the pelvis were obtained. UTERUS: 6.1cm x 3.7 cmx 3.0cm with a combined endometrial thickness of 3.6mm. There is a small amount of fluid in the cervical canal. LEFT OVARY: Not visualized RIGHT OVARY: Not visualized Both ovaries are not seen. There is no fluid in the cul-de-sac. IMPRESSION: 1. Anteverted, small uterus. The endometrium is thin. There is fluid in the endometrial canal. 2. The ovaries were not visualized due to patient discomfort. 3. No fluid in the cul-de-sac. Dictated by: Sushant Foreman MD 07/03/2024 10:32 Sushant Foreman MD in OV 07/03/2024 10:32
== END 2024-07-03 23:59 | disposition home or self-care (01) ==
LOC: RAD 08:49
PROVIDERS: PCP Nurse Practitioner Family; Visit Provider Obstetrics & Gynecology
DX: N92.1 Excessive and frequent menstruation with irregular cycle (principal); N93.9 Abnormal uterine and vaginal bleeding, unspecified; Z78.9 Other specified health status; R93.89 Abnormal findings on diagnostic imaging of other specified body structures
CPT/HCPCS: 76830; 77080

== ENCOUNTER 2024-07-12 10:22 | Outpatient (CLI) | payer MEDICARE, MEDICAID, SELFPAY ==
[2024-07-12 10:42] VITALS: BMI 52.8
--- NOTE | 2024-07-12 11:06 | ECG_ITS ---
APPROVED REPORT Exam: Resting ECG HR:96 bpm ECG Measurements Heart Rate 96 AXES CA 173 P 43 QRSd 90 QRS -27 QT 346 T 11 QTc 399 Conclusion SINUS RHYTHM LOW QRS VOLTAGE IN PRECORDIAL LEADS [QRS DEFLECTION < 1.0 mV IN CHEST LEADS] POSSIBLE ANTERIOR MYOCARDIAL INFARCTION , PROBABLY OLD [30 ms Q WAVE IN V3/V4, OR R < 0.2 mV IN V4] BORDERLINE ECG UNCONFIRMED REPORT Electronically signed by : Xander Riley MD 07/19/2024 14:42:35
[2024-07-12 11:10] LABS: Basophils # 0.1 K/mm3 (0-0.2); Basophils % 0.6 % (0.1-2.0); Eosinophils # 0.2 Kmm3 (0.0-0.4); Eosinophils % 1.9 % (0.1-12.0); Hematocrit 47.3 % (37.0-47.0); Hemoglobin 15.8 g/dL (12.2-16.2); Immature Granulocytes # 0.04 10^3uL; Immature Granulocytes % 0.4 %; Lymphocytes # 1.6 K/mm3 (0.7-4.5); Lymphocytes % 17.6 % (10-50); Mean Corpuscular HGB Conc 33.4 g/dL (31.8-35.4); Mean Corpuscular Hemoglobin 30.7 pg (27.0-31.2); Mean Corpuscular Volume 91.8 fl (81-99); Mean Platelet Volume 10.3 fl (7.4-10.4); Monocytes # 0.6 K/mm3 (0.1-1.0); Monocytes % 6.2 % (1.7-9.3); Neutrophils # 6.6 K/mm3 (1.8-7.8); Neutrophils % 73.3 % (37.0-80.0); Nucleated Red Blood Cells # 0 10^3/uL; Nucleated Red Blood Cells % 0 %; Platelet Count 308 K/mm3 (142-424); Red Blood Count 5.15 M/mm3 (4.20-5.40); Red Cell Distribution Width 13.9 % (11.5-17.5); White Blood Count 9.1 K/mm3 (4.8-10.8)
--- NOTE | 2024-07-12 11:11 | XR_ITS ---
FINAL REPORT CLINICAL HISTORY: S/P cervical spinal fusion 2 yrs ago, hardware check COMPARISON: None FINDINGS: CERVICAL SPINE Three views of the cervical spine were obtained. The patient is status post anterior fusion C5-6. There is loss of the normal lordosis. There is no subluxation. There is mild disc space narrowing C3-4 and C4-5. There is complete bony fusion at the discs at C5-6. IMPRESSION: Postoperative changes from fusion without malalignment or hardware abnormality. Reviewed, Interpreted and Dictated by See Appiah MD Transcribed by Angy Kulkarni Authenticated and [facility]
[2024-07-12 11:19] LABS: Chloride 111 mmol/L (98-107); Sodium 136 mmol/L (136-145)
[2024-07-12 11:20] LABS: Potassium 4.3 mmoL/L (3.5-5.1)
[2024-07-12 11:21] LABS: HCG Qualitative, Serum Negative (Negative)
[2024-07-12 11:22] LABS: Blood Urea Nitrogen 14 mg/dl (7-17); Creatinine Clearance Estimated 65 mL/min (50-200); Estimated Glomerular Filt Rate 69 ml/min (>60); GFR (African American) 83 ML/MIN (>60)
[2024-07-12 11:23] LABS: Anion Gap 12.3 mEq/L (5-15); Calcium 9.7 mg/dl (8.4-10.2); Carbon Dioxide 17 mmol/L (22.0-30.0); Glucose 207 mg/dl (74-100)
== END 2024-07-12 23:59 | disposition home or self-care (01) ==
PROVIDERS: PCP Nurse Practitioner Family; Visit Provider Orthopaedic Surgery
DX: R94.31 Abnormal electrocardiogram [ECG] [EKG] (principal); Z98.1 Arthrodesis status
CPT/HCPCS: 72040; 80048; 84703; 85025; 93005

== ENCOUNTER 2024-07-26 15:19 | Outpatient (CLI) | payer MEDICARE, MEDICAID, SELFPAY ==
--- OUTSIDE RECORDS SUMMARY | 2024-06-03 08:40 | XMS_ITS | Encounter Summary ---
Author Organization [facility] Address [address] [place] [address] Care Team Providers Care Health Spa Manager Name Role Phone Alka Tracy EVENT STAFF MEMBER Primary Care Provider [phone] Daily Christy MD Unavailable [phone] Malgorzata Moseley Unavailable [phone] Shy Duque APRN Unavailable [phone] Arsalan Thompson MD Unavailable + [phone] Linda Baker LAUNDRY SUPERINTENDENT Unavailable Unavailab le Reason for Visit * Reason Comments Hospital Follow Up ER follow up [facility] Encounter Details Date Type Department Care Team (Latest Contact Info) Description 06/03/2024 8:40 AM EDT Office Visit [facility] [address] [place] [address] Alka Tracy, DEVORAH [address] [place] [address] Type 2 diabetes mellitus with hyperglycemia, without long-term current use of insulin ([facility]) (Primary Dx); Allergic rhinitis, unspecified seasonality, unspecified trigger; Encounter for other contraceptive management Social History Tobacco Use Types Packs/Day Years Used Date Smoking Tobacco: Never Passive Smoke Exposure: Never Smokeless Tobacco: Never Alcohol Use Standard Drinks/Week Comments Not Currently 1 (1 standard drink = 0.6 oz pur e alcohol) Humiliation, Afraid, Rape, and Kick questionnair e Answer Date Recorded Within the last year, have y ou been afraid of your partner or ex-partner? No 06/03/2024 Within the last year, have y ou been humiliated or emotionally abused in other ways by your partner or ex-partner? No Within the last year, have y ou been kicked, hit, slapped, or otherwise physically hurt by your partner or ex-partner? No 06/03/2024 Within the last year, have y ou been raped or forced to have any kind of sexual activity by your partner or ex-partner? No 06/03/2024 Social Connection and Isolation Panel Answer Date Recorded In a typical week, how many times do you talk on the phone with family, friends, or neighbors? Never 12/27/2023 How often do you get togethe r with friends or relatives? Twice a week 12/27/2023 How often do you attend [facility] or mandaen services? Never 12/27/2023 Do you belong to any clubs o r organizations such as jain groups, unions, fraternal or athletic groups, or school groups? No 12/27/2023 How often do you attend meet ings of the clubs or organizations you belong to? More than 4 times per year 12/27/2023 Are you , , di vorced, , never , or living with a partner? Never 12/27/2023 AUDIT-C Answer Date Recorded Q1: How often do you have a drink containing alcohol? Never 12/27/2023 Q2: How many drinks containi ng alcohol do you have on a typical day when you are drinking? Patient does not drink Q3: How often do you have si x or more drinks on one occasion? Never 12/27/2023 PHQ-2 Answer Date Recorded Patient Health Questionnaire-2 Score 2 06/03/2024 [facility] - Occupational Stress Questionnaire Answer Date Recorded Do you feel stress - tense, restless, nervous, or anxious, or unable to sleep at night because your mind is troubled all the time - these days? Very much 12/27/2023 Exercise Vital Sign Answer Date Recorde d On average, how many days pe r week do you engage in moderate to strenuous exercise (like a brisk walk)? 0 days 12/27/2023 On average, how many minutes do you engage in exercise at this level? 0 min 12/27/2023 Hunger Vital Sign Answer Date Recorded Within the past 12 months, y ou worried that your food would run out before you got the money to buy more. Often true 06/04/19 25 Within the past 12 months, t he food you bought just didn't last and you didn't have money to get more. Often true 06/03/2024 PRAPARE - Transportation Answer Date Re corded In the past 12 months, has l ack of transportation kept you from medical appointments or from getting medications? No 05/21 In the past 12 months, has l ack of transportation kept you from meetings, work, or from getting things needed for daily living? No 06/03/2024 Housing Stability Vital Sign Answer Emile e Recorded In the last 12 months, was t here a time when you were not able to pay the mortgage or rent on time? No 11/09/2023 In the last 12 months, how many places have you lived? 1 11/09/2023 In the last 12 months, was t here a time when you did not have a steady place to sleep or slept in a assisted (including now)? No 11/09/2023 PHQ-9 Answer Date Recorded Patient Health Questionnaire-9 Score 8 06/03/2024 Housing Stability Vital Sign Answer Emile e Recorded In the last 12 months, was t here a time when you were not able to pay the mortgage or rent on time? No 06/03/2024 In the past 12 months, how m any times have you moved where you were living? 0 06/03/2024 At any time in the past 12 m [facility], were you homeless or living in a assisted (including now)? No 06/03/2024 Utilities Answer Date Recorded In the past 12 months has th e electric, gas, oil, or water company threatened to shut off services in your home? No 06/03/2024 PHQ-2A Answer Date Recorded Patient Health Questionnaire-2 Score 2 11/29/2022 Comments No Sex and Gender Information Value Date Recorded Sex Assigned at Not on file Legal Sex Female 6:31 PM EDT Gender Identity Not on file Sexual Orientation Not on file documented as of this encounter Last Filed Vital Signs Vital Sign Reading Time Taken Comments Blood Pressure 124/80 06/03/2024 8:50 AM EDT Pulse 101 06/03/2024 8:50 AM EDT Temperature 36.5 C (97.7 F) 06/03/2024 8:50 AM EDT Respiratory Rate 18 06/03/2024 8:50 AM EDT Oxygen Saturation 99% 06/03/2024 8:50 AM EDT Inhaled Oxygen Concentration - - Weight 131 kg (289 lb 3.9 oz) 06/03/2024 8:50 AM EDT Height 157.5 cm (5' 2 ) 06/03/2024 8:50 AM EDT Body Mass Index 52.9 06/03/2024 8:50 AM EDT documented in this encounter Functional Status * Over the past 2 weeks, how often have you been bothered by any of the following problems? Question Answer Date of Assessment Author Little interest or pleasure in doing things Several days 06/03/2024 8:53 AM Judith Padgett Feeling down, depressed, or hopeless Several days 06/03/2024 8:53 AM Judith Padgett Patient Health Questionnaire -2 Score 2 06/03/2024 8:53 AM Judith Padgett * Question Answer Date of Assessment Author Trouble falling or staying asleep, or sleeping too much Nearly every day 06/03/2024 8:53 AM Judith Padgett Feeling tired or having little energy Nearly every day 06/03/2024 8:53 AM Judith Padgett Poor appetite or overeating Not at all 06/03/2024 8: 53 AM Judith Padgett Feeling bad about yourself - or that you are a failure or have let yourself or your family down Not at all 06/03/2024 8:53 AM Judith Padgett Trouble concentrating on things, such as reading the newspaper or watching television Not at all 06/03/2024 8:53 AM Judith Padgett Moving or speaking so slowly that other people could have noticed? Or the opposite - being so fidgety or restless that you have been moving around a lot more than usual. Not at all 06/03/2024 8:53 AM Judith Santiago Thoughts that you would be better off or hurting yourself in some way Not at all 06/03/2024 8:53 AM Judith Padgett Patient Health Questionnaire-9 Score 8 06/03/2024 8:53 AM Judith Padgett * Calculated C-SSRS Risk Score (Lifetime/Recent) Answer Date of Assessment Author No Risk Indicated 06/03/2024 8:57 AM Judith Santiago * If you checked off any problems on this questionnaire so far, Question Answer Date of Assessment Author How difficult have these problems made it for you to do your work, take care of things at home, or get along with other people? Somewhat difficult 06/03/2024 8:53 AM Israel Padgett * Question Answer Date of Assessment Author 1. Wish to be (Past 1 Month) No 025 8:57 AM Judith Padgett 2. Non-Specific Active Suici tae Thoughts (Past 1 Month) No 06/03/2024 8:57 AM Judith Padgett 6. Suicidal Behavior (Lifetime) No 8:57 AM Judith Padgett documented as of this encounter Miscellaneous Notes * Progress Notes - Alka Tracy, DEVORAH - 06/03/2024 8:40 AM EDT Subjective Chantal Bell Pt is here to discuss that she went on jardience on Monday and her sugars are not down Discussed will take a little time and will do for at least 2 weeks to see what it does She also would like her depo shot here since she is due and is concerned that she has worsneing allergies with ears popping but insurnace will not pay for claritin so wants to try bendryl at night Has stopped adult day and has tattooer aid now Medical History[1] Surgical History[2] Family History[3] Social History Socioeconomic History Marital status: Single Spouse name: Not on file Number of children: Not on file Years of education: Not on file Highest education level: Not on file Occupational History Not on file Tobacco Use Smoking status: Never Passive exposure: Never Smokeless tobacco: Never Vaping Use Vaping status: Never Used Substance and Sexual Activity Alcohol use: Not Currently Alcohol/week: 1.0 standard drink of alcohol Types: 1 Standard drinks or equivalent per week Drug use: Never Sexual activity: Defer Other Topics Concern Not on file Social History Narrative Not on file Social Drivers of Health Financial Resource Strain: Not on file Food Insecurity: Food Insecurity Present (06/03/2024) Hunger Vital Sign Worried About Running Out of Food in the Last Year: Often true Ran Out of Food in the Last Year: Often true Transportation Needs: No Transportation Needs (06/03/2024) PRAPARE - Transportation Lack of Transportation (Medical): No Lack of Transportation (Non-Medical): No Physical Activity: Inactive (12/27/2023) Exercise Vital Sign Days of Exercise per Week: 0 days Minutes of Exercise per Session: 0 min Stress: Stress Concern Present (12/27/2023) [employer] [facility] [employer] - Occupational Stress Questionnaire Feeling of Stress : Very much Social Connections: Socially Isolated (12/27/2023) Social Connection and Isolation Panel [NHANES] Frequency of Communication with Friends and Family: Never Frequency of Social Gatherings with Friends and Family: Twice a week Attends [employer] Services: Never Active Member of Clubs or Organizations: No Attends Club or Organization Meetings: More than 4 times per year Marital Status: Never Intimate Partner Violence: Not At Risk (06/03/2024) Humiliation, Afraid, Rape, and Kick questionnaire Fear of Current or Ex-Partner: No Emotionally Abused: No Physically Abused: No Sexually Abused: No Housing Stability: Low Risk (06/03/2024) Housing Stability Vital Sign Unable to Pay for Housing in the Last Year: No Number of Times Moved in the Last Year: 0 Homeless in the Last Year: No Medications Ordered Prior to Encounter[4] Health Maintenance Due Topic Date Due [facility]-HIV Screening Never done [facility]-Hepatitis C Screening Never done Diabetes: Dental Exam Never done [facility]-Varicella Vaccines (1 of 2 - 13+ 2-dose series) Never done [facility]-Pneumococcal Vaccine: Pediatrics (0 to 5 Years) and At-Risk Patients (6 to 64 Years) (1 of 2 - PCV) Never done [facility]-Hepatitis B Vaccines (3 of 3 - Hep B Twinrix 3-dose series) 02/16/2014 [facility]-DTaP,Tdap,and Td Vaccines (2 - Td or Tdap) 08/27/2023 [facility]-EOTJL-20 Vaccine (2 - season) 2023 [facility]- SDOH Screenings 05/08/2024 Review of Systems Constitutional: Negative. Respiratory: Negative. Cardiovascular: Negative. Endocrine: Negative. Neurological: Negative. Objective Vitals: 06/03/24 0850 BP: 124/80 Pulse: 101 Resp: 18 Temp: 36.5 ??C (97.7 ??F) SpO2: 99% Physical Exam Vitals reviewed. Constitutional: Appearance: She is obese. Cardiovascular: Rate and Rhythm: Normal rate and regular rhythm. Pulses: Normal pulses. Heart sounds: Normal heart sounds. Pulmonary: Effort: Pulmonary effort is normal. Breath sounds: Normal breath sounds. Neurological: General: No focal deficit present. Mental Status: She is alert and oriented to person, place, and time. Psychiatric: Mood and Affect: Mood normal. Behavior: Behavior normal. Thought Content: Thought content normal. Judgment: Judgment normal. Assessment/Plan Diagnoses and all orders for this visit: Type 2 diabetes mellitus with hyperglycemia, without long-term current use of insulin ([facility]) Conitnue the jardience and see in 2 weeks where we are at Allergic rhinitis, unspecified seasonality, unspecified trigger - diphenhydrAMINE (Benadryl Allergy) 25 MG capsule; Take 1 capsule by mouth every 8 hours as neededfor allergies (1/2 tab qhs prn). Encounter for other contraceptive management - medroxyPROGESTERone (Depo-Provera) injection 150 mg [1] Past Medical History: Diagnosis Date Headache Hypothyroidism Irritable bowel syndrome without diarrhea Legal blindness, as defined in [place] Sleep terrors (night terrors) [2] Past Surgical History: Procedure Laterality Date ANTERIOR CERVICAL DISCECTOMY W/ FUSION 05/26/[address] C5-[address] Doll GALLBLADDER SURGERY KNEE SURGERY Left 09/08/2022 [3] Family History Problem Relation Name Age of Onset Conversions - Other Other Family history unknown [4] Current Outpatient Medications on File Prior to Visit Medication Sig Dispense Refill amitriptyline (Elavil) 100 MG tablet Take 1.5 tablets (150 mg) by mouth nightly. 45 tablet 11 busPIRone (Buspar) 10 MG tablet Take 1 tablet (10 mg) by mouth 3 (three) times a day. 270 tablet 3 diclofenac (Voltaren) 75 MG EC tablet Take 1 tablet (75 mg) by mouth 2 (two) times a day. Do not crush, chew, or split. 60 tablet 0 dicyclomine (Bentyl) 20 MG tablet Take 1 tablet (20 mg) by mouth 2 (two) times a day. 180 tablet 3 fluticasone (Flonase) 50 MCG/ACT nasal spray instill 1 SPRAY IN EACH NOSTRIL EVERY DAY shake gently. prime pump BEFORE first USE. AFTER USE clean TIP AND replace cap 32 g 3 galcanezumab-gnlm (Emgality) 120 MG/ML injection Inject the contents of 1 pen under the skin every 30 days. 1 mL 11 glucose blood test strip 1 each by Other route 1 (one) time each day. 100 strip 0 hydrOXYzine pamoate (Vistaril) 50 MG capsule Take 2 capsules (100 mg) by mouth nightly. Take 2 tabsnightly and then TID PRN Jardiance 10 MG Take 1 tablet by mouth daily. Lancets misc Test Blood sugar once daily 100 each 0 levothyroxine (Synthroid, Levoxyl) 137 MCG tablet Take 1 tablet (137 mcg) by mouth daily. 90 tablet1 medroxyPROGESTERone (Depo-Provera) 150 MG/ML injection Use every 12 weeks 1 mL 3 meloxicam (Mobic) 7.5 MG tablet Take 1 tablet (7.5 mg) by mouth daily. miconazole (Micotin) 2 % powder Apply bid 71 g 1 mirtazapine (Remeron) 45 MG tablet Take 1 tablet (45 mg) by mouth nightly. nystatin (Mycostatin) cream APPLY TOPICALLY TO THE AFFECTED AREA(S) TWICE DAILY -- FOR EXTERNAL USEONLY-- 30 g 1 ondansetron (Zofran) 4 MG tablet Take 1 tablet (4 mg) by mouth every 8 (eight) hours if needed for nausea or vomiting. 20 tablet 0 pantoprazole (Protonix) 40 MG EC tablet Take 1 tablet (40 mg) by mouth 2 (two) times a day. Do not crush, chew, or split. 180 tablet 3 PARoxetine (Paxil) 20 MG tablet Take 1 tablet (20 mg) by mouth 1 (one) time each day. 90 tablet 2 prazosin (Minipress) 2 MG capsule TAKE TWO CAPSULES BY MOUTH EVERY DAY AT BEDTIME rOPINIRole (Requip) 2 MG tablet Take 1 tablet (2 mg) by mouth 1 (one) time each day in the evening.90 tablet 3 sertraline (Zoloft) 100 MG tablet Syringe/Needle, Disp, (B-D 3CC LUER-ASIM SYR 25GX1 ) 25G X 1 3 ML misc USE DIRECTED FOR depo shot 4 each 3 topiramate (Topamax) 100 MG tablet Take 1 tablet (100 mg) by mouth 2 (two) times a day. 180 tablet 3 topiramate 50 MG tablet Take 1 tablet (50 mg) by mouth 2 (two) times a day. Take with topiramate 100 mg tablet by mouth two (2) times a day to make up total dose of 150 mg two (2) times a day 180 tablet 3 traZODone (Desyrel) 100 MG tablet Take 1 tablet (100 mg) by mouth. TAKE 2 TABLETS AT BEDTIME. ubrogepant (Ubrelvy) 100 MG tablet Take 1 tablet (100 mg) by mouth 1 (one) time as needed for migraine for up to 1 dose. After 2 hours, a second dose may be taken if needed. Maximum dose: 200 mg in 24-hour period. 10 each 3 Mounjaro 7.5 MG/0.5ML solution auto-injector solution pen-injector Inject 0.5 mL (7.5 mg) under theskin 1 (one) time per week. (Patient not taking: Reported on 06/03/2024) 2 mL 1 No current facility-administered medications on file prior to visit. documented in this encounter Plan of Treatment Upcoming Encounters Date Type Department Care Team (Late st Contact Info) Description 08/28/2024 11:00 AM EDT Procedure Visit [facility] [address] [place] [address] Malgorzata Moseley PA [address] [place] [address] 10/04/2024 9:30 AM EDT Procedure Visit [facility] [address] [place] [address] Nicolás Hollis MD [address] [place] [address] documented as of this encounter Visit Diagnoses Diagnosis Type 2 diabetes mellitus with hyperglycemia, without long-term current use of insulin ([facility])- Primary Allergic rhinitis, unspecified seasonality, unspecified trigger Encounter for other contraceptive management documented in this encounter Administered Medications Inactive Administered Medications - up to 3 most recent administrations Medication Order MAR Action Action Date Dose Rate Site medroxyPROGESTERone (Depo-Provera) injection 150 mg 150 mg, Intramuscular, Once, 1 dose, On Mon06/03/24 at 1015, RoutineIndications:Encoun ter for other contraceptive management Given 06/03/2024 9:31 AM EDT 150 mg Left Ventrogluteal documented in this encounter Additional Health Concerns Assessment Noted Time PHQ-9 Depression Total Score: 8 06/04/19 25 8:53 AM EDT A fall risk assessment has been complete d for the patient 05/22/2024 9:56 AM EDT A Body Mass Index follow-up plan has been documented for the patient 06/03/2024 10:08 AM EDT documented as of this encounter Care Teams Health Spa Manager Relationship Specialty Start Date End Date Alka Tracy APRN [address] [place] [address] PCP - General 07/03/20 Daily Christy MD [address] [place] [address] Service Attending Neurology 09/30/20 Malgorzata Moseley PA [address] [place] [address] Physician Sewage Plant Supervisor Neurology 11/18/20 Shy Duque APRN [address] [address] Nurse Practitioner Neurosurgery 11/25/20 Arsalan Thompson MD [address] [address] Surgeon Neurosurgery 07/02/21 Linda Baker LPN VALUE-BASED TRANSFORMATION PROGRAM Licensed Practical Nurse 12/27/23 06/24/24 documented as of this encounter
--- OUTSIDE RECORDS SUMMARY | 2024-07-10 09:40 | XMS_ITS | Encounter Summary ---
Author Organization [facility] Address [address] [place] [address] Care Team Providers Care Crematory Attendant Name Role Phone Alka Tracy APRN Primary Care Provider [phone] Daily Christy MD Unavailable [phone] Malgorzata Moseley Unavailable [phone] Shy Duque APRN Unavailable [phone] Arsalan Thompson MD Unavailable [phone] Francis Wallace Unavailable Unavailable Reason for Visit * Reason Comments Diabetes Encounter Details Date Type Department Care Team (Late st Contact Info) Description 07/10/2024 9:40 AM EDT Office Visit [facility] [address] [place] [address] Alka Tracy APRN [address] [place] [address] Type 2 diabetes mellitus with hyperglycemia, without long-term current use of insulin ([facility]) (Primary Dx) Social History Tobacco Use Types Packs/Day Years Used Date Smoking Tobacco: Never Passive Smoke Exposure: Never Smokeless Tobacco: Never Alcohol Use Standard Drinks/Week Comments Not Currently 1 (1 standard drink = 0.6 oz pur e alcohol) Humiliation, Afraid, Rape, and Kick questionnair e Answer Date Recorded Within the last year, have y ou been afraid of your partner or ex-partner? No 07/10/2024 Within the last year, have y ou been humiliated or emotionally abused in other ways by your partner or ex-partner? No Within the last year, have y ou been kicked, hit, slapped, or otherwise physically hurt by your partner or ex-partner? No 07/10/2024 Within the last year, have y ou been raped or forced to have any kind of sexual activity by your partner or ex-partner? No 07/10/2024 Social Connection and Isolation Panel Answer Date Recorded In a typical week, how many times do you talk on the phone with family, friends, or neighbors? Never 12/27/2023 How often do you get togethe r with friends or relatives? Twice a week 12/27/2023 How often do you attend chur ch or orthodox services? Never 12/27/2023 Do you belong to any clubs o r organizations such as restoration groups, unions, fraternal or athletic groups, or [...] Date Recorded Patient Health Questionnaire-2 Score 2 07/10/2024 [facility]ational Stress Questionnaire Answer [...] the money to buy more. Often true 07/11/19 25 Within the past 12 months, t he food you bought just didn't last and you didn't have money to get more. Often true 07/10/2024 PRAPARE - Transportation Answer Date Re corded In the past 12 months, has l ack of transportation kept you from medical appointments or from getting medications? No 06/21 In the past 12 months, has l ack of transportation kept you from meetings, work, or from getting things needed for daily living? No 07/10/2024 Housing Stability Vital Sign Answer Emile e [...] place to sleep or slept in a longterm (including now)? No 11/09/2023 PHQ-9 Answer Date Recorded Patient Health Questionnaire-9 Score 8 07/10/2024 Housing Stability Vital Sign Answer Emile e Recorded In the last 12 months, was t here a time when you were not able to pay the mortgage or rent on time? No 07/10/2024 In the past 12 months, how m any times have you moved where you were living? 0 07/10/2024 At any time in the past 12 m [facility], were you homeless or living in a longterm (including now)? No 07/10/2024 Utilities Answer Date Recorded In the past 12 months has th e electric, gas, oil, or water company threatened to shut off services in your home? No 07/10/2024 PHQ-2A Answer Date Recorded Patient Health Questionnaire-2 Score 2 11/29/2022 Comments No Sex and Gender Information Value Date Recorded Sex Assigned at Not on file Legal Sex Female 6:31 PM EDT Gender Identity Not on file Sexual Orientation Not on file documented as of this encounter Last Filed Vital Signs Vital Sign Reading Time Taken Comments Blood Pressure 120/84 07/10/2024 9:36 AM EDT Pulse 100 07/10/2024 9:36 AM EDT Temperature 36.8 C (98.3 F) 07/10/2024 9:36 AM EDT Respiratory Rate 16 07/10/2024 9:36 AM EDT Oxygen Saturation 96% 07/10/2024 9:36 AM EDT Inhaled Oxygen Concentration - - Weight 133 kg (293 lb 3.4 oz) 07/10/2024 9:36 AM EDT Height 157.5 cm (5' 2 ) 07/10/2024 9:36 AM EDT Body Mass Index 53.63 07/10/2024 9:36 AM EDT documented in this encounter Functional Status * Over the past 2 weeks, how often have you been bothered by any of the following problems? Question Answer Date of Assessment Author Little interest or pleasure in doing things Several days 07/10/2024 9:37 AM Judith Padgett Feeling down, depressed, or hopeless Several days 07/10/2024 9:37 AM Judith Padgett Patient Health Questionnaire -2 Score 2 07/10/2024 9:37 AM TRACIT Judith Beauchamp * Question Answer Date of Assessment Author Trouble falling or staying asleep, or sleeping too much Nearly every day 07/10/2024 9:37 AM Judith Padgett Feeling tired or having little energy Nearly every day 07/10/2024 9:37 AM Judith Padgett Poor appetite or overeating Not at all 07/10/2024 9: 37 AM Judith Padgett Feeling bad about yourself - or that you are a failure or have let yourself or your family down Not at all 07/10/2024 9:37 AM Judith Padgett Trouble concentrating on things, such as reading the newspaper or watching television Not at all 07/10/2024 9:37 AM Judith Padgett Moving or speaking so slowly that other people could have noticed? Or the opposite - being so fidgety or restless that you have been moving around a lot more than usual. Not at all 07/10/2024 9:37 AM TRACIT Judith Santoro Thoughts that you would be better off or hurting yourself in some way Not at all 07/10/2024 9:37 AM EDT Judith Beauchamp Patient Health Questionnaire-9 Score 8 07/10/2024 9:37 AM EDT Judith Beauchamp * Calculated C-SSRS Risk Score (Lifetime/Recent) Answer Date of Assessment Author No Risk Indicated 07/10/2024 9:43 AM EDT Judith Santoro * If you checked off any problems on this questionnaire so far, Question Answer Date of Assessment Author How difficult have these problems made it for you to do your work, take care of things at home, or get along with other people? Somewhat difficult 07/10/2024 9:37 AM EDT Israel Beauchamp * Question Answer Date of Assessment Author 1. Wish to be (Past 1 Month) No 025 9:43 AM EDT Judith Beauchamp 2. Non-Specific Active Suici tae Thoughts (Past 1 Month) No 07/10/2024 9:43 AM EDT Judith Beauchamp 6. Suicidal Behavior (Lifetime) No 9:43 AM EDT Judith Beauchamp documented as of this encounter Miscellaneous Notes * Addendum Note - Judith Beauchamp - 07/10/2024 9:40 AM EDTAddended by: JUDITH BEAUCHAMP on: 07/10/2024 10:59 AM Modules accepted: Orders * Progress Notes - Alka Tracy APRN - 07/10/2024 9:40 AM EDT Subjective Chantal Bell Pt is here to follow up on her diabetes she states has been running high and is concerned since shehas knee surg scheduled for July 29 Discussed that she really need to have this under control before having surg and we most likely will need to add med in Medical History[1] Surgical History[2] Family History[3] Social [...] on file Food Insecurity: Food Insecurity Present (07/10/2024) Hunger Vital Sign Worried About Running Out of Food in the Last Year: Often true Ran Out of Food in the Last Year: Often true Transportation Needs: No Transportation Needs (07/10/2024) PRAPARE - Transportation Lack of Transportation (Medical): No Lack of Transportation (Non-Medical): No Physical Activity: Inactive (12/27/2023) Exercise Vital Sign Days of Exercise per Week: 0 days Minutes of Exercise per Session: 0 min Stress: Stress Concern Present (12/27/2023) [employer] - Occupational Stress Questionnaire Feeling of Stress : Very much Social Connections: Socially Isolated (12/27/2023) Social Connection and Isolation Panel [NHANES] Frequency of Communication with Friends and Family: Never Frequency of Social Gatherings with Friends and Family: Twice a week Attends Worship Services: Never Active Member of Clubs or Organizations: No Attends Club or Organization Meetings: More than 4 times per year Marital Status: Never Intimate Partner Violence: Not At Risk (07/10/2024) Humiliation, Afraid, Rape, and Kick questionnaire Fear of Current or Ex-Partner: No Emotionally Abused: No Physically Abused: No Sexually Abused: No Housing Stability: Low Risk (07/10/2024) Housing Stability Vital Sign Unable to Pay [...] Vaccines (2 - Td or Tdap) 08/27/2023 [id number] Vaccine (2 - 2023- season) 2023 UKY-Diabetes: Hemoglobin A1C 07/12/2024 Review of Systems Constitutional: Negative. Respiratory: Negative. Cardiovascular: Negative. Endocrine: Negative. Neurological: Negative. Psychiatric/Behavioral: Negative. Objective Vitals: 07/10/24 0936 BP: 120/84 Pulse: 100 Resp: 16 Temp: 36.8 ??C (98.3 ??F) SpO2: 96% Physical Exam Vitals and nursing note reviewed. Constitutional: Appearance: She is obese. Cardiovascular: [...] hyperglycemia, without long-term current use of insulin ([facility]) - Semaglutide,0.25 or 0.5MG/DOS, (Ozempic, 0.25 or 0.5 MG/DOSE,) 2 MG/3ML solution pen-injector; Inject 0.25 mg under the skin 1 time per week. HGA1C here is 9.4 discussed that this may delay her surg and will start her on ozempic today [1] Past Medical History: Diagnosis Date Headache [...] mg) by mouth nightly. 45 tablet 11 ARIPiprazole (Abilify) 5 MG tablet Take 1 tablet by mouth nightly. busPIRone (Buspar) 10 MG tablet Take 1 [...] (two) times a day. 180 tablet 3 diphenhydrAMINE (Benadryl) 25 MG capsule Take 1 capsule by mouth every 8 hours as needed for allergies (1/2 tab qhs prn). 30 capsule 2 empagliflozin (Jardiance) 25 MG Take 1 tablet by mouth daily. 30 tablet 11 Erenumab-aooe (Aimovig) 140 MG/ML solution auto-injector Inject 140 mg under the skin every 30 days. 1 mL 11 fluticasone (Flonase) 50 MCG/ACT nasal spray instill 1 SPRAY IN EACH NOSTRIL EVERY DAY shake gently. prime pump BEFORE first USE. AFTER USE clean TIP AND replace cap 32 g 3 glucose blood test strip 1 each by Other route 1 (one) time each day. 100 strip 0 hydrOXYzine pamoate (Vistaril) 50 MG capsule Take 2 capsules (100 mg) by mouth nightly. Take 2 tabsnightly and then TID PRN Lancets misc Test Blood sugar once daily [...] for nausea or vomiting. 20 tablet 0 oxybutynin XL (Ditropan-XL) 10 MG 24 hr tablet Take 1 tablet by mouth daily. pantoprazole (Protonix) 40 MG EC tablet Take [...] (two) times a day. 180 tablet 3 traZODone (Desyrel) 100 MG [...] mg in 24-hour period. 10 each 3 topiramate 50 MG tablet Take 1 tablet (50 mg) by mouth 2 (two) times a day. Take with topiramate 100 mg tablet by mouth two (2) times a day to make up total dose of 150 mg two (2) times a day (Patient not taking: Reported on 07/10/2024) 180 tablet 3 No current facility-administered medications on file prior to visit. documented in this encounter Plan of Treatment Upcoming Encounters Date Type Department Care Team (Late st Contact Info) Description 08/28/2024 11:00 AM EDT Procedure Visit [place] [facility] [address] [place] [address] Malgorzata Moseley PA [address] [place] [address] 10/04/2024 9:30 AM EDT Procedure Visit [facility] [address] [place] [address] Nicolás Hollis MD [address] [place] [address] documented as of this encounter Procedures Procedure Name Priority Date/Time Associated Diagnosis Comments POCT GLYCOSYLATED HEMOGLOBIN (HGB A1C) Routine 07/10/2024 10:58 AM EDT Type 2 diabetes mellitus with hyperglycemia, without long-term current use of insulin ([facility]) documented in this encounter Results * (ABNORMAL) POCT glycosylated hemoglobin (Hb A1C) (07/10/2024 10:58 AM EDT) POCT Hemoglobin A1C 9.4 <5.7% Non-Diabe tic % [facility] Kit Lot Number [id number] [facility] Kit Expiration Date 04/19/2026 [facility] Blood Venous blood specimen / Unknown 07/10/2024 10:58 AM EDT us Alka Tracy BUSINESS MGR POINT OF CARE TEST ENTER/ED IT ORDERABLES Final Result [facility] [address] [place] [address] documented in this encounter Visit Diagnoses Diagnosis Type 2 diabetes mellitus with hyperglycemia, without long-term current use of insulin ([facility])- Primary documented in this encounter Additional Health Concerns Assessment Noted Time PHQ-9 Depression Total Score: 8 07/11/19 25 9:37 AM EDT A fall risk assessment has been complete d for the patient 05/22/2024 9:56 AM EDT A Body Mass Index follow-up plan has been documented for the patient 07/10/2024 10:04 AM EDT documented as of this encounter Care Teams Crematory Attendant Relationship Specialty Start Date End Date Alka Tracy APRN [place] [phone] PCP - General 07/03/20 Daily Christy MD [address] [place] [address] Service Attending Neurology 09/30/20 Malgorzata Moseley PA [address] [place] [address] Physician [facility] 11/18/20 Shy Duque APRN [address] [place] [address] Nurse Practitioner Neurosurgery 11/25/20 Arsalan Thompson MD [address] [place] [address] Surgeon Neurosurgery 07/02/21 [facility] Wallace Community Health Worker 07/10/24 07/17/24 documented as of this encounter
--- OUTSIDE RECORDS SUMMARY | 2024-07-16 08:30 | XMS_ITS | Encounter Summary ---
Author Organization [facility] Address [address] [place] [address] Care Team Providers Care Tare Weigher Name Role Phone Alka Tracy APRN Primary Care Provider [phone] Daily Christy MD Unavailable [phone] Malgorzata Moesley Unavailable [phone] Shy Duque APRN Unavailable [phone] Arsalan Thompson MD Unavailable + [phone] Francis Wallace Unavailable Unavailable Reason for Referral * Other Medical (Routine) - Authorized Specialty Diagnoses / Procedures Referred By Contac t Referred To Contact Neurology Diagnoses S/P cervical spinal fusion Cervical spondylosis with myelopathy Procedures EMG / Nerve Conduction Study Crystal Melendez APRN, DNP [address] [address] Phone: tel: fax: Referral ID Status Reason Start Date Expiration Date Visits Requested Visits Authorized [id number] Authorized Specialty Services Required 07/16/2024 01/15/2026 1 1 * Imaging (Routine) - Authorized Specialty Diagnoses / Procedures Referred By Contac t Referred To Contact Diagnoses S/P cervical spinal fusion Cervical spondylosis with myelopathy Procedures MR Cervical Spine wo IV Contrast Crystal Melendez APRN, DNP [address] [address] Phone: tel: fax: [facility] () [address] [place] [address] Phone: tel: fax: Referral ID Status Reason Start Date Expiration Date V isits Requested Visits Authorized [id number] Authorized 07/16/2024 01/15/2026 1 1 Encounter Details Date Type Department Care Team (Late st Contact Info) Description 07/16/2024 8:30 AM EDT Office Visit [place] [facility] [address] [place] [address] Arsalan Thompson MD [address] [facility] [address] [place] [address] S/P cervical spinal fusion (Primary Dx); Cervical spondylosis with myelopathy Social History Tobacco Use Types Packs/Day Years [...] often do you attend chur ch or christianity services? Never 12/27/2023 Do you belong to any clubs o r organizations such as moravian groups, unions, fraternal or athletic groups, or [...] Recorded Patient Health Questionnaire-2 Score 2 07/10/2024 [facility] - Occupational Stress [...] place to sleep or slept in a residential (including now)? No 11/09/2023 PHQ-9 Answer Date [...] any time in the past 12 m [facility], were you homeless or living in a residential (including now)? No 07/10/2024 Utilities Answer Date Recorded In the past 12 months has th e electric, gas, oil, or water [employer] threatened to shut off services in your home? No 07/10/2024 PHQ-2A Answer Date Recorded Patient Health Questionnaire-2 Score 2 11/29/2022 Comments No Sex and Gender Information Value Date Recorded Sex Assigned at Not on file Legal Sex Female 6:31 PM EDT Gender Identity Not on file Sexual Orientation Not on file documented as of this encounter Miscellaneous Notes * Progress Notes - Crystal Melendez, MOLD DESIGN ENGINEER, DNP - 07/16/2024 8:30 AM EDT We had the pleasure of evaluating your patient today for Neurosurgical follow- up. My full exam follows. Of note, this visit is conducted through Telehealth via [employer]. The patient???s identity has been confirmed using name and date of . The patient confirms that they are physically located in [place]. I discussed with patient and family the nature of our telemedicine visit. Our sessions are not being recorded and personal health information is protected. I let the patient and family know that I will evaluate the patient and recommend diagnostics and treatment based on my assessment. Our team will provide follow- up care in person if/when needed. The patient has received and understands the [place] Authorizations and Agreements form and consents to the general terms and conditions of care. They have received the Consent for Care Using Telehealth. The risk, benefits, and alternatives of care beingprovided via telehealth were discussed with the patient and their family. They verbalized understanding and agree to proceed. Chief Complaint: Status post C5-C6 ACDF History Of Present Illness Chantal Bell is a 39 y.o. female with a past medical history of hypothyroidism and legal blindness who presents to neurosurgical clinic via telephone today for follow-up for years status post C5-C6 ACDF on 05/26/[address] Doll. Preoperatively, the patient was experiencing neck and bilateral arm pain, numbness, and tingling. Since her most recent visit on 11/14/2023, the patient has continued to experience neck, bilateral shoulder, and arm pain. At that point in time, imaging demonstrated no significant stenosis of the spine with right arm being worse than left. Today, the patient reports that she has had no change to her pain, and is using compounded cream with gabapentin and ketamine that offers very minimal relief. She is experiencing a shooting pain down her bilateral upper extremities and no dermatomal distribution. Her right arm continues to be worse than left, and she is now unable to lay on her right side without significant pain. She endorses worsening imbalance, and states that she fell on June 30. She is unsure what happened, but states that she feels more off balance. Additionally, she fell backwards into the wall this morning. She now endorses difficulty buttoning buttons, opening jars and cans, and dropping items. This is new since her visit in October,. She has not had physical therapy recently, but states that she is working out at the gym at [employer] twice a week. She has not had any epidural steroid injections at this point in time. Medical History[1] Surgical History[2] Family History[3] Social History[4] Current Outpatient Medications Medication Instructions Aimovig 140 mg, Subcutaneous, Every 30 days amitriptyline (ELAVIL) 150 mg, Oral, Nightly ARIPiprazole (ABILIFY) 5 mg, Nightly busPIRone (BUSPAR) 10 mg, Oral, 3 times daily diclofenac (VOLTAREN) 75 mg, Oral, 2 times daily, Do not crush, chew, or split. dicyclomine (BENTYL) 20 mg, Oral, 2 times daily diphenhydrAMINE (BENADRYL) 25 mg, Oral, Every 8 hours PRN empagliflozin (JARDIANCE) 25 mg, Oral, Daily fluticasone (Flonase) 50 MCG/ACT nasal spray instill 1 SPRAY IN EACH NOSTRIL EVERY DAY shake gently. prime pump BEFORE first USE. AFTER USE clean TIP AND replace cap glucose blood test strip 1 each by Other route 1 (one) time each day. hydrOXYzine pamoate (VISTARIL) 100 mg, Nightly Lancets misc Test Blood sugar once daily levothyroxine (SYNTHROID, LEVOXYL) 137 mcg, Oral, Daily medroxyPROGESTERone (Depo-Provera) 150 MG/ML injection Use every 12 weeks meloxicam (MOBIC) 7.5 mg, Daily miconazole (Micotin) 2 % powder Apply bid mirtazapine (REMERON) 45 mg, Nightly nystatin (Mycostatin) cream APPLY TOPICALLY TO THE AFFECTED AREA(S) TWICE DAILY -- FOR EXTERNAL USEONLY-- ondansetron (ZOFRAN) 4 mg, Oral, Every 8 hours PRN oxybutynin XL (DITROPAN-XL) 10 mg, Daily Ozempic (0.25 or 0.5 MG/DOSE) 0.25 mg, Subcutaneous, Weekly pantoprazole (PROTONIX) 40 mg, Oral, 2 times daily, Do not crush, chew, or split. PARoxetine (PAXIL) 20 mg, Oral, Daily prazosin (Minipress) 2 MG capsule TAKE TWO CAPSULES BY MOUTH EVERY DAY AT BEDTIME rOPINIRole (REQUIP) 2 mg, Oral, Every evening sertraline (Zoloft) 100 MG tablet Syringe/Needle, Disp, (B-D 3CC LUER-ASIM SYR 25GX1 ) 25G X 1 3 ML misc USE DIRECTED FOR depo shot topiramate (TOPAMAX) 100 mg, Oral, 2 times daily topiramate 50 mg, Oral, 2 times daily, Take with topiramate 100 mg tablet by mouth two (2) times a day to make up total dose of 150 mg two (2) times a day traZODone (DESYREL) 100 mg Ubrelvy 100 mg, Oral, Once as needed, After 2 hours, a second dose may be taken if needed. Maximum dose: 200 mg in 24-hour period. Review of Systems 14 point review of systems was performed and was negative except as noted per HPI. Physical Exam GEN: well developed, no acute distress HEENT: normocephalic, atraumatic PULM: no increased work of breathing, normal effort CV: no edema noted MSK: no joint swelling, normal range of motion SKIN: warm and dry, capillary refill <2 seconds PSYCHE: normal mood and affect Neuro Exam GCS (EMV): 465 PERRL, EOMI Due to the nature of telehealth visit, I am unable to assess strength, sensation, or reflexes. Visit Vitals OB Status Injection Smoking Status Never Imaging Dr. Doll and I reviewed and interpreted x-ray cervical spine obtained 07/12/2024 Assessment and Plan Chantal Bell is a 39 y.o. female with history of neck pain and bilateral upper extremity pain who underwent C5-C6 ACDF on 05/26/[address] Doll Postoperatively, patient has remained stable until recently. Given that patient has worsening balance, as well as symptoms consistent with cervicalmyelopathy, we believe that further workup as indicated. I have ordered an MRI cervical spine to beobtained that [facility]. I instructed the patient to contact the neurosurgical clinic once imaging has been obtained so that we may review. I have also ordered an EMG/NCV to be performed by our [facility] as patient has known history of bilateral carpal tunnel syndrome. If MRI is not demonstrable of significant compression, we will focus on releasing carpal tunnel nerves. I educated the patient on red flag symptoms that would require emergent intervention. Release and carpal tunnel nerves. I educated the patient on red flag symptoms that would require emergent intervention. The patient is being prescribed a controlled substance. The patient has been counseled on the risks and benefits of the medication. I have reviewed with the patient the controlled substance agreement and the patient understands the risks of taking a controlled substance and the expectations set forth in the controlled substance agreement. The [employer] system has been queried and we have reviewed report prior to prescribing Schedule II, III, and IV medications that require review bylaw. PDMP data reviewed and appropriate in [facility]. Patient specific comorbidities further complicating management during the perioperative period include: -DB - with a last HbA1C of: 9.4 -Obesity - with a last BMI of: There is no height or weight on file to calculate BMI. -Hypothyroidism -ANXiety/Depression I personally spent a total of 30 minutes on this encounter. This time includes face to face with patient, and review of imaging, counseling and discussion and/or coordination of care. Parts of this note were dictated using [employer] voice recognition software. As a result, errors may occur. When identified, these cover stripper errors are corrected, but while every attempt is made to prevent/correct these, errors may still exist. I reviewed this patient's history, exam, and any imaging with Dr Doll. He guided plan of care forthis patient. Crystal Melendez DNP, APRN [facility] Department of Neurosurgery Diagnoses and all orders for this visit: S/P cervical spinal fusion (Primary) - MR Cervical Spine wo IV Contrast; Future - EMG / Nerve Conduction Study; Future Cervical spondylosis with myelopathy - MR Cervical Spine wo IV Contrast; Future - EMG / Nerve Conduction Study; Future [1] Past Medical History: Diagnosis Date Headache [...] - Other Other Family history unknown [4] Social History Tobacco Use Smoking status: Never Passive exposure: Never Smokeless tobacco: Never Vaping Use Vaping status: Never Used Substance Use Topics Alcohol use: Not Currently Alcohol/week: 1.0 standard drink of alcohol Types: 1 Standard drinks or equivalent per week Drug use: Never Cosigned by Arsalan Thompson MD at 07/16/2024 1:39 PM EDT Associated attestation - Arsalan Thompson MD - 07/16/2024 1:39 PM EDT I saw and examined the patient with the AKHIL. I discussed the case with the AKHIL and agree with the plan of care as documented. More than 30 minutes was spent for this visit with >50% in [id number] communication with the patient over the diagnosis, treatment options and plan. A substantive portion of care was provided by the AKHIL. documented in this encounter Plan of Treatment Upcoming Encounters Date Type Department Care Team (Late st Contact Info) Description 08/28/2024 11:00 AM EDT Procedure Visit [place] [facility] [address], [address] [place] [address] Malgorzata Moseley PA [address] [place] [address] 10/04/2024 9:30 AM EDT Procedure Visit [facility] [address] [place] [address] Nicolás Hollis MD [address] [place] [address] Scheduled Orders Name Type Priority Associated Diagnoses Orde r Schedule MR Cervical Spine wo IV Contrast Imaging Routine S/P cervical spinal fusion Cervical spondylosis with myelopathy Expected: 07/16/2024 (Approximate), Expires: 01/16/2026 EMG / Nerve Conduction Study Neurology Routine S/P cervical spinal fusion Cervical spondylosis with myelopathy Expected: 07/16/2024 (Approximate), Expires: 07/16/2025 documented as of this encounter Visit Diagnoses Diagnosis S/P cervical spinal fusion- Primary Arthrodesis status Cervical spondylosis with myelopathy documented in this encounter Additional Health Concerns Assessment Noted Time PHQ-9 Depression Total Score: 8 07/11/19 25 9:37 AM EDT A fall risk assessment has been complete d for the patient 05/22/2024 9:56 AM EDT A Body Mass Index follow-up plan has been documented for the patient 07/16/2024 1:39 PM EDT documented as of this encounter Care Teams Tare Weigher Relationship Specialty Start Date End Date Alka Tracy APRN LU[place]eda [address] PCP - General 07/03/20 Daily Christy MD [address] [place] [address] Service Attending Neurology 09/30/20 Malgorzata Moseley PA [address] [place] [address] Physician Record Center Coordinator Neurology 11/18/20 Shy Duque APRN [address] [place] [address] Nurse Practitioner Neurosurgery 11/25/20 Arsalan Thompson MD [address] [place] [address] Surgeon Neurosurgery 07/02/21 Francis Wallace Community Health Worker 07/10/24 07/17/24 documented as of this encounter
--- OUTSIDE RECORDS SUMMARY | 2024-07-26 15:21 | XMS_ITS | Encounter Summary ---
Author Organization [facility] Address [address] [place] [address] Care Team Providers Care Local Flatbed Driver Name Role Phone Alka Tracy APRN Primary Care Provider [phone] Daily Christy MD Unavailable [phone] Malgorzata Moseley Unavailable [phone] Shy Duque APRN Unavailable [phone] Arsalan Thompson MD Unavailable + [phone] Linda Baker SALES DEVELOPMENT EXECUTIVE Unavailable Unavailab le Reason for Visit * Reason Onset Date Comments Med Refill 06/04/2024 Encounter Details Date Type Department Care Team (Late st Contact Info) Description 06/04/2024 Refill [facility] [address] [place] [address] Alka Tracy APRN [address] [place] [address] Type 2 diabetes mellitus with hyperglycemia, without long-term current use of insulin ([facility]) Social History Tobacco Use Types Packs/Day Years [...] 12/27/2023 How often do you attend chur or mormon services? Never 12/27/2023 Do you belong to any clubs o r organizations such as restorationism groups, unions, fraternal or athletic groups, or [...] Recorded Patient Health Questionnaire-2 Score 2 06/03/[address] [facility] Occupational Stress Questionnaire Answer [...] any time in the past 12 m [facility], were you homeless or living in a longterm (including now)? No 06/03/2024 Utilities Answer Date [...] as of this encounter Miscellaneous Notes * Telephone Encounter - Fifi Luciano, PharmD - 06/06/2024 10:42 AM EDT 1 medication(s) has been approved per protocol. Please keep upcoming appointment for additional refills. Medications have been pended for refill atupcoming appointment. documented in this encounter Plan of Treatment Upcoming Encounters Date Type Department Care Team (Late st Contact Info) Description 08/28/2024 11:00 AM EDT Procedure Visit [place] [facility] [address] [place] [address] Malgorzata Moseley PA [address] [place] [address] 10/04/2024 9:30 AM EDT Procedure Visit [facility] at [facility] [address] [place] [address] Nicolás Hollis MD [address] [place] [address] documented as of this encounter Visit Diagnoses Diagnosis Type 2 diabetes mellitus with hyperglycemia, without long-term current use of insulin ([facility]) documented in this encounter Additional Health Concerns Assessment Noted Time PHQ-9 Depression Total Score: 8 06/04/19 25 8:53 AM EDT A fall risk assessment has been complete d for the patient 05/22/2024 9:56 AM EDT A Body Mass Index follow-up plan has been documented for the patient 06/03/2024 10:08 AM EDT documented as of this encounter Care Teams Local Flatbed Driver Relationship Specialty Start Date End Date Alka Tracy APRN [address] [place] [id number] PCP - General 07/03/20 Daily Christy MD [address] [place] [address] Service Attending Neurology 09/30/20 Malgorzata Moseley PA [address] [place] [address] Physician Store Product Demonstrator Neurology 11/18/20 Shy Duque APRN [address] [place] [address] Nurse Practitioner Neurosurgery 11/25/20 Arsalan Thompson MD [address] [place] [address] Surgeon Neurosurgery 07/02/21 Linda Baker LPN VALUE-BASED TRANSFORMATION PROGRAM Licensed Practical Nurse 12/27/23 06/24/24 documented as of this encounter
--- OUTSIDE RECORDS SUMMARY | 2024-07-26 15:21 | XMS_ITS | Encounter Summary ---
Author Organization Healthcare Address [address] [place] [address] Care Team Providers Care Executive Administrator Name Role Phone Demarcus Alka Tucker APRN Primary Care Provider [phone] Daily Christy MD Unavailable [phone] Malgorzata Moseley Unavailable [phone] hSy Duque APRN Unavailable [phone] Arsalan Thompson MD Unavailable + [phone] Linda Baker LPN Unavailable Unavailab le Encounter Details Date Type Department Care Team (Latest Contact Info) Description 06/03/2024 Travel Social History Tobacco Use Types Packs/Day Years [...] often do you attend chur ch or adventist services? Never 12/27/2023 Do you belong to any clubs o r organizations such as congregation groups, unions, fraternal or athletic groups, or [...] Recorded Patient Health Questionnaire-2 Score 2 06/03/2024 [facility] - Occupational Stress Questionnaire Answer Date Recorded [...] place to sleep or slept in a snf (including now)? No 11/09/2023 PHQ-9 Answer Date [...] any time in the past 12 m [facility], were you homeless or living in a snf (including now)? No 06/03/2024 Utilities Answer Date [...] on file documented as of this encounter Functional Status * Over the [...] Judith Padgett documented as of this encounter Plan of Treatment Upcoming Encounters Date Type Department Care Team (Late st Contact Info) Description 08/28/2024 11:00 AM EDT Procedure Visit [place] [facility] [address] [place] [address] Malgorzata Moseley PA [address] [place] [address] 10/04/2024 9:30 AM EDT Procedure Visit [facility] [address] [place] [address] Nicolás Hollis MD [address] [place] [address] documented as of this encounter Visit Diagnoses Not on filedocumented in this encounter Additional Health Concerns Assessment Noted Time PHQ-9 Depression Total Score: 8 06/04/19 25 8:53 AM EDT A fall risk assessment has been complete d for the patient 05/22/2024 9:56 AM EDT A Body Mass Index follow-up plan has been documented for the patient 06/03/2024 10:08 AM EDT documented as of this encounter Care Teams Executive Administrator Relationship Specialty Start Date End Date Alka Tracy APRN [address] [place] [address] PCP - General 07/03/20 Daily Christy MD [address] [facility] [place] [address] Service Attending Neurology 09/30/20 Malgorzata Moseley PA [address] [place] [address] Physician Payroll Assistant Neurology 11/18/20 Shy Duque APRN [address] [facility] [address] [place] [address] Nurse Practitioner Neurosurgery 11/25/20 Arsalan Thompson MD [address] [place] [address] Surgeon Neurosurgery 07/02/21 Linda Baker LPN VALUE-BASED TRANSFORMATION PROGRAM Licensed Practical Nurse 12/27/23 06/24/24 documented as of this encounter
--- OUTSIDE RECORDS SUMMARY | 2024-07-26 15:21 | XMS_ITS | Referral Summary ---
Author Organization [employer] [facility] [employer] Address [address] [place] [address] Care Team Providers Care Occ Therapy Asst Name Role Phone Unavailable Primary Care Provider Unavailabl e Allergies No known active allergies Medications amitriptyline (ELAVIL) 100 MG tablet SMARTSI.25 Tablet(s) By Mouth Daily 07/07/19 24 Active amitriptyline (ELAVIL) 25 MG tablet Take 1 tablet (25 mg total) by mouth nightly. 07/05/19 24 Active busPIRone (BUSPAR) 10 MG tablet Take 1 tablet (10 mg total) by mouth 2 (two) times daily. 07/05/19 24 Active dicyclomine (BENTYL) 20 mg tablet Take 1 tablet (20 mg total) by mouth 2 (two) times daily. 06/05/19 24 Active ERENUMAB-AOOE SUBQ Inject subcutaneously. Active FLUTICASONE PROPIONATE, BULK, MISC by Miscellaneous route. Active hydrOXYzine (VISTARIL) 100 MG capsule Take 1 capsule (100 mg total) by mouth 3 (three) times daily as needed for Itching Look-alike/Sound- alike medication. Activ e levothyroxine (SYNTHROID, LEVOTHROID) 125 MCG tablet Take 1 tablet (125 mcg total) by mouth Every morning on an empty stomach. Active loperamide (IMODIUM A-D) 2 mg tablet Take 1 tablet (2 mg total) by mouth 4 (four) times daily as needed for Diarrhea. Active loratadine 10 mg Cap Take by mouth. Activ e medroxyPROGEST ERone (DEPO-PROVERA) 150 mg/mL injection Inject 1 mL (150 mg total) intramuscularly every 3 (three) months. Active MELOXICAM ORAL Take by mouth. Active naproxen (NAPROSYN) 500 MG tablet Take 1 tablet (500 mg total) by mouth 2 (two) times daily with breakfast and dinner. Active oxybutynin (DITROPAN-XL) 5 MG 24 hr tablet Take 1 tablet (5 mg total) by mouth daily. Active pantoprazole (PROTONIX) 40 MG tablet Take 1 tablet (40 mg total) by mouth daily. Active prazosin HCl (PRAZOSIN ORAL) Take by mouth. Activ e rOPINIRole (REQUIP) 2 MG tablet Take 1 tablet (2 mg total) by mouth nightly. Active TOPIRAMATE ORAL Take by mouth. Activ e ubrogepant (Ubrelvy) 50 mg Tab Take by mouth. Activ e Social History Tobacco Use Types Packs/Day Years Used Date Smoking Tobacco: Never Assessed Interpersonal Safety Answer Date Record ed Family or friends hurt you Not on file 06/06 Family or friends insult you Not on file Family or friends threaten you Not on file 0 06/07/2023 Family or friends scream or curse at you Not on file 06/07/2023 Food Insecurity Answer Date Recorded Food run out past 12 months Not on file 05/21 Food did not last past 12 months Not on file 06/07/2023 Employment Answer Date Recorded Help finding and keeping a job Not on file 0 06/07/2023 Family and Community Support Answer Emile e Recorded Help with Day to Day Activities Not on file 06/07/2023 Feeling Lonely or Isolated Not on file 06/06 Educational Attainment Answer Date Myron rded Speak language other than Serbian at home Not on file 06/07/2023 Want help with school or training Not on file 06/07/2023 Depression Answer Date Recorded PHQ-2 Risk Not on file 06/07/2023 Disabilities Answer Date Recorded Difficulty concentrating Not on file 024 Difficulty doing errands alone Not on file 0 06/07/2023 Substance Use Answer Date Recorded Used prescription meds for non-medical reasons N ot on file 06/07/2023 Used illegal drugs past 12 months Not on file 06/07/2023 Comments Unknown Sex and Gender Information Value Date Recorded Sex Assigned at Not on file Legal Sex Female 9:51 AM CDT Gender Identity Not on file Sexual Orientation Not on file Last Filed Vital Signs Vital Sign Reading Time Taken Comments Blood Pressure 137/79 07/20/2023 10:31 AM EDT Pulse 99 07/20/2023 10:31 AM EDT Temperature - - Respiratory Rate 18 07/20/2023 10:3 1 AM EDT Oxygen Saturation 97% 07/20/2023 10: 31 AM EDT Inhaled Oxygen Concentration - - Weight 139.6 kg (307 lb 12.8 oz) 2023 10:31 AM EDT Height 157.5 cm (5' 2 ) 07/20/2023 10:3 1 AM EDT Body Mass Index 56.3 07/20/2023 10:31 AM EDT Plan of Treatment Upcoming Encounters Date Type Department Care Team (Late st Contact Info) Description 08/20/2024 10:30 AM EDT Office Visit [facility] [address] [place] [address] Gloria Del Angel APRN [address] [place] [address] Insurance MEDICARE PART A B MEDICAID [id number] Member Subscriber Plan / Payer (Ef fective 2018-Present) Name:Chantal Bell Relation to Subscriber:Self Name:Chantal Bell Payer ID:[id number] Group ID:Not on file Type:Not on file Address: [facility] [address] [id number]
--- OUTSIDE RECORDS SUMMARY | 2024-07-26 15:21 | XMS_ITS | Clinical Summary ---
Author Organization [employer] [facility] [employer] Address [address] [place] [address] Care Team Providers Care Secretary Receptionist Name Role Phone Unavailable Primary Care Provider [...] Date Myron rded Speak language other than Finnish at home Not on file 06/07/2023 Want [...] Description 08/20/2024 10:30 AM EDT Office Visit [facility] [address] [place] [address] Gloria Del Angel APRN [address] [place] [address] Health Maintenance Due Date Last Done Comments Depression Screening (12+) 1995 Tobacco Cessation Counseling and Screening (12+) 1995 HIV Screening 1998 Hepatitis C Screening 2001 Lipid Panel 2003 Pap Smear 2004 Medicare Initial AWV [id number] 01/21/2019 Breast Cancer Screening 2023 DTAP/TDAP/TD VACCINES (2 - T d or Tdap) 08/27/2023 08/26/2013 COVID-19 VACCINE (2023-2 5 season) 2023 06/24/2020 Influenza Vaccine (Season Ended) 2024 Pneumococcal Vaccine: 0-49 Years Aged Out No longer eligible based on patient's age to complete this topic Insurance MEDICARE PART A B MEDICAID [id number]
--- NOTE | 2024-07-26 15:22 | MR_ITS ---
FINAL REPORT CLINICAL HISTORY: S/P CERVICAL SPINE FUSION/CERVICAL SPONDYLOSIS numbness down right arm COMPARISON: 12/17/2020 FINDINGS: Multi planar MR imaging was obtained of the cervical spine. There is magnetic susceptibility artifact present in the lower cervical spine secondary to anterior and interbody fusion at the C5-6 level. There is abnormal decreased signal throughout the cervical discs. The vertebrae are of normal height. There is of the normal cervical lordosis. The cervical cord demonstrates normal signal and configuration. C2-C3: There is no evidence of significant disc bulge or protrusion. There is no significant facet hypertrophy. C3-C4: There is no evidence of significant disc bulge or protrusion. There is no significant facet hypertrophy. C4-C5: There is no evidence of significant disc bulge or protrusion. There is no significant facet hypertrophy. C5-C6: There is endplate hypertrophy eccentric to the left. There is mild to moderate left canal stenosis, without significant foraminal narrowing. C6-C7: A mild annular bulge is present with endplate hypertrophy and mild bilateral neural foraminal narrowing. C7-T1: There is no evidence of significant disc bulge or protrusion. There is no significant facet hypertrophy. IMPRESSION: Postoperative changes at the C5-6 level as described. Mild degenerative changes at the C5-6 and C6-7 levels. Reviewed, Interpreted and Dictated by José Antonio Betancur MD Transcribed by Brittany Valdez Authenticated and [facility]
--- OUTSIDE RECORDS SUMMARY | 2024-07-26 15:22 | XMS_ITS | Encounter Summary ---
Author Organization [facility] Address [address] [place] [address] Care Team Providers Care Information Engineer Name Role Phone Alka Tracy CATERING SERVER Primary Care Provider [phone] Daily Christy MD Unavailable [phone] Malgorzata Moseley PA Unavailable [phone] Shy Duque CATERING SERVER Unavailable [phone] Arsalan Thompson MD Unavailable + [phone] Reason for Visit * Reason Comments Med Refill Encounter Details Date Type Department Care Team (Late st Contact Info) Description 07/26/2024 Refill [facility] [address] [place] [address] Alka Tracy, CATERING SERVER [address] [place] [address] Allergic rhinitis, unspecified seasonality, unspecified trigger Social History Tobacco Use Types Packs/Day Years [...] How often do you attend chur or orthodoxy services? Never 12/27/2023 Do you belong to any clubs o r organizations such as gnosticism groups, unions, fraternal or athletic groups, or [...] Recorded Patient Health Questionnaire-2 Score 2 07/10/2024 [facility] - Occupational Stress Questionnaire [...] money to buy more. Often true 07/11/19 Within the past 12 months, t he [...] place to sleep or slept in a long term (including now)? No 11/09/2023 PHQ-9 Answer Date [...] any time in the past 12 m [facility], were you homeless or living in a long term (including now)? No 07/10/2024 Utilities Answer Date Recorded In the past 12 months has th e [employer], gas, oil, or water [employer] threatened to shut off services in your home? No 07/10/2024 PHQ-2A Answer Date Recorded Patient Health Questionnaire-2 Score 2 11/29/2022 Comments No Sex and Gender Information Value Date Recorded Sex Assigned at Not on file Legal Sex Female 6:31 PM EDT Gender Identity Not on file Sexual Orientation Not on file documented as of this encounter Plan of Treatment Upcoming Encounters Date Type Department Care Team (Late st Contact Info) Description 08/28/2024 11:00 AM EDT Procedure Visit [place] [facility] [address] [place] [address] Malgorzata Moseley PA [address] [place] [address] 10/04/2024 9:30 AM EDT Procedure Visit [facility] [address] [place] [address] Nicolás Hollis MD [address] [place] [address] documented as of this encounter Visit Diagnoses Diagnosis Allergic rhinitis, unspecified seasonality, unspecified trigger documented in this encounter Additional Health Concerns Assessment Noted Time PHQ-9 Depression Total Score: 8 07/11/19 25 9:37 AM EDT A fall risk assessment has been complete d for the patient 05/22/2024 9:56 AM EDT A Body Mass Index follow-up plan has been documented for the patient 07/16/2024 1:39 PM EDT documented as of this encounter Care Teams Information Engineer Relationship Specialty Start Date End Date Alka Tracy APRN [address] [place] [address] PCP - General 07/03/20 Daily Christy MD [address] [facility] [place] [address] Service Attending Neurology 09/30/20 Malgorzata Moseley PA [address] [place] [address] Physician Vegetable Packer Neurology 11/18/20 Shy Duque APRN [address] [place] [address] Nurse Practitioner Neurosurgery 11/25/20 Arsalan Thompson MD [address] [address] Surgeon Neurosurgery 07/02/21 documented as of this encounter
--- OUTSIDE RECORDS SUMMARY | 2024-07-26 15:22 | XMS_ITS | Encounter Summary ---
Author Organization [facility] Address [address] [place] [address] Care Team Providers Care Laundry Attendant Name Role Phone Alka Tracy MOBILE HOME TECHNICIAN Primary Care Provider [phone] Daily Christy MD Unavailable [phone] Malgorzata Moseley PA Unavailable [phone] Shy Duque MOBILE HOME TECHNICIAN Unavailable [phone] Arsalan Thompson MD Unavailable + [phone] Encounter Details Date Type Department Care Team (Late st Contact Info) Description 06/26/2024 Orders Only [facility] [address] [place] [address] Alka Tracy, MOBILE HOME TECHNICIAN [address] [place] [address] Social History Tobacco Use Types Packs/Day Years [...] How often do you attend chur or taoism services? Never 12/27/2023 Do you belong to any clubs o r organizations such as sikhism groups, unions, fraternal or athletic groups, or [...] Recorded Patient Health Questionnaire-2 Score 2 06/03/2024 [facility] - Occupational Stress Questionnaire Answer Date Recorded [...] place to sleep or slept in a alf (including now)? No 11/09/2023 PHQ-9 Answer Date [...] any time in the past 12 m [facility], were you homeless or living in a alf (including now)? No 06/03/2024 Utilities Answer Date Recorded In the past 12 months has th e [employer], gas, oil, or water company threatened to [...] Notes * Progress Notes - Alka Tracy, MOBILE HOME TECHNICIAN - 06/26/2024 7:36 AM EDT Subjective Chantal Bell [facility] Medical History[1] Surgical History[2] Family History[3] Social [...] 0 min Stress: Stress Concern Present (12/27/2023) [place] [facility] Occupational Health - Occupational Stress Questionnaire Feeling of Stress : Very much Social Connections: Socially Isolated (12/27/2023) Social Connection and Isolation Panel [NHANES] Frequency of Communication with Friends and Family: Never Frequency of Social Gatherings with Friends and Family: Twice a week Attends Mosque Services: Never Active Member of Clubs or [...] Vaccines (2 - Td or Tdap) 08/27/2023 [id number] Vaccine (2 - season) 2023 Review of Systems Objective There were no vitals filed for this visit. Physical Exam Assessment/Plan [1] Past Medical History: Diagnosis Date Headache [...] times a day. 180 tablet 3 diphenhydrAMINE (Benadryl Allergy) 25 MG capsule Take 1 capsule by mouth every 8 hours as needed for allergies (1/2 tab qhs prn). 30 capsule 2 Erenumab-aooe (Aimovig) 140 MG/ML solution auto-injector Inject [...] mg in 24-hour period. 10 each 3 No current facility-administered medications on file prior to visit. documented in this encounter Plan of Treatment Upcoming Encounters Date Type Department Care Team (Late st Contact Info) Description 08/28/2024 11:00 AM EDT Procedure Visit [facility] [address] [place] [address] Malgorzata Moseley PA [address] [place] [address] 10/04/2024 9:30 AM EDT Procedure Visit [facility] [address] [place] [address] Nicolás Hollis MD [address] [place] [address] documented as of this encounter [...] documented as of this encounter Care Teams Laundry Attendant Relationship Specialty Start Date End Date Alka Tracy APRN [facility] [place] [id number] PCP - General 07/03/20 Daily Christy MD [address] [place] [address] Service Attending Neurology 09/30/20 Malgorzata Moseley PA [address] [place] [address] Physician Complaint Adjuster Neurology 11/18/20 Shy Duque APRN [address] [place] [address] Nurse Practitioner Neurosurgery 11/25/20 Arsalan Thompson MD [address] [place] [address] Surgeon Neurosurgery 07/02/21 documented as of this encounter
--- OUTSIDE RECORDS SUMMARY | 2024-07-26 15:22 | XMS_ITS | Encounter Summary ---
Author Organization [facility] Address [address] [place] [address] Care Team Providers Care Flat Hammerer Name Role Phone Alka Tracy APRN Primary Care Provider [phone] Daily Christy MD Unavailable [phone] Malgorzata Moseley Unavailable [phone] Shy Duque APRN Unavailable [phone] Arsalan Thompson MD Unavailable + [phone] Encounter Details Date Type Department Care Team (Late st Contact Info) Description 07/05/2024 Orders Only [place] [facility] [address] [place] [address] Crystal Melendez, TRAVELING ELECTRICIAN, DNP [address] [place] [address] S/P cervical spinal fusion (Primary Dx) Social History Tobacco Use Types [...] How often do you attend chur or yarsanism services? Never 12/27/2023 Do you belong to any clubs o r organizations such as faith groups, unions, fraternal or athletic groups, or [...] Recorded Patient Health Questionnaire-2 Score 2 06/03/2024 [facility] - Occupational Stress Questionnaire [...] place to sleep or slept in a half-way (including now)? No 11/09/2023 PHQ-9 Answer Date [...] any time in the past 12 [facility], were you homeless or living in a half-way (including now)? No 06/03/2024 Utilities Answer Date Recorded In the past 12 months has th e [employer], gas, oil, or water [employer] threatened to shut off services in your [...] Visit [place] [facility] [address] [place] [address] Malgorzata Moseley PA [address] [place] [address] 10/04/2024 9:30 AM EDT Procedure Visit [facility] at [facility] [address] [place] [address] Nicolás Hollis MD [address] [place] [address] Scheduled Orders Name Type Priority Associated Diagnoses Orde r Schedule XR Cervical Spine 2 or 3 Views Imaging Routine S/P cervical spinal fusion 1 Occurrences starting 07/05/2024 until 01/05/2026 documented as of this encounter Visit Diagnoses Diagnosis S/P cervical spinal fusion- Primary Arthrodesis status documented in this encounter Additional Health Concerns Assessment Noted Time PHQ-9 Depression Total Score: 8 06/04/19 25 8:53 AM EDT A fall risk assessment has been complete d for the patient 05/22/2024 9:56 AM EDT A Body Mass Index follow-up plan has been documented for the patient 06/03/2024 10:08 AM EDT documented as of this encounter Care Teams Flat Hammerer Relationship Specialty Start Date End Date Alka Tracy APRN [address] [place] [address] PCP - General 07/03/20 Daily Christy MD [address] [place] [address] Service Attending Neurology 09/30/20 Malgorzata Moseley PA [address] [place] [address] Physician Training Mgr Neurology 11/18/20 Shy Duque APRN [address] [place] [address] Nurse Practitioner Neurosurgery 11/25/20 Arsalan Thompson MD [address] [place] [address] Surgeon Neurosurgery 07/02/21 documented as of this encounter
--- OUTSIDE RECORDS SUMMARY | 2024-07-26 15:22 | XMS_ITS | Data Portability ---
Author Organization [facility] Address [address] [place] [address] Assessment No assessment recorded. Plan of Treatment Reminders Order Date Submit Date Provider Last Modified By Organization Details Last Modified Time Details Appointments None recorded. Lab None recorded. Referral None recorded. Procedures None recorded. Surgeries None recorded. Imaging None recorded. Medication Orders cefdinir 300 mg capsule 2018 019 [facility], [address] [place] [address] [address] [place], [place], [id number], 9 11:37:02 Medrol (Martell) 4 mg tablets in a dose pack 2018 019 [facility], [address] [place] [address] [address] [place], [place], [id number], 9 11:37:01 Ciprodex 0.3 %-0.1 % ear drops,cody pension [email or web address] [place] [address] Pharmacy [facility], [address] [place] [address] [address] [place], [place], [id number], 9 09:58:54 Patient TargetsNo targets recorded. Patient Instructions Encounter Date Encounter Id Patient Instructions Last Modified By Organization Details Last Modified Time 07/17/2018 [id number] 1. Left ear debridement under microscopy performed [...] Gaurang Conley Not available 07/17/2018 11:01:20 08/01/2018 [id number] earache: care instructions [email or web address] Not available 08/01/2018 10:58:04 08/01/2018 [id number] 1. Audiometry obtained and results reviewed with [...] may also benefit for TMJ therapy at [facility]. [facility] ENT MD Gaurang Harvey [email or web address] Not available 08/01/2018 11:39:10 08/15/2018 [id number] hearing loss: care instructions [email or web address] Not available 08/16/2018 14:34:18 08/15/2018 [id number] 1. Audiogram obtained today- Type A tymps [...] her pure-tone stenotic coincide with her speech tour manager numbers. She does have significant dental caries [...] Tympanogram completed KAE CLARK, AUD [address] [place], [address], [facility] 08/16/2018 14:33:22 9 Audiogram completed KAE CLARK, AUD [address] [place], [address], [facility] 08/16/2018 14:33:20 9 Tympanogram completed CARRILLO SUAREZ, AUD [address] [place], [address], [facility] 08/01/2018 10:56:38 9 Audiogram completed CARRILLO SUAREZ, AUD [address] [place], [address], [facility] 08/01/2018 10:56:36 9 Binocular Microscopy completed JULIANA SCHERER, ASSOCIATE DIRECTOR FINANCE [address] [place], [address], [facility] 07/17/2018 10:58:13 Imaging Results None recorded. Procedure [...] Updated DateTime 07/17/2018 157.48 cm 54 kg/m2 180813.75 g 97.7 [degF] Whitleyeunice Wises [facility] 07/17/2018 09:19:05 Date Recorded Body height Body temperature Body mass index (BMI) Body weight Heart rate Systolic blood pressure Diastolic blood pressure Provider Name and Address Organization Details Last Updated DateTime 9 157.48 cm 97.7 [degF] 54 kg/m2 391738. 75 g 103 /min 127 mm[Hg] 82 mm[Hg] [facility] 9 09:58:22 Date Recorded Body height Body temperature Heart rate Body mass index (BMI) Body weight Systolic blood pressure Diastolic blood pressure Provider Name and Address Organization Details Last Updated DateTime 9 157.48 cm 97.5 [degF] 113 /min 54 kg/m2 568796. 75 g 132 mm[Hg] 91 mm[Hg] [facility] 9 14:38:12 Social History Question Answer Notes LastModified by Organizat ion Details LastModified Time Tobacco Smoking Status Never Smoker Whitleyeunice Wises [facility] 07/17/2018 09:15:25 How Much Tobacco Do You [...] SNOMED-CT Code Diagnosis ICD10 Code Diagnosis Note [id number] DEVORAH KEARNS [facility] [place] [facility] [address] [place] [address] 07/17/2018 09:08:56 07/17/2018 11:46:02 Dysfunction of bilateral eustachian tubes 7342305999 339709 H69.93 Acute righ t otitis media 617248446 H66.91 Acute otit is externa of left ear 0363203262 168200 H60.502 Bilateral earache 802280 003 H92.03 - Temporoman dibular joint disorder 90505674 M26.518 [id number] DEVORAH [address]ARNS [facility] [address] [place] [address] 08/01/2018 09:49:19 08/06/2018 12:05:12 Dysfunction of bilateral eustachian tubes 1516522700 661051 H69.93 - no improvemen t Acute otit is externa of left ear 8402391926 041423 H60.502 - resolved Bilateral earache 462737 003 H92.03 - secondary to combinatio n ETD and TMJ Temporoman dibular joint disorder 39270317 M26.609 Acute left otitis media 227982979 H66.92 Conductive hearing loss, bilateral 514471966 H90.0 - 08/01/18: mild, right tymp-A and left tymp-B, Speech R-100 and L-143 [id number] JOANN CASTORENA ENT [address] [place] [address] 08/01/2018 10:51:27 08/01/2018 10:58:51 Otalgia 48243724 H92.01 [id number] HOLLIE HARVEY III, MD [place] [facility] [address] [place] [address] 08/15/2018 14:27:51 08/24/2018 10:34:27 Dysfunction of bilateral eustachian tubes 5078113207 784710 H69.93 Acute left otitis media 100620559 H66.92 - Resolved Temporoman dibular joint disorder 81377722 M26.609 Dental caries 32325937 K 02.9 Asymmetric al sensorineural hearing loss 352116913 H90.5 Legal blindness 34995090 H54.8 Referred otalgia 8477251 8 H92.09 [id number] JOANN ANGELA [place] [facility] [address] [place] [address] 08/16/2018 14:33:07 08/16/2018 14:34:54 Bilateral earache 767999526 H92.03 Sensorineu ral hearing loss of bilateral ears 064264264 H90.3 Asymmetric al sensorineural hearing loss 759361572 H90.5 Dysfunctio n of bilateral eustachian tubes 9104713509 943412 H69.93 Health Concerns Section Related Observation LastModified by Organization Detai ls LastModified Time None Recorded Concern Status LastModified by Organization Details LastModified Time None Recorded Advance Directives Directive None Recorded Payers Insurance Date Sequence Insurance Name Policy Number Policy Martino Covered Member ID Martino Member ID Guarantor Name 01/15/2020 2 MEDICAID-[facility] - FFS/TRADITIO NAL Chantal Buitrago Ray [id number] Chantal Bell 01/15/2020 1 [place]ARE[place] Chantal Bell [id number] Chantal Bell Notes Date Note Type Note Provider Name and Address Organization Details Recorded Time 07/17/2018 text/html Chantal Bell is seen today referred by [facility] for consultation of ear infection. She states that 2 weeks ago she began to experience bilateral ear aches with decreased hearing. Over those next few days the pain became worse. She was seen at the [facility] on 07/06/18 and placed on Medrol [...] intermittent ear pain or infections. JULIANA SCHERER, ASSOCIATE DIRECTOR FINANCE [address] [place], [address], [facility] 07/17/2018 11:02:51 08/01/2018 text/html Chantal Bell returns [...] Chantal Bell is seen today referred by [facility] for consultation of ear infection. She states that 2 weeks ago she began to experience bilateral ear aches with decreased hearing. Over those next few days the pain became worse. She was seen at the [facility] on 07/06/18 and placed on Medrol [...] intermittent ear pain or infections. JULIANA SCHERER, ASSOCIATE DIRECTOR FINANCE [address] [place], [address], [facility] 08/01/2018 11:39:34 08/15/2018 text/html Chantal comes in [...] on August 20. HOLLIE HARVEY III, MD [facility] [place], [address], [facility] 08/15/2018 17:01:01 OBGyn Episode No OBEpisode recorded.
--- OUTSIDE RECORDS SUMMARY | 2024-07-26 15:22 | XMS_ITS | Encounter Summary ---
Author Organization [facility] Address [address] [place] [address] Care Team Providers Care Registered Nurse Midwife Name Role Phone Alka Tracy APRN Primary Care Provider [phone] Daily Christy MD Unavailable [phone] Malgorzata Moseley Unavailable [phone] Shy Duque APRN Unavailable [phone] Arsalan Thompson MD Unavailable + [phone] Linda Baker VEHICLE GLASS TECHNICIAN Unavailable Unavailab le Reason for Visit * Reason Onset Date Comments HCN Clinical Concern/Question 05/31/2024 Pt went to ED Encounter Details Date Type Department Care Team (Late st Contact Info) Description 05/31/2024 Telephone [facility] [address] [place] [address] Alka Tracy, DEVORAH [address] [place] [address] HCN Clinical Concern/Question (Pt went to ED) Social History Tobacco Use Types Packs/Day Years [...] How often do you attend chur or orthodox services? Never 12/27/2023 Do you belong to any clubs o r organizations such as bahai groups, unions, fraternal or athletic groups, or [...] Recorded Patient Health Questionnaire-2 Score 2 06/03/2024 [facility] - Occupational Stress Questionnaire Answer Date [...] place to sleep or slept in a detention (including now)? No 11/09/2023 PHQ-9 Answer Date [...] time in the past 12 m [facility], were you homeless or living in a detention (including now)? No 06/03/2024 Utilities Answer Date [...] (Past 1 Month) No 025 8:57 AM EDT Judith Beauchamp 2. Non-Specific Active Suici tae Thoughts (Past 1 Month) No 06/03/2024 8:57 AM EDT Judith Beauchamp 6. Suicidal Behavior (Lifetime) No 8:57 AM EDT Judith Beauchamp documented as of this encounter Miscellaneous Notes * Telephone Encounter - Judith Beauchamp - 05/31/2024 10:53 AM EDT Queta Cornejo is seeing Alka on Monday. * Telephone Encounter - Amy Guerrero - 05/31/2024 10:29 AM EDT Clinical Concern/Question Reason for Call: Queta gong/Stewart called to let PCP know that pt went to ED last night due to high blood sugar. Psychiatric; # [phone] Best contact number: Other: [phone] Optimal time of day to reach caller: ANYTIME Additional comments/information from caller: None Note: Please do not reply to this message. Follow-up communication and further actions as a result of this message need to be communicated with the patient directly, if the patient is not active onMyChart. If the patient is active on MyChart, they will receive notification of the communication/outcome via [employer]. documented in this encounter Plan of Treatment Upcoming Encounters Date Type Department Care Team (Late st Contact Info) Description 08/28/2024 11:00 AM EDT Procedure Visit [place] [facility] [address], [address] [place] [address] Malgorzata Moseley PA [address] [place] [address] 10/04/2024 9:30 AM EDT Procedure Visit [facility] [address] [place] [address] Nicolás Hollis MD [address] [place] [address] documented as of this encounter Visit Diagnoses Not on filedocumented in this encounter Additional Health Concerns Assessment Noted Time PHQ-9 Depression Total Score: 8 01/03/20 24 8:46 AM EST A fall risk assessment has been complete d for the patient 05/22/2024 9:56 AM EDT A Body Mass Index follow-up plan has been documented for the patient 05/22/2024 11:30 AM EDT documented as of this encounter Care Teams Registered Nurse Midwife Relationship Specialty Start Date End Date Alka Tracy APRN [address] [place] [address] PCP - General 07/03/20 Daily Christy MD [address] [place] [address] Service Attending Neurology 09/30/20 Malgorzata Moseley PA [address] [place] [address] Physician Sample Collector Neurology 11/18/20 Shy Duque APRN [address] [place] [address] Nurse Practitioner Neurosurgery 11/25/20 Arsalan Thompson MD [address] [place] [address] Surgeon Neurosurgery 07/02/21 Linda Baker LPN VALUE-BASED TRANSFORMATION PROGRAM Licensed Practical Nurse 12/27/23 06/24/24 documented as of this encounter
--- OUTSIDE RECORDS SUMMARY | 2024-07-26 15:22 | XMS_ITS | Encounter Summary ---
Author Organization [facility] Address [address] [place] [place] [address] Care Team Providers Care Work Force Advisor Name Role Phone Alka Tracy APRN Primary Care Provider [phone] Daily Christy MD Unavailable [phone] Malgorzata Moseley Unavailable [phone] Shy Duque APRN Unavailable [phone] Arsalan Thompson MD Unavailable + [phone] Linda Baker ARCHITECTURAL EXAMINER Unavailable Unavailab le Encounter Details Date Type Department Care Team (Late st Contact Info) Description 06/13/2024 Telephone [facility] [address] [place] [address] Alka Tracy APRN [address] [place] [address] Social History Tobacco Use Types [...] How often do you attend chur or zoroastrianism services? Never 12/27/2023 Do you belong to any clubs o r organizations such as taoism groups, unions, fraternal or athletic groups, or [...] Recorded Patient Health Questionnaire-2 Score 2 06/03/2024 [facility] - Occupational Stress Questionnaire Answer Date Recorded [...] place to sleep or slept in a [place] health care facility (including now)? No 11/09/2023 PHQ-9 Answer Date [...] any time in the past 12 m [facility], were you homeless or living in a [place] health [place] facility (including now)? No 06/03/2024 Utilities Answer Date Recorded In the past 12 months has e [employer], [employer], oil, or water [employer] threatened to shut off services in your home? No 06/03/2024 PHQ-2A Answer Date Recorded Patient Health Questionnaire-2 Score 2 11/29/2022 Comments No Sex and Gender Information Value Date Recorded Sex Assigned at Not on file Legal Sex Female 6:31 PM EDT Gender Identity Not on file Sexual Orientation Not on file documented as of this encounter Miscellaneous Notes * Telephone Encounter - Colt Ennis P - 06/13/2024 11:20 AM EDT Spoke with pt and informed that it will be best if she makes an appointment with her lead setter. Pt voiced understanding and stated she will call and schedule an appointment. documented in this encounter Plan of Treatment Upcoming Encounters Date Type Department Care Team (Late st Contact Info) Description 08/28/2024 11:00 AM EDT Procedure Visit [place] [facility] [address] [place] [address] Malgorzata Moseley PA [address] [place] [address] 10/04/2024 9:30 AM EDT Procedure Visit [facility] at [facility] [address] [place] [address] Nicolás Hollis MD [address] [place] [address] documented as of this encounter [...] documented as of this encounter Care Teams Work Force Advisor Relationship Specialty Start Date End Date Alka Tracy APRN [address] [place] [address] PCP - General 07/03/20 Daily Christy MD [address] [place] [address] Service Attending Neurology 09/30/20 Malgorzata Moseley PA [address] [place] [address] Physician Principal Technical Writer Neurology 11/18/20 Shy Duque APRN [address] [place] [address] Nurse Practitioner Neurosurgery 11/25/20 Arsalan Thompson MD [address] [place] [address] Surgeon Neurosurgery 07/02/21 Linda Baker LPN VALUE-BASED TRANSFORMATION PROGRAM Licensed Practical Nurse 12/27/23 06/24/24 documented as of this encounter
--- OUTSIDE RECORDS SUMMARY | 2024-07-26 15:22 | XMS_ITS | Encounter Summary ---
Author Organization [facility] Address [address] [place] [address] Care Team Providers Care Rn Neurosurgical Name Role Phone Alka Tracy APRN Primary Care Provider [phone] Daily Christy MD Unavailable [phone] Malgorzata Moseley Unavailable [phone] Shy Duque APRN Unavailable [phone] Arsalan Thompson MD Unavailable + [phone] Francis Wallace Unavailable Unavailable Encounter Details Date Type Department Care Team (Latest Contact Info) Description 07/10/2024 Travel Social History Tobacco Use Types Packs/Day [...] often do you attend chur ch or samaritan services? Never 12/27/2023 Do you belong to any clubs o r organizations such as worship groups, unions, fraternal or athletic groups, or [...] Recorded Patient Health Questionnaire-2 Score 2 07/10/2024 [facility] - Occupational Stress Questionnaire Answer Date [...] place to sleep or slept in a care home (including now)? No 11/09/2023 PHQ-9 Answer Date [...] any time in the past 12 m [facility], were you homeless or living in a care home (including now)? No 07/10/2024 Utilities Answer Date [...] Questionnaire -2 Score 2 07/10/2024 9:37 AM Judith Padgett * Question Answer Date [...] usual. Not at all 07/10/2024 9:37 AM Judith Santiago Thoughts that you would be better off or hurting yourself in some way Not at all 07/10/2024 9:37 AM Judith Padgett Patient Health Questionnaire-9 Score 8 07/10/2024 9:37 AM Judith Padgett * Calculated C-SSRS Risk Score (Lifetime/Recent) Answer Date of Assessment Author No Risk Indicated 07/10/2024 9:43 AM Judith Santiago * If you checked off any problems on this questionnaire so far, Question Answer Date of Assessment Author How difficult have these problems made it for you to do your work, take care of things at home, or get along with other people? Somewhat difficult 07/10/2024 9:37 AM Israel Padgett * Question Answer Date of Assessment Author 1. Wish to be (Past 1 Month) No 025 9:43 AM Judith Padgett 2. Non-Specific Active Suici tae Thoughts (Past 1 Month) No 07/10/2024 9:43 AM Judith Padgett 6. Suicidal Behavior (Lifetime) No 9:43 AM Judith Padgett documented as of this encounter Plan of Treatment Upcoming Encounters Date Type Department Care Team (Late st Contact Info) Description 08/28/2024 11:00 AM EDT Procedure Visit [place] [facility] [address] [place] [address] Malgorzata Moseley PA [address] [place] [address] 10/04/2024 9:30 AM EDT Procedure Visit [facility] [address] [place] [address] Nicolás Hollis MD [address] [place] [address] documented as of this encounter [...] documented as of this encounter Care Teams Rn Neurosurgical Relationship Specialty Start Date End Date Alka Tracy APRN [address] [place] [phone] PCP - General 07/03/20 Daily Christy MD [address] [place] [address] Service Attending Neurology 09/30/20 Malgorzata Moseley PA [address] [place] [address] Physician Deck Hand Neurology 11/18/20 Shy Duque APRN [address] [place] [address] Nurse Practitioner Neurosurgery 11/25/20 Arsalan Thompson MD [address] [place] [address] Surgeon Neurosurgery 07/02/21 Francis Wallace Community Health Worker 07/10/24 07/17/24 documented as of this encounter
--- OUTSIDE RECORDS SUMMARY | 2024-07-26 15:22 | XMS_ITS | Encounter Summary ---
Author Organization [facility] Address [address] [place] [address] Care Team Providers Care Bookstore Clerk Name Role Phone Alka Tracy APRN Primary Care Provider [phone] Daily Christy MD Unavailable [phone] Malgorzata Moseley Unavailable [phone] Shy Duque APRN Unavailable [phone] Arsalan Thompson MD Unavailable + [phone] Linda Baker AIR SURVEILLANCE OPERATOR Unavailable Unavailab le Reason for Visit * Reason Onset Date Comments Med Refill 06/04/2024 Encounter Details Date Type Department Care Team (Late st Contact Info) Description 06/04/2024 Refill [facility] [address] [place] [address] Alka Tracy APRN [address] [place] [address] Type 2 diabetes mellitus with hyperglycemia, without long-term current use of insulin ([facility]) Social History Tobacco Use Types Packs/Day Years [...] How often do you attend chur or gnosticism services? Never 12/27/2023 Do you belong to any clubs o r organizations such as druze groups, unions, fraternal or athletic groups, or [...] Recorded Patient Health Questionnaire-2 Score 2 06/03/2024 [facility] - Occupational Stress Questionnaire [...] place to sleep or slept in a [facility] (including now)? No 11/09/2023 PHQ-9 Answer Date [...] any time in the past 12 m [facility], were you homeless or living in a [facility] (including now)? No 06/03/2024 Utilities Answer Date [...] encounter Miscellaneous Notes * Telephone Encounter - Stuart Jean, PharmD - 06/06/2024 10:42 AM EDT 1 medication(s) has been approved per protocol. Please keep upcoming appointment for additional refills. Medications have been pended for refill atupcoming appointment. documented in this encounter Plan of Treatment Upcoming Encounters Date Type Department Care Team (Late st Contact Info) Description 08/28/2024 11:00 AM EDT Procedure Visit [place] [facility] [address] [place] [address] Malgorzata Moseley PA [address] [place] [address] 10/04/2024 9:30 AM EDT Procedure Visit [facility] at [facility] [address] [place] [place] [address] Nicolás Hollis MD [address] [place] [address] documented as of this encounter Visit Diagnoses Diagnosis Type 2 diabetes mellitus with hyperglycemia, without long-term current use of insulin ([facility]) documented in this encounter Additional Health Concerns Assessment Noted Time PHQ-9 Depression Total Score: 8 06/04/19 25 8:53 AM EDT A fall risk assessment has been complete d for the patient 05/22/2024 9:56 AM EDT A Body Mass Index follow-up plan has been documented for the patient 06/03/2024 10:08 AM EDT documented as of this encounter Care Teams Bookstore Clerk Relationship Specialty Start Date End Date Alka Tracy APRN [address] [place] [address] PCP - General 07/03/20 Daily Christy MD [address] [place] [address] Service Attending Neurology 09/30/20 Malgorzata Moseley PA [address] [place] [address] Physician Technical Support 1 Software Engineer Neurology 11/18/20 Shy Duque APRN [address] [place] [address] Nurse Practitioner Neurosurgery 11/25/20 Arsalan Thompson MD [address] [place] [address] Surgeon Neurosurgery 07/02/21 Linda Baker LPN VALUE-BASED TRANSFORMATION PROGRAM Licensed Practical Nurse 12/27/23 06/24/24 documented as of this encounter
--- OUTSIDE RECORDS SUMMARY | 2024-07-26 15:22 | XMS_ITS | Encounter Summary ---
Author Organization [facility] Address [address] [place] [address] Care Team Providers Care Telecommunication Tower Technician Name Role Phone Alka Tracy FIELD SERVICER Primary Care Provider [phone] Daily Christy MD Unavailable [phone] Malgorzata Moseley PA Unavailable [phone] Shy Duque FIELD SERVICER Unavailable [phone] Arsalan Thompson MD Unavailable + [phone] Reason for Visit * Reason Onset Date Comments HCN Clinical Concern/Question 07/18/2024 Encounter Details Date Type Department Care Team (Late st Contact Info) Description 07/18/2024 Telephone [facility] [address] [place] [address] Alka Tracy, FIELD SERVICER [address] [place] [address] HCN Clinical Concern/Question Social History Tobacco Use Types Packs/Day Years [...] How often do you attend chur or uatsdin services? Never 12/27/2023 Do you belong to any clubs o r organizations such as mandaeism groups, unions, fraternal or athletic groups, or [...] Recorded Patient Health Questionnaire-2 Score 2 07/10/2024 [facility] - Occupational Stress Questionnaire [...] place to sleep or slept in a jail (including now)? No 11/09/2023 PHQ-9 Answer Date [...] any time in the past 12 m [facility], were you homeless or living in a jail (including now)? No 07/10/2024 Utilities Answer Date Recorded In the past 12 months has th e [employer], gas, oil, or water [employer] threatened to shut off services in your [...] * Telephone Encounter - Judith Beauchamp - 07/18/2024 2:24 PM EDT Patient advised and voiced understanding. * Telephone Encounter - Judith Beauchamp - 07/18/2024 2:06 PM EDT She is tolerating the semaglutide, she is on her second dose. She is still on jardiance * Telephone Encounter - Rudy Chapin - 07/18/2024 8:58 AM EDT Clinical Concern/Question Reason for Call: Pt requesting a nurse call back today, pts sugar level reading is running 200-204 with fasting, please contact pt for more information. Best contact number: [phone] (mobile) Optimal time of day to reach caller: ANYTIME Additional comments/information from caller: None Note: Please do not reply to this message. Follow-up communication and further actions as a result of this message need to be communicated with the patient directly, if the patient is not active onMyChart. If the patient is active on MyChart, they will receive notification of the communication/outcome via [email or web address]. documented in this encounter Plan of Treatment Upcoming Encounters Date Type Department Care Team (Late st Contact Info) Description 08/28/2024 11:00 AM EDT Procedure [facility] [place] [facility] [address], 1[address] [place] [address] Malgorzata Moseley PA [address] [place] [address] 10/04/2024 9:30 AM EDT Procedure Visit [facility] & Rehabilitation Clinic at [facility] [address] [place] [address] Nicolás [place] MD [address] [place] [address] documented as of this encounter Visit Diagnoses [...] documented as of this encounter Care Teams Telecommunication Tower Technician Relationship Specialty Start Date End Date Alka Tracy APRN [address] [place] [address] PCP - General 07/03/20 Daily Christy MD [address] [place] [address] Service Attending Neurology 09/30/20 Malgorzata Moseley PA [address] [place] [address] Physician Maintenance Controller Neurology 11/18/20 Shy Duque APRN [address] [place] [address] Nurse Practitioner Neurosurgery 11/25/20 Arsalan Thompson MD [address] [place] [address] Surgeon Neurosurgery 07/02/21 documented as of this encounter
--- OUTSIDE RECORDS SUMMARY | 2024-07-26 15:22 | XMS_ITS | Encounter Summary ---
Author Organization [facility] Address [address] [place] [address] Care Team Providers Care Block Out Machine Operator Name Role Phone Alka rTacy APRN Primary Care Provider [phone] Daily Christy MD Unavailable [phone] Malgorzata Moseley Unavailable [phone] Shy Duque APRN Unavailable [phone] Arsalan [place] MD Unavailable + [phone] [place] Unavailable Unavailable Encounter Details Date Type Department Care Team (Latest Contact Info) Description 07/16/2024 Travel Social History Tobacco Use Types Packs/Day [...] often do you attend chur ch or rastafari services? Never 12/27/2023 Do you belong to any clubs o r organizations such as hoahaoism groups, unions, fraternal or athletic groups, or [...] Recorded Patient Health Questionnaire-2 Score 2 07/10/2024 [facility] - Occupational Stress Questionnaire Answer Date [...] place to sleep or slept in a nursing home (including now)? No 11/09/2023 PHQ-9 Answer [...] time in the past 12 m [facility], were you homeless or living in a nursing home (including now)? No 07/10/2024 Utilities Answer [...] Visit [place] [facility] [address], 1st [place] [address] Malgorzata Moseley PA [address] [place] [address] 10/04/2024 9:30 AM EDT Procedure Visit [facility] [address] [place] [address] Nicolás [place] MD [address] [place] [address] documented as of this encounter [...] documented as of this encounter Care Teams Block Out Machine Operator Relationship Specialty Start Date End Date Alka Trayc APRN [address] [place] [address] PCP - General 07/03/20 Daily Christy MD [address] [place] [address] Service Attending Neurology 09/30/20 Malgorzata Moseley PA [address] [place] [address] Physician Mold Setter Neurology 11/18/20 Shy Duque APRN [address] [place] [address] Nurse Practitioner Neurosurgery 11/25/20 Arsalan [place] MD [address] [place] [address] Surgeon Neurosurgery 07/02/21 Francis [place] Community Health Worker 07/10/24 07/17/24 documented as of this encounter
--- OUTSIDE RECORDS SUMMARY | 2024-07-26 15:22 | XMS_ITS | Encounter Summary ---
Author Organization [facility] Address [address] [place] [address] Care Team Providers Care Atmospheric Physicist Name Role Phone Alka Tracy TREE FRUIT AND NUT FARMING SUPERVISOR Primary Care Provider [phone] Daily Christy MD Unavailable [phone] Malgorzata Moseley PA Unavailable [phone] Shy Duque TREE FRUIT AND NUT FARMING SUPERVISOR Unavailable [phone] Arsalan [place] MD Unavailable + [phone] Francis [place] Unavailable Unavailable Encounter Details Date Type Department Care Team (Late st Contact Info) Description 07/10/2024 Orders Only [facility] Medicine [address] [place] [address] Alka Tracy, TREE FRUIT AND NUT FARMING SUPERVISOR [address] [place] [address] Type 2 diabetes mellitus with hyperglycemia, without long-term current use of insulin ([facility]) (Primary Dx) Social History Tobacco [...] week 12/27/2023 How often do you attend [facility] or adventist services? Never 12/27/2023 Do you belong to any clubs o r organizations such as episcopal groups, unions, fraternal or athletic groups, or [...] Recorded Patient Health Questionnaire-2 Score 2 07/10/2024 [facility] - Occupational Stress Questionnaire [...] place to sleep or slept in a long-term (including now)? No 11/09/2023 PHQ-9 Answer Date [...] any time in the past [address] [facility], were you homeless or living in a long-term (including now)? No 07/10/2024 Utilities Answer Date Recorded In the past 12 months has th e [employer], gas, oil, or water [employer] threatened to shut off services in your [...] Judith Beauchamp 6. Suicidal Behavior (Lifetime) No 5 9:43 AM EDT Judith Beauchamp documented as of this encounter Plan of Treatment Upcoming Encounters Date Type Department Care Team (Late st Contact Info) Description 08/28/2024 11:00 AM EDT Procedure Visit [place] [facility] [address], [address] [place] [address] Malgorzata Moseley PA [address] [place] [address] 10/04/2024 9:30 AM EDT Procedure Visit Physical Medicine & Rehabilitation Clinic at [facility] [address] [place] [address] Nicolás [place] MD [address] [place] [address] documented as of this encounter Visit Diagnoses Diagnosis Type 2 diabetes mellitus with hyperglycemia, without long-term current use of insulin ([facility])- Primary documented in this encounter Additional Health Concerns Assessment Noted Time PHQ-9 Depression Total Score: 8 07/11/19 25 9:37 AM EDT A fall risk assessment has been complete d for the patient 05/22/2024 9:56 AM EDT A Body Mass Index follow-up plan has been documented for the patient 07/10/2024 10:04 AM EDT documented as of this encounter Care Teams Atmospheric Physicist Relationship Specialty Start Date End Date Alka Tracy APRN [address] [place] [address] PCP - General 07/03/20 Daily Christy MD [address] [place] [address] Service Attending Neurology 09/30/20 Malgorzata Moseley PA [address] [place] [address] Physician Oncology Coordinator Neurology 11/18/20 Shy Duque APRN [address] [place] [address] Nurse Practitioner Neurosurgery 11/25/20 Arsalan [place] MD [address] [place] [address] Surgeon Neurosurgery 07/02/21 Francis [place] Community Health Worker 07/10/24 07/17/24 documented as of this encounter
--- OUTSIDE RECORDS SUMMARY | 2024-07-26 15:22 | XMS_ITS | Encounter Summary ---
Author Organization [facility] Address [address] [place] [address] Care Team Providers Care Terra Cotta Mold Maker Name Role Phone DemarcusAlka Caitlin FAIRCHILD Primary Care Provider [phone] Daily Christy MD Unavailable [phone] Malgorzata Moseley Unavailable [phone] Shy Duque APRN Unavailable [phone] Arsalan [place] MD Unavailable + [phone] Linda Baker LPN Unavailable Unavailab Francis Morgan Unavailable Unavailable Encounter Details Date Type Department Care Team (Late st Contact Info) Description 06/17/2024 Telephone [facility] [address] [place] [address] Snow Zazueta, PharmD [place], [place] [id number] Social History Tobacco Use Types Packs/Day Years [...] often do you attend chur ch or restorationism services? Never 12/27/2023 Do you belong to any clubs o r organizations such as jewish groups, unions, fraternal or athletic groups, or [...] Recorded Patient Health Questionnaire-2 Score 2 07/10/2024 [facility] Occupational Stress Questionnaire Answer Date [...] the money to buy more. Often true 05/21/20 25 Within the past 12 months, t [...] time in the past 12 m [facility], were you homeless or living in a care home (including now)? No 07/10/2024 Utilities Answer Date Recorded In the past 12 months has th e [employer], gas, oil, or water company threatened to [...] doing things Several days 07/10/2024 9:37 AM EDT Judith Beauchamp Feeling down, depressed, or hopeless Several days [...] Visit [place] [facility] [address], 1st [place] [address] Malgorzata Moseley PA [id number] [place] [address] 10/04/2024 9:30 AM EDT Procedure Visit [facility] [address] [place] [address] Nicolás [place] MD [address] [place] [address] documented as of this encounter [...] documented as of this encounter Care Teams Terra Cotta Mold Maker Relationship Specialty Start Date End Date Alka Tracy APRN [address] [place] [address] PCP - General 07/03/20 Daily Christy MD [address] [facility] [place] [address] Service Attending Neurology 09/30/20 Malgorzata Moseley PA [address] [place], [place] [address] Physician Fingernail Sculpturer Neurology 11/18/20 Shy Duque APRN [address] [place] [address] Nurse Practitioner Neurosurgery 11/25/20 Arsalan [place] MD [address] [place] [address] Surgeon Neurosurgery 07/02/21 Linda Baker LPN VALUE-BASED TRANSFORMATION PROGRAM Licensed Practical Nurse 12/27/23 06/24/24 Francis [place] Community Health Worker 07/10/24 07/17/24 documented as of this encounter
--- OUTSIDE RECORDS SUMMARY | 2024-07-26 15:22 | XMS_ITS | Encounter Summary ---
Author Organization [facility] Address [address] [place] [address] Care Team Providers Care Import/Export Freight Forwarder Name Role Phone Alka Tracy APRN Primary Care Provider [phone] Daily Christy MD Unavailable [phone] Malgorzata Moseley Unavailable [phone] Shy Duque APRN Unavailable [phone] Arsalan [place] MD Unavailable + [phone] Francis [place] Unavailable Unavailable Reason for Visit * Reason Comments Community Resources Encounter Details Date Type Department Care Team (Late st Contact Info) Description 07/17/2024 Patient Outreach POPULATION HEALTH [address] [place] [address] Francis [place] Community Resources Social History Tobacco Use Types Packs/Day Years [...] How often do you attend chur or sikh services? Never 12/27/2023 Do you belong to [...] Patient Health Questionnaire-2 Score 2 07/10/2024 [facility] - Occupational Stress Questionnaire Answer Date [...] place to sleep or slept in a halfway (including now)? No 11/09/2023 PHQ-9 Answer Date [...] any time in the past 12 m [facility], were you homeless or living in a halfway (including now)? No 07/10/2024 Utilities Answer Date [...] as of this encounter Miscellaneous Notes * Significant Event - Francis [place] - 07/17/2024 10:06 AM EDT 07/17/24 1005 SDNM follow up assessment Food Needs Resolved Yes (Pt was able to utilize resources to meet food needs.) Food needs completed date 07/17/24 CHW connected with pt via phone call. Pt stated that she now receives SNAP benefits and was able tomeet her need for food assistance. CHW asked if pt needed assistance getting into contact with any other resources and she stated she does not. CHW will graduate pt from program. documented in this encounter Plan of Treatment Upcoming Encounters Date Type Department Care Team (Late st Contact Info) Description 08/28/2024 11:00 AM EDT Procedure Visit [place] [facility] [address], [address]st [place] [address] Malgorzata Moseley PA [address] [place] [address] 10/04/2024 9:30 AM EDT Procedure Visit [facility] at [facility] [address] [place] [address] Nicolás [place] MD [address] [place] [address] documented as of this encounter [...] documented as of this encounter Care Teams Import/Export Freight Forwarder Relationship Specialty Start Date End Date Alka Tracy APRN [address] [place] [address] PCP - General 07/03/20 Daily Christy MD [address] [place] [address] Service Attending Neurology 09/30/20 Malgorzata Moseley PA [address] [place] [address] Physician Sewing Demonstrator Neurology 11/18/20 Shy Duque APRN [address] [place] [address] Nurse Practitioner Neurosurgery 11/25/20 Arsalan [place] MD [address] [place] [address] Surgeon Neurosurgery 07/02/21 Francis [place] Community Health Worker 07/10/24 07/17/24 documented as of this encounter
--- OUTSIDE RECORDS SUMMARY | 2024-07-26 15:22 | XMS_ITS | Encounter Summary ---
Author Organization [facility] Address [address] [place] [address] Care Team Providers Care Kiln Drawer Name Role Phone DemarcusAlka Caitlin FAIRCHILD Primary Care Provider [phone] Daily Christy MD Unavailable [phone] Malgorzata Moseley Unavailable [phone] Shy Duque APRN Unavailable [phone] Arsalan [place] MD Unavailable + [phone] Francis [place] Unavailable Unavailable Encounter Details Date Type Department Care Team (Late st Contact Info) Description 07/12/2024 Telephone [place] [facility] [address], [address] [place] [address] Arsalan [place] MD [address] [place] [address] Social History Tobacco Use Types Packs/Day Years [...] often do you attend chur ch or latter day services? Never 12/27/2023 Do you belong to [...] Recorded Patient Health Questionnaire-2 Score 2 07/10/2024 [facility] [...] place to sleep or slept in a chcf (including now)? No 11/09/2023 PHQ-9 Answer Date [...] the past 12 m [facility], were you homeless or living in a chcf (including now)? No 07/10/2024 Utilities Answer Date Recorded In the past 12 months has th e [employer], gas, oil, or water [employer] threatened to shut off services in your home? No 07/10/2024 PHQ-2A Answer Date Recorded Patient Health Questionnaire-2 Score 2 11/29/2022 Comments No Sex and Gender Information Value Date Recorded Sex Assigned at Not on file Legal Sex Female 6:31 PM EDT Gender Identity Not on file Sexual Orientation Not on file documented as of this encounter Miscellaneous Notes * Telephone Encounter - Saundra Martinez - 07/12/2024 8:39 AM EDT Patient Phone Message Reason for Call: Pt is calling and needs xray orders faxed to [phone] at [facility]. She needs to get this done before TH appointment on Monday. She asks for a call when this is done so she can go get it.Please advise. Best contact number and optimal time of day to reach caller: [phone] Note: Please do not reply to this message. Follow-up communication and further actions as a result of this message need to be communicated with the patient directly, if the patient is not active onMyChart. If the patient is active on MyChart, they will receive notification of the communication/outcome via Exper[employer]ityhart. documented in this encounter Plan of Treatment Upcoming Encounters Date Type Department Care Team (Late st Contact Info) Description 08/28/2024 11:00 AM EDT Procedure Visit [place] [facility] [address] [place] [address] Malgorzata Moseley PA [address] [place] [address] 10/04/2024 9:30 AM EDT Procedure Visit Physical Medicine & Rehabilitation Clinic at [facility] [address] [place] [address] Nicolás [place] MD [address] [place] [address] documented as of this encounter [...] documented as of this encounter Care Teams Kiln Drawer Relationship Specialty Start Date End Date Alka Tracy APRN [facility] [place] [address] PCP - General 07/03/20 Daily Christy MD [address] [place] [address] Service Attending Neurology 09/30/20 Malgorzata Moseley PA [address] [place] [address] Physician Chandelier Maker Neurology 11/18/20 Shy Duque APRN [address] [place], [place] [address] Nurse Practitioner Neurosurgery 11/25/20 Arsalan [place] MD [address] [place] [address] Surgeon Neurosurgery 07/02/21 Francis [place] Community Health Worker 07/10/24 07/17/24 documented as of this encounter
--- OUTSIDE RECORDS SUMMARY | 2024-07-26 15:22 | XMS_ITS | Encounter Summary ---
Author Organization [facility] Address [address] [place] [address] Care Team Providers Care Patient Attendant Name Role Phone Alka Tracy APRN Primary Care Provider [phone] Daily Christy MD Unavailable [phone] Malgorzata Moseley Unavailable [phone] Shy Duque APRN Unavailable [phone] Arsalan [place] MD Unavailable + [phone] Francis [place] Unavailable Unavailable Reason for Visit * Reason Comments Community Resources Encounter Details Date Type Department Care Team (Late st Contact Info) Description 07/10/2024 Patient Outreach POPULATION HEALTH [address] [place] [address] Francis [place] Community Resources Social [...] How often do you attend chur or restorationism services? Never 12/27/2023 Do you belong to any clubs o r organizations such as denominational groups, unions, fraternal or athletic groups, or [...] Recorded Patient Health Questionnaire-2 Score 2 07/10/2024 [facility] - Occupational Stress Questionnaire Answer Date [...] place to sleep or slept in a fdc (including now)? No 11/09/2023 PHQ-9 Answer Date [...] any time in the past 12 m [facility], were you homeless or living in a fdc (including now)? No 07/10/2024 Utilities Answer Date [...] encounter Miscellaneous Notes * Progress Notes - Francis [place] - 07/10/2024 4:53 PM EDT CHW Follow-up Encounter Note 07/10/2024 CHW sent the following e-mail to [email or web address], Dear Mrs. Bell, Thank you for taking the time to speak with me today. Below you will find the resource information we discussed on the phone. If you have any questions or concerns, feel free to call me at my direct line [phone] during the business hours of 8 am - 6:30 pm. Community Action [phone] [facility] open on Monday's and 11am-4pm [phone] Thank you, Francis [place] Community Health Coordinator Healthcare Chief Medical Office Population Health Service [phone] documented in this encounter Plan of Treatment Upcoming Encounters Date Type Department Care Team (Late st Contact Info) Description 08/28/2024 11:00 AM EDT Procedure Visit [place] [facility] [address], [address]st [place] [address] Malgorzata Moseley PA [address] [place] [address] 10/04/2024 9:30 AM EDT Procedure Visit [facility] Medicine [facility] Clinic at [facility] [address] [place] [address] Nicolás [place] MD [address] [place] [address] documented as of this encounter Visit Diagnoses Not on filedocumented in this encounter Additional Health Concerns Assessment Noted Time PHQ-9 Depression Total Score: 8 07/11/19 9:37 AM EDT A fall risk assessment has been complete d for the patient 05/22/2024 9:56 AM EDT A Body Mass Index follow-up plan has been documented for the patient 07/10/2024 10:04 AM EDT documented as of this encounter Care Teams Patient Attendant Relationship Specialty Start Date End Date Alka Tracy APRN [address] [place] [id number] PCP - General 07/03/20 Daily Christy MD [address] [place] [address] Service Attending Neurology 09/30/20 Malgorzata Moseley PA [address] [place] [address] Physician Program Specialist Neurology 11/18/20 Shy Duque APRN [address] [place] [address] Nurse Practitioner Neurosurgery 11/25/20 Arsalan [place] MD [address] [place] [address] Surgeon Neurosurgery 07/02/21 Francis [place] Community Health Worker 07/10/24 07/17/24 documented as of this encounter
--- OUTSIDE RECORDS SUMMARY | 2024-07-26 15:22 | XMS_ITS | Encounter Summary ---
Author Organization [facility] Address [address] [place] [address] Care Team Providers Care Projector Operator Name Role Phone Alka Tracy APRN Primary Care Provider [phone] Daily Christy MD Unavailable [phone] Malgorzata Moseley Unavailable [phone] Shy uDque APRN Unavailable [phone] Arsalan Thompson MD Unavailable + [phone] Francis Wallace Unavailable Unavailable Reason for Visit * Reason Comments Community Resources Encounter Details Date Type Department Care Team (Late st Contact Info) Description 07/10/2024 Patient Outreach POPULATION HEALTH [address], [address] [place] [address] Francis Wallace Community Resources Social [...] How often do you attend chur or mormonism services? Never 12/27/2023 Do you belong to any clubs o r organizations such as latter day groups, unions, fraternal or athletic groups, or [...] Recorded Patient Health Questionnaire-2 Score 2 07/10/2024 [facility] - Occupational Stress Questionnaire Answer Date [...] place to sleep or slept in a retirement (including now)? No 11/09/2023 PHQ-9 Answer Date [...] any time in the past 12 m [facility], were you homeless or living in a retirement (including now)? No 07/10/2024 Utilities Answer Date [...] Progress Notes - Francis Wallace - 07/10/2024 11:17 AM EDT CHW Initial Encounter Note 07/10/2024 Urgent or Non-Urgent Referral: Urgent Trench Digging Machine Operator: No Preferred Language: Slovenian Trench Digging Machine Operator ID: Outreach 1: 07/10/2024 @ 11:16am via phone call Outreach 2: Outreach 3: Contact Methods: Phone SDOH Pre-Assessment/Health Maintenance: Food: [access to food, any issues, etc.] SDOH Overview: Pt screened positive for food assistance. SDOH Intervention: CHW connected via with pt via phone call, pt requested that CHW call back after 4pm. CHW agreed and will contact later this afternoon. Pt enrolled in CHW Program: No Next follow-up scheduled: Notes for next follow-up: documented in this encounter Plan of Treatment Upcoming Encounters Date Type Department Care Team (Late st Contact Info) Description 08/28/2024 11:00 AM EDT Procedure Visit [place] [facility] [address], [address] [place] [address] Malgorzata Moseley PA [address] [place] [address] 10/04/2024 9:30 AM EDT Procedure Visit [facility] [address] [place] [address] Nicolás Hollis MD [address] [place] [address] documented as of this encounter [...] documented as of this encounter Care Teams Projector Operator Relationship Specialty Start Date End Date Alka Tracy APRN [address] [id number] PCP - General 07/03/20 Dialy Christy MD [address] [place] [address] Service Attending Neurology 09/30/20 Malgorzata Moseley PA [address] [place] [address] Physician Pot Firer Neurology 11/18/20 Shy Duque APRN [address] [place] [address] Nurse Practitioner Neurosurgery 11/25/20 Arsalan Thompson MD [address] [place] [address] Surgeon Neurosurgery 07/02/21 Francis Wallace Community Health Worker 07/10/24 07/17/24 documented as of this encounter
--- OUTSIDE RECORDS SUMMARY | 2024-07-26 15:22 | XMS_ITS | Encounter Summary ---
Author Organization [facility] Address [address] [place] [address] Care Team Providers Care Machine Engineer Name Role Phone Alka Tracy APRN Primary Care Provider [phone] Daily Christy MD Unavailable [phone] Malgorzata Moseley Unavailable [phone] Shy Duque APRN Unavailable [phone] Arsalan Thompson MD Unavailable + [phone] Linda Baker MANUFACTURING DEVELOPMENT ENGINEER Unavailable Unavailab le Reason for Visit * Reason Onset Date Comments HCN Clinical Concern/Question 05/31/2024 Encounter Details Date Type Department Care Team (Late st Contact Info) Description 05/31/2024 Telephone [facility] [address] [place] [address] Alka Tracy APRN [address] [place] [address] HCN Clinical Concern/Question Social History [...] any clubs o r organizations such as mu-ism groups, unions, fraternal or athletic groups, or [...] Recorded Patient Health Questionnaire-2 Score 2 06/03/2024 [facility] - Occupational Stress Questionnaire Answer [...] place to sleep or slept in a usp (including now)? No 11/09/2023 PHQ-9 Answer Date [...] time in the past 12 m [facility], were you homeless or living in a usp (including now)? No 06/03/2024 Utilities Answer Date Recorded In the past 12 months has th e [employer], gas, oil, or water company threatened to [...] problems? Question Answer Date of Assessment Author Carlos interest or pleasure in doing things Several [...] Beauchamp 6. Suicidal Behavior (Lifetime) No 5 8:57 AM EDT Judith Beauchamp documented as of this encounter Miscellaneous Notes * Telephone Encounter - Judith Beauchamp - 05/31/2024 10:51 AM EDT Patient advised of Alka's instructions. * Telephone Encounter - Judith Beauchamp - 05/31/2024 10:11 AM EDT FYI BS was 309 yesterday morning and in the evening it was 389. New medication given in ER was jardiance 10 mg . She is also on doxycycline for her feet. This morning BS is 285 , has an appointment with Alka on Monday * Telephone Encounter - Edilma Singh - 05/31/2024 8:36 AM EDT Patient Phone Message Reason for Call: She is returning a call. Please call agaIn Best contact number and optimal time of day to reach caller:[phone] Note: Please do not reply to this message. Follow-up communication and further actions as a result of this message need to be communicated with the patient directly, if the patient is not active onMyChart. If the patient is active on MyChart, they will receive notification of the communication/outcome via [employer]. * Telephone Encounter - Judith Beauchamp - 05/31/2024 8:33 AM EDT Lmtrc x1 * Telephone Encounter - Judith Baker - 05/31/2024 8:08 AM EDT Clinical Concern/Question Reason for Call: Pt asking for a nurse to call her regarding her elevated blood sugar, she went to ER last night at [facility] and has some questions. Thanks Best contact number: [phone] (mobile) Optimal time of day to reach caller: ANYTIME Additional comments/information from caller: None Note: Please do not reply to this message. Follow-up communication and further actions as a result of this message need to be communicated with the patient directly, if the patient is not active onMyChart. If the patient is active on MyChart, they will receive notification of the communication/outcome via [employer]. documented in this encounter Plan of Treatment Upcoming Encounters Date Type Department Care Team (Late st Contact Info) Description 08/28/2024 11:00 AM EDT Procedure Visit [facility] [address], [address] [place] [address] Malgorzata Moseley PA [address] [place] [address] 10/04/2024 9:30 AM EDT Procedure Visit [facility] at [facility] [address] [address] Nicolás Hollis MD [address] [place] [address] documented as of this encounter Visit Diagnoses [...] documented as of this encounter Care Teams Machine Engineer Relationship Specialty Start Date End Date Alka Tracy APRN [address] [place] [address] PCP - General 07/03/20 Daily Christy MD [address] [place] [address] Service Attending Neurology 09/30/20 Malgorzata Moseley PA [address] [place] [address] Physician Blasting Clay Miner Neurology 11/18/20 Shy Duque APRN [address] [place] [address] Nurse Practitioner Neurosurgery 11/25/20 Arsalan Thompson MD [address] [place] [address] Surgeon Neurosurgery 07/02/21 Linda Baker, [employer] Licensed Practical Nurse 12/27/23 06/24/24 documented as of this encounter
--- OUTSIDE RECORDS SUMMARY | 2024-07-26 15:22 | XMS_ITS | Encounter Summary ---
Author Organization [facility] Address [address] [place] [address] Care Team Providers Care Photofinishing Laboratory Worker Name Role Phone Alka Tracy APRN Primary Care Provider [phone] Daily Christy MD Unavailable [phone] Malgorzata Moseley Unavailable [phone] Shy Duque APRN Unavailable [phone] Arsalan Thompson MD Unavailable + [phone] Francis Wallace Unavailable Unavailable Encounter Details Date Type Department Care Team (Late st Contact Info) Description 07/12/2024 Orders Only External Location [address] [place] [address] Provider, External Social History Tobacco Use Types Packs/Day Years [...] often do you attend chur ch or episcopal services? Never 12/27/2023 Do you belong to any clubs o r organizations such as rastafari groups, unions, fraternal or athletic groups, or [...] Recorded Patient Health Questionnaire-2 Score 2 07/10/2024 [facility] - Occupational Stress Questionnaire [...] place to sleep or slept in a correction (including now)? No 11/09/2023 PHQ-9 Answer Date [...] were you homeless or living in a correction (including now)? No 07/10/2024 Utilities Answer Date [...] Visit [place] [facility] [address], 1st [place] [address] Malgorzata Moseley PA [address] [place] [address] 10/04/2024 9:30 AM EDT Procedure Visit [facility] [address] [address] Nicolás Hollis MD [address] [place] [address] documented as of this encounter Procedures Procedure Name Priority Date/Time Associated Diagnosis Comments XR OUTSIDE IMAGES 07/12/2024 11:15 AM EDT documented in this encounter Results * XR OUTSIDE IMAGES (07/12/2024 11:15 AM EDT) Anatomical Region Laterality Modality Radiographic Sofiya ging 07/12/2024 11:1 5 AM EDT us External Provider IMG XR PROCEDURES Final Result documented in this encounter Visit Diagnoses Not on filedocumented [...] documented as of this encounter Care Teams Photofinishing Laboratory Worker Relationship Specialty Start Date End Date Alka Tracy APRN [address] [place] [address] PCP - General 07/03/20 Daily Christy MD [address] [place] [address] Service Attending Neurology 09/30/20 Malgorzata Moseley PA [address] [place] [address] Physician Roving Technician Neurology 11/18/20 Shy Duque APRN [address] [place] [address] Nurse Practitioner Neurosurgery 11/25/20 Arsalan Thompson MD [address] [place] [address] Surgeon Neurosurgery 07/02/21 Francis Wallace Community Health Worker 07/10/24 07/17/24 documented as of this encounter
--- OUTSIDE RECORDS SUMMARY | 2024-07-26 15:22 | XMS_ITS | Encounter Summary ---
Author Organization [facility] Address [address] [place] [address] Care Team Providers Care Softball Umpire Name Role Phone Alka Tracy APRN Primary Care Provider [phone] Daily Christy MD Unavailable [phone] Malgorzata Moseley Unavailable [phone] Shy Duque APRN Unavailable [phone] Arsalan Thompson MD Unavailable + [phone] Francis Wallace Unavailable Unavailable Reason for Visit * Reason Onset Date Comments Appointment 07/12/2024 Encounter Details Date Type Department Care Team (Late st Contact Info) Description 07/12/2024 Telephone [place] [facility] [address] [place] [address] [place] [address] Appointment Social History Tobacco Use Types Packs/Day Years Used Date Smoking Tobacco: Never Passive Smoke Exposure: Never Smokeless Tobacco: Never Tobacco Cessation:Counseling Given: Not Answered Alcohol Use Standard Drinks/Week Comments Not Currently [...] How often do you attend chur or synagogue services? Never 12/27/2023 Do you belong to any clubs o r organizations such as samaritan groups, unions, fraternal or athletic groups, or [...] Recorded Patient Health Questionnaire-2 Score 2 07/10/2024 [facility] - Occupational Stress Questionnaire Answer [...] place to sleep or slept in a custodial (including now)? No 11/09/2023 PHQ-9 Answer Date [...] any time in the past 12 m [facility], were you homeless or living in a custodial (including now)? No 07/10/2024 Utilities Answer Date Recorded In the past 12 months has th e [employer], gas, oil, or water [employer] threatened to shut off services in your [...] Sign Reading Time Taken Comments Blood Pressure - - Pulse - - Temperature - - Respiratory Rate - - Oxygen Saturation - - Inhaled Oxygen Concentration - - Weight 133 kg (293 lb) 07/12/2024 2:43 PM EDT Height - - Body Mass Index 53.59 07/10/2024 9:36 AM EDT documented in this encounter Miscellaneous Notes * Telephone Encounter - Adrianne Singh - 07/12/2024 2:42 PM EDT Pre reg patient for a TH appt on 07/16 at [address] Doll documented in this encounter Plan of Treatment Upcoming Encounters Date Type Department Care Team (Late st Contact Info) Description 08/28/2024 11:00 AM EDT Procedure Visit [place] [facility] [address] [place] [address] Malgorzata Moseley PA [address] [place] [address] 10/04/2024 9:30 AM EDT Procedure Visit [facility] [address] [place] [address] Nicolás Hollis MD [address] [place] [address] documented as of this encounter [...] documented as of this encounter Care Teams Softball Umpire Relationship Specialty Start Date End Date Alka Tracy APRN [address] [place] [address] PCP - General 07/03/20 Daily Christy MD [address] [place] [address] Service Attending Neurology 09/30/20 Malgorzata Moseley PA [address] [place] [address] Physician Control Systems Designer Neurology 11/18/20 Shy Duque APRN [address] [place] [address] Nurse Practitioner Neurosurgery 11/25/20 Arsalan Thompson MD [address] [place] [address] Surgeon Neurosurgery 07/02/21 Francis Wallace Community Health Worker 07/10/24 07/17/24 documented as of this encounter
--- OUTSIDE RECORDS SUMMARY | 2024-07-26 15:22 | XMS_ITS | Encounter Summary ---
Author Organization [facility] Address [address] [place] [address] Care Team Providers Care Sheet Metal Apprentice Name Role Phone Alka Tracy PEDIATRIC OPHTHALMOLOGIST Primary Care Provider [phone] Daily Christy MD Unavailable [phone] Malgorzata Moseley PA Unavailable [phone] Shy Duque PEDIATRIC OPHTHALMOLOGIST Unavailable [phone] Arsalan Thompson MD Unavailable + [phone] Reason for Visit * Reason Comments Med Refill Encounter Details Date Type Department Care Team (Late st Contact Info) Description 06/28/2024 Refill [facility] [address] [place] [address] Alka Tracy, PEDIATRIC OPHTHALMOLOGIST [address] [place] [address] Allergic rhinitis, unspecified seasonality, unspecified [...] How often do you attend chur or mosque services? Never 12/27/2023 Do you belong to any clubs o r organizations such as sabianism groups, unions, fraternal or athletic groups, or [...] Recorded Patient Health Questionnaire-2 Score 2 06/03/2024 [facility] [...] any time in the past 12 m [facility], were you homeless or living in a half-way (including now)? No 06/03/2024 Utilities Answer Date Recorded In the past 12 months has th e [employer], gas, oil, or water [employer] threatened to shut off services in your [...] Visit [place] [facility] [address], 1st [place] [address] Malgorzata Moseley PA [address] [place] [address] 10/04/2024 9:30 AM EDT Procedure Visit [facility] [address] [place] [address] Nicoáls Hollis MD [address] [place] [address] documented as of this encounter [...] documented as of this encounter Care Teams Sheet Metal Apprentice Relationship Specialty Start Date End Date Alka Tracy APRN [address] [place] [address] PCP - General 07/03/20 Daily Christy MD [address] [facility] [place] [address] Service Attending Neurology 09/30/20 Malgorzata Moseley PA [address] [place] [address] Physician Waiter/Waitress Buffet Neurology 11/18/20 Shy Duque APRN [address] [place] [address] Nurse Practitioner Neurosurgery 11/25/20 Arsalan Thompson MD [address] [address] Surgeon Neurosurgery 07/02/21 documented as of this encounter
--- OUTSIDE RECORDS SUMMARY | 2024-07-26 15:22 | XMS_ITS | Encounter Summary ---
Author Organization [facility] Address [address] [place] [address] Care Team Providers Care Building Guard Deputy Sheriff Name Role Phone Alka Tracy APRN Primary Care Provider [phone] Daily Christy MD Unavailable [phone] Malgorzata Moseley Unavailable [phone] Shy Duque APRN Unavailable [phone] Arsalan Thompson MD Unavailable + [phone] Francis Wallace Unavailable Unavailable Reason for Visit * Reason Comments Community Resources Encounter Details Date Type Department Care Team (Late st Contact Info) Description 07/10/2024 Patient Outreach POPULATION HEALTH [address], [address] [place] [address] Francis Wallace Community Resources Social [...] How often do you attend chur or islam services? Never 12/27/2023 Do you belong to any clubs o r organizations such as zoroastrianism groups, unions, fraternal or athletic groups, or [...] Recorded Patient Health Questionnaire-2 Score 2 07/10/2024 [facility] - Occupational Stress Questionnaire Answer [...] in the past 12 m [facility], were you homeless or living [...] Progress Notes - Francis Wallace - 07/10/2024 4:49 PM EDT CHW Initial Encounter Note 07/10/2024 Urgent or Non-Urgent Referral: Urgent Warp Spinner: No Preferred Language: Ukrainian Warp Spinner ID: Outreach 1: 07/10/2024 @ 11:16am via phone call Outreach 2: 07/10/2024 @ 4:26pm via phone call Outreach 3: Contact Methods: Phone SDOH Pre-Assessment/Health Maintenance: Food: [access to food, any issues, etc.] SDOH Overview: Pt screened positive for food assistance. SDOH Intervention: CHW connected via with pt via phone call, pt requested that CHW send resource information via e-mail. CHW agreed and sent e-mail to [email or web address] and will follow up withpatient next week to see if she was able to utilize resources. Pt enrolled in CHW Program: Yes Next follow-up scheduled: Notes for next follow-up: documented in this encounter Plan of Treatment Upcoming Encounters Date Type Department Care Team (Late st Contact Info) Description 08/28/2024 11:00 AM EDT Procedure Visit [place] [facility] [address], [address] [place] [address] Malgorzata Moseley PA [address] [place] [address] 10/04/2024 9:30 AM EDT Procedure Visit [facility] at [facility] [address] [place] [address] Nicolás Hollis MD [address] [place] [address] documented as of this encounter [...] documented as of this encounter Care Teams Building Guard Deputy Sheriff Relationship Specialty Start Date End Date Alka Tracy APRN [address] [place] [id number] PCP - General 07/03/20 Daily Christy MD [address] [place] [address] Service Attending Neurology 09/30/20 Malgorzata Moseley PA [address] [address] Physician Shucker Neurology 11/18/20 Shy Duque APRN [address] [place] [address] Nurse Practitioner Neurosurgery 11/25/20 Arsalan Thompson MD [address] [place] [address] Surgeon Neurosurgery 07/02/21 Francis Wallace Community Health Worker 07/10/24 07/17/24 documented as of this encounter
--- OUTSIDE RECORDS SUMMARY | 2024-07-26 15:22 | XMS_ITS | Encounter Summary ---
Author Organization [facility] Address [address] [place] [address] Care Team Providers Care Sand Mixer Name Role Phone DemarcusAlka Caitlin FAIRCHILD Primary Care Provider [phone] Daily Christy MD Unavailable [phone] Malgorzata Moseley Unavailable [phone] Shy Duque APRN Unavailable [phone] Arsalan Thompson MD Unavailable + [phone] Linda Baker LPN Unavailable Unavailab Francis Morgan Unavailable Unavailable Encounter Details Date Type Department Care Team (Late st Contact Info) Description 06/14/2024 Telephone [place] [facility] [address], [address] [place] [address] Daily Christy MD [address] [place] [address] Social History Tobacco Use Types [...] How often do you attend chur or catholic services? Never 12/27/2023 Do you belong to any clubs o r organizations such as advent groups, unions, fraternal or athletic groups, or [...] Recorded Patient Health Questionnaire-2 Score 2 07/10/2024 [facility]ational Stress [...] any time in the past [address] [facility], were you homeless or living in a jail (including now)? No 07/10/2024 Utilities Answer Date Recorded In the past 12 months has th e [employer], gas, oil, or water [employer] threatened to shut off services in your [...] appetite or overeating Not at all 07/10/2024 9 :37 AM Judith Padgett Feeling bad about yourself - or that you are a failure or have let yourself or your family down Not at all 07/10/2024 9:37 AM uJdith Padgett Trouble concentrating on things, such as reading the newspaper or watching television Not at all 07/10/2024 9:37 AM Judith Padgett Moving or speaking so slowly that other people could have noticed? Or the opposite - being so fidgety or restless that you have been moving around a lot more than usual. Not at all 07/10/2024 9:37 AM Judith Padgett Thoughts that you would be better off [...] Description 08/28/2024 11:00 AM EDT Procedure Visit [place] [facility] [address], [address] [place] [address] Malgorzata Moseley PA [address] [place] [address] 10/04/2024 9:30 AM EDT Procedure Visit [facility] [address] [place] [address] Nicolás Hollis MD [address] [place] [address] documented as of this encounter [...] documented as of this encounter Care Teams Sand Mixer Relationship Specialty Start Date End Date Alka Tracy APRN [address] [place] [id number] PCP - General 07/03/20 Daily Christy MD [address] [place] [address] Service Attending Neurology 09/30/20 Malgorzata Moseley PA [address] [place] [address] Physician Tanning Salon Attendant Neurology 11/18/20 Shy Duque APRN [address] [place] [address] Nurse Practitioner Neurosurgery 11/25/20 Arsalan Thompson MD [address] [address] Surgeon Neurosurgery 07/02/21 Linda Baker LPN VALUE-BASED TRANSFORMATION PROGRAM Licensed Practical Nurse 12/27/23 06/24/24 Francis Wallace Community Health Worker 07/10/24 07/17/24 documented as of this encounter
--- OUTSIDE RECORDS SUMMARY | 2024-07-26 15:23 | XMS_ITS | Clinical Summary ---
Author Organization [facility] Address [address] [place] [address] Care Team Providers Care Lining Parts Sewer Name Role Phone DemarcusAlka Caitlin FAIRCHILD Primary Care Provider [phone] Daily Christy MD Unavailable [phone] Malgorzata Moseley Unavailable [phone] Shy Duque APRN Unavailable [phone] Arsalan Thompson MD Unavailable + [phone] Allergies No known active allergies Medications hydrOXYzine pamoate (Vistaril) 50 MG capsule Take 2 capsules (100 mg) by mouth nightly. Take 2 tabs nightly and then TID PRN 10/09/19 20 Active traZODone (Desyrel) 100 MG tablet Take 1 tablet (100 mg) by mouth. TAKE 2 TABLETS AT BEDTIME. 12/16/19 20 Active prazosin (Minipress) 2 MG capsule TAKE TWO CAPSULES BY MOUTH EVERY DAY AT BEDTIME 02/11/20 21 Active miconazole (Micotin) 2 % powder Apply bid 71 g 1 03/07/19 24 Active sertraline (Zoloft) 100 MG tablet Active rOPINIRole (Requip) 2 MG tablet Take 1 tablet (2 mg) by mouth 1 (one) time each day in the evening. 90 tablet 3 01/03/20 24 Active Syringe/Needle, Disp, (B-D 3CC LUER-ASIM SYR 25GX1 ) 25G X 1 3 ML misc USE DIRECTED FOR depo shot 4 each 3 10/10/19 24 Active diclofenac (Voltaren) 75 MG EC tablet Take 1 tablet (75 mg) by mouth 2 (two) times a day. Do not crush, chew, or split. 60 tablet 12/04/19 24 Active medroxyPROGESTE Ronnie (Depo-Provera) 150 MG/ML injectionIndica tions:Anxiety and depression Use every 12 weeks 1 mL 3 12/08/19 24 Active busPIRone (Buspar) 10 MG tablet Take 1 tablet (10 mg) by mouth 3 (three) times a day. 270 tablet 3 12/08/19 24 025 Active dicyclomine (Bentyl) 20 MG tablet Take 1 tablet (20 mg) by mouth 2 (two) times a day. 180 tablet 3 01/03/20 24 Active pantoprazole (Protonix) 40 MG EC tabletIndicatio ns:Gastroesopha geal reflux disease, unspecified whether esophagitis present Take 1 tablet (40 mg) by mouth 2 (two) times a day. Do not crush, chew, or split. 180 tablet 3 01/03/20 24 Active nystatin (Mycostatin) creamIndication s:Teagan albicans infection APPLY TOPICALLY TO THE AFFECTED AREA(S) TWICE DAILY -- FOR EXTERNAL USE ONLY-- 30 g 1 12/21/19 24 Active PARoxetine (Paxil) 20 MG tablet Take 1 tablet (20 mg) by mouth 1 (one) time each day. 90 tablet 2 02/02/20 24 Active fluticasone (Flonase) 50 MCG/ACT nasal sprayIndication s:Allergic rhinitis, unspecified seasonality, unspecified trigger instill 1 SPRAY IN EACH NOSTRIL EVERY DAY shake gently. prime pump BEFORE first USE. AFTER USE clean TIP AND replace cap 32 g 3 02/21/19 25 Active ondansetron (Zofran) 4 MG tablet Take 1 tablet (4 mg) by mouth every 8 (eight) hours if needed for nausea or vomiting. 20 tablet 04/01/19 25 Active meloxicam (Mobic) 7.5 MG tablet Take 1 tablet (7.5 mg) by mouth daily. 02/15/20 24 Active mirtazapine (Remeron) 45 MG tablet Take 1 tablet (45 mg) by mouth nightly. 03/01/19 Active amitriptyline (Elavil) 100 MG tabletIndicatio ns:Chronic daily headache Take 1.5 tablets (150 mg) by mouth nightly. 45 tablet 04/10/19 Active topiramate (Topamax) 100 MG tabletIndicatio ns:Chronic daily headache Take 1 tablet (100 mg) by mouth 2 (two) times a day. 180 tablet 04/10/19 25 026 Active topiramate 50 MG tabletIndicatio ns:Chronic daily headache Take 1 tablet (50 mg) by mouth 2 (two) times a day. Take with topiramate 100 mg tablet by mouth two (2) times a day to make up total dose of 150 mg two (2) times a day 180 tablet 04/10/19 Active Additional Information Patient not taking.Reported on 07/10/2024 ubrogepant (Ubrelvy) 100 MG tablet Take 1 tablet (100 mg) by mouth 1 (one) time as needed for migraine for up to 1 dose. After 2 hours, a second dose may be taken if needed. Maximum dose: 200 mg in 24-hour period. 10 each 04/10/19 25 Active levothyroxine (Synthroid, Levoxyl) 137 MCG tablet Take 1 tablet (137 mcg) by mouth daily. 90 tablet 1 04/30/19 25 Active Lancets miscIndications :Type 2 diabetes mellitus with hyperglycemia, without long-term current use of insulin ([facility]) Test Blood sugar once daily 100 each 06/07/19 25 Active glucose blood test stripIndication s:Type 2 diabetes mellitus with hyperglycemia, without long-term current use of insulin ([facility]) 1 each by Other route 1 (one) time each day. 100 strip 06/07/19 25 Active Erenumab-aooe (Aimovig) 140 MG/ML solution auto-injector Inject 140 mg under the skin every 30 days. 1 mL 06/15/19 25 026 Active empagliflozin (Jardiance) 25 MG Take 1 tablet by mouth daily. 30 tablet 11 06/27/19 25 Active diphenhydrAMINE (Benadryl) 25 MG capsuleIndicati ons:Allergic rhinitis, unspecified seasonality, unspecified trigger Take 1 capsule by mouth every 8 hours as needed for allergies (1/2 tab qhs prn). 30 capsule 2 07/02/19 25 Active ARIPiprazole (Abilify) 5 MG tablet Take 1 tablet by mouth nightly. 07/02/19 25 Active oxybutynin XL (Ditropan-XL) 10 MG 24 hr tablet Take 1 tablet by mouth daily. 06/29/19 25 Active Semaglutide,0.2 5 or 0.5MG/DOS, (Ozempic, 0.25 or 0.5 MG/DOSE,) 2 MG/3ML solution pen-injectorInd ications:Type 2 diabetes mellitus with hyperglycemia, without long-term current use of insulin ([facility]) Inject 0.25 mg under the skin 1 time per week. 3 mL 1 07/11/19 25 Active diphenhydrAMINE (Benadryl Allergy) 25 MG capsuleIndicati ons:Allergic rhinitis, unspecified seasonality, unspecified trigger Take 1 capsule by mouth every 8 hours as needed for allergies (1/2 tab qhs prn). 30 capsule 2 06/04/19 25 025 Discontinued Active Problems Problem Noted Date Diagnosed Date Chronic daily headache 07/13/2022 Morbid obesity with body mass index (BMI) of 40. 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, not intractable 10/30/2019 Cutaneous candidiasis 08/05/2019 Pill dysphagia 04/30/2019 Urinary incontinence 04/02/2018 Occipital neuralgia 03/21/2018 Category 4 blindness of both eyes 11/03/2017 Night terror 02/02/2016 Allergic rhinitis 10/27/2015 Anxiety and depression 10/27/2015 Hypothyroidism 10/27/2015 IBS (irritable bowel syndrome) 10/27/2015 Encounters Date Type Department Care Team Description 07/26/2024 Refill [facility] [address] [place] [address] Alka Tracy, SOLVENT RECOVERER Allergic rhinitis, unspecified seasonality, unspecified trigger 07/18/2024 Telephone [facility] [address] [place] [address] Alka Tracy, SOLVENT RECOVERER HCN Clinical Concern/Question 07/17/2024 Patient Outreach [address] [place] [address] Francis Wallace [facility] 07/16/2024 8:30 AM EDT Office Visit [facility] [address], 1st [place] [address] Arsalan Thompson MD S/P cervical spinal fusion (Primary Dx); Cervical spondylosis with myelopathy 07/16/2024 Travel 07/12/2024 Orders Only External Location [address] [place] [address] Provider, External 07/12/2024 Telephone [facility] [address], 1st [place] [address] Adrianne Singh Appointment 07/12/2024 Telephone [facility] [address], 1[address] [place] [address] Arsalan Thompson MD 07/10/2024 9:40 AM EDT Office Visit [facility] [address] [place] [address] Alka Tracy, SOLVENT RECOVERER Type 2 diabetes mellitus with hyperglycemia, without long-term current use of insulin ([facility]) (Primary Dx) 07/10/2024 Patient Outreach [address] [place] [address] Francis Wallace [facility] 07/10/2024 Patient Outreach [address] [place] [address] Francis Wallace [facility] 07/10/2024 Patient Outreach [facility] [address] [place] [address] Francis Wallace [facility] 07/10/2024 Orders Only [facility] [address] [place] [address] Alka Tracy, SOLVENT RECOVERER Type 2 diabetes mellitus with hyperglycemia, without long-term current use of insulin ([facility]) (Primary Dx) 07/10/2024 Travel 07/05/2024 Orders Only [facility] [address], [address]st [place] [address] Crystal Melendez, DEVORAH, DNP S/P cervical spinal fusion (Primary Dx) 06/28/2024 Refill [facility] [address] [place] [address] Alka Tracy, SOLVENT RECOVERER Allergic rhinitis, unspecified seasonality, unspecified trigger 06/26/2024 Orders Only [facility] [address] [place] [address] Alka Tarcy APRN 06/17/2024 Telephone [facility] [address] [place] [address] Snow Zazueta, PharmD 06/14/2024 Telephone [facility] [address], [address] [place] [address] Daily Christy MD 06/13/2024 Telephone [facility] [address] [place] [address] Alka Tracy APRN 06/04/2024 Refill [facility] [address] [place] [address] Alka Tracy, SOLVENT RECOVERER Type 2 diabetes mellitus with hyperglycemia, without long-term current use of insulin ([facility]) 06/04/2024 Refill [facility] [address] [place] [address] Alka Tracy APRN Type 2 diabetes mellitus with hyperglycemia, without long-term current use of insulin (CMS/HCC) 06/03/2024 8:40 AM EDT Office Visit [facility] [address] [place] [address] Alka Tracy APRN Type 2 diabetes mellitus with hyperglycemia, without long-term current use of insulin ([facility]) (Primary Dx); Allergic rhinitis, unspecified seasonality, unspecified trigger; Encounter for other contraceptive management 06/03/2024 Travel 05/31/2024 Telephone [facility] [address] [place] [address] Alka Tracy APRN HCSiddhartha Clinical Concern/Question (Pt went to ED) 05/31/2024 Telephone [facility] [address] [place] [address] Alka Tracy APRN HCSiddhartha Clinical Concern/Question 05/22/2024 10:00 AM EDT Procedure Visit [facility] [address], [address] [place] [address] Malgorzata Moseley PA Myofascial pain (Primary Dx) 05/22/2024 Travel 05/03/2024 Telephone [facility] [address] [place] [address] Daily Christy MD 04/26/2024 Orders Only [facility] [address] [place] [address] Alka Tracy APRN Screening mammogram for breast cancer (Primary Dx) 04/26/2024 Refill [facility] [address] [place] [address] Alka Tracy APRN 04/25/2024 Orders Only [facility] [address] [place] [address] Alka Tracy, DEVORAH from Last 3 Months Immunizations Immunization Administration Dates Next Due Hep A / Hep B 09/16/2013,08/15/2013 Hep A, Adult 02/02/2018 Influenza, injectable, quadrivalent, preservativ e free 12/02/2021,02/02/2018 Tdap 08/26/2013 Family History Medical History Relation Name Comments Conversions - Other Other Family h istory unknown Relation Name Status Comments Other Social History Tobacco Use Types Packs/Day Years [...] Recorded Patient Health Questionnaire-2 Score 2 07/10/2024 [facility] - [...] time in the past 12 [address] [facility], were you homeless or [...] (293 lb) 07/12/2024 2:43 PM EDT Height 157.5 cm (5' 2 ) 07/10/2024 9:36 AM EDT Body Mass Index 53.59 07/10/2024 9:36 AM EDT Plan of Treatment Upcoming Encounters Date Type Department Care Team (Late st Contact Info) Description 08/28/2024 11:00 AM EDT Procedure Visit [place] [facility] [address], [address] [place] [address] Malgorzata Moseley PA [address] [place] [address] 10/04/2024 9:30 AM EDT Procedure Visit [facility] [address] [place] [address] Nicolás Hollis MD [address] [place] [address] Health Maintenance Due Date Last Done Comments [facility]-HIV Screening 1983 [facility]-Hepatitis C Screening 1983 [facility]-/Child/Adol SDOH Screenings 1983 Diabetes: Dental Exam 1993 [facility]-Varicella Vaccines (1 of 2 - 13+ 2-dose series) 1996 HPV Vaccines (1 - 3-dose series) 1998 [facility]-Pneumococcal Vaccine: Pediatrics (0 to 5 Years) and At-Risk Patients (6 to 49 Years) (1 of 2 - PCV) 2002 [facility]-Hepatitis B Vaccines (3 of 3 - Hep B Twinrix 3-dose series) 02/16/2014 09/16/2013, 08/15/2013 [id number] Vaccine (2 - Efren risk series) 07/22/2020 06/24/2020 [facility]-DTaP,Tdap,and Td Vaccines (2 - Td or Tdap) 08/27/2023 08/26/2013 [facility]-Pap Smear 09/11/2023 09/10/2020, 08/21/2018 [facility]-Diabetes: Hemoglobin A1C 10/09/2024 07/10/2024, 04/12/2024, 01/03/2024, Additional history exists [facility]-Influenza Vaccine (Season Ended) 2024 12/02/2021, 02/02/2018 [facility]-Medicare Annual Wellness (AWV) 01/02/2025 01/03/2024, 11/29/2022 [facility]- SDOH Screenings 01/10/2025 [facility]-Adult SDOH Screenings 01/10/2025 07/10/2024 [facility]-Depression Screening 07/10/2025 07/10/2024, 06/21 [facility]-Cervical Cancer Screening 09/10/2025 [facility]-HPV/Cotest 09/10/2025 09/10/2020, 08/21/2018 [facility]-Zoster Vaccines (1 of 2) 2033 [facility]-Hepatitis A Vaccines Aged Out 018, 09/16/2013, 08/15/2013 No longer eligible based on patient's age to complete this topic [facility]-Obesity Intervention Completed 025, 07/10/2024, 06/03/2024, Additional history exists [facility]-HIB Vaccines Aged Out No longer e ligible based on patient's age to complete this topic [facility]-IPV Vaccines Aged Out No longer e ligible based on patient's age to complete this topic [facility]-Rotavirus Vaccines Aged Out No lo nger eligible based on patient's age to complete this topic Procedures Procedure Name Priority Date/Time Associated Diagnosis Comments XR OUTSIDE IMAGES 07/12/2024 11: 15 AM EDT POCT GLYCOSYLATED HEMOGLOBIN (HGB A1C) Routine 07/10/2024 10:58 AM EDT Type 2 diabetes mellitus with hyperglycemia, without long-term current use of insulin ([facility]) MAMMOGRAPHY EXTERNAL RESULTS 05/14/2024 PAP TEST - CYTOLOGY Routine 09/10/2020 1 0:55 AM EDT Cervical cancer screening from Last 3 Months or Most Recently Relevant to Health Maintenance Results * XR OUTSIDE IMAGES (07/12/2024 11:15 AM EDT) Anatomical Region Laterality Modality Radiographic Sofiya ging 07/12/2024 11:1 5 AM EDT us External Provider IMG XR PROCEDURES Final Result * (ABNORMAL) POCT glycosylated hemoglobin (Hb A1C) (07/10/2024 10:58 AM EDT) POCT Hemoglobin A1C 9.4 <5.7% Non-Diabe tic % [facility] Kit Lot Number [id number] [facility] Kit Expiration Date 04/19/2026 [facility] Blood Venous blood specimen / Unknown 07/10/2024 10:58 AM EDT Alka Tracy SOLVENT RECOVERER POINT OF CARE TEST ENTER/ED IT ORDERABLES Final Result [facility] [address] [place] [id number] * Mammography External Results (05/14/2024) Anatomical Region Laterality Modality Mammography Narrative 05/14/2024 Ordered by an unspecified provider. us External Provider IMG BI PROCEDURES Final Result * (ABNORMAL) Pap smear (09/10/2020 10:55 AM EDT) Case Report Cytology Case: [id number] Authorizing Provider: Vivek Hill MD Collected: 09/10/2020 1055 Ordering Location: [facility] Received: 09/10/2020 1055 Medicine First Screen: LUIS Leiva Rescreen: LUIS Vaz Pathologist: Mekhi Moses MD Specimen: ThinPrep Pap Test, Liquid-Based Cervical/Vagina l, CERVICAL/VAGINA L 09/15/2020 2:00 PM EDT [facility] Interpretation ATYPICAL SQUAMOUS CELLS OF UNDETERMINED SIGNIFICANCE (ASCUS)(A) 09/15/2020 2:00 PM EDT [facility] at 1400 EDT Other Findings Hyperkeratosis. 09/15 2:00 PM EDT [facility] Specimen Adequacy Satisfactory for evaluation; endocervical/tr ansformation zone component absent/insuffic ient. Slide imaged and selected 22 wong reviewed then full manual screening. 09/15/2020 2:00 PM EDT [facility] Cervical cytology is a screening test primarily for squamous cancers and precursors and has associated false negative and positive results. New technologies such as liquid based sampling may decrease but will not eliminate all false negative results. Regular screening and follow-up of unexplained clinical signs and symptoms are recommended to minimize false negative results. Please see the ASCCP website (www.asccp.org) for followup recommendations . If HPV testing was requested, correlation with the results is suggested (please call Microbiology at [phone] for results). 09/15/2020 2:00 PM EDT [facility] Menstrual Status Cyclic 09/16/19 2:00 PM EDT [facility] Contraceptive History Not Applicable 09/15/2020 2:00 PM EDT [facility] Last Menstrual Period 08/27/2020 09/15/2020 2:00 PM EDT [facility] Screening Type Routine Screen 2020 2:00 PM EDT [facility] High Risk? No 09/15/2020 2:00 PM EDT [facility] HPV Testing Requested? Request HPV Testing if ASCUS (Women 25 Years or Older) 09/15/2020 2:00 PM EDT [facility] Previous Cancer History No 09/15/2020 2:00 PM EDT [facility] Swab Vaginal and cervical cytologic material / Unknown Non-blood Collection / Unknown 09/10/2020 10:55 AM EDT 09/10/2020 10:55 AM EDT Vivek Hill MD LAB CYTOLOGY ORDERABLES Final Result Performing Organization Address City/State/[facility] Co de Phone Number [facility] [address] [place] [address] from Last 3 Months or Most Recently Relevant to Health Maintenance Insurance [place]ICA[place] MEDICARE Care Teams Lining Parts Sewer Relationship Specialty Start Date End Date Alka Tracy [place] [address] PCP - General 07/03/20 Daily Christy MD [address] [place] [address] Service Attending Neurology 09/30/20 Malgorzata Moseley PA [address] [place] [address] Physician Erco Machine Operator Neurology 11/18/20 Shy Duque APRN [address] [place] [address] Nurse Practitioner Neurosurgery 11/25/20 Arsalan Thompson MD [address] [place] [address] Surgeon Neurosurgery 07/02/21
--- OUTSIDE RECORDS SUMMARY | 2024-07-26 15:23 | XMS_ITS | Encounter Summary ---
Author Organization [facility] Address [address] [place] [address] Care Team Providers Care Geography Head Name Role Phone Alka Tracy ON SITE MANAGER Primary Care Provider [phone] Daily Christy MD Unavailable [phone] Malgorzata Moseley PA Unavailable [phone] Shy Duque ON SITE MANAGER Unavailable [phone] Arsalan Thompson MD Unavailable + [phone] Adela Olivares BIGHT MAKER Unavailable Unavail able Amos Shah Unavailable Unavailable Linda Baker BIGHT MAKER Unavailable Unavailab Francis Morgan Unavailable Unavailable Reason for Visit * Reason Onset Date Comments Med Refill 02/21/2022 Encounter Details Date Type Department Care Team (Late st Contact Info) Description 02/21/2022 Refill [facility] [address] [place] [address] Alka Tracy, ON SITE MANAGER [address] [place] [address] Allergic rhinitis, unspecified seasonality, unspecified trigger; 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 Social History Tobacco Use Types Packs/Day Years Used Date Smoking Tobacco: Never Smokeless Tobacco: Never Alcohol Use Standard Drinks/Week Comments Yes 1 (1 standard drink = 0.6 oz pur e alcohol) Occasionally PHQ-2 Answer Date Recorded Patient Health Questionnaire-2 Score 0 06/15/2021 Comments Unknown Sex and Gender Information Value Date Recorded Sex Assigned at Not on file Legal Sex Female 6:31 PM EDT Gender Identity Not on file Sexual Orientation Not on file documented as of this encounter Miscellaneous Notes * Telephone Encounter - Suzette Santiago - 02/23/2022 3:22 PM EST States she gets the Paroxetine and requip through psych * Telephone Encounter - Jacinta Shetty - 02/23/2022 10:21 AM EST Per protocol, 2 medication(s), fluticasone and levothyroxine, has been refused due to: Refill requested too soon--verified with pharmacy that pt had refills available documented in this encounter Plan of Treatment Upcoming Encounters Date Type Department Care Team (Late st Contact Info) Description 08/28/2024 11:00 AM EDT Procedure [facility] [address], [address] [place] [address] Malgorzata Moseley PA [address] [place] [address] 10/04/2024 9:30 AM EDT Procedure Visit [facility] [address] [place] [address] Nicolás Hollis MD [address] [place] [address] documented as of this encounter Visit Diagnoses Diagnosis Allergic rhinitis, unspecified seasonality, unspecified trigger 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 documented in this encounter Additional Health Concerns Assessment Noted Time PHQ-9 Depression Total Score: 9 01/22/20 21 9:38 AM EST A fall risk assessment has been complete d for the patient 07/02/2021 10:07 AM EDT documented as of this encounter Care Teams Geography Head Relationship Specialty Start Date End Date Alka Tracy APRN [address] [place] [address] PCP - General 07/03/20 Daily Christy MD [address] [place] [address] Service Attending Neurology 09/30/20 Malgorzata Moseley PA [address] [place] [address] Physician Waiver Analyst Neurology 11/18/20 Shy Duque APRN [address] [place] [address] Nurse Practitioner Neurosurgery 11/25/20 Arsalan Thompson MD [address] [place] [address] Surgeon Neurosurgery 07/02/21 Adela Olivares LPN [employer] [address] TCM Nurse 02/15/23 02/15/23 Amos Shah Community Health Worker 04/20/23 05/08/23 Linda Baker LPN VALUE-BASED TRANSFORMATION PROGRAM Licensed Practical Nurse 12/27/23 06/24/24 Francis Wallace Community Health Worker 07/10/24 07/17/24 documented as of this encounter
--- OUTSIDE RECORDS SUMMARY | 2024-07-26 15:23 | XMS_ITS | Encounter Summary ---
Author Organization [facility] Address [address] [place] [address] Care Team Providers Care Physical Optics Teacher Name Role Phone Alka Tracy APRN Primary Care Provider [phone] Daily Christy MD Unavailable [phone] Malgorzata Moseley Unavailable [phone] Shy Duque APRN Unavailable +[phone] Arsalan Thompson MD Unavailable + [phone] Linda Baker LPN Unavailable Unavailab Francis Morgan Unavailable Unavailable Encounter Details Date Type Department Care Team (Late st Contact Info) Description 09/13/2023 Orders Only External Location [address] [place] [id number] Provider, External Social History Tobacco Use Types Packs/Day Years Used Date Smoking Tobacco: Never Passive Smoke Exposure: Never Smokeless Tobacco: Never Alcohol Use Standard Drinks/Week Comments Not Currently 1 (1 standard drink = 0.6 oz pur e alcohol) Occasionally Humiliation, Afraid, Rape, and Kick questionnair e Answer Date Recorded Within the last year, have y ou been afraid of your partner or ex-partner? No 04/20/2023 Within the last year, have y ou been humiliated or emotionally abused in other ways by your partner or ex-partner? No Within the last year, have y ou been kicked, hit, slapped, or otherwise physically hurt by your partner or ex-partner? No 04/20/2023 Within the last year, have y ou been raped or forced to have any kind of sexual activity by your partner or ex-partner? No 04/20/2023 PHQ-2 Answer Date Recorded Patient Health Questionnaire-2 Score 2 08/31/2023 Hunger Vital Sign Answer Date Recorded Within the past 12 months, y ou worried that your food would run out before you got the money to buy more. Often true 04/20/19 24 Within the past 12 months, t he food you bought just didn't last and you didn't have money to get more. Often true 04/20/2023 PRAPARE - Transportation Answer Date Re corded In the past 12 months, has l ack of transportation kept you from medical appointments or from getting medications? No 03/24 In the past 12 months, has l ack of transportation kept you from meetings, work, or from getting things needed for daily living? No 04/20/2023 Housing Stability Vital Sign Answer Emile e Recorded In the last 12 months, was t here a time when you were not able to pay the mortgage or rent on time? No 04/20/2023 In the last 12 months, how many places have you lived? 1 04/20/2023 In the last 12 months, was t here a time when you did not have a steady place to sleep or slept in a fci (including now)? No 04/20/2023 Utilities Answer Date Recorded In the past 12 months has th e electric, gas, oil, or water company threatened to shut off services in your home? No 04/20/2023 PHQ-2A Answer Date Recorded Patient Health Questionnaire-2 Score 2 11/29/2022 Comments Unknown Sex and Gender Information Value Date Recorded Sex Assigned at Not on file Legal Sex Female 6:31 PM EDT Gender Identity Not on file Sexual Orientation Not on file documented as of this encounter Plan of Treatment Upcoming Encounters Date Type Department Care Team (Late st Contact Info) Description 08/28/2024 11:00 AM EDT Procedure [facility] [place] [facility] [address], [address] [place] [address] Malgorzata Moseley PA [address] [place] [address] 10/04/2024 9:30 AM EDT Procedure [facility] [address] [place] [address] Nicolás Hollis MD [address] [place] [address] documented as of this encounter Procedures Procedure Name Priority Date/Time Associated Diagnosis Comments MR NEURO OUTSIDE IMAGES 09/13/2023 8:56 AM EDT documented in this encounter Results * MR NEURO OUTSIDE IMAGES (09/13/2023 8:56 AM EDT) Anatomical Region Laterality Modality Magnetic Resonan ce 09/13/2023 8:56 AM EDT us External Provider IMG MRI PROCEDURES Final Resul t documented in this encounter Visit Diagnoses Not on filedocumented in this encounter Additional Health Concerns Assessment Noted Time PHQ-9 Depression Total Score: 9 01/22/20 21 9:38 AM EST A fall risk assessment has been complete d for the patient 07/19/2023 9:51 AM EDT A Body Mass Index follow-up plan has been documented for the patient 08/31/2023 10:31 AM EDT documented as of this encounter Care Teams Physical Optics Teacher Relationship Specialty Start Date End Date Alka Tracy APRN [address] [place] [address] PCP - General 07/03/20 Daily Christy MD [address] [place] [address] Service Attending Neurology 09/30/20 Malgorzata Moseley PA [address] [place] [address] Physician Die Cut Operator Neurology 11/18/20 Shy Duque APRN [id number] [place] [address] Nurse Practitioner Neurosurgery 11/25/20 Arsalan Thompson MD [address] [facility] [place] [address] Surgeon Neurosurgery 07/02/21 Linda Baker LPN VALUE-BASED TRANSFORMATION PROGRAM Licensed Practical Nurse 12/27/23 06/24/24 Francis Wallace Community Health Worker 07/10/24 07/17/24 documented as of this encounter
--- OUTSIDE RECORDS SUMMARY | 2024-07-26 15:23 | XMS_ITS | Encounter Summary ---
Author Organization [facility] Address [address] [place] [address] Care Team Providers Care Snow Removal Supervisor Name Role Phone Alka Tracy LANDFILL GRADER Primary Care Provider [phone] Daily Christy MD Unavailable [phone] Malgorzata Moseley PA Unavailable [phone] Shy Duque LANDFILL GRADER Unavailable [phone] Arsalan Thompson MD Unavailable + [phone] Adela Olivares SHOP SUPERVISOR Unavailable Unavail able Amos Shah Unavailable Unavailable Linda Baker SHOP SUPERVISOR Unavailable Unavailab Francis Morgan Unavailable Unavailable Reason for Visit * Reason Comments Med Refill Encounter Details Date Type Department Care Team (Late st Contact Info) Description 03/17/2021 Refill [facility] [address] [place] [address] Alka Tracy, LANDFILL GRADER [address] [place] [address] Social History Tobacco Use Types Packs/Day Years Used Date Smoking Tobacco: Never Smokeless Tobacco: Never Alcohol Use Standard Drinks/Week Comments Yes 1 (1 standard drink = 0.6 oz pur e alcohol) Occasionally PHQ-2 Answer Date Recorded Patient Health Questionnaire-2 Score 3 01/21/2021 Comments Unknown Sex and Gender Information Value Date Recorded Sex Assigned at Not on file Legal Sex Female 6:31 PM EDT Gender Identity Not on file Sexual Orientation Not on file COVID-19 Exposure Response Date Recorded In the last month, have you been in contact with someone who was confirmed or suspected to have Coronavirus / COVID-19? No / Unsure 03/03/2021 8:44 AM EST documented as of this encounter Miscellaneous Notes * Telephone Encounter - Jacinta Shetty, PharmD - 03/18/2021 5:05 PM EST Per protocol, 1 medication(s), ropinirole, has been approved for 90 day supply with 1 refill(s). The medication refill request(s) has been sent to clinic pharmacy. documented in this encounter Plan of Treatment Upcoming Encounters Date Type Department Care Team (Late st Contact Info) Description 08/28/2024 11:00 AM EDT Procedure Visit [facility] [address], [address] [place] [address] Malgorzata Moseley PA [address] [place] [address] 10/04/2024 9:30 AM EDT Procedure Visit [facility] [address] [place] [address] Nicolás Hollis MD [address] [place] [address] documented as of this encounter Visit Diagnoses Not on filedocumented in this encounter Additional Health Concerns Assessment Noted Time PHQ-9 Depression Total Score: 9 01/22/20 21 9:38 AM EST documented as of this encounter Care Teams Snow Removal Supervisor Relationship Specialty Start Date End Date Alka Tracy APRN [address] [place] [address] PCP - General 07/03/20 Daily Christy MD [address] [place] [address] Service Attending Neurology 09/30/20 Malgorzata Moseley PA [address] [place] [address] Physician Box Person Neurology 11/18/20 Shy Duque APRN [address] [place] [address] Nurse Practitioner Neurosurgery 11/25/20 Arsalan Thompson MD [address] [place] [address] Surgeon Neurosurgery 07/02/21 Adela Olivares LPN VALUE-[employer]ED [place] [address] TCM Nurse 02/15/23 02/15/23 Amos Shah Community Health Worker 04/20/23 05/08/23 Linda Baker LPN VALUE-BASED TRANSFORMATION PROGRAM Licensed Practical Nurse 12/27/23 06/24/24 Francis Wallace Community Health Worker 07/10/24 07/17/24 documented as of this encounter
--- OUTSIDE RECORDS SUMMARY | 2024-07-26 15:23 | XMS_ITS ---
Author Organization Address [address] [place] [address] Care Team Providers Care Or Director Name Role Phone Alka Tracy APRN Primary Care Provider [phone] Daily Christy MD Unavailable [phone] Malgorzata Moseley Unavailable +[phone] Shy Duque APRN Unavailable [phone] Arsalan Thompson MD Unavailable [phone] Community Health Work Status:Closed (Closed) Start date:07/10/2024 Enrollment date:07/10/2024 End date:07/17/2024 Close reason:Patient graduated Overview This episode type is for outpatient Community Health Workers enrolling patients in their program. Continued Care and Services Coordination
--- OUTSIDE RECORDS SUMMARY | 2024-07-26 15:23 | XMS_ITS | Encounter Summary ---
Author Organization [facility] Address [address] [place] [address] Care Team Providers Care Automatic Engraver Name Role Phone DemarcusAlka Caitlin FAIRCHILD Primary Care Provider [phone] Daily Christy MD Unavailable [phone] Malgorzata Moseley Unavailable +[phone] Shy Duque MOLD SHEET CLEANER Unavailable [phone] Arsalan Thompson MD Unavailable + [phone] Adela Olivares JACQUARD FIXER Unavailable Unavail able Amos Shah Unavailable Unavailable Linda Baker JACQUARD FIXER Unavailable Unavailab Francis Morgan Unavailable Unavailable Reason for Visit * Reason Comments Med Refill Encounter Details Date Type Department Care Team (Late st Contact Info) Description 09/15/2021 Refill [facility] Community [facility] [address] [place] [address] Emily Denise MD [address] [place] [address] Social History Tobacco Use Types [...] Exposure Response Date Recorded In the last 10 days, have yo u been in contact with someone who was confirmed or suspected to have Coronavirus/COVID-19? No / Unsure 08/25/2021 12:16 PM EDT documented as of this encounter Plan of Treatment Upcoming Encounters Date Type Department Care Team (Late st Contact Info) Description 08/28/2024 11:00 AM EDT Procedure Visit [place] [facility] [address], [address]st [place] [address] Malgorzata Moseley PA [address] [place] [address] 10/04/2024 9:30 AM EDT Procedure Visit [facility] at [facility] [address] [place] [address] Nicolás Hollis MD [address] [place] [address] documented as of this encounter Visit Diagnoses Not on filedocumented in this encounter Additional Health Concerns Assessment Noted Time PHQ-9 Depression Total Score: 9 01/22/20 21 9:38 AM EST A fall risk assessment has been complete d for the patient 07/02/2021 10:07 AM EDT documented as of this encounter Care Teams Automatic Engraver Relationship Specialty Start Date End Date Alka Tracy APRN [address] [place] [address] PCP - General 07/03/20 Daily Christy MD [address] [place] [address] Service Attending Neurology 09/30/20 Malgorzata Moseley PA [address] [place] [address] Physician Geospatial Imagery Intelligence Analyst Neurology 11/18/20 Shy Duque APRN [address] [place] [address] Nurse Practitioner Neurosurgery 11/25/20 Arsalan Thompson MD [address] [facility] [place] [address] Surgeon Neurosurgery 07/02/21 Adela Olivares LPN VALUE-[place]ED [place] [address] TCM Nurse 02/15/23 02/15/23 Amos Shah Community Health Worker 04/20/23 05/08/23 Linda Baker LPN VALUE-BASED TRANSFORMATION PROGRAM Licensed Practical Nurse 12/27/23 06/24/24 Francis Wallace Community Health Worker 07/10/24 07/17/24 documented as of this encounter
--- OUTSIDE RECORDS SUMMARY | 2024-07-26 15:23 | XMS_ITS | Encounter Summary ---
Author Organization [facility] Address [address] [place] [address] Care Team Providers Care City Jailer Name Role Phone Alka Tracy GROCERY PACKER Primary Care Provider [phone] Daily Christy MD Unavailable [phone] Malgorzata Moseley PA Unavailable [phone] Shy Duque GROCERY PACKER Unavailable [phone] Arsalan Thompson MD Unavailable + [phone] Adela Olivares MANAGER PROPOSAL Unavailable Unavail able Amos Shah Unavailable Unavailable Linda Baker MANAGER PROPOSAL Unavailable Unavailab Francis Morgan Unavailable Unavailable Reason for Visit * Reason Comments Med Refill Encounter Details Date Type Department Care Team (Late st Contact Info) Description 10/30/2020 Refill Family [facility] Community Medicine [address] [place] [address] Alka Tracy, GROCERY PACKER [address] [place] [address] Chronic daily headache Social History Tobacco Use Types Packs/Day Years Used Date Smoking Tobacco: Never Smokeless Tobacco: Never Alcohol Use Standard Drinks/Week Comments Yes 1 (1 standard drink = 0.6 oz pur e alcohol) Occasionally Comments Unknown Sex and Gender Information Value Date Recorded Sex Assigned at Not on file Legal Sex Female 6:31 PM EDT Gender Identity Not on file Sexual Orientation Not on file COVID-19 Exposure Response Date Recorded In the last month, have you been in contact with someone who was confirmed or suspected to have Coronavirus / COVID-19? No / Unsure 09/30/2020 11:22 AM EDT documented as of this encounter Plan of Treatment Upcoming Encounters Date Type Department Care Team (Late st Contact Info) Description 08/28/2024 11:00 AM EDT Procedure [facility] [place] [facility] [address], [address] [place] [address] Malgorzata Moseley PA [address] [place] [address] 10/04/2024 9:30 AM EDT Procedure Visit [facility] at [facility] [address] [place] [address] Nicolás Hollis MD [address] [place] [address] documented as of this encounter Visit Diagnoses Diagnosis Chronic daily headache Headache documented in this encounter Additional Health Concerns Assessment Noted Time A fall risk assessment has been complete d for the patient 09/30/2020 11:30 AM EDT documented as of this encounter Care Teams City Jailer Relationship Specialty Start Date End Date Alka Tracy APRN [address] [place] [address] PCP - General 07/03/20 Daily Christy MD [address] [place] [address] Service Attending Neurology 09/30/20 Malgorzata Moseley PA [address] [place] [address] Physician Professional Fee Coder Neurology 11/18/20 Shy Duque APRN [address] [place] [address] Nurse Practitioner Neurosurgery 11/25/20 Arsalan Thompson MD [address] [place] [address] Surgeon Neurosurgery 07/02/21 Adela Olivares LPN VALUE-BASED [place] [address] TCM Nurse 02/15/23 02/15/23 Amos Shah Community Health Worker 04/20/23 05/08/23 Linda Baker MANAGER PROPOSAL VALUE-BASED TRANSFORMATION PROGRAM Licensed Practical Nurse 12/27/23 06/24/24 Francis Wallace Community Health Worker 07/10/24 07/17/24 documented as of this encounter
--- OUTSIDE RECORDS SUMMARY | 2024-07-26 15:23 | XMS_ITS | Encounter Summary ---
Author Organization [facility] Address [address] [place] [address] Care Team Providers Care Set O Type Operator Name Role Phone Alka Tracy ENGAGEMENT MANAGER Primary Care Provider [phone] Daily Christy MD Unavailable [phone] Malgorzata Moseley PA Unavailable [phone] Shy Duque ENGAGEMENT MANAGER Unavailable [phone] Arsalan Thompson MD Unavailable + [phone] Adela Olivares TESTER SOUND Unavailable Unavail able Amos Shah Unavailable Unavailable Linda Baker TESTER SOUND Unavailable Unavailab Francis Morgan Unavailable Unavailable Reason for Visit * Reason Comments Med Refill Encounter Details Date Type Department Care Team (Late st Contact Info) Description 10/29/2020 Refill [facility] Community [facility] [address] [place] [address] Alka Tracy, ENGAGEMENT MANAGER [address] [place] [address] Chronic daily headache Social History [...] Description 08/28/2024 11:00 AM EDT Procedure Visit [place] [facility] [address] [place] [address] Malgorzata Moseley PA [address] [place] [address] 10/04/2024 9:30 AM EDT Procedure Visit Physical Medicine [facility] Clinic at [facility] [address] [place] [address] Nicolás Hollis MD [address] [place] [address] documented as of this encounter Visit Diagnoses Diagnosis Chronic daily headache Headache documented in this encounter Additional Health Concerns Assessment Noted Time A fall risk assessment has been complete d for the patient 09/30/2020 11:30 AM EDT documented as of this encounter Care Teams Set O Type Operator Relationship Specialty Start Date End Date Alka Tracy APRN [address] [place] [address] PCP - General 07/03/20 Daily Christy MD [address] [place] [address] Service Attending Neurology 09/30/20 Malgorzata Moseley PA [address] [place] [address] Physician Telemarketing Fundraiser Neurology 11/18/20 Shy Duque APRN [address] [place] [address] Nurse Practitioner Neurosurgery 11/25/20 Arsalan Thompson MD [address] [place] [address] Surgeon Neurosurgery 07/02/21 Adela Olivares LPN VALUE-[place] [address] TCM Nurse 02/15/23 02/15/23 Amos Shah Community Health Worker 04/20/23 05/08/23 Linda Baker TESTER SOUND VALUE-BASED TRANSFORMATION PROGRAM Licensed Practical Nurse 12/27/23 06/24/24 Francis Wallace Community Health Worker 07/10/24 07/17/24 documented as of this encounter
--- OUTSIDE RECORDS SUMMARY | 2024-07-26 15:23 | XMS_ITS ---
Author Organization [facility] Address [address] [place] [address] Care Team Providers Care Wallcovering Texturer Name Role Phone Alka Tracy APRN Primary Care Provider [phone] Daily Christy MD Unavailable [phone] Malgorzata Moseley Unavailable [phone] Shy Duque APRN Unavailable [phone] Arsalan Thompson MD Unavailable [phone] Annual Wellness Status:Closed (Closed) Start date:12/27/2023 Enrollment date:12/27/2023 Enrollment reason:Identified using claims or encounter data End date:06/24/2024 Close reason:Patient graduated Continued Care and Services Coordination
--- OUTSIDE RECORDS SUMMARY | 2024-07-26 15:23 | XMS_ITS | Encounter Summary ---
Author Organization [facility] Address [address] [place] [address] Care Team Providers Care Cushion Mat Maker Name Role Phone Alka Tracy CARAMEL CUTTER MACHINE Primary Care Provider [phone] Daily Christy MD Unavailable [phone] Malgorzata Moseley PA Unavailable [phone] Shy Duque CARAMEL CUTTER MACHINE Unavailable [phone] Arsalan Thompson MD Unavailable + [phone] Adela Olivares ALTERATION TAILOR Unavailable Unavail able Amos Shah Unavailable Unavailable Linda Baker ALTERATION TAILOR Unavailable Unavailab Francis Morgan Unavailable Unavailable Reason for Visit * Reason Comments Med Refill Encounter Details Date Type Department Care Team (Late st Contact Info) Description 05/30/2022 Refill [facility] [address] [place] [address] Alka Tracy, CARAMEL CUTTER MACHINE [address] [place] [address] Social History Tobacco Use Types Packs/Day Years Used Date Smoking Tobacco: Never Smokeless Tobacco: Never Alcohol Use Standard Drinks/Week Comments Yes 1 (1 standard drink = 0.6 oz pur e alcohol) Occasionally PHQ-2 Answer Date Recorded Patient Health Questionnaire-2 Score 2 04/14/2022 Comments Unknown Sex and Gender Information Value Date Recorded Sex Assigned at Not on file Legal Sex Female 6:31 PM EDT Gender Identity Not on file Sexual Orientation Not on file documented as of this encounter Plan of Treatment Upcoming Encounters Date Type Department Care Team (Late st Contact Info) Description 08/28/2024 11:00 AM EDT Procedure [facility] [address], [address] [place] [address] Malgorzata Moseley PA [address] [address] 10/04/2024 9:30 AM EDT Procedure Visit [facility] at [facility] [address] [place] [address] Nicolás Hollis MD [address] [place] [address] documented as of this encounter Visit Diagnoses Not on filedocumented in this encounter Additional Health Concerns Assessment Noted Time PHQ-9 Depression Total Score: 9 01/22/20 21 9:38 AM EST A fall risk assessment has been complete d for the patient 07/02/2021 10:07 AM EDT A Body Mass Index follow-up plan has been documented for the patient 04/14/2022 11:09 AM EST documented as of this encounter Care Teams Cushion Mat Maker Relationship Specialty Start Date End Date Alka Tracy APRN [address] [place] [address] PCP - General 07/03/20 Daily Christy MD [address] [facility] [place] [address] Service Attending Neurology 09/30/20 Malgorzata Moseley PA [address] [place] [address] Physician Middle School Counselor Neurology 11/18/20 Shy Duque APRN [address] [place] [address] Nurse Practitioner Neurosurgery 11/25/20 Arsalan Thompson MD [address] [place] [address] Surgeon Neurosurgery 07/02/21 Adela Olivares LPN [employer] [address] SONAL Nurse 02/15/23 02/15/23 Amos Shah Community Health Worker 04/20/23 05/08/23 Linda Baker ALTERATION TAILOR VALUE-BASED TRANSFORMATION PROGRAM Licensed Practical Nurse 12/27/23 06/24/24 Francis Wallace Community Health Worker 07/10/24 07/17/24 documented as of this encounter
--- OUTSIDE RECORDS SUMMARY | 2024-07-26 15:23 | XMS_ITS | Encounter Summary ---
Author Organization [facility] Address [address] [place] [address] Care Team Providers Care Fuel Cell Technician Name Role Phone Alka Tracy PHONE BANKER Primary Care Provider [phone] Daily Christy MD Unavailable [phone] Malgorzata Moseley PA Unavailable [phone] Shy Duque PHONE BANKER Unavailable [phone] Arsalan Thompson MD Unavailable + [phone] Adela Olivares MOLDING CUTTER Unavailable Unavail able Amos Shah Unavailable Unavailable Linda Baker MOLDING CUTTER Unavailable Unavailab Francis Morgan Unavailable Unavailable Reason for Visit * Reason Comments Med Refill Encounter Details Date Type Department Care Team (Late st Contact Info) Description 10/22/2020 [facility] [address] [place] [address] Alka Tracy, PHONE BANKER [address] [place] [address] Chronic daily headache Social History [...] AM EDT documented as of this encounter Miscellaneous Notes * Telephone Encounter - Thelma Howard - 10/25/2020 10:16 PM EDT Per protocol, loratadine and dicyclomine have been approved for 30-day supply with 5 refills and [facility]. Per protocol, amitriptyline was denied due to Rx sent to [facility] on 09/30/2020 for 30-day supply with 11 refills. documented in this encounter Plan of Treatment Upcoming Encounters Date Type Department Care Team (Late st Contact Info) Description 08/28/2024 11:00 AM EDT Procedure Visit [facility] [address], [address] [place] [address] Malgorzata Moseley PA [address] [place] [address] 10/04/2024 9:30 AM EDT Procedure Visit [facility] at [facility] [address] [place] [address] Nicolás Hollis MD [address] [place] [address] documented as of this encounter Visit Diagnoses Diagnosis Chronic daily headache Headache documented in this encounter Additional Health Concerns Assessment Noted Time A fall risk assessment has been complete d for the patient 09/30/2020 11:30 AM EDT documented as of this encounter Care Teams Fuel Cell Technician Relationship Specialty Start Date End Date Alka Tracy APRN [address] [place] [address] PCP - General 07/03/20 Daily Christy MD [address] [place] [address] Service Attending Neurology 09/30/20 Malgorzata Moseley PA [address] [place] [address] Physician Manufacturing Team Leader Neurology 11/18/20 Shy Duque APRN [address] [place] [address] Nurse Practitioner Neurosurgery 11/25/20 Arsalan Thompson MD [address] [place] [address] Surgeon Neurosurgery 07/02/21 Adela Olivares LPN [employer] [place] [address] TCM Nurse 02/15/23 02/15/23 Amos Shah Community Health Worker 04/20/23 05/08/23 Linda Baker LPN VALUE-BASED TRANSFORMATION PROGRAM Licensed Practical Nurse 12/27/23 06/24/24 Francis Wallace Community Health Worker 07/10/24 07/17/24 documented as of this encounter
== END 2024-07-26 23:59 | disposition home or self-care (01) ==
LOC: RAD 15:19
PROVIDERS: PCP Nurse Practitioner Family; Visit Provider Nurse Practitioner Critical Care Medicine
DX: M47.812 Spondylosis without myelopathy or radiculopathy, cervical region (principal); M48.02 Spinal stenosis, cervical region; Z98.1 Arthrodesis status
CPT/HCPCS: 72141

== ENCOUNTER 2024-07-29 06:34 | Day surgery (SDC) | payer MEDICARE, MEDICAID, SELFPAY ==
[2024-07-12 12:38] VITALS: BMI 52.8
[2024-07-29] VITALS (9 sets, daily range): BP systolic 106–154; BP diastolic 62–96; PULSE 80–100; RESP 17–20; TEMP 36.1–36.4; O2SAT 93–98
[2024-07-29] MEDS: LACTATED RINGERS 1000ML 1,000 ML 100 ML IV (07:25)
[2024-07-29 07:53] LABS: POC Glucose,Bedside 215 (70-110)
--- NOTE | 2024-07-29 08:08 | P.PNANES_ITS ---
[facility] Disclaimer: The information contained in this section may have been updated after the patient was seen, as this information can be updated by other users. Medical History Diabetes Frequent urination Breakthrough bleeding on depo provera Abnormal uterine bleeding Borderline personality disorder Severe obesity (BMI >= 40) TIAGO on CPAP Insomnia Generalized anxiety disorder Bipolar II disorder Ulcer Migraine GERD (gastroesophageal reflux disease) Depression Anxiety Surgical History H/O knee surgery History of fusion of cervical spine Hx of cholecystectomy History of bilateral carpal tunnel release Family History Other Family history unknown Social History Smoking Status: Never smoker alcohol intake: never substance use type: denies use current occupational status: disabled Travel in the last 8 weeks?: None household members: none housing: apartment number of children: 0 caffeine: No Have you lived/traveled outside US in past 30 days?: No Contact w/someone who lives/traveled outside US past 30 days?: No Exposure to someone with infectious disease in past 14 days?: No Do you have a fever (greater than 100.4 F or 38 C)?: No Have you tested positive for COVID-19?: No Exposed to someone with COVID-19 in past 14 days?: No Do you have a sore throat?: No Do you have a cough?: No Do you have any weakness?: No Do you have any diarrhea?: No Are you experiencing any unusual bleeding?: No Do you have any muscle aches/pain?: No Do you have any abdominal pain?: No Are you experiencing loss of taste or smell?: No [facility] Anesthesia Checklist Patient Identification Patient Identification: Verbal (Name & ) Structural Data Admitted From: Home Planned Operative Procedure/s: l knee arthro Consent for Planned Operative Procedure(s) Verified: Yes Additional verifications Anesthesia Reactions: No Hx Blood Transfusions: No Blood Transfusion Reaction: No Airway Assessment Mallampati Score:: Class III C-Spine Mobility Assessed: No TMJ Mobility Assessed: No Dentition: Edentulous Neurological Assessment Level of Consciousness: Awake, Alert and Appropriate Anesthesia Plan Anesthesia Risk discussed: Yes Anesthesia Plan: Verified ASA Class: III Anesthesia Type: General
[2024-07-29] MEDS: CEFAZOLIN SODIUM 2 GM in 0.9 % SODIUM CHLORIDE 100 ML IV (09:09)
[2024-07-29] MEDS: BUPIVACAINE 0.25% 30ML VIAL 75 MG (09:10)
--- NOTE | 2024-07-29 09:44 | EXP.OP.NOTE ---
Date of procedure: 07/29/24 Pre-op Diagnosis:: Left knee medial meniscus tear previous knee arthroscopy Post-op Diagnosis:: Left knee retear posterior horn medial meniscus Left knee grade IV chondromalacia kissing lesions medial femoral condyle medial tibial plateau Significant synovitis intercondylar notch Procedure performed:: Left knee arthroscopy partial medial meniscectomy Left knee arthroscopy with synovectomy and debridement scar tissue synovitis intercondylar notch Surgeon:: Vidal Dunn DO Operations Plant Attendant(s):: Cristobal CHAHAL Anesthesia: GETA Estimated blood loss (mL): 0 Clinical Note:: 39-year-old female who had a previous knee arthroscopy in the past and almost immediately fell and retore the meniscus has had significant conservative treatment and failed to have resolution of symptoms presented to me with a desire for arthroscopy to readdress the meniscal tear in hopes of diminishing knee pain. Operative findings:: Monalisa tear posterior horn medial meniscus significant synovitis and scarring intercondylar notch 2 areas of full-thickness kissing lesions medial femoral condyle medial tibial plateau with grade IV chondromalacia Operative note:: Patient identified preoperatively. Left knee marked yes my initials. Transported operative suite. Placed upon operating bed. General anesthesia administered airway secured. Left lower extremity prepped and draped in normal sterile fashion. Once prepped and draped final operative timeout performed to identify proper patient procedure and extremity. Everyone involved in the case agreed. There were no counter indications to beginning. Did receive preoperative antibiotics with Ancef. Marking pen was used to nikhil the bony landmarks of the knee and standard portal sites. Esmarch was used to exsanguinate the extremity and pneumatic tourniquet inflated to 300 mmHg. Skin knife is used to incise anterior lateral portal blunt with trocar was placed in the knee and exchanged with a camera. Upon entering into patellofemoral joint there was significant effusion normal-appearing joint fluid was evacuated. Camera was then placed and I swept directly into the medial joint line where an anterior medial portal was made under direct visualization with an 18-gauge spinal needle. This was exchanged with a probe. Upon probing the medial joint there is full-thickness lesion on the medial femoral condyle and corresponding on the medial tibial plateau with a small area of grade IV chondromalacia present. There is diffuse thinning of the posterior horn the medial meniscus but a Monalisa tear of the posterior horn present using combination of straight biter sucker shaver a partial medial meniscectomy was performed to obtain stable rim. Multiple intra-articular small cartilage loose bodies identified this were removed with the sucker shaver. Attention was brought intercondylar notch there was significant scarring and synovitis present which was debrided with sucker shaver. ACL was seen and intact. Tensions brought to the lateral joint line the lateral cartilage was preserved. Some mild thinning of the lateral meniscus but no tearing of the meniscus. I swept back into the medial lateral gutters and the patellofemoral joint. Within the patellofemoral joint there was significant thickening and synovitis present debridement was performed with a sucker shaver. Camera is removed the joint was drained local anesthesia infiltrated the portal sites skin closed with nylon stitch sterile dressing placed from toe to thigh patient waken anesthesia taken recovery stable condition. Condition: stable Disposition: PACU Complications:: None apparent
--- NOTE | 2024-07-29 09:45 | EXP.ANES.I ---
[facility] Anesthesia Record Part I Anesthesia Record I Intake, IV Amount: 800 Hydration: Adequate Estimated blood loss (mL): 15 Urine output (mL): 0 Blood Products used (#): none Blood Pressure: 153/80 SaO2: 95 Pulse Rate: 95 Airway Patency: Patent Respiratory Rate: 20 Temperature: 97.3 F Patient is:: Drowsy and Stable Stable to PACU at:: 09:38
[2024-07-29 09:53] LABS: POC Glucose,Bedside 185 (70-110)
[2024-07-29] MEDS: HYDROMORPHONE 2MG/ML SYRINGE 0.5 MG IV (10:05)
--- NOTE | 2024-07-30 07:49 | EXP.ANES.II ---
[facility] Anesthesia Record Part II Anesthesia Record Part II Discharge Time: 10:08 Destination: Surgical Day Care (OP Surgery) PACU nurse assessment reviewed?: Yes Patient Condition:: Good Anesthesia Complications:: None Swallowing reflex intact?: Yes Airway Patency: Patent Cyanosis?: No Blood Pressure: 121/63 SaO2: 98 Respiratory Rate: 18 Pulse Rate: 90 Temperature: 97.3 F Mental Status: Alert & Oriented Pain level:: 5 Nausea and/or vomitting:: None Intake, IV Amount: 0 Hydration: Adequate
[2024-07-30 07:50] VITALS: BP 121/63; PULSE 90; RESP 18; TEMP 36.3; O2SAT 98
== END 2024-07-29 10:45 | disposition home or self-care (01) ==
PROVIDERS: PCP Nurse Practitioner Family; Visit Provider Orthopaedic Surgery
PROC: (CPT 29870; principal; 2024-07-29 08:15)
DX: M23.204 Derangement of unspecified medial meniscus due to old tear or injury, left knee (principal); M94.262 Chondromalacia, left knee; M65.962 Unspecified synovitis and tenosynovitis, left lower leg; E11.9 Type 2 diabetes mellitus without complications; K21.9 Gastro-esophageal reflux disease without esophagitis; E66.01 Morbid (severe) obesity due to excess calories; Z79.85 Long-term (current) use of injectable non-insulin antidiabetic drugs; Z79.899 Other long term (current) drug therapy; Z68.43 Body mass index [BMI] 50.0-59.9, adult
CPT/HCPCS: 29881; 82962; 96374; J0690; J1100; J1171; J2250; J2405; J3010; J7120

== ENCOUNTER 2024-09-19 18:24 | Emergency (ER) | payer MEDICARE, MEDICAID, SELFPAY ==
--- OUTSIDE RECORDS SUMMARY | 2024-08-28 11:00 | XMS_ITS | Encounter Summary ---
Author Organization [facility] Address [address] [place] [address] Care Team Providers Care Hide And Skin Fleshing Machine Operator Name Role Phone Alka Tracy APRN Primary Care Provider [phone] Daily Christy MD Unavailable [phone] Malgorzata Moseley Unavailable [phone] Shy Duque APRN Unavailable [phone] Arsalan Thompson MD Unavailable + [phone] Reason for Referral * Other Medical (Routine) - Pending Review Specialty Diagnoses / Procedures Referred By Nabil toussaint Referred To Contact Diagnoses Myofascial pain Procedures Inject Trigger Points, >3 Malgorzata Moseley PA [address] [address] Phone: tel: fax: Referral ID Status Reason Start Date Expiration Date V isits Requested Visits Authorized [id number] Pending Review 08/28/2024 02/27/2026 1 1 Reason for Visit * Other Medical (Routine) - Closed Specialty Diagnoses / Procedures Referred By Nabil toussaint Referred To Contact Neurology Diagnoses Myofascial pain Procedures Inject Trigger Points, >3 Malgorzata Moseley PA [address] [address] Phone: tel: fax: Referral ID Status Reason Start Date Expiration Date Visits Re quested Visits Authorized [id number] Closed 05/22/2024 11/21/2025 1 1 Encounter Details Date Type Department Care Team (Latest Contact Info) Description 08/28/2024 11:00 AM EDT Procedure Visit [place] [facility] [address], [address] [place] [address] Malgorzata Moseley PA [address] [place] [address] Myofascial pain (Primary Dx) Social History Tobacco Use Types [...] How often do you attend chur or rastafarian services? Never 12/27/2023 Do you belong to any clubs o r organizations such as tenriism groups, unions, fraternal or athletic groups, or [...] Patient Health Questionnaire-2 Score 2 07/10/2024 [facility] - Occupational [...] time in the past 12 m [facility], were you homeless or living in a [facility] (including now)? No 07/10/2024 Utilities Answer Date [...] Sign Reading Time Taken Comments Blood Pressure 117/82 08/28/2024 10:00 AM EDT Pulse - - Temperature - - Respiratory Rate - - Oxygen Saturation - - Inhaled Oxygen Concentration - - Weight 129 kg (283 lb 15.2 oz) 08/28/2024 10:00 AM EDT Height 157.5 cm (5' 2 ) 08/28/2024 10:00 AM EDT Body Mass Index 51.94 08/28/2024 10:00 AM EDT documented in this encounter Miscellaneous Notes * Progress Notes - Malgorzata Moseley PA - 08/28/2024 11:00 AM EDT Patient is suffering from headache, neck pain and myofascial pain syndrome. CONSENT OBTAINED: Risks and benefits of the Trigger point injection procedure have been explained to the patient. Patient has no contraindications such as bleed diathesis, recent acute trauma at the muscle sites, anesthetic allergy or anticoagulation. Mechanism of trigger point injection has been explained to patient. The patient understands the risks and benefits of the trigger point injection procedure and wished to proceed. Patient's consent was obtained and updated. A time out was performed before the nerve block procedure and consisted of verifying patient identity, procedure and sites of treatment. PROCEDURE NOTE: Patient was positioned comfortably. Before injections are started, 10 Trigger Points sites are identified throughout the bilateral occipitalis, upper trapezius muscle, levator scapulae, and erector spinae muscles. Overlying skin area was cleaned with Alcohol swab. Before injection, trigger points sites were palpated for local twitch and referred pain to confirms placement. 5 cc of Marcaine 0.50 %mixed with 5 cc of Lidocaine 1% - for a total of 10 cc. 25 gauge 1 inch needle was utilized to ensure patient comfort. I started with the most tender spot in above mentioned Trigger Points within the muscles of bilateral occipitalis, upper trapezius, levator scapulae, and erector spinae. Localize most tender spot within taut muscle-fibers. Fix tender spot between fingers (1-2 cm in size) to prevent from rolling away from needle. Before injection, patient was instructed of possible pain on injection. Direct needleat 30 degree angle off skin. Insert needle into skin 1-2 cm from Trigger Point. Advance needle intoTrigger Point. Use 1cc anesthetic at each Trigger Points identified. Repeat until local twitch or tautness resolves. Post-Procedure: There was no evidence of complications from injection was noted such as local Skin Infection at injection site or local hematoma at injection site Patient was instructed to avoid over-using injected area for 3-4 days. Maintain active range of motion of injected muscle. Place a heating pad over a warm moist towel with the warm moist towel directly over the injected sites. Anticipate post-injection soreness for 3-4 days Follow up: 12 weeks or PRN Medications Administered: Bupivacaine HCl - 0.50 % Injection Solution Lidocaine 1 % Injection Solution Relief from last procedure: 90% Left: O x 1, C x 1, T x 3 Right: O x 1, C x 1, T x 3 Total Given: 10 documented in this encounter Plan of Treatment Upcoming Encounters Date Type Department Care Team (Late st Contact Info) Description 10/04/2024 9:30 AM EDT Procedure Visit Physical Medicine & Rehabilitation Clinic at [facility] [address] [place] [address] Nicolás Hollis MD [address] [place] [address] 12/11/2024 8:40 AM EDT Office Visit [facility] [address] [place] [address] Alka Tracy APRN [address] [place] [address] 12/11/2024 9:00 AM EDT Procedure Visit [place] [facility] [address] [place] [address] Malgorzata Moseley PA [address] [place] [address] Scheduled Orders Name Type Priority Associated Diagnoses Orde r Schedule Inject Trigger Points, >3 Procedures Routine Myofascial pain Expected: 11/22/2024, Expires: 08/22/2025 documented as of this encounter Visit Diagnoses Diagnosis Myofascial pain- Primary Unspecified myalgia and myositis documented in this encounter Administered Medications Inactive Administered Medications - up to 3 most recent administrations Medication Order MAR Action Action Date Dose Rate Site bupivacaine PF (Marcaine) 0.5 % injection 25 mg 25 mg (5 mL), Injection, Once, 1 dose, On Mon08/28/24 at 1215, RoutineIndications:Myofascial pain Given by Other 08/28/2024 10:42 AM EDT 25 mg Ot her lidocaine (Xylocaine) 1 % injection 5 mL 5 mL, Injection, Once, 1 dose, On Mon08/28/24 at 1215, RoutineIndications:Myofascial pain Given by Other 08/28/2024 10:42 AM EDT 5 mL Ot her documented in this encounter Additional Health Concerns Assessment Noted Time PHQ-9 Depression Total Score: 8 07/11/19 25 9:37 AM EDT A fall risk assessment has been complete d for the patient 08/28/2024 10:03 AM EDT A Body Mass Index follow-up plan has been documented for the patient 08/28/2024 11:45 AM EDT documented as of this encounter Care Teams Hide And Skin Fleshing Machine Operator Relationship Specialty Start Date End Date Alka Tracy APRN [address] [address] PCP - General 07/03/20 Daily Christy MD [address] [place] [address] Service Attending Neurology 09/30/20 Malgorzata Moseley PA [address] [place] [address] Physician Licensed Occupational Therapist Neurology 11/18/20 Shy Duque APRN [address] [place] [address] Nurse Practitioner Neurosurgery 11/25/20 Arsalan Thompson MD [address] [place] [address] Surgeon Neurosurgery 07/02/21 documented as of this encounter
--- OUTSIDE RECORDS SUMMARY | 2024-09-09 08:20 | XMS_ITS | Encounter Summary ---
Author Organization [facility] Address [address] [place] [address] Care Team Providers Care Construction Safety Manager Name Role Phone Alka Tracy FUNCTIONAL DIRECTOR Primary Care Provider [phone] Daily Christy MD Unavailable [phone] Malgorzata Moseley PA Unavailable [phone] Shy Duque FUNCTIONAL DIRECTOR Unavailable [phone] Arsalan Thompson MD Unavailable + [phone] Reason for Visit * Reason Comments Diabetes Encounter Details Date Type Department Care Team (Late st Contact Info) Description 09/09/2024 8:20 AM EDT Office Visit [facility] [address] [place] [address] Alka Tracy, FUNCTIONAL DIRECTOR [address] [place] [address] Type 2 diabetes mellitus with hyperglycemia, without long-term current use of insulin ([facility]) (Primary Dx); Encounter for female control; [...] often do you attend chur ch or caodaism services? Never 12/27/2023 Do you belong to any clubs o r organizations such as orthodoxy groups, unions, fraternal or athletic groups, or [...] Recorded Patient Health Questionnaire-2 Score 2 09/09/2024 [facility] - Occupational [...] in a halfway (including now)? No 07/10/2024 Humiliation, Afraid, Rape, [...] living in a halfway (including now)? No 09/09/2024 Utilities Answer Date Recorded In the past 12 months has [employer], gas, oil, or water [employer] threatened to shut off services in your [...] taking - pt wanted to discuss Syringe [place]- not taking due to obtaining in clinic [...] glucose PRN Preferred Pharmacy: [facility] [place] - Would like Semaglutide to go to [facility] Additional Notes: Reported that she [...] score Most recent LDL: 87 mg/dL on [place] statin therapy: Moderate intensity Previous statin(s) patient [...] >6 months ago. Polina Torres, PharmD, BCACP [facility] & [address] [address] * Progress Notes - Alka Tracy, DEVORAH [...] 0 min Stress: Stress Concern Present (12/27/2023) [facility] - Occupational Stress Questionnaire Feeling of Stress : Very much Social Connections: Socially Isolated (12/27/2023) Social Connection and Isolation Panel Frequency of Communication with Friends and Family: Never Frequency of Social Gatherings with Friends and Family: Twice a week Attends [employer] Services: Never Active Member of Clubs or [...] - Hep B Twinrix 3-dose series) 02/16/2014 [id number] Vaccine (2 - Efren risk series) 07/22/2020 [...] hyperglycemia, without long-term current use of insulin ([facility]) - Primary Relevant Medications atorvastatin (Lipitor) [...] History: Diagnosis Date Anxiety Arthritis Clotting disorder ([facility]) CTS (carpal tunnel syndrome) Depression Diabetes mellitus ([facility]) Difficulty walking Dysphagia GERD (gastroesophageal reflux [...] Visit [facility] at [facility] [address] [place] [address] Nicolás Hollis MD [address] [place] [address] 12/11/2024 8:40 AM EDT Office Visit [facility] [address] [place] [address] Alka Tracy APRN [address] [address] 12/11/2024 9:00 AM EDT Procedure Visit [place] [facility] [address] [place] [address] Malgorzata Moseley PA [address] [place] [address] documented as of this encounter Procedures Procedure Name Priority Date/Time Associated Diagnosis Comments HEMOGLOBIN A1C Routine 09/09/2024 8:31 AM EDT Type 2 diabetes mellitus with hyperglycemia, without long-term current use of insulin ([facility]) LIPID PROFILE, PLASMA Routine 09/09/2024 8:31 AM EDT Type 2 diabetes mellitus with hyperglycemia, without long-term current use of insulin ([facility]) COMPREHENSIVE METABOLIC PANEL, PLASMA Routine 09/09/2024 8:31 AM EDT Type 2 diabetes mellitus with hyperglycemia, without long-term current use of insulin ([facility]) documented in this encounter Results * (ABNORMAL) Lipid Profile, Plasma (09/09/2024 8:31 AM EDT) Cholesterol, Plasma 208(H) <200 mg/dL 09/09/2024 2:21 PM EDT [facility] Comment: Cholesterol Reference Range (age >17 years): Desirable <200 mg/dL Borderline 200 to 239 mg/dL Undesirable >239 mg/dL HDL 42(L) >=50 mg/dL 09/09/2024 2:21 PM EDT [facility] Comment: HDL Cholesterol Reference Ranges (age >17 years): Female, acceptable > or = 50 mg/dL Male, acceptable > or = 40 mg/dL Triglycerides, Plasma 171(H) <150 mg/dL 09/09/2024 2:21 PM EDT [facility] Comment: Triglyceride Reference Range (age >17 years): Desirable: <150 mg/dL Borderline high: 150 to 199 mg/dL High: 200 to 499 mg/dL Very high: >499 mg/dL Increased risk of pancreatitis: >1000 mg/dL Cholesterol/HDL Ratio 5 09/09/2024 2:21 PM EDT [facility] LDL, Calculated 135(H) <100 mg/dL 2:21 PM EDT [facility] Comment: LDL Cholesterol Reference [...] 12 hours? Yes 09/09/2024 2:21 PM EDT [facility] Blood Venous blood specimen / Unknown Venipuncture / Unknown 09/09/2024 8:31 AM EDT 09/09/2024 8:31 AM EDT Alka Tracy APRN LAB BLOOD ORDERABLES Final Result Performing Organization Address City/State/[facility] Co de Phone Number [facility] [address] [place] [address] * (ABNORMAL) Hemoglobin A1c (09/09/2024 8:31 AM EDT) Hemoglobin A1c 8.6(H) <5.7 % 09/09/2024 1:58 PM EDT [facility] Blood Venous blood specimen / Unknown Venipuncture / Unknown 09/09/2024 8:31 AM EDT 09/09/2024 8:31 AM EDT Narrative [facility] - 09/09/2024 1:58 PM EDT HA1C Interpretive Data: Diagnosis of Diabetes: Diabetic > or = 6.5% Pre-diabetic 5.7 to 6.4% Non-diabetic < or = 5.6% Glycemic Targets for Type I and Type II Diabetics: Non- Adults <7.0% Adults <6.0% Children and Adolescents <7.5% Source: [place] [employer]. Standards of medical care in diabetes,2017. Diabetes Care.2017:40 (suppl 1):S1-S135. Alka Tracy FUNCTIONAL DIRECTOR LAB BLOOD ORDERABLES Final Result [facility] [address] [place] [address] * (ABNORMAL) Comprehensive Metabolic Panel, Plasma (09/09/2024 8:31 AM EDT) Glucose, Plasma 202(H) 74 - 99 mg/dL 09/09/2024 2:21 PM EDT [facility] BUN, Plasma 13 7 - 21 mg/dL 09/09/2024 2:21 PM EDT [facility] Creatinine, Plasma 0.99 0.60 - 1.10 mg/dL 09/09/2024 2:21 PM EDT [facility] BUN/Creatinine Ratio 13 09/09/2024 2:21 PM EDT [facility] Sodium, Plasma 137 136 - 145 mmol/L 09/09/2024 2:21 PM EDT [facility] Potassium, Plasma 3.8 3.6 - 4.9 mmol/L 09/09/2024 2:21 PM EDT [facility] Chloride, Plasma 100 97 - 107 mmol/L 09/09/2024 2:21 PM EDT [facility] CO2, Plasma 23 22 - 29 mmol/L 09/09/2024 2:21 PM EDT [facility] Anion Gap 14 6 - 16 mmol/L 09/09/2024 2:21 PM EDT [facility] Total Calcium, Plasma 10.2 8.9 - 10.2 mg/dL 09/09/2024 2:21 PM EDT [facility] Total Protein 8.0(H) 6.3 - 7.9 g/dL 09/09/2024 2:21 PM EDT [facility] Albumin, Plasma 4.4 3.5 - 5.2 g/dL 09/09/2024 2:21 PM EDT [facility] AST, Plasma 16 10 - 35 U/L 09/09/2024 2:21 PM EDT [facility] ALT, Plasma 20 10 - 35 U/L 09/09/2024 2:21 PM EDT [facility] Alkaline Phosphatase, Plasma 120(H) 35 - 104 U/L 09/09/2024 2:21 PM EDT [facility] Total Bilirubin, Plasma 0.5 0.2 - 1.1 mg/dL 09/09/2024 2:21 PM EDT [facility] eGFRcr 73.6 mL/min/1.7 3m*2 09/09/2024 2:21 PM EDT [facility] Comment:Reported eGFRcr in m L/min/1.73m2 is based the CKD-EPI 2020 equation that does not use a race coefficient. Blood Venous blood specimen / Unknown Venipuncture / Unknown 09/09/2024 8:31 AM EDT 09/09/2024 8:31 AM EDT Alka Tracy FUNCTIONAL DIRECTOR LAB BLOOD ORDERABLES Final Result [facility] [address] [place] [address] documented in this encounter Visit Diagnoses Diagnosis Type 2 diabetes mellitus with hyperglycemia, without long-term current use of insulin ([facility])- Primary Encounter for female control Chronic [...] documented as of this encounter Care Teams Construction Safety Manager Relationship Specialty Start Date End Date Alka Tracy APRN [address] [place] [address] PCP - General 07/03/20 Daily Christy MD [address] [place] [address] Service Attending Neurology 09/30/20 Malgorzata Moseley PA [address] [place] [address] Physician International Relations Teacher Neurology 11/18/20 Shy Duque APRN [address] [place] [address] Nurse Practitioner Neurosurgery 11/25/20 Arsalan Thompson MD [address] [place] [address] Surgeon Neurosurgery 07/02/21 documented as of this encounter
--- OUTSIDE RECORDS SUMMARY | 2024-09-19 18:46 | XMS_ITS | Encounter Summary ---
Author Organization [facility] Address [address] [place] [address] Care Team Providers Care Cell Biologist Name Role Phone Alka Tracy VOLUNTEER ASSISTANT Primary Care Provider [phone] Daily Christy MD Unavailable [phone] Malgorzata Moseley PA Unavailable [phone] Shy Duque VOLUNTEER ASSISTANT Unavailable [phone] Arsalan Thompson MD Unavailable + [phone] Reason for Visit * Reason Onset Date Comments HCN Clinical Concern/Question 07/18/2024 Encounter Details Date Type Department Care Team (Late st Contact Info) Description 07/18/2024 Telephone [facility] [address] [place] [address] Alka Tracy, VOLUNTEER ASSISTANT [address] [place] [address] HCN Clinical Concern/Question Social History [...] How often do you attend chur or latter day services? Never 12/27/2023 Do [...] Recorded Patient Health Questionnaire-2 Score 2 07/10/2024 [facility] Occupational Stress Questionnaire [...] slept in a fci (including now)? No 11/09/2023 PHQ-9 Answer Date [...] any time in the past 12 m [facility], were you homeless or living in a fci (including now)? No 07/10/2024 Utilities Answer Date Recorded In the past 12 months has th e [employer], gas, oil, or water [employer] threatened to shut off services in your [...] pt for more information. Best contact number: [phone] (mobile) Optimal time of day to reach caller: ANYTIME Additional comments/information from caller: None Note: Please do not reply to this message. Follow-up communication and further actions as a result of this message need to be communicated with the patient directly, if the patient is not active onMyChart. If the patient is active on MyChart, they will receive notification of the communication/outcome via [employer]. documented in this encounter Plan of Treatment Upcoming Encounters Date Type Department Care Team (Late st Contact Info) Description 10/04/2024 9:30 AM EDT Procedure Visit [facility] at [facility] [address] [place] [address] Nicolás Hollis MD [address] [place] [address] 12/11/2024 8:40 AM EDT Office Visit [facility] [place] [address] [address] Alka Tracy, VOLUNTEER ASSIST[place] [address] 12/11/2024 9:00 AM EDT Procedure Visit [facility] [address] [place] [address] Malgorzata Moseley PA [address] [place] [address] documented as of this encounter Visit Diagnoses [...] documented as of this encounter Care Teams Cell Biologist Relationship Specialty Start Date End Date Alka Tracy APRN [address] [place] [address] PCP - General 07/03/20 Daily Christy MD [address] [address] Service Attending Neurology 09/30/20 Malgorzata Moseley PA [address] [place] [address] Physician Radio Announcer Neurology 11/18/20 Shy Duque APRN [address] [place] [address] Nurse Practitioner Neurosurgery 11/25/20 Arsalan Thompson MD [address] [place] [address] Surgeon Neurosurgery 07/02/21 documented as of this encounter
--- OUTSIDE RECORDS SUMMARY | 2024-09-19 18:46 | XMS_ITS | Encounter Summary ---
Author Organization [facility] Address [address] [place] [address] Care Team Providers Care Road Crossing Guard Name Role Phone Alka Tracy APRN Primary Care Provider [phone] Daily Christy MD Unavailable [phone] Malgorzata Moseley Unavailable [phone] Shy Duque APRN Unavailable [phone] Arsalan Thompson MD Unavailable + [phone] Encounter Details Date Type Department Care Team (Latest Contact Info) Description 08/28/2024 Travel Social History Tobacco Use Types Packs/Day [...] often do you attend chur ch or rastafarian services? Never 12/27/2023 Do you belong to any clubs o r organizations such as mormon groups, unions, fraternal or athletic groups, or [...] Recorded Patient Health Questionnaire-2 Score 2 07/10/2024 [facility] - [facility]ational Stress Questionnaire Answer Date [...] in the past 12 m [facility], were you homeless or living in a [...] Description 10/04/2024 9:30 AM EDT Procedure Visit [facility] [address] [place] [address] Nicolás Hollis MD [address] [place] [address] 12/11/2024 8:40 AM EDT Office Visit [facility] [address] [place] [address] Alka Tracy APRN [address] [place] [address] 12/11/2024 9:00 AM EDT Procedure Visit [facility] [address] [place] [address] Malgorzata Moseley PA [address] [place] [address] documented as of this encounter [...] documented as of this encounter Care Teams Road Crossing Guard Relationship Specialty Start Date End Date Alka Tracy APRN [address] [place] [address] PCP - General 07/03/20 Daily Christy MD [address] [place] [address] Service Attending Neurology 09/30/20 Malgorzata Moseley PA [address] [place] [address] Physician Derrick Helper Neurology 11/18/20 Shy Duque APRN [address] [place] [address] Nurse Practitioner Neurosurgery 11/25/20 Arsalan Thompson MD [address] [facility] [address] [place] [address] Surgeon Neurosurgery 07/02/21 documented as of this encounter
--- OUTSIDE RECORDS SUMMARY | 2024-09-19 18:46 | XMS_ITS | Encounter Summary ---
Author Organization [facility] Address [address] [place] [address] Care Team Providers Care Battery Wrecker Operator Name Role Phone Alka Tracy LANDSCAPE FOREMAN Primary Care Provider [phone] Daily Christy MD Unavailable [phone] Malgorzata Moseley PA Unavailable [phone] Shy Duque LANDSCAPE FOREMAN Unavailable [phone] Arsalan Thompson MD Unavailable + [phone] Encounter Details Date Type Department Care Team (Late st Contact Info) Description 09/09/2024 Orders Only [facility] [address] [place] [address] Alka Tracy, LANDSCAPE FOREMAN [address] [place] [address] Chronic constipation (Primary Dx) Social History Tobacco Use Types [...] week 12/27/2023 How often do you attend [facility] or baptist services? Never 12/27/2023 Do you belong to any clubs o r organizations such as presybeterian groups, unions, fraternal or athletic groups, or [...] Recorded Patient Health Questionnaire-2 Score 2 09/09/2024 [facility] Occupat ional [facility] - Occupational [...] any time in the past 12 m [facility], were you homeless or living in [...] any time in the past 12 m [facility], were you homeless or living in a halfway (including now)? No 09/09/2024 Utilities Answer Date Recorded In the past 12 months has e electric, gas, oil, or water company [...] as of this encounter Functional Status * AUDIT-C Score Answer Date of Assessment Author 0 09/09/2024 8:02 AM Judith Padgett * Question Answer Date of Assessment Author Q1: How often do you have a drink containing alcohol? Never 09/09/2024 8:02 AM Judith Padgett Q2: How many drinks containing alcohol do you have on a typical day when you are drinking? Patient does not drink 09/09/2024 8:02 AM Judith Padgett Q3: How often do you have six or more drinks on one occasion? Never 09/09/2024 8:02 AM Judith Padgett * Over the past 2 weeks, how [...] Nearly every day 09/09/2024 8:02 AM Judith Santiago Feeling tired or having little energy Nearly [...] at all 09/09/2024 8:02 AM Judith Padgett Thoughts that you would [...] Assessment Author Somewhat difficult 09/09/2024 8:02 AM Judith Claros * Question Answer Date of Assessment Author 1. Wish to be (Past 1 Month) No 025 8:05 AM Judith Padgett 2. Non-Specific Active Suici tae Thoughts (Past 1 Month) No 09/09/2024 8:05 AM Judith Padgett 6. Suicidal Behavior (Lifetime) No 8:05 AM Judith Padgett documented as of this encounter Plan of Treatment Upcoming Encounters Date Type Department Care Team (Late st Contact Info) Description 10/04/2024 9:30 AM EDT Procedure Visit [facility] [address] [place] [address] Nicolás Hollis MD [address] [place] [address] 12/11/2024 8:40 AM EDT Office Visit [facility] [address] [place] [address] Alka Tracy APRN [address] [place] [address] 12/11/2024 9:00 AM EDT Procedure Visit [place] [facility] [address], [address] [place] [address] Malgorzata Moseley PA [address] [place] [address] documented as of this encounter Visit Diagnoses Diagnosis Chronic constipation- Primary Unspecified constipation documented in this encounter Additional Health Concerns Assessment Noted Time PHQ-9 Depression Total Score: 8 09/10/19 25 8:02 AM EDT A fall risk assessment has been complete d for the patient 09/09/2024 8:05 AM EDT A Body Mass Index follow-up plan has been documented for the patient 09/09/2024 8:24 AM EDT documented as of this encounter Care Teams Battery Wrecker Operator Relationship Specialty Start Date End Date Alka Tracy APRN [address] [place] [address] PCP - General 07/03/20 Daily Christy MD [address] [place] [address] Service Attending Neurology 09/30/20 Malgorzata Moseley PA [address] [place] [address] Physician Furrier Designer Neurology 11/18/20 Shy Duque APRN [address] [facility] [place] [address] Nurse Practitioner Neurosurgery 11/25/20 Arsalan Thompson MD [address] [address] Surgeon Neurosurgery 07/02/21 documented as of this encounter
--- OUTSIDE RECORDS SUMMARY | 2024-09-19 18:46 | XMS_ITS | Encounter Summary ---
Author Organization [facility] Address [address] [place] [address] Care Team Providers Care Agricultural Extension Educator Name Role Phone Alka Tracy APRN Primary Care Provider [phone] Daily Christy MD Unavailable [phone] Malgorzata Moseley Unavailable [phone] Shy Duque APRN Unavailable [phone] Arsalan Thompson MD Unavailable + [phone] Encounter Details Date Type Department Care Team (Latest Contact Info) Description 09/09/2024 Travel Social History Tobacco Use Types Packs/Day [...] often do you attend chur ch or amish services? Never 12/27/2023 Do you belong to [...] Recorded Patient Health Questionnaire-2 Score 2 09/09/2024 [facility] Occupat ional [facility] - Occupational Stress Questionnaire Answer [...] place to sleep or slept in a penitentiary (including now)? No 11/09/2023 PHQ-9 Answer Date [...] any time in the past 12 m [facility], were you homeless or living in a penitentiary (including now)? No 07/10/2024 Humiliation, Afraid, Rape, [...] any time in the past 12 m [facility], were you homeless or living in a penitentiary (including now)? No 09/09/2024 Utilities Answer Date [...] Physical [facility] at [facility] [address] [place] [address] Nicolás Hollis MD [address] [place] [address] 12/11/2024 8:40 AM EDT [facility] [address] [place] [address] Alka Tracy APRN [address] [place] [address] 12/11/2024 9:00 AM EDT Procedure Visit [place] [facility] [address] 1[address] [place] [address] Malgozrata Moseley PA [address] [place] [address] documented as of this encounter [...] documented as of this encounter Care Teams Agricultural Extension Educator Relationship Specialty Start Date End Date Alka Tracy, SLATE TRIMMER [address] [place] [address] PCP - General 07/03/20 Daily Christy MD [address] [place] [address] Service Attending Neurology 09/30/20 Malgorzata Moseley PA [address] [place] [address] Physician Drafter Seismograph Neurology 11/18/20 Shy Duque APRN [address] [place] [address] Nurse Practitioner Neurosurgery 11/25/20 Arsalan Thompson MD [address] [facility] [address] [place] [address] Surgeon Neurosurgery 07/02/21 documented as of this encounter
--- OUTSIDE RECORDS SUMMARY | 2024-09-19 18:46 | XMS_ITS | Encounter Summary ---
Author Organization [facility] Address [address] [place] [address] Care Team Providers Care Subwarehouse Supervisor Name Role Phone Alka Tracy APRN Primary Care Provider [phone] Daily Christy MD Unavailable [phone] Malgorzata Moseley Unavailable [phone] Shy Duque APRN Unavailable [phone] Arsalan Thompson MD Unavailable + [phone] Encounter Details Date Type Department Care Team (Late st Contact Info) Description 09/10/2024 Results Follow-Up [facility] [address] [place] [address] Alka Tracy, FILTER TANK TENDER HELPER HEAD [address] [place] [address] Social History Tobacco Use Types [...] week 12/27/2023 How often do you attend [facility] or adventism services? Never 12/27/2023 Do you belong to any clubs o r organizations such as christian groups, unions, fraternal or athletic groups, or [...] Recorded Patient Health Questionnaire-2 Score 2 09/09/2024 [facility] of Occupat ional [facility] - Occupational Stress Questionnaire Answer Date Recorded [...] time in the past 12 m [facility], were you homeless or living in a usp (including now)? No 07/10/2024 Humiliation, Afraid, Rape, [...] money to buy more. Often true 09/10/19 25 Within the past 12 months, t [...] time in the past 12 m [facility], were you homeless or living in a usp (including now)? No 09/09/2024 Utilities Answer Date [...] Visit Physical [facility] & Rehabilitation Clinic at [facility] [address] [place] [address] Nicolás Hollis MD [address] [place] [address] 12/11/2024 8:40 AM EDT Office Visit [facility] [address] [place] [address] Alka Tracy, DEVORAH [address] [place] [address] 12/11/2024 9:00 AM EDT Procedure Visit [place] [facility] [address], 1[address] [place] [address] Malgorzata Moseley PA [address] [place] [address] documented as of this encounter [...] documented as of this encounter Care Teams Subwarehouse Supervisor Relationship Specialty Start Date End Date Alka Tracy, FILTER TANK TENDER [place] [address] PCP - General 07/03/20 Daily Christy MD [address] [place] [address] Service Attending Neurology 09/30/20 Malgorzata Moseley PA [address] [place] [address] Physician Household Personal Assistant Neurology 11/18/20 Shy Duque APRN [address] [place] [address] Nurse Practitioner Neurosurgery 11/25/20 Arsalan Thompson MD [address] [place] [address] Surgeon Neurosurgery 07/02/21 documented as of this encounter
--- OUTSIDE RECORDS SUMMARY | 2024-09-19 18:46 | XMS_ITS | Encounter Summary ---
Author Organization [facility] Address [address] [place] [address] Care Team Providers Care Tile Power Shear Operator Name Role Phone Alka Tracy DIRECTOR SALES SUPPORT Primary Care Provider [phone] Daily Christy MD Unavailable [phone] Malgorzata Moseley PA Unavailable [phone] Syh Duque APRN Unavailable [phone] Arsalan Thompson MD Unavailable + [phone] Encounter Details Date Type Department Care Team (Late st Contact Info) Description 09/09/2024 Telephone [facility] Medicine [address] [place] [address] Alka Tracy, DIRECTOR SALES SUPPORT [address] [place] [address] Social History Tobacco Use Types [...] week 12/27/2023 How often do you attend [facility] or muslim services? Never 12/27/2023 Do you belong to [...] Recorded Patient Health Questionnaire-2 Score 2 09/09/2024 [facility] of Occupat ional Health - Occupational [...] any time in the past 12 m [facility], were you homeless or living in a fdc (including now)? No 07/10/2024 Humiliation, Afraid, Rape, [...] any time in the past 12 m [facility], were you homeless or living in a fdc (including now)? No 09/09/2024 Utilities Answer Date Recorded In the past 12 months has [employer] electric, gas, oil, or water company threatened [...] down Not at all 09/09/2024 8:02 AM EDT Judith Beauchamp Trouble concentrating on things, such as reading the newspaper or watching television Not at all 09/09/2024 8:02 AM TRACIT Judith Beauchamp Moving or speaking so slowly that other people could have noticed? Or the opposite - being so fidgety or restless that you have been moving around a lot more than usual. Not at all 09/09/2024 8:02 AM EDT Judith Santoro Thoughts that you would be better off or hurting yourself in some way Not at all 09/09/2024 8:02 AM EDT Judith Beauchamp Patient Health Questionnaire-9 Score 8 09/09/2024 8:02 AM TRACIT Judith Beauchamp * Calculated C-SSRS Risk Score (Lifetime/Recent) Answer Date of Assessment Author No Risk Indicated 09/09/2024 8:05 AM TRACIT Judith Santoro * If you checked off any problems on this questionnaire so far, Question Answer Date of Assessment Author How difficult have these problems made it for you to do your work, take care of things at home, or get along with other people? Somewhat difficult 09/09/2024 8:02 AM EDT Israel Beauchamp * How difficult have these problems made it for you to do your work, take care of things at home, or get along with other people? Answer Date of Assessment Author Somewhat difficult 09/09/2024 8:02 AM EDT Judith Lopez * Question Answer Date of Assessment Author 1. Wish to be (Past 1 Month) No 025 8:05 AM EDJudith Vaughan 2. Non-Specific Active Suici tae Thoughts (Past 1 Month) No 09/09/2024 8:05 AM TRACIT Judith Beauchamp 6. Suicidal Behavior (Lifetime) No 8:05 AM EDT Judith Beauchamp documented as of this encounter Miscellaneous Notes * Telephone Encounter - Judith Beauchamp - 09/09/2024 1:21 PM EDT Miralax prescription changed and sent to pharmacy documented in this encounter Plan of Treatment Upcoming Encounters Date Type Department Care Team (Late st Contact Info) Description 10/04/2024 9:30 AM EDT Procedure Visit [facility] [address] [place] [address] Nicolás Hollis MD [address] [place] [address] 12/11/2024 8:40 AM EDT Office Visit [facility] [address] [place] [address] Alka Tracy APRN [address] [place] [address] 12/11/2024 9:00 AM EDT Procedure Visit [place] [facility] [address] [place] [address] Malgorzata Moseley PA [address] [place] [address] documented as of this encounter [...] documented as of this encounter Care Teams Tile Power Shear Operator Relationship Specialty Start Date End Date Alka Tracy APRN [address] [place] [address] PCP - General 07/03/20 Daily Christy MD [address] [place] [address] Service Attending Neurology 09/30/20 Malgorzata Moseley PA [address] [place] [address] Physician Vat House Laborer Neurology 11/18/20 Shy Duque APRN [address] [place] [address] Nurse Practitioner Neurosurgery 11/25/20 Arsalan Thompson MD [address] [place] [address] Surgeon Neurosurgery 07/02/21 documented as of this encounter
--- OUTSIDE RECORDS SUMMARY | 2024-09-19 18:46 | XMS_ITS | Encounter Summary ---
Author Organization [facility] Address [address] [place] [place] [address] Care Team Providers Care Specialty Food Products Supervisor Name Role Phone Alka Tracy HYDROGRAPHIC ENGINEER Primary Care Provider [phone] Daily Christy MD Unavailable [phone] Malgorzata Moseley PA Unavailable [phone] Shy Duque HYDROGRAPHIC ENGINEER Unavailable [phone] Arsalan Thompson MD Unavailable + [phone] Encounter Details Date Type Department Care Team (Late st Contact Info) Description 09/09/2024 Orders Only [facility] [address] [place] [address] Alka Tracy, HYDROGRAPHIC ENGINEER [address] [place] [address] Social History Tobacco Use Types [...] week 12/27/2023 How often do you attend [facility] or advent services? Never 12/27/2023 Do you belong to any clubs o r organizations such as restorationist groups, unions, fraternal or athletic groups, or [...] Recorded Patient Health Questionnaire-2 Score 2 09/09/2024 [facility] of Occupat ional [facility] - Occupational Stress Questionnaire Answer Date [...] place to sleep or slept in a group home (including now)? No 11/09/2023 PHQ-9 Answer [...] time in the past 12 m [facility], were you homeless or living in a group home (including now)? No 07/10/2024 Humiliation, Afraid, Rape, [...] time in the past 12 m [facility], were you homeless or living in a group home (including now)? No 09/09/2024 Utilities Answer Date Recorded In the past 12 months has th [employer] electric, gas, oil, or water company threatened [...] [facility] [address] [place] [address] Nicolás Hollis MD [address] [place] [address] 12/11/2024 8:40 AM EDT Office Visit [facility] [address] [place] [address] Alka Tracy APRN [address] [place] [address] 12/11/2024 9:00 AM EDT [facility] [address] [place] [address] Malgorzata Moseley PA [address] [place] [address] documented as of this encounter [...] documented as of this encounter Care Teams Specialty Food Products Supervisor Relationship Specialty Start Date End Date Alka Tracy APRN [address] [place] [address] PCP - General 07/03/20 Daily Christy MD [address] [place] [address] Service Attending Neurology 09/30/20 Malgorzata Moseley PA [address] [place] [address] Physician Transportation Officer Neurology 11/18/20 Shy Duque APRN [address] [address] Nurse Practitioner Neurosurgery 11/25/20 Arsalan Thompson MD [address] [address] Surgeon Neurosurgery 07/02/21 documented as of this encounter
--- OUTSIDE RECORDS SUMMARY | 2024-09-19 18:46 | XMS_ITS | Encounter Summary ---
Author Organization [facility] Address [address] [place] [address] Care Team Providers Care Clinical Specialist Name Role Phone Alka Tracy APRN Primary Care Provider [phone] Daily Christy MD Unavailable [phone] Malgorzata Moseley Unavailable [phone] Shy Duque APRN Unavailable [phone] Arsalan Thompson MD Unavailable + [phone] Reason for Referral * Consultation (Routine) - Authorized Specialty Diagnoses / Procedures Referred By Nabil toussaint Referred To Contact Podiatry Diagnoses Foot pain, bilateral [place] [address] Phone: tel: fax: Referral ID Status Reason Start Date Expiration Date Visits Requested Visits Authorized [id number] Authorized Specialty Services Required 09/09/2024 03/11/2026 1 1 Scheduling Instructions Wants some one other then Dr Calloway Encounter Details Date Type Department Care Team (Late st Contact Info) Description 09/09/2024 Orders Only [facility] [address] [place] [address] Alka Tracy APRN [address] [place] [address] Foot pain, bilateral (Primary Dx) Social History Tobacco Use Types [...] often do you attend chur ch or methodist services? Never 12/27/2023 Do you belong to [...] Recorded Patient Health Questionnaire-2 Score 2 09/09/2024 [facility] - Occupational [...] any time in the past 12 m [facility], were you homeless or living in a jail (including now)? No 07/10/2024 Humiliation, Afraid, Rape, [...] any time in the past 12 m [facility], were you homeless or living in a jail (including now)? No 09/09/2024 Utilities Answer Date [...] Notes * Progress Notes - Alka Tracy, RECORD PRODUCER - 09/09/2024 8:30 AM EDT Subjective Chantal AZEVEDO Past Medical History[1] Surgical History[2] Family History[3] Social [...] 0 min Stress: Stress Concern Present (12/27/2023) [facility] - Occupational Stress Questionnaire [...] - Hep B Twinrix 3-dose series) 02/16/2014 [id number] Vaccine (2 - Efren risk series) 07/22/2020 [facility]-DTaP,Tdap,and Td Vaccines (2 - Td or Tdap) 08/27/2023 [facility]-Influenza Vaccine (1) 10/21/2024 Review of Systems Objective There were no vitals filed for this visit. Physical Exam Assessment/Plan [1] Past Medical History: Diagnosis Date Anxiety Arthritis Clotting disorder (CMS/HCC) CTS (carpal tunnel syndrome) Depression Diabetes mellitus (CMS/HCC) Difficulty walking Dysphagia GERD (gastroesophageal reflux disease) Headache 1998 HL (hearing loss) Hypothyroidism Irritable bowel syndrome without diarrhea Legal blindness, as defined in [place] Low back pain Migraine Neck pain Obesity Restless leg syndrome Sleep apnea Sleep terrors (night terrors) [2] Past Surgical History: Procedure Laterality Date ANTERIOR CERVICAL DISCECTOMY W/ FUSION 05/26/[address] C5-[address] Doll CARPAL TUNNEL RELEASE CHOLECYSTECTOMY GALLBLADDER SURGERY KNEE ARTHROPLASTY Left 07/29/2024 KNEE SURGERY Left 09/08/2022 [3] Family History Problem Relation Name Age of Onset Conversions - Other Other Family history unknown [4] Current Outpatient Medications on File Prior to Visit Medication Sig Dispense Refill amitriptyline (Elavil) 100 MG tablet Take 1.5 tablets (150 mg) by mouth nightly. 45 tablet 11 atorvastatin (Lipitor) 20 MG tablet Take 1 tablet by mouth daily. 90 tablet 3 busPIRone (Buspar) 10 MG tablet Take 1 tablet (10 mg) by mouth 3 (three) times a day. (Patient taking differently: Take 1 tablet by mouth 2 times a day.) 270 tablet 3 celecoxib (CeleBREX) 100 MG capsule Take 1 capsule by mouth 2 times a day. diclofenac (Voltaren) 75 MG EC tablet Take 1 tablet (75 mg) by mouth 2 (two) times a day. Do not crush, chew, or split. (Patient not taking: Reported on 09/05/2024) 60 tablet 0 dicyclomine (Bentyl) 20 MG [...] tip and replace cap. 32 g 3 glucose blood test strip 1 each by Other route 1 (one) time each day. (Patient taking differently: as needed. 1 each by Other route 1 (one) time each day.) 100 strip 0 hydrOXYzine pamoate (Vistaril) 50 MG capsule Take 2 capsules (100 mg) by mouth nightly. Take 2 tabsnightly and then TID PRN Lancets misc Test Blood sugar once daily (Patient taking differently: as needed. Test Blood sugar once daily) 100 each 0 levothyroxine (Synthroid, Levoxyl) 137 MCG tablet Take 1 tablet (137 mcg) by mouth daily. 90 tablet1 medroxyPROGESTERone (Depo-Provera) 150 MG/ML injection Use every 12 weeks 1 mL 3 miconazole (Micotin) 2 % powder Apply bid (Patient not taking: Reported on 09/05/2024) 71 g 1 mirtazapine (Remeron) 45 MG [...] (one) time each day. 90 tablet 2 polyethylene glycol (Miralax) 17 g packet Take 17 g by mouth daily. 90 packet 3 prazosin (Minipress) 2 MG capsule TAKE TWO CAPSULES BY MOUTH EVERY DAY AT BEDTIME rOPINIRole (Requip) 2 MG tablet Take 1 tablet (2 mg) by mouth 1 (one) time each day in the evening.90 tablet 3 Semaglutide,0.25 or 0.5MG/DOS, 2 MG/3ML solution pen-injector Inject 0.5 mg under the skin 1 time per week. 3 mL 3 sertraline (Zoloft) 100 MG tablet (Patient not taking: Reported on 09/05/2024) Syringe/Needle, Disp, (B-D 3CC LUER-ASIM SYR 25GX1 ) 25G X 1 3 ML misc USE DIRECTED FOR depo shot (Patient not taking: Reported on 09/05/2024) 4 each 3 topiramate (Topamax) 100 MG [...] BEDTIME. (Patient not taking: Reported on 09/05/2024) ubrogepant (Ubrelvy) 100 MG tablet Take 1 tablet (100 mg) by mouth 1 (one) time as needed for migraine for up to 1 dose. After 2 hours, a second dose may be taken if needed. Maximum dose: 200 mg in 24-hour period. 10 each 3 [DISCONTINUED] diphenhydrAMINE (Benadryl) 25 MG capsule TAKE ONE CAPSULE BY MOUTH EVERY 8 HOURS NEEDED FOR allergies 30 capsule 2 [DISCONTINUED] meloxicam (Mobic) 7.5 MG tablet Take 1 tablet (7.5 mg) by mouth daily. (Patient not taking: Reported on 09/05/2024) [DISCONTINUED] Semaglutide,0.25 or 0.5MG/DOS, (Ozempic, 0.25 or 0.5 MG/DOSE,) 2 MG/3ML solution pen-injector Inject 0.25 mg under the skin 1 time per week. 3 mL 1 Current Facility-Administered Medications on File Prior to Visit Medication Dose Route Frequency Provider Last Rate Last Admin [COMPLETED] medroxyPROGESTERone (Depo-Provera) injection 150 mg 150 mg Intramuscular Once Alka Tracy APRN 150 mg at 09/09/24 0819 documented in this encounter Plan of Treatment Upcoming Encounters Date Type Department Care Team (Late st Contact Info) Description 10/04/2024 9:30 AM EDT Procedure Visit [facility] at [facility] [address] [place] [address] Nicolás Hollis MD [address] [place] [address] 12/11/2024 8:40 AM EDT Office Visit [facility] [place] [address] Alka Tracy [place] [address] 12/11/2024 9:00 AM EDT Procedure Visit [place] [facility] [address], [address] [place] [address] Malgorzata Moseley PA [address] [address] Scheduled Referrals Name Type Priority Associated Diagnoses Order Schedule Ambulatory referral to Podiatry Outpatient Referral Routine Foot pain, bilateral 1 Occurrences starting 09/09/2024 until 03/13/2026 documented as of this encounter Visit Diagnoses Diagnosis Foot pain, bilateral- Primary documented in this encounter Additional Health Concerns Assessment Noted Time PHQ-9 Depression Total Score: 8 09/10/19 25 8:02 AM EDT A fall risk assessment has been complete d for the patient 09/09/2024 8:05 AM EDT A Body Mass Index follow-up plan has been documented for the patient 09/09/2024 8:24 AM EDT documented as of this encounter Care Teams Clinical Specialist Relationship Specialty Start Date End Date Alka Tracy APRN [address] [place] [id number] PCP - General 07/03/20 Daily Christy MD [address] [address] Service Attending Neurology 09/30/20 Malgorzata Moseley PA [address] [address] Physician Grinder Set Up Operator Universal Neurology 11/18/20 Shy Duque APRN [address] [address] Nurse Practitioner Neurosurgery 11/25/20 Arsalan Thompson MD [address] [address] Surgeon Neurosurgery 07/02/21 documented as of this encounter
--- OUTSIDE RECORDS SUMMARY | 2024-09-19 18:46 | XMS_ITS | Encounter Summary ---
Author Organization [facility] Address [address] [place] [address] Care Team Providers Care Test Examiner Name Role Phone DemarcusAlka Caitlin FAIRCHILD Primary Care Provider [phone] Daily Christy MD Unavailable [phone] Malgorzata Moseley Unavailable [phone] Shy Duque APRN Unavailable [phone] Arslaan Thompson MD Unavailable + [phone] [address] Unavailable Unavailable Encounter Details Date Type Department Care Team (Late st Contact Info) Description 07/12/2024 Telephone [place] [facility] [address] [place] [address] Arsalan Thompson MD [address] [place] [address] Social History Tobacco Use Types [...] often do you attend chur ch or jew services? Never 12/27/2023 Do you belong to [...] Recorded Patient Health Questionnaire-2 Score 2 07/10/2024 [facility] [...] place to sleep or slept in a mcc (including now)? No 11/09/2023 PHQ-9 Answer Date [...] time in the past 12 m [facility], were you homeless or living in a mcc (including now)? No 07/10/2024 Utilities Answer Date Recorded In the past 12 months has th e [employer], gas, oil, or water [employer] threatened to shut off services in your [...] calling and needs xray orders faxed to [phone] at [facility]. She needs to get this done before TH appointment on Monday. She asks for a call when this is done so she can go get it.Please advise. Best contact number and optimal time of day to reach caller: [phone] Note: Please do not reply to this message. Follow-up communication and further actions as a result of this message need to be communicated with the patient directly, if the patient is not active onMyChart. If the patient is active on MyChart, they will receive notification of the communication/outcome via [employer]. documented in this encounter Plan of Treatment Upcoming Encounters Date Type Department Care Team (Late st Contact Info) Description 10/04/2024 9:30 AM EDT Procedure Visit [facility] Medicine [facility] Clinic at [facility] [address] [place] [address] Nicolás Hollis MD [address] [place] [address] 12/11/2024 8:40 AM EDT [facility] [address] [place] [address] Alka Tracy APRN [address] [place] [address] 12/11/2024 9:00 AM EDT Procedure Visit [place] [facility] [address] [place] [address] Malgorzata Moseley PA [address] [place] [address] documented as of this encounter [...] documented as of this encounter Care Teams Test Examiner Relationship Specialty Start Date End Date Alka Tracy APRN [address] [place] [address] PCP - General 07/03/20 Daily Christy MD [address] [place] [address] Service Attending Neurology 09/30/20 Malgorzata Moseley PA [address] [place] [address] Physician Forging Press Setter Up Neurology 11/18/20 Shy Duque APRN [address] [place] [address] Nurse Practitioner Neurosurgery 11/25/20 Arsalan Thompson MD [address] [place] [address] Surgeon Neurosurgery 07/02/21 [address] Community Health Worker 07/10/24 07/17/24 documented as of this encounter
--- OUTSIDE RECORDS SUMMARY | 2024-09-19 18:46 | XMS_ITS | Encounter Summary ---
Author Organization [facility] Address [address] [place] [address] Care Team Providers Care Cruise Director Name Role Phone Alka Tracy VENDING MACHINE REPAIRER Primary Care Provider [phone] Daily Christy MD Unavailable [phone] Malgorzata Moseley PA Unavailable [phone] Shy Duque VENDING MACHINE REPAIRER Unavailable [phone] Arsalan Thompson MD Unavailable + [phone] Reason for Visit * Reason Comments Med Refill Encounter Details Date Type Department Care Team (Late st Contact Info) Description 09/02/2024 Refill [facility] [address] [place] [address] Alka Tracy, VENDING MACHINE REPAIRER [address] [place] [address] Allergic rhinitis, unspecified seasonality, unspecified [...] Recorded Patient Health Questionnaire-2 Score 2 07/10/2024 [facility] - Occupational Stress Questionnaire [...] the past 12 months has th e [employer], gas, oil, or water [employer] threatened to shut off services in your [...] [facility] [address] [place] [address] Nicolás Hollis MD [address] [place] [address] 12/11/2024 8:40 AM EDT Office Visit [facility] [address] [place] [address] Alka Tracy, DEVORAH [address] [place] [address] 12/11/2024 9:00 AM EDT Procedure Visit [place] [facility] [address] [place] [address] Malgorzata Moseley PA [address] [place] [address] documented as of this encounter [...] documented as of this encounter Care Teams Cruise Director Relationship Specialty Start Date End Date Alka Tracy, DEVORAH [address] [place] [address] PCP - General 07/03/20 Daily Chrsity MD [address] [place] [address] Service Attending Neurology 09/30/20 Malgorzata Moseley PA [address] [place] [address] Physician Commutator Inspector Neurology 11/18/20 Shy Duque APRN [address] [place] [address] Nurse Practitioner Neurosurgery 11/25/20 Arsalan Thompson MD [address] [place] [address] Surgeon Neurosurgery 07/02/21 documented as of this encounter
--- OUTSIDE RECORDS SUMMARY | 2024-09-19 18:46 | XMS_ITS | Encounter Summary ---
Author Organization [facility] Address [address] [place] [address] Care Team Providers Care Chain Sales Consultant Name Role Phone Alka Tracy CARTON FORMING MACHINE TENDER Primary Care Provider [phone] Daily Christy MD Unavailable [phone] Malgorzata Moseley PA Unavailable [phone] Shy Duque CARTON FORMING MACHINE TENDER Unavailable [phone] Arsalan Thompson MD Unavailable + [phone] Reason for Visit * Reason Comments Med Refill Encounter Details Date Type Department Care Team (Late st Contact Info) Description 07/26/2024 Refill [facility] [address] [place] [address] Alka Tracy, CARTON FORMING MACHINE TENDER [address] [place] [address] Allergic rhinitis, unspecified seasonality, unspecified [...] any clubs o r organizations such as scientologist groups, unions, fraternal or athletic groups, or [...] Patient Health Questionnaire-2 Score 2 07/10/2024 [facility] [...] any time in the past 12 m [facility], were you homeless or living in a longterm (including now)? No 07/10/2024 Utilities Answer Date Recorded In the past 12 months has th e [employer], gas, oil, or water [employer] threatened to shut off services in your home? No 07/10/2024 PHQ-2A Answer Date Recorded Patient Health Questionnaire-2 Score 2 11/29/2022 Comments No Sex and Gender Information Value Date Recorded Sex Assigned at Not on file Legal Sex Female 6:31 PM EDT Gender Identity Not on file Sexual Orientation Not on file documented as of this encounter Miscellaneous Notes * Telephone Encounter - Xander Patel PharmD - 07/30/2024 9:35 AM EDT 1 medication(s) has been approved per protocol. documented in this encounter Plan of Treatment Upcoming Encounters Date Type Department Care Team (Late st Contact Info) Description 10/04/2024 9:30 AM EDT Procedure Visit Physical Medicine & Rehabilitation Clinic at [facility] [address] [place] [address] Nicolás Hollis MD [address] [place] [address] 12/11/2024 8:40 AM EDT Office Visit [facility] [address] [place] [address] Alka Tracy APRN [address] [place] [address] 12/11/2024 9:00 AM EDT Procedure Visit [facility] [address] [place] [address] Malgorzata Moseley PA [address] [place] [address] documented as of this encounter [...] documented as of this encounter Care Teams Chain Sales Consultant Relationship Specialty Start Date End Date Alka Tracy APRN [address] [place] [address] PCP - General 07/03/20 Daily Christy MD [address] [place] [address] Service Attending Neurology 09/30/20 Malgorzata Moseley PA [address] [place] [address] Physician Stock Handler Floorperson Neurology 11/18/20 Shy Duque APRN [address] [place] [address] Nurse Practitioner Neurosurgery 11/25/20 Arsalan Thompson MD [address] [place] [address] Surgeon Neurosurgery 07/02/21 documented as of this encounter
[2024-09-19 18:47] VITALS: BP 140/73; PULSE 102; RESP 17; TEMP 37.1; O2SAT 100; BMI 51.5
--- OUTSIDE RECORDS SUMMARY | 2024-09-19 18:47 | XMS_ITS | Encounter Summary ---
Author Organization Address [address] [place] [address] Care Team Providers Care Protein Specialist Name Role Phone DemarcusAlka Caitlin FAIRCHILD Primary Care Provider [phone] Daily Christy MD Unavailable [phone] Malgorzata Moseley Unavailable [phone] Shy Duque CHIP APPLYING MACHINE TENDER Unavailable [phone] Arsalan Thompson MD Unavailable + [phone] Adela Olivares PRODUCT MARKETING PROGRAMS MANAGER Unavailable Unavail able Amos Shah Unavailable Unavailable Linda Baker PRODUCT MARKETING PROGRAMS MANAGER Unavailable Unavailab Francis Morgan Unavailable Unavailable Reason for Visit * Reason Comments Med Refill Encounter Details Date Type Department Care Team (Late st Contact Info) Description 09/15/2021 [facility]ill [facility] [address] [place] [address] Emily Denise MD [address] [place] [address] Social History Tobacco Use Types [...] [facility] [address] [place] [address] Nicolás Hollis MD [address] [place] [address] 12/11/2024 8:40 AM EDT Office Visit [facility] [address] [place] [address] Alka Tracy APRN [address] [place] [address] 12/11/2024 9:00 AM EDT Procedure Visit [place] [facility] [address] [place] [address] Malgorzata Moseley PA [address] [place] [address] documented as of this encounter Visit Diagnoses Not on filedocumented in this encounter Additional Health Concerns Assessment Noted Time PHQ-9 Depression Total Score: 9 01/22/20 21 9:38 AM EST A fall risk assessment has been complete d for the patient 07/02/2021 10:07 AM EDT documented as of this encounter Care Teams Protein Specialist Relationship Specialty Start Date End Date Alka Tracy APRN [address] [place] [address] PCP - General 07/03/20 Daily Christy MD [address] [place] [address] Service Attending Neurology 09/30/20 Malgorzata Moseley PA [address] [place] [address] Physician Post Graduate Internship Neurology 11/18/20 Shy Duque APRN [address] [place] [address] Nurse Practitioner Neurosurgery 11/25/20 Arsalan Thompson MD [address] [place] [address] Surgeon Neurosurgery 07/02/21 Adela Olivares LPN [employer] [address] TCM Nurse 02/15/23 02/15/23 Amos Shah Community Health Worker 04/20/23 05/08/23 Linda Baker LPN VALUE-BASED TRANSFORMATION PROGRAM Licensed Practical Nurse 12/27/23 06/24/24 Francis [address] Community Health Worker 07/10/24 07/17/24 documented as of this encounter
--- OUTSIDE RECORDS SUMMARY | 2024-09-19 18:47 | XMS_ITS | Encounter Summary ---
Author Organization [facility] Address [address] [place] [address] Care Team Providers Care Extruder Operator Multiple Name Role Phone Alka Tracy ASSISTANT CHIEF OF POLICE Primary Care Provider [phone] Daily Christy MD Unavailable [phone] Malgorzata Moseley PA Unavailable [phone] Shy Duque ASSISTANT CHIEF OF POLICE Unavailable [phone] Arsalan Thompson MD Unavailable + [phone] Adela Olivares FINISH CLEANER Unavailable Unavail able Amos Shah Unavailable Unavailable Linda Baker FINISH CLEANER Unavailable Unavailab Francis Morgan Unavailable Unavailable Reason for Visit * Reason Comments Med Refill Encounter Details Date Type Department Care Team (Late st Contact Info) Description 05/30/2022 Refill [facility] [address] [place] [address] Alka Tracy, ASSISTANT CHIEF OF POLICE [address] [place] [address] Social History Tobacco Use Types [...] Visit Physical Medicine & Rehabilitation Clinic at [facility] [address] [place] [address] Nicolás Hollis MD [address] [place] [address] 12/11/2024 8:40 AM EDT Office Visit [facility] [place] [address] [place] [address] Alka Tracy APRN [address] [place] [address] 12/11/2024 9:00 AM EDT Procedure Visit [place] [facility] [address] [place] [address] Malgorzata Moseley PA [address] [place] [address] documented as of this encounter Visit Diagnoses Not on filedocumented in this encounter Additional Health Concerns Assessment Noted Time PHQ-9 Depression Total Score: 9 01/22/20 9:38 AM EST A fall risk assessment has been complete d for the patient 07/02/2021 10:07 AM EDT A Body Mass Index follow-up plan has been documented for the patient 04/14/2022 11:09 AM EST documented as of this encounter Care Teams Extruder Operator Multiple Relationship Specialty Start Date End Date Alka Tracy APRN [address] [place] [address] PCP - General 07/03/20 Daily Christy MD [address] [place] [address] Service Attending Neurology 09/30/20 Malgorzata Moseley PA [address] [place] [address] Physician Burlap Roll Coverer Neurology 11/18/20 Shy Duque APRN [address] [place] [address] Nurse Practitioner Neurosurgery 11/25/20 Arsalan Thompson MD [address] [place] [address] Surgeon Neurosurgery 07/02/21 Adela Olivares LPN VALUE-[place] [address] TCM Nurse 02/15/23 02/15/23 Amos Shah Community Health Worker 04/20/23 05/08/23 Linda Baker LPN VALUE-BASED TRANSFORMATION PROGRAM Licensed Practical Nurse 12/27/23 06/24/24 Francis [address] Community Health Worker 07/10/24 07/17/24 documented as of this encounter
--- OUTSIDE RECORDS SUMMARY | 2024-09-19 18:47 | XMS_ITS | Encounter Summary ---
Author Organization [facility] Address [address] [place] [address] Care Team Providers Care Operations Expert Name Role Phone Alka Tracy APRN Primary Care Provider [phone] Daily Christy MD Unavailable [phone] Malgorzata Moseley Unavailable +[phone] Shy Duque APRN Unavailable +[phone] Arsalan Thompson MD Unavailable + [phone] Linda Baker LPN Unavailable Unavailab Francis Morgan Unavailable Unavailable Encounter Details Date Type Department Care Team (Late st Contact Info) Description 09/13/2023 Orders Only External Location [address] [place] [id number] Provider, External Social History Tobacco Use Types [...] place to sleep or slept in a senior care (including now)? No 04/20/2023 Utilities Answer Date [...] [facility] [address] [place] [address] Nicolás Hollis MD [address] [place] [address] 12/11/2024 8:40 AM EDT Office Visit [facility] [address] [place] [address] Alka Tracy APRN [address] [place] [address] 12/11/2024 9:00 AM EDT Procedure Visit [place] [facility] [address], 1[address] [place] [address] Malgorzata Moseley PA [address] [place] [address] documented as of this encounter [...] documented as of this encounter Care Teams Operations Expert Relationship Specialty Start Date End Date Alka Tracy, DEVORAH [address] [place] [address] PCP - General 07/03/20 Daily Christy MD [address] [place] [address] Service Attending Neurology 09/30/20 Malgorzata Moseley PA [address] [address] Physician Assembly Adjuster Neurology 11/18/20 Shy Duque APRN [address] [address] Nurse Practitioner Neurosurgery 11/25/20 Arsalan Thompson MD [address] [address] Surgeon Neurosurgery 07/02/21 Linda Baker LPN VALUE-BASED TRANSFORMATION PROGRAM Licensed Practical Nurse 12/27/23 06/24/24 Francis Wallace Community Health Worker 07/10/24 07/17/24 documented as of this encounter
--- OUTSIDE RECORDS SUMMARY | 2024-09-19 18:47 | XMS_ITS | Encounter Summary ---
Author Organization [facility] Address [address] [place] [address] Care Team Providers Care Supervisor Uranium Processing Name Role Phone Alka Tracy BINDER TECHNICIAN Primary Care Provider [phone] Daily Christy MD Unavailable +[phone] Malgorzata Moseley PA Unavailable +[phone] Shy Duque BINDER TECHNICIAN Unavailable +[phone] Arsalan Thompson MD Unavailable + [phone] Reason for Visit * Reason Onset Date Comments Med Refill 08/18/2024 Encounter Details Date Type Department Care Team (Late st Contact Info) Description 08/18/2024 Refill [facility] [address] [place] [address] Alka Tracy, BINDER TECHNICIAN [address] [place] [address] Allergic rhinitis, unspecified seasonality, unspecified [...] any clubs o r organizations such as amish groups, unions, fraternal or athletic groups, or [...] Patient Health Questionnaire-2 Score 2 07/10/2024 [facility] - Occupational Stress Questionnaire Answer Date [...] the past 12 months has th e [employer], gas, oil, or water [employer] threatened to shut off services in your [...] Clinic at [facility] [address] [place] [address] Nicolás Hollis MD [address] [place] [address] 12/11/2024 8:40 AM EDT Office Visit [facility] [address] [place] [address] Alka Tracy, BINDER TECHNICIAN [address] [place] [address] 12/11/2024 9:00 AM EDT Procedure Visit [place] [facility] [address], 1[address] [place] [address] Malgorzata Moseley PA [id number] [place] [address] documented as of this encounter [...] documented as of this encounter Care Teams Supervisor Uranium Processing Relationship Specialty Start Date End Date Alka Tracy, BINDER TECHNICIAN [address] [place] [address] PCP - General 07/03/20 Daily Christy MD [address] [place] [address] Service Attending Neurology 09/30/20 Malgorzata Moseley PA [address] [place] [address] Physician Terrestrial Ecologist Neurology 11/18/20 Shy Duque APRN [address] [place] [address] Nurse Practitioner Neurosurgery 11/25/20 Arsalan Thompson MD [address] [place] [address] Surgeon Neurosurgery 07/02/21 documented as of this encounter
--- OUTSIDE RECORDS SUMMARY | 2024-09-19 18:47 | XMS_ITS | Encounter Summary ---
Author Organization [facility] Address [address] [place] [address] Care Team Providers Care New Car Get Ready Mechanic Name Role Phone Alka Tracy IN FLIGHT CREW MEMBER Primary Care Provider [phone] Daily Christy MD Unavailable [phone] Malgorzata Moseley PA Unavailable [phone] Shy Duque IN FLIGHT CREW MEMBER Unavailable [phone] Arsalan Thompson MD Unavailable + [phone] Adela Olivares SENIOR LINUX UNIX ADMINISTRATOR Unavailable Unavail able Amos Shah Unavailable Unavailable Linda Baker SENIOR LINUX UNIX ADMINISTRATOR Unavailable Unavailab Francis Morgan Unavailable Unavailable Reason for Visit * Reason Comments Med Refill Encounter Details Date Type Department Care Team (Late st Contact Info) Description 10/29/2020 Refill [facility] [address] [place] [address] Alka Tracy, IN FLIGHT CREW MEMBER [address] [place] [address] Chronic daily headache Social History [...] Physical Medicine & [facility] at [facility] [address] [place] [address] Nicolás Hollis MD [address] [place] [address] 12/11/2024 8:40 AM EDT Office Visit [facility] [address] [place] [address] Alka Tracy, DEVORAH [address] [place] [address] 12/11/2024 9:00 AM EDT Procedure Visit [place] [facility] [address], 1st [place] [address] Malgorzata Moseley PA [address] [facility] [place] [address] documented as of this encounter Visit Diagnoses Diagnosis Chronic daily headache Headache documented in this encounter Additional Health Concerns Assessment Noted Time A fall risk assessment has been complete d for the patient 09/30/2020 11:30 AM EDT documented as of this encounter Care Teams New Car Get Ready Mechanic Relationship Specialty Start Date End Date Alka Tracy APRN [address] [place] [address] PCP - General 07/03/20 Daily Christy MD [address] [facility] [address] [place] [address] Service Attending Neurology 09/30/20 Malgorzata Moseley PA [address] [place] [address] Physician Equalizer Operator Neurology 11/18/20 Shy Duque APRN [address] [address] Nurse Practitioner Neurosurgery 11/25/20 Arsalan Thompson MD [address] [place] [address] Surgeon Neurosurgery 07/02/21 Adela Olivares LPN VALUE-[place] [place] [address] TCM Nurse 02/15/23 02/15/23 Amos Shah Community Health Worker 04/20/23 05/08/23 Linda Baker LPN VALUE-BASED TRANSFORMATION PROGRAM Licensed Practical Nurse 12/27/23 06/24/24 Francis Wallace Community Health Worker 07/10/24 07/17/24 documented as of this encounter
--- OUTSIDE RECORDS SUMMARY | 2024-09-19 18:47 | XMS_ITS | Encounter Summary ---
Author Organization [facility] Address [address] [place] [address] Care Team Providers Care Vending Machine Operator Name Role Phone Alka Tracy BIODIESEL PLANT SUPERINTENDENT Primary Care Provider [phone] Daily Christy MD Unavailable [phone] Malgorzata Moseley PA Unavailable [phone] Shy Duque BIODIESEL PLANT SUPERINTENDENT Unavailable +[phone] Arsalan Thompson MD Unavailable + [phone] Adela Olivares OVERNIGHT ASSOCIATE Unavailable Unavail able Amos Shah Unavailable Unavailable Linda Baker OVERNIGHT ASSOCIATE Unavailable Unavailab Francis Morgan Unavailable Unavailable Reason for Visit * Reason Comments Med Refill Encounter Details Date Type Department Care Team (Late st Contact Info) Description 03/17/2021 Refill [facility] [address] [place] [address] Alka Tracy, BIODIESEL PLANT SUPERINTENDENT [address] [place] [address] Social History Tobacco Use Types [...] Visit [facility] [address] [place] [address] Nicolás Hollis MD [address] [place] [address] 12/11/2024 8:40 AM EDT Office Visit [facility] [address] [place] [address] Alka Tracy APRN [address] [place] [address] 12/11/2024 9:00 AM EDT Procedure Visit [place] [facility] [address], 1st [place] [address] Malgorzata Moseley PA [address] [place] [address] documented as of this encounter Visit Diagnoses Not on filedocumented in this encounter Additional Health Concerns Assessment Noted Time PHQ-9 Depression Total Score: 9 01/22/20 9:38 AM EST documented as of this encounter Care Teams Vending Machine Operator Relationship Specialty Start Date End Date Alka Tracy [place] [address] PCP - General 07/03/20 Daily Christy MD [address] [place] [address] Service Attending Neurology 09/30/20 Malgorzata Moseley PA [address] [place] [address] Physician Guest Service Team Leader Neurology 11/18/20 Shy Duque APRN [address] [place] [address] Nurse Practitioner Neurosurgery 11/25/20 Arsalan Thompson MD [address] [place] [address] Surgeon Neurosurgery 07/02/21 Adela Olivares LPN VALUE[employer] [address] TCM Nurse 02/15/23 02/15/23 Amos Shah Community Health Worker 04/20/23 05/08/23 Linda Baker LPN VALUE-BASED TRANSFORMATION PROGRAM Licensed Practical Nurse 12/27/23 06/24/24 Francis Wallace Community Health Worker 07/10/24 07/17/24 documented as of this encounter
--- OUTSIDE RECORDS SUMMARY | 2024-09-19 18:47 | XMS_ITS | Encounter Summary ---
Author Organization [facility] Address [address] [place] [address] Care Team Providers Care Mental Health Specialist Name Role Phone Alka Tracy MANAGER SHIFT Primary Care Provider [phone] Daily Christy MD Unavailable [phone] Malgorzata Moseley PA Unavailable +[phone] Shy Duque MANAGER SHIFT Unavailable +[phone] Arsalan Thompson MD Unavailable + [phone] Adela Olivares RN ASSESSMENT Unavailable Unavail able Amos Shah Unavailable Unavailable Linda Baker RN ASSESSMENT Unavailable Unavailab Francis Morgan Unavailable Unavailable Reason for Visit * Reason Onset Date Comments Med Refill 02/21/2022 Encounter Details Date Type Department Care Team (Late st Contact Info) Description 02/21/2022 Refill [facility] [address] [place] [address] Alka Tracy, MANAGER SHIFT [address] [place] [address] Allergic rhinitis, unspecified seasonality, unspecified [...] Visit [facility] at [facility] [address] [place] [address] Nicolás Hollis MD [address] [place] [address] 12/11/2024 8:40 AM EDT Office Visit [facility] [address] [place] [address] Alka Tracy, DEVORAH [address] [place] [address] 12/11/2024 9:00 AM EDT Procedure [facility] [place] [facility] [address], 1st [place] [address] Malgorzata Moseley PA [address] [place] [address] documented as of this encounter Visit Diagnoses Diagnosis Allergic rhinitis, unspecified seasonality, unspecified trigger 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 documented in this encounter Additional Health Concerns Assessment Noted Time PHQ-9 Depression Total Score: 9 01/22/20 9:38 AM EST A fall risk assessment has been complete d for the patient 07/02/2021 10:07 AM EDT documented as of this encounter Care Teams Mental Health Specialist Relationship Specialty Start Date End Date Alka Tracy APRN [address] [place] [address] PCP - General 07/03/20 Daily Christy MD [address] [place] [address] Service Attending Neurology 09/30/20 Malgorzata Moseley PA [address] [place] [address] Physician Clinical Law Professor Neurology 11/18/20 Shy Duque APRN [address] [place] [address] Nurse Practitioner Neurosurgery 11/25/20 Arsalan Thompson MD [address] [place] [address] Surgeon Neurosurgery 07/02/21 Adela Olivares LPN VALUE-BASED [place] [address] TCM Nurse 02/15/23 02/15/23 Amos Shah Community Health Worker 04/20/23 05/08/23 Linda Baker LPN VALUE-BASED TRANSFORMATION PROGRAM Licensed Practical Nurse 12/27/23 06/24/24 Francis Wallace Community Health Worker 07/10/24 07/17/24 documented as of this encounter
--- OUTSIDE RECORDS SUMMARY | 2024-09-19 18:47 | XMS_ITS | Encounter Summary ---
Author Organization [facility] Address [address] [place] [address] Care Team Providers Care Pasteuriser Operator Name Role Phone Alka Tracy APRN Primary Care Provider [phone] Daily Christy MD Unavailable [phone] Malgorzata Moseley Unavailable +[phone] Shy Duque APRN Unavailable +[phone] Arsalan Thompson MD Unavailable + [phone] Encounter Details Date Type Department Care Team (Late st Contact Info) Description 07/26/2024 Orders Only External Location [address] [place] [address] Provider, External Social History Tobacco Use Types [...] any clubs o r organizations such as holiness groups, unions, fraternal or athletic groups, or [...] Recorded Patient Health Questionnaire-2 Score 2 07/10/2024 [facility] - Occupational Stress Questionnaire Answer [...] any time in the past 12 m [facility], were you homeless or living in a [...] Rehabilitation [facility] at [facility] [address] [place] [address] Nicolás Hollis MD [address] [place] [address] 12/11/2024 8:40 AM EDT [facility] [address] [place] [address] Alka Tracy APRN [address] [place] [address] 12/11/2024 9:00 AM EDT Procedure [facility] [place] [facility] [address], 1st [place] [address] Malgorzata Moseley PA [address] [place] [address] documented as of this encounter Procedures Procedure Name Priority Date/Time Associated Diagnosis Comments MR NEURO OUTSIDE IMAGES 07/26/2024 3:26 PM EDT documented in this encounter Results * MR NEURO OUTSIDE IMAGES (07/26/2024 3:26 PM EDT) Anatomical Region Laterality Modality Magnetic Resonan ce 07/26/2024 3:26 PM EDT us External Provider IMG MRI PROCEDURES [...] documented as of this encounter Care Teams Pasteuriser Operator Relationship Specialty Start Date End Date Alka Tracy, DEVORAH [address] [place] [address] PCP - General 07/03/20 Daily Chritsy MD [address] [place] [address] Service Attending Neurology 09/30/20 Malgorzata Moseley PA [address] [place] [address] Physician Buncher Operator Neurology 11/18/20 Shy Duque APRN [address] [place] [address] Nurse Practitioner Neurosurgery 11/25/20 Arsalan Thompson MD [address] [place] [address] Surgeon Neurosurgery 07/02/21 documented as of this encounter
--- OUTSIDE RECORDS SUMMARY | 2024-09-19 18:47 | XMS_ITS | Clinical Summary ---
Author Organization [facility] Address [address] [place] [address] Care Team Providers Care Optomechanical Technician Name Role Phone TracyAlka khalil DEVORAH Primary Care Provider Social History Tobacco Use Types Packs/Day Years Used Date Smoking Tobacco: Never Assessed Abuse Screen Answer Date Recorded Unsafe at Home or Work/School Not on file Feels Threatened by Someone? Not on file 11/2022 Does Anyone Keep You from Co ntacting Others or Doint Things Outside the Home? Not on file 11/29/2022 Physical Sign of Abuse Present Not on file 1 Housing Stability Answer Date Recorded Current Living Arrangements Not on file 11/20 Potentially Unsafe Housing Conditions Not on [place] e 11/29/2022 Family and Community Support Answer Emile e Recorded Help with Day-to-Day Activities Not on file 11/29/2022 Lonely or Isolated Not on file 11/29/2022 Employment Answer Date Recorded Do you want help finding or keeping work or a kiet b? Not on file 11/29/2022 Disabilities Answer Date Recorded Concentrating, Remembering, or Making Decisions Difficulty Not on file 11/29/2022 Doing Errands Independently Difficulty Not on fi le 11/29/2022 Education Answer Date Recorded Help with school or training? Not on file Preferred Language Not on file 11/29/2022 Comments Unknown Sex and Gender Information Value Date Recorded Sex Assigned at Not on file Legal Sex Female 3:28 PM EDT Gender Identity Not on file Sexual Orientation Not on file Plan of Treatment Health Maintenance Due Date Last Done Comments ANNUAL PHYSICAL 1983 Annual Gynecologic Pelvic and Breast Exam 1983 HEPATITIS C SCREENING 1983 MAMMOGRAM 2023 TDAP/TD VACCINES (2 - Td or Tdap) 08/27/2023 08/26/2013 COVID-19 Vaccine (2 - 2023- season) 2023 06/24/2020 INFLUENZA VACCINE 11/20/2024 12/02/2021, 02/02/2018 HEMOGLOBIN A1C Discontinued 04/07/2022 Pneumococcal Vaccine 0-49 Aged Out No longer eligible based on patient's age to complete this topic Insurance [place] Care Teams Optomechanical Technician Relationship Specialty Start Date End Date Alka Tracy APRN [address] [place] [address] PCP - General Family Medicine 02/20/22
--- OUTSIDE RECORDS SUMMARY | 2024-09-19 18:47 | XMS_ITS | Clinical Summary ---
Author Organization [facility] Address [address] [place] [address] Care Team Providers Care Motorized Squad Lieutenant Name Role Phone DemarcusAlka Caitlin FAIRCHILD Primary Care Provider [phone] Daily Christy MD Unavailable [phone] Malgorzata Moseley Unavailable [phone] Shy Duque APRN Unavailable [phone] Arsalan Thompson MD Unavailable Allergies Active Allergy Reactions Criticality Noted Date Comments Tirzepatide Diarrhea,Rash Low 09/05/2024 Medications hydrOXYzine pamoate (Vistaril) 50 MG capsule [...] bid 71 g 1 03/07/19 24 Active Additional Information Patient not taking.Reported on 09/05/2024 sertraline (Zoloft) 100 MG tablet Active rOPINIRole (Requip) 2 MG tablet Take 1 tablet (2 mg) by mouth 1 (one) time each day in the evening. 90 tablet 3 01/03/20 24 Active Syringe/Needle, Disp, (B-D 3CC LUER-ASIM SYR 25GX1 ) 25G X 1 3 ML misc USE DIRECTED FOR depo shot 4 each 3 10/10/19 Active Additional Information Patient not taking.Reported on 09/05/2024 diclofenac (Voltaren) 75 MG EC tablet Take 1 tablet (75 mg) by mouth 2 (two) times a day. Do not crush, chew, or split. 60 tablet 12/04/19 Active Additional Information Patient not taking.Reported on 09/05/2024 medroxyPROGESTE Ronnie (Depo-Provera) 150 MG/ML injectionIndica tions:Anxiety and depression Use every 12 weeks 1 mL 3 12/08/19 Active busPIRone (Buspar) 10 MG tablet Take 1 tablet (10 mg) by mouth 3 (three) times a day. 270 tablet 3 12/08/19 24 2024 Active Additional Information Patient taking differently:10 mg Oral2 times daily, Reported on 09/05/2024 dicyclomine (Bentyl) 20 MG tablet Take 1 [...] EXTERNAL USE ONLY-- 30 g 1 12/21/19 Active PARoxetine (Paxil) 20 MG tablet Take 1 tablet (20 mg) by mouth 1 (one) time each day. 90 tablet 2 02/02/20 24 Active mirtazapine (Remeron) 45 MG tablet Take 1 tablet (45 mg) by mouth nightly. 03/01/19 25 Active amitriptyline (Elavil) 100 MG tabletIndicatio ns:Chronic daily headache Take 1.5 tablets (150 mg) by mouth nightly. 45 tablet 11 04/10/19 25 Active topiramate (Topamax) 100 MG tabletIndicatio ns:Chronic daily headache Take 1 tablet (100 mg) by mouth 2 (two) times a day. 180 tablet 3 04/10/19 25 2025 Active topiramate 50 MG tabletIndicatio ns:Chronic daily headache Take 1 tablet (50 mg) by mouth 2 (two) times a day. Take with topiramate 100 mg tablet by mouth two (2) times a day to make up total dose of 150 mg two (2) times a day 180 tablet 04/10/192025 Active ubrogepant (Ubrelvy) 100 MG tablet Take 1 tablet (100 mg) by mouth 1 (one) time as needed for migraine for up to 1 dose. After 2 hours, a second dose may be taken if needed. Maximum dose: 200 mg in 24-hour period. 10 each 04/10/19 Active levothyroxine (Synthroid, Levoxyl) 137 MCG tablet Take 1 tablet (137 mcg) by mouth daily. 90 tablet 1 04/30/19 Active Lancets miscIndications :Type 2 diabetes mellitus with hyperglycemia, without long-term current use of insulin ([facility]) Test Blood sugar once daily 100 each 06/07/19 Active Additional Information Patient taking differently: As needed, Test Blood sugar once daily, Reported on 09/05/2024 glucose blood test stripIndication s:Type 2 diabetes mellitus with hyperglycemia, without long-term current use of insulin ([facility]) 1 each by Other route 1 (one) time each day. 100 strip 06/07/19 Active Additional Information Patient taking differently: As needed, 1 each by Other route 1 (one) time each day., Reported on 09/05/2024 Erenumab-aooe (Aimovig) 140 MG/ML solution auto-injector Inject 140 mg under the skin every 30 days. 1 mL 06/15/192025 Active empagliflozin (Jardiance) 25 MG Take 1 tablet by mouth daily. 30 tablet 06/27/19 Active oxybutynin XL (Ditropan-XL) 10 MG 24 hr tablet Take 1 tablet by mouth daily. 06/29/19 Active ondansetron (Zofran) 4 MG tablet Take 1 tablet by mouth every 8 hours as needed for nausea or vomiting. 20 tablet 08/20/19 25 Active fluticasone (Flonase) 50 MCG/ACT nasal sprayIndication s:Allergic rhinitis, unspecified seasonality, unspecified trigger Administer 1 spray into each nostril daily. Shake gently. Before first use, prime pump. After use, clean tip and replace cap. 32 g 3 08/20/19 25 Active diphenhydrAMINE (Benadryl) 25 MG capsuleIndicati ons:Allergic rhinitis, unspecified seasonality, unspecified trigger TAKE ONE CAPSULE BY MOUTH EVERY 8 HOURS NEEDED FOR allergies 90 capsule 09/05/19 25 Active celecoxib (CeleBREX) 100 MG capsule Take 1 capsule by mouth 2 times a day. Active atorvastatin (Lipitor) 20 MG tabletIndicatio ns:Type 2 diabetes mellitus with hyperglycemia, without long-term current use of insulin (CMS/HCC) Take 1 tablet by mouth daily. 90 tablet 3 09/10/19 25 2025 Active polyethylene glycol (Miralax) 17 g packetIndicatio ns:Chronic constipation Take 17 g by mouth daily. 90 packet 3 09/10/19 25 2025 Active Semaglutide,0.2 5 or 0.5MG/DOS, 2 MG/3ML solution pen-injectorInd ications:Type 2 diabetes mellitus with hyperglycemia, without long-term current use of insulin (CMS/HCC) Inject 0.5 mg under the skin 1 time per week. 3 mL 3 09/10/19 25 Active polyethylene glycol (GlycoLax) 17 GM/SCOOP powderIndicatio ns:Chronic constipation Take 17 g by mouth daily. 510 g 3 09/10/19 25 Active meloxicam (Mobic) 7.5 MG tablet Take 1 tablet (7.5 mg) by mouth daily. 02/15/20 24 2024 Discontinued(P er Patient Report) ARIPiprazole (Abilify) 5 MG tablet Take 1 tablet by mouth nightly. 07/02/19 25 2024 Discontinued(O ther) Semaglutide,0.2 5 or 0.5MG/DOS, (Ozempic, 0.25 or 0.5 MG/DOSE,) 2 MG/3ML solution pen-injectorInd ications:Type 2 diabetes mellitus with hyperglycemia, without long-term current use of insulin ([facility]) Inject 0.25 mg under the skin 1 time per week. 3 mL 1 07/11/19 25 2024 Discontinued diphenhydrAMINE (Benadryl) 25 MG capsuleIndicati ons:Allergic rhinitis, unspecified seasonality, unspecified trigger TAKE ONE CAPSULE BY MOUTH EVERY 8 HOURS NEEDED FOR allergies 30 capsule 2 07/31/19 25 2024 Discontinued Hospital, Clinic, or Other Facility Administered Medication Ordered Dose Route Frequency Start Date End Date Status bupivacaine PF (Marcaine) 0.25 % injection 12.5 mgIndications:Myofasc ial pain 12.5 mg IJ Once 08/28/2024 08/28/2024 Discontinued methylPREDNISolone acetate (DEPO-Medrol) injection 200 mgIndications:Myofasc ial pain 200 mg IM Once 08/28/2024 08/28/2024 Discontinued lidocaine (Xylocaine) 1 % injection 5 mLIndications:Myofasc ial pain 5 mL IJ Once 08/28/2024 08/28/2024 Ended bupivacaine PF (Marcaine) 0.5 % injection 25 mgIndications:Myofasc ial pain 25 mg IJ Once 08/28/2024 08/28/2024 Ended medroxyPROGESTERone (Depo-Provera) injection 150 mgIndications:Encount er for female control 150 mg IM Once 09/09/2024 09/09/2024 Ended Active Problems Problem Noted Date Diagnosed Date [...] Encounters Date Type Department Care Team Description 09/10/2024 Results Follow-Up [facility] [address] [place] [address] Alka Tracy APRN 09/09/2024 8:20 AM EDT Office Visit [facility] [address] [facility] [place] [address] Alka Tracy, SUPERVISOR CONTINGENTS Type 2 diabetes mellitus with hyperglycemia, without long-term current use of insulin ([facility]) (Primary Dx); Encounter for female control; Chronic constipation 09/09/2024 Orders Only [facility] [address] [place] [address] Alka Tracy APRN Chronic constipation (Primary Dx) 09/09/2024 Orders Only [facility] [address] [place] [address] Alka Tracy, DEVORAH 09/09/2024 Telephone [facility] [address] [place] [address] Alka Tracy, DEVORAH 09/09/2024 Orders Only [facility] [address] [place] [address] Alka Tracy, SUPERVISOR CONTINGENTS Foot pain, bilateral (Primary Dx) 09/09/2024 Travel 09/02/2024 Refill [facility] [address] [place] [address] Alka Tracy APRN Allergic rhinitis, unspecified seasonality, unspecified trigger 08/28/2024 11:00 AM EDT Procedure Visit [facility] [address] [place] [address] Malgorzata Moseley PA Myofascial pain (Primary Dx) 08/28/2024 Travel 08/19/2024 Orders Only [facility] [address] [place] [address] Alka Tracy, SUPERVISOR CONTINGENTS Allergic rhinitis, unspecified seasonality, unspecified trigger 08/18/2024 Refill [facility] [address] [place] [address] Alka Tracy, SUPERVISOR CONTINGENTS Allergic rhinitis, unspecified seasonality, unspecified trigger 08/15/2024 Refill [facility] [address] [place] [address] Alka Tracy APRN 07/31/2024 Telephone [facility] [address] [place] [address] Alka Tracy APRN HCN - Patient Message 07/31/2024 Telephone [facility] [address] [place] [address] Alka Tracy APRN HCN Clinical Concern/Question (Please see note...) 07/26/2024 Orders Only External Location [address] [place] [address] Provider, External 07/26/2024 Refill [facility] [address] [place] [address] Alka Tracy SUPERVISOR CONTINGENTS Allergic rhinitis, unspecified seasonality, unspecified trigger 07/18/2024 Telephone [facility] [address] [place] [address] Alka Tracy APRN HCN Clinical Concern/Question 07/17/2024 Patient Outreach [facility] [address] [place] [address] [facility] 07/16/2024 8:30 AM EDT Office Visit [facility] [address] [place] [address] Arsalan Thompson MD S/P cervical spinal fusion (Primary Dx); Cervical spondylosis with myelopathy 07/16/2024 Travel 07/12/2024 Orders Only External Location [address] [place] [address] Provider, External 07/12/2024 Telephone [facility] [address] [place] [address] Adrianne Singh Appointment 07/12/2024 Telephone [facility] [address] [place] [address] Arsalan Thompson MD 07/10/2024 9:40 AM EDT Office Visit [address] [address] Alka Tracy APRN Type 2 diabetes mellitus with hyperglycemia, without long-term current use of insulin (CMS/HCC) (Primary Dx) 07/10/2024 Patient Outreach [facility] [address] [place] [address], [address] [address] [facility] Resources 07/10/2024 Patient Outreach [facility] [address] [place] [address], [address] [address] [facility] 07/10/2024 Patient Outreach [facility] [address] [place] [address], [address] [place] [address] [facility] 07/10/2024 Orders Only [facility] [address] [place] [address] Alka Tracy APRN Type 2 diabetes mellitus with hyperglycemia, without long-term current use of insulin (CMS/HCC) (Primary Dx) 07/10/2024 Travel 07/05/2024 Orders Only [facility] [address] [place] [address] Crystal Melendez APRN, DNP S/P cervical spinal fusion (Primary Dx) 06/28/2024 Refill [facility] [address] [place] [address] Alka Tracy APRN Allergic rhinitis, unspecified seasonality, unspecified trigger 06/26/2024 Orders Only [facility] [address] [place] [address] Alka Tracy APRN from Last 3 Months Immunizations Immunization Administration [...] How often do you attend chur or zoroastrian services? Never 12/27/2023 Do you belong to any clubs o r organizations such as religion groups, unions, fraternal or athletic groups, or [...] Recorded Patient Health Questionnaire-2 Score 2 09/09/2024 [facility] - Occupational Stress Questionnaire Answer Date Recorded [...] any time in the past 12 m [facility], were you homeless or living in a half-way (including now)? No 07/10/2024 Humiliation, Afraid, Rape, [...] any time in the past 12 m [facility], were you homeless or living in a half-way (including now)? No 09/09/2024 Utilities Answer Date [...] Mass Index 53.41 09/09/2024 7:57 AM EDT Plan of Treatment Upcoming Encounters Date Type Department Care Team (Late st Contact Info) Description 10/04/2024 9:30 AM EDT Procedure Visit [facility] [address] [place] [address] Nicolás Hollis MD [address] [place] [address] 12/11/2024 8:40 AM EDT Office Visit [facility] [address] [place] [address] Alka Tracy APRN [address] [place] [address] 12/11/2024 9:00 AM EDT Procedure Visit [facility] [address] [place] [address] PradipMalgorzata PA [address] [place] [address] Health Maintenance Due Date Last Done Comments [...] B Twinrix 3-dose series) 02/16/2014 09/16/2013, 08/15/2013 [id number] Vaccine (2 - Efren risk series) 07/22/2020 06/24/2020 [facility]-DTaP,Tdap,and Td Vaccines (2 - Td or Tdap) 08/27/2023 08/26/2013 [facility]-Pap Smear 09/11/2023 09/10/2020, 08/21/2018 [facility]-Influenza Vaccine (#1) 2024 12/02/2021, [facility]-Diabetes: Hemoglobin A1C 12/09/2024 09/09/2024, 07/10/2024, 04/12/2024, Additional history exists [facility]-Medicare Annual Wellness (AWV) 01/02/2025 01/03/2024, 11/29/2022 [facility]- SDOH Screenings 03/12/2025 [facility]-Adult SDOH Screenings 03/12/2025 09/09/2024 [facility]-Depression Screening 09/09/2025 09/09/2024, 08/21 [facility]-Cervical Cancer Screening 09/10/2025 [facility]-HPV/Cotest 09/10/2025 09/10/2020, 08/21/2018 [facility]-Zoster Vaccines (1 of 2) 2033 [facility]-Hepatitis A Vaccines Aged Out 018, 09/16/2013, 08/15/2013 No longer eligible based on patient's age to complete this topic [facility]-Obesity Intervention Completed 025, 08/28/2024, 07/16/2024, Additional history exists [facility]-HIB Vaccines Aged Out No longer e ligible based on patient's age to complete this topic [facility]-IPV Vaccines Aged Out No longer e ligible based on patient's age to complete this topic [facility]-Rotavirus Vaccines Aged Out No lo nger eligible based on patient's age to complete this topic Procedures Procedure Name Priority Date/Time Associated Diagnosis Comments LIPID PROFILE, PLASMA Routine 09/09/2024 8:31 AM EDT Type 2 diabetes mellitus with hyperglycemia, without long-term current use of insulin (CMS/HCC) HEMOGLOBIN A1C Routine 09/09/2024 8:31 AM EDT Type 2 diabetes mellitus with hyperglycemia, without long-term current use of insulin (CMS/HCC) COMPREHENSIVE METABOLIC PANEL, PLASMA Routine 09/09/2024 8:31 AM EDT Type 2 diabetes mellitus with hyperglycemia, without long-term current use of insulin (CMS/HCC) MR NEURO OUTSIDE IMAGES 07/26/2024 3:26 PM EDT XR OUTSIDE IMAGES 07/12/2024 11: 15 AM EDT POCT GLYCOSYLATED HEMOGLOBIN (HGB A1C) Routine 07/10/2024 10:58 AM EDT Type 2 diabetes mellitus with hyperglycemia, without long-term current use of insulin (CMS/HCC) PAP TEST - CYTOLOGY Routine 09/10/2020 1 0:55 AM EDT Cervical cancer screening from Last 3 Months or Most Recently Relevant to Health Maintenance Results * (ABNORMAL) Hemoglobin A1c (09/09/2024 8:31 AM EDT) Hemoglobin A1c 8.6(H) <5.7 % 09/09/2024 1:58 PM EDT [facility] Blood Venous blood specimen / Unknown Venipuncture / Unknown 09/09/2024 8:31 AM EDT 09/09/2024 8:31 AM EDT Narrative [facility] - 09/09/2024 1:58 PM EDT HA1C Interpretive Data: Diagnosis of Diabetes: Diabetic > or = 6.5% Pre-diabetic 5.7 to 6.4% Non-diabetic < or = 5.6% Glycemic Targets for Type I and Type II Diabetics: Non- Adults <7.0% Adults <6.0% Children and Adolescents <7.5% Source: [place] [employer]. Standards of medical care in diabetes,2017. Diabetes Care.2017:40 (suppl 1):S1-S135. Alka Tracy SUPERVISOR CONTINGENTS LAB BLOOD ORDERABLES Final Result [facility] [address] [place] [address] * (ABNORMAL) Lipid Profile, Plasma (09/09/2024 8:31 AM EDT) [facility] Cholesterol, Plasma 208(H) <200 mg/dL 09/09/2024 2:21 PM EDT [facility] Comment: Cholesterol Reference Range (age >17 years): Desirable <200 mg/dL Borderline 200 to 239 mg/dL Undesirable >239 mg/dL HDL 42(L) >=50 mg/dL 09/09/2024 2:21 PM EDT [facility] Comment: HDL Cholesterol Reference Ranges (age >17 years): Female, acceptable > or = 50 mg/dL Male, acceptable > or = 40 mg/dL Triglycerides, Plasma 171(H) <150 mg/dL 09/09/2024 2:21 PM EDT [facility] Comment: Triglyceride Reference Range (age >17 years): Desirable: <150 mg/dL Borderline high: 150 to 199 mg/dL High: 200 to 499 mg/dL Very high: >499 mg/dL Increased risk of pancreatitis: >1000 mg/dL Cholesterol/HDL Ratio 5 09/09/2024 2:21 PM EDT [facility] LDL, Calculated 135(H) <100 mg/dL 2:21 PM EDT [facility] Comment: LDL Cholesterol Reference Range (age [...] 12 hours? Yes 09/09/2024 2:21 PM EDT [facility] Blood Venous blood specimen / Unknown Venipuncture / Unknown 09/09/2024 8:31 AM EDT 09/09/2024 8:31 AM EDT Alka Tracy SUPERVISOR CONTINGENTS LAB BLOOD ORDERABLES Final Result [facility] [address] [place] [address] * (ABNORMAL) Comprehensive Metabolic Panel, Plasma (09/09/2024 8:31 AM EDT) Glucose, Plasma 202(H) 74 - 99 mg/dL 09/09/2024 2:21 PM EDT [facility] BUN, Plasma 13 7 - 21 mg/dL 09/09/2024 2:21 PM EDT [facility] Creatinine, Plasma 0.99 0.60 - 1.10 mg/dL 09/09/2024 2:21 PM EDT [facility] BUN/Creatinine Ratio 13 09/09/2024 2:21 PM EDT [facility] Sodium, Plasma 137 136 - 145 mmol/L 09/09/2024 2:21 PM EDT [facility] Potassium, Plasma 3.8 3.6 - 4.9 mmol/L 09/09/2024 2:21 PM EDT [facility] Chloride, Plasma 100 97 - 107 mmol/L 09/09/2024 2:21 PM EDT [facility] CO2, Plasma 23 22 - 29 mmol/L 09/09/2024 2:21 PM EDT [facility] Anion Gap 14 6 - 16 mmol/L 09/09/2024 2:21 PM EDT [facility] Total Calcium, Plasma 10.2 8.9 - 10.2 mg/dL 09/09/2024 2:21 PM EDT [facility] Total Protein 8.0(H) 6.3 - 7.9 g/dL 09/09/2024 2:21 PM EDT [facility] Albumin, Plasma 4.4 3.5 - 5.2 g/dL 09/09/2024 2:21 PM EDT [facility] AST, Plasma 16 10 - 35 U/L 09/09/2024 2:21 PM EDT [facility] ALT, Plasma 20 10 - 35 U/L 09/09/2024 2:21 PM EDT [facility] Alkaline Phosphatase, Plasma 120(H) 35 - 104 U/L 09/09/2024 2:21 PM EDT [facility] Total Bilirubin, Plasma 0.5 0.2 - 1.1 mg/dL 09/09/2024 2:21 PM EDT [facility] eGFRcr 73.6 mL/min/1.7 3m*2 09/09/2024 2:21 PM EDT [facility] Comment:Reported eGFRcr in m L/min/1.73m2 is based the CKD-EPI 2020 equation that does not use a race coefficient. Blood Venous blood specimen / Unknown Venipuncture / Unknown 09/09/2024 8:31 AM EDT 09/09/2024 8:31 AM EDT Alka Tracy SUPERVISOR CONTINGENTS LAB BLOOD ORDERABLES Final Result [facility] [address] [place] [address] * MR NEURO OUTSIDE IMAGES (07/26/2024 3:26 PM EDT) Anatomical Region Laterality Modality Magnetic Resonan ce 07/26/2024 3:26 PM EDT us External Provider IMG MRI PROCEDURES Final Resul t * XR OUTSIDE IMAGES (07/12/2024 11:15 AM EDT) Anatomical Region Laterality Modality Radiographic Sofiya ging 07/12/2024 11:1 5 AM EDT us External Provider IMG XR PROCEDURES Final Result * (ABNORMAL) POCT glycosylated hemoglobin (Hb A1C) (07/10/2024 10:58 AM EDT) POCT Hemoglobin A1C 9.4 <5.7% Non-Diabe tic % [facility] Kit Lot Number [id number] [facility] Kit Expiration Date 04/19/2026 [facility] Blood Venous blood specimen / Unknown 07/10/2024 10:58 AM EDT us Alka Tracy SUPERVISOR CONTINGENTS POINT OF CARE TEST ENTER/ED IT ORDERABLES Final Result [facility] [address] [place] [id number] * (ABNORMAL) Pap smear (09/10/2020 10:55 AM EDT) Case Report Cytology Case: [id number] Authorizing Provider: Vivek Hill MD Collected: 09/10/2020 1055 Ordering Location: [facility] Received: 09/10/2020 1055 Medicine First Screen: Ita Hardy, LUIS Rescreen: Franca Zamora, LUIS Pathologist: Mekhi Moses MD Specimen: ThinPrep Pap Test, Liquid-Based Cervical/Vagina l, CERVICAL/VAGINA L 09/15/2020 2:00 PM EDT [facility] Interpretation ATYPICAL SQUAMOUS CELLS OF UNDETERMINED SIGNIFICANCE (ASCUS)(A) 09/15/2020 2:00 PM EDT [facility] at 1400 EDT Other Findings Hyperkeratosis. 09/15 2:00 PM EDT [facility] Specimen Adequacy Satisfactory for evaluation; endocervical/tr ansformation zone component absent/insuffic ient. Slide imaged and selected 22 wong reviewed then full manual screening. 09/15/2020 2:00 PM EDT [facility] Cervical cytology is a screening [...] results is suggested (please call Microbiology at [phone] for results). 09/15/2020 2:00 PM EDT [facility] Menstrual Status Cyclic 09/16/19 2:00 PM [...] Cancer History No 09/15/2020 2:00 PM EDT [facility] Swab Vaginal and cervical cytologic material / Unknown Non-blood Collection / Unknown 09/10/2020 10:55 AM EDT 09/10/2020 10:55 AM EDT Vivek Hill MD LAB CYTOLOGY ORDERABLES Final Result Performing Organization Address City/State/[facility] Co de Phone Number [facility] [address] [place] [address] from Last 3 Months or Most Recently Relevant to Health Maintenance Insurance [place]ICA[place] MEDICARE Care Teams Motorized Squad Lieutenant Relationship Specialty Start Date End Date Alka Tracy APRN [place] [phone] PCP - General 07/03/20 Daily Christy MD [address] [place] [address] Service Attending Neurology 09/30/20 Malgorzata Moseley PA [address] [place] [address] Physician [employer] Supervisor Neurology 11/18/20 Shy Duque APRN [address] [place] [place] [address] Nurse Practitioner Neurosurgery 11/25/20 Arsalan Thompson MD [address] [place] [address] Surgeon Neurosurgery 07/02/21
--- OUTSIDE RECORDS SUMMARY | 2024-09-19 18:47 | XMS_ITS | Encounter Summary ---
Author Organization [facility] Address [address] [place] [address] Care Team Providers Care Horse Shoer Name Role Phone Alka Tracy MODULAR HOME CREW MEMBER Primary Care Provider [phone] Daliy Christy MD Unavailable [phone] Malgorzata Moseley PA Unavailable [phone] Shy Duque MODULAR HOME CREW MEMBER Unavailable [phone] Arsalan Thompson MD Unavailable + [phone] Encounter Details Date Type Department Care Team (Late st Contact Info) Description 08/19/2024 Orders Only [facility] [address] [place] [id number] Alka Tracy, MODULAR HOME CREW MEMBER [address] [place] [address] Allergic rhinitis, unspecified seasonality, unspecified [...] Score 2 07/10/2024 [facility] Health - Occupational Stress Questionnaire Answer Date [...] any time in the past 12 m onths, were you homeless or living in a fci (including now)? No 07/10/2024 Utilities Answer Date Recorded In the past 12 months has th e [employer], gas, oil, or water [employer] threatened to shut off services in your [...] [facility] [address] [place] [place] [address] Nicolás Hollis MD [address] [place] [address] 12/11/2024 8:40 AM EDT Office Visit [facility] [address] [place] [address] Alka Tracy APRN [address] [place] [address] 12/11/2024 9:00 AM EDT [facility] [address], 1st [place] [address] Malgorzata Moseley PA [address] [place] [address] documented as of this encounter [...] documented as of this encounter Care Teams Horse Shoer Relationship Specialty Start Date End Date Alka Tracy, DEVORAH [address] [place] [address] PCP - General 07/03/20 Daily Christy MD [address] [place] [address] Service Attending Neurology 09/30/20 Malgorzata Moseley PA [address] [place] [address] Physician Blast Furnace Operator Neurology 11/18/20 Shy Duque APRN [address] [place] [address] Nurse Practitioner Neurosurgery 11/25/20 Arsalan Thompson MD [address] [place] [address] Surgeon Neurosurgery 07/02/21 documented as of this encounter
--- OUTSIDE RECORDS SUMMARY | 2024-09-19 18:47 | XMS_ITS | Encounter Summary ---
Author Organization [facility] Address [address] [place] [address] Care Team Providers Care Sweatband Decorating Machine Operator Name Role Phone Alka Tracy CONFERENCE AND EVENT ORGANISER Primary Care Provider [phone] Daily Christy MD Unavailable [phone] Malgorzata Moseley PA Unavailable [phone] Shy Duque CONFERENCE AND EVENT ORGANISER Unavailable [phone] Arsalan Thompson MD Unavailable + [phone] Adela Olivares CABLE TV INSTALLER Unavailable Unavail able Amos Shah Unavailable Unavailable Linda Baker CABLE TV INSTALLER Unavailable Unavailab Francis Morgan Unavailable Unavailable Reason for Visit * Reason Comments Med Refill Encounter Details Date Type Department Care Team (Late st Contact Info) Description 10/22/2020 Refill [facility] [address] [place] [address] Alka Tracy, CONFERENCE AND EVENT ORGANISER [address] [place] [address] Chronic daily headache Social History [...] Visit [facility] [address] [place] [address] Nicolás Hollis MD [address] [place] [address] 12/11/2024 8:40 AM EDT Office Visit [facility] [address] [place] [address] Akla Tracy, DEVORAH [address] [place] [address] 12/11/2024 9:00 AM EDT Procedure [facility] [place] [facility] [address], [address] [place] [address] Malgorzata Moseley PA [address] [place] [address] documented as of this encounter Visit Diagnoses Diagnosis Chronic daily headache Headache documented in this encounter Additional Health Concerns Assessment Noted Time A fall risk assessment has been complete d for the patient 09/30/2020 11:30 AM EDT documented as of this encounter Care Teams Sweatband Decorating Machine Operator Relationship Specialty Start Date End Date [place] [address] PCP - General 07/03/20 Daily Christy MD [address] [place] [address] Service Attending Neurology 09/30/20 Malgorzata Moseley PA [address] [place] [address] Physician Semiconductor Packages Sealer Neurology 11/18/20 Shy Duque APRN [address] [place] [address] Nurse Practitioner Neurosurgery 11/25/20 Arsalan Thompson MD [address] [place] [address] Surgeon Neurosurgery 07/02/21 Adela Olivares LPN VAL[employer] [address] TCM Nurse 02/15/23 02/15/23 Amos Shah Community Health Worker 04/20/23 05/08/23 Linda Baker LPN VALUE-BASED TRANSFORMATION PROGRAM Licensed Practical Nurse 12/27/23 06/24/24 Francis Wallace Community Health Worker 07/10/24 07/17/24 documented as of this encounter
--- OUTSIDE RECORDS SUMMARY | 2024-09-19 18:47 | XMS_ITS | Encounter Summary ---
Author Organization [facility] Address [address] [place] [address] Care Team Providers Care Pelletizer Operator Name Role Phone Alka Tracy TURKEY ROLL MAKER Primary Care Provider [phone] Daily Christy MD Unavailable [phone] Malgorzata Moseley PA Unavailable [phone] Shy Duque TURKEY ROLL MAKER Unavailable [phone] Arsalan Thompson MD Unavailable + [phone] Reason for Visit * Reason Onset Date Comments Med Refill 08/15/2024 Encounter Details Date Type Department Care Team (Late st Contact Info) Description 08/15/2024 Refill [facility] [address] [place] [address] Alka Tracy, TURKEY ROLL MAKER [address] [place] [address] Social History Tobacco Use Types [...] How often do you attend chur or temple services? Never 12/27/2023 Do you belong to [...] Recorded Patient Health Questionnaire-2 Score 2 07/10/2024 [facility] - Occupational Stress Questionnaire [...] time in the past 12 m [facility], were you homeless or living in a detention (including now)? No 07/10/2024 Utilities Answer Date Recorded In the past 12 months has th e [employer], gas, oil, or water [employer] threatened to shut off services in your [...] [facility] [address] [place] [address] Nicolás Hollis MD [address] [place] [address] 12/11/2024 8:40 AM EDT Office Visit [facility] [address] [place] [address] Alka Tracy APRN [address] [place] [address] 12/11/2024 9:00 AM EDT Procedure [facility] [address], 1[address] [place] [address] Malgorzata Moseley PA [address] [place] [address] documented as of this encounter [...] documented as of this encounter Care Teams Pelletizer Operator Relationship Specialty Start Date End Date Alka Tracy, DEVORAH [address] [place] [address] PCP - General 07/03/20 Daily Christy MD [address] [place] [address] Service Attending Neurology 09/30/20 Malgorzata Moseley PA [address] [place] [address] Physician Hand Buffing Wheel Former Neurology 11/18/20 Shy Duque APRN [address] [place] [address] Nurse Practitioner Neurosurgery 11/25/20 Arsalan Thompson MD [address] [place] [address] Surgeon Neurosurgery 07/02/21 documented as of this encounter
--- OUTSIDE RECORDS SUMMARY | 2024-09-19 18:47 | XMS_ITS | Encounter Summary ---
Author Organization [facility] Address [address] [place] [address] Care Team Providers Care Business Machine Mechanic Name Role Phone Alka Tracy AQUEDUCT AND RESERVOIR KEEPER Primary Care Provider [phone] Daily Christy MD Unavailable [phone] Malgorzata Moseley Unavailable [phone] Shy Duque APRN Unavailable [phone] Arsalan Thompson MD Unavailable + [phone] Reason for Visit * Reason Onset Date Comments HCN Clinical Concern/Question 07/31/2024 Pl ease see note... Encounter Details Date Type Department Care Team (Late st Contact Info) Description 07/31/2024 Telephone [facility] [address] [place] [address] Alka Tracy, AQUEDUCT AND RESERVOIR KEEPER [address] [place] [address] HCN Clinical Concern/Question (Please see note...) Social History Tobacco Use Types Packs/Day Years [...] How often do you attend chur or congregational services? Never 12/27/2023 Do you belong to any clubs o r organizations such as alevism groups, unions, fraternal or athletic groups, or [...] Recorded Patient Health Questionnaire-2 Score 2 07/10/2024 [facility] - Occupational [...] in the past 12 m [facility], were you homeless or living [...] * Telephone Encounter - Judith Beauchamp - 07/31/2024 2:42 PM EDT Faxed Rx for cane to [employer] * Telephone Encounter - Ita Jackson - 07/31/2024 10:42 AM EDT Clinical Concern/Question Reason for Call: Stanislav patients case operator with waiver program is calling regarding patient recently having outpatient surgery for torn meniscus and is asking if provider will give an order for patient a cane. Stanislav would like a call back to let her know. Best contact number: Other: [phone] Optimal time of day to reach caller: ANYTIME Additional comments/information from caller: Not Applicable Note: Please do not reply to this message. Follow-up communication and further actions as a result of this message need to be communicated with the patient directly, if the patient is not active onMyChart. If the patient is active on MyChart, they will receive notification of the communication/outcome via [employer]. documented in this encounter Plan of Treatment Upcoming Encounters Date Type Department Care Team (Late st Contact Info) Description 10/04/2024 9:30 AM EDT Procedure Visit [facility] [address] [facility] [place] [address] Nicolás Hollis MD [address] [place] [address] 12/11/2024 8:40 AM EDT Office Visit [facility] [place] [address] Alka Tracy [place] [address] 12/11/2024 9:00 AM EDT Procedure Visit [facility] [address] 1st [place] [address] Malgorzata Moseley PA [address] [place] [address] documented as of this encounter [...] documented as of this encounter Care Teams Business Machine Mechanic Relationship Specialty Start Date End Date Alka Tracy APRN [address] [place] [address] PCP - General 07/03/20 Daily Christy MD [address] [place] [address] Service Attending Neurology 09/30/20 Malgorzata Moseley PA [address] [place] [address] Physician Non Morse Intercept Technician Neurology 11/18/20 Shy Duque APRN [address] [place] [address] Nurse Practitioner Neurosurgery 11/25/20 Arsalan Thompson MD [address] [place] [address] Surgeon Neurosurgery 07/02/21 documented as of this encounter
--- OUTSIDE RECORDS SUMMARY | 2024-09-19 18:47 | XMS_ITS | Encounter Summary ---
Author Organization [facility] Address [address] [place] [address] Care Team Providers Care Homeowner Association Manager Name Role Phone Alka Tracy ARMATURE WINDER HELPER REPAIR Primary Care Provider [phone] Daily Christy MD Unavailable [phone] Malgorzata Moseley PA Unavailable [phone] Shy Duque ARMATURE WINDER HELPER REPAIR Unavailable [phone] Arsalan Thompson MD Unavailable + [phone] Reason for Visit * Reason Onset Date Comments HCN - Patient Message 07/31/2024 Encounter Details Date Type Department Care Team (Late st Contact Info) Description 07/31/2024 Telephone [facility] [address] [place] [address] Alka Tracy, ARMATURE WINDER HELPER REPAIR [address] [place] [address] HCN - Patient Message Social History Tobacco Use Types Packs/Day Years [...] How often do you attend chur or tenriism services? Never 12/27/2023 Do you belong to any clubs o r organizations such as anabaptist groups, unions, fraternal or athletic groups, or [...] Recorded Patient Health Questionnaire-2 Score 2 07/10/2024 [facility] - Occupational Stress Questionnaire [...] the past 12 months has th e [employer], gas, oil, or water [employer] threatened to shut off services in your [...] Telephone Encounter - Judith Beauchamp - 07/31/2024 2:55 PM EDT She would rather not go off of the ozempic. She will go to pharmacy and ask them to help with giving the injection. * Telephone Encounter - Judith Beauchamp - 07/31/2024 12:35 PM EDT Aid is not allowed to give her the injection. Chantal stated with 2 of the injections she left the cap on and the 3 rd injection did not go in. * Telephone Encounter - Judith Beauchamp - 07/31/2024 11:15 AM EDT Patient is having difficulty giving herself the ozempic injection , she has wasted 3 doses , her BSis running in the 200's, this morning BS was 181 * Telephone Encounter - Edilma Singh - 07/31/2024 10:44 AM EDT Patient Phone Message Reason for Call:she is asking for a hussain back regarding her Ozempic. Please call Best contact number and optimal time of day to reach caller:[phone] Note: Please do not reply to this message. Follow-up communication and further actions as a result of this message need to be communicated with the patient directly, if the patient is not active onMyChart. If the patient is active on MyChart, they will receive notification of the communication/outcome via [employer]. documented in this encounter Plan of Treatment Upcoming Encounters Date Type Department Care Team (Late st Contact Info) Description 10/04/2024 9:30 AM EDT Procedure Visit [facility] [address] [place] [address] Nicolás Hollis MD [address] [place] [address] 12/11/2024 8:40 AM EDT Office Visit [facility] [address] [place] [address] Alka Tracy APRN [address] [place] [address] 12/11/2024 9:00 AM EDT Procedure Visit [place] [facility] [address], 1st [place] [address] Malgorzata Moseley PA [address] [place] [address] documented as of this encounter [...] documented as of this encounter Care Teams Homeowner Association Manager Relationship Specialty Start Date End Date Alka Tracy APRN [address] [place] [address] PCP - General 07/03/20 Daily Christy MD [address] [place] [address] Service Attending Neurology 09/30/20 Malgorzata Moseley PA [address] [place] [address] Physician Therapist Radiation Neurology 11/18/20 Shy Duque APRN [address] [place] [address] Nurse Practitioner Neurosurgery 11/25/20 Arsalan Thompson MD [address] [place] [address] Surgeon Neurosurgery 07/02/21 documented as of this encounter
--- OUTSIDE RECORDS SUMMARY | 2024-09-19 18:47 | XMS_ITS | Encounter Summary ---
Author Organization [facility] Address [address] [place] [address] Care Team Providers Care Repairer Hairspring Name Role Phone Alka Tracy FOOD SERVICES DIRECTOR Primary Care Provider [phone] Daily Christy MD Unavailable [phone] Malgorzata Moseley PA Unavailable [phone] Shy Duque FOOD SERVICES DIRECTOR Unavailable [phone] Arsalan Thompson MD Unavailable + [phone] Adela Olivares MIRROR FABRICATION SUPERVISOR Unavailable Unavail able Amos Shah Unavailable Unavailable Linda Baker MIRROR FABRICATION SUPERVISOR Unavailable Unavailab Francis Morgan Unavailable Unavailable Reason for Visit * Reason Comments Med Refill Encounter Details Date Type Department Care Team (Late st Contact Info) Description 10/30/2020 Refill [facility] [address] [place] [address] Alka Tracy, FOOD SERVICES DIRECTOR [address] [place] [address] Chronic daily headache Social History [...] Visit [facility] at [facility] [address] [place] [address] Nicolás Hollis MD [address] [place] [address] 12/11/2024 8:40 AM EDT Office Visit [facility] [address] [place] [address] Alka Tracy, DEVORAH [address] [place] [address] 12/11/2024 9:00 AM EDT Procedure Visit [place] [facility] [address], [address] [place] [address] Malgorzata Moseley PA [address] [facility] [place] [address] documented as of this encounter Visit Diagnoses Diagnosis Chronic daily headache Headache documented in this encounter Additional Health Concerns Assessment Noted Time A fall risk assessment has been complete d for the patient 09/30/2020 11:30 AM EDT documented as of this encounter Care Teams Repairer Hairspring Relationship Specialty Start Date End Date Alka Tracy APRN [address] [place] [address] PCP - General 07/03/20 Daily Christy MD [address] [facility] [address] [place] [address] Service Attending Neurology 09/30/20 Malgorzata Moseley PA [address] [place] [address] Physician Production Gear Cutter Neurology 11/18/20 Shy Duque APRN [address] [address] Nurse Practitioner Neurosurgery 11/25/20 Arsalan Thompson MD [address] [place] [address] Surgeon Neurosurgery 07/02/21 Adela Olivares LPN VALUE-BASED [place] [address] TCM Nurse 02/15/23 02/15/23 Amos Shah Community Health Worker 04/20/23 05/08/23 Linda Baker LPN VALUE-BASED TRANSFORMATION PROGRAM Licensed Practical Nurse 12/27/23 06/24/24 Francis Wallace Community Health Worker 07/10/24 07/17/24 documented as of this encounter
--- NOTE | 2024-09-19 19:02 | HMH.EDGENADL ---
Discharge Plan Disposition Patient Disposition: Home, Self-Care Condition: Good Prescriptions Prescriptions: No Action celecoxib 100 mg capsule 100 mg PO BID Qty: 60 2RF erythromycin with ethanol 2 % gel 1 applic topical BID 14 Days Qty: 60 0RF estradiol [Estrace] 0.01 % (0.1 mg/gram) cream 1 appful vaginal DAILY Qty: 42.5 2RF Rx Instructions: Use finger technique and not the applicator sticks. Apply daily for 14 days and then 3 times a week thereafter long-term. buspirone 10 mg tablet 10 mg PO TID Qty: 90 2RF hydroxyzine pamoate 50 mg capsule See Rx Instructions .ROUTE .COMPLEX PRN (Reason: anxiety) Qty: 120 1RF Rx Instructions: 50mg PO BID PRN; and 2 caps at HS. Not to exceed 4 caps daily. paroxetine HCl 20 mg tablet 20 mg PO DAILY Qty: 30 3RF prazosin 2 mg capsule 2 mg PO HS Qty: 30 3RF mirtazapine 45 mg tablet 45 mg PO HS Qty: 30 3RF oxybutynin chloride 10 mg tablet extended release 24hr 10 mg PO DAILY Qty: 30 1RF levothyroxine 137 mcg tablet 137 mcg PO DAILY Patient Comments: TAKE ONE TABLET BY MOUTH EVERY DAY pantoprazole 40 mg tablet,delayed release (DR/EC) 40 mg PO DAILY Patient Comments: TAKE ONE TABLET BY MOUTH TWICE DAILY mupirocin 2 % ointment 1 applic TOPICAL DAILY Patient Comments: APPLY TOPICALLY TO THE AFFECTED AREA(S) TWICE DAILY FOR FOURTEEN DAYS FOR infection amitriptyline 100 mg tablet 100 mg PO DAILY cyclobenzaprine 5 mg tablet 5 mg PO TID Patient Comments: TAKE ONE TABLET BY MOUTH THREE TIMES DAILY NEEDED FOR MUSCLE SPASMS MAY CAUSE DROWSINESS topiramate 50 mg tablet 50 mg PO DAILY Aimovig Autoinjector 140 mg/mL auto-injector 140 mg SQ WEEKLY diphenhydramine HCl [Benadryl] 25 mg Capsule 25 mg PO DAILY Ozempic 0.25 mg or 0.5 mg (2 mg/3 mL) Pen Injector 0.25 mg SQ WEEKLY Rx Instructions: for 4 weeks baclofen 10 mg tablet 10 mg PO TID Qty: 42 0RF empagliflozin 10 mg tablet 10 mg PO DAILY Qty: 30 2RF Referrals Follow up/Referrals: Alka Tracy [Primary Care Provider, Medical] - See instructions Nova Velazquez DPM [Staff Physician, Podiatry] - See instructions Activity Restrictions/Add. Instructions Additional Instructions/Restrictions: You were evaluated in the emergency department today. At this time, we do not feel that you have a life-threatening emergency requiring inpatient evaluation. Please follow-up closely with podiatry as well as with your primary care provider. Take Tylenol and ibuprofen as needed for pain. Return to the emergency department for new or worsening symptoms. Clinical Impressions Clinical Impression: Chronic toe pain, bilateral Stand Alone Forms Stand Alone Forms: Work/School Release Instructions Patient Instructions: Foot Care: Toenails Print Language Print Language: Kiswahili Discharge ED Provider: Amy Jeter General Adult HPI General Chief complaint: Extremity Injury, Lower Stated complaint: Right big toe turning white,painful Time Seen by Provider: 09/19/24 18:51 Mode of Arrival: Ambulatory Source of Information: Patient Description of Symptoms (Recalled from ER Triage Doc. by RN): Patient states she has been having pain and redness to right great toe since before . Has seen scudding inspector and they told her nothing was wrong. Patient states nail has since turned white and she has become more concerned. History of Present Illness HPI narrative: This patient is a 39-year-old female with history of diabetes, bilateral ingrown toenails of her feet, obesity, TIAGO, hyperlipidemia, and GERD presented to the emergency department for evaluation with concern for bilateral toe pain. Patient states that she is been having issues with her toes since before . She states that has been seen by podiatry multiple times but they are not doing anything about it. She states she has had ingrown toenails removed in the past but nothing seems to make her symptoms better. She states that she cannot stand for blankets to touch either of her toes. She comes in today because she said that her toenail looks white on her right big toe. No new falls or injuries. No other concerns or complaints noted. No fevers, chills, or systemic symptoms noted. Related Data Home Medications ?Medication ?Instructions ?Recorded ?Confirmed amitriptyline 100 mg tablet 100 mg PO DAILY 01/31/24 08/12/24 cyclobenzaprine 5 mg tablet 5 mg PO TID 01/31/24 08/12/24 erenumab-aooe 140 mg/mL 140 mg SQ WEEKLY 01/31/24 08/12/24 subcutaneous auto-injector (Aimovig Autoinjector) levothyroxine 137 mcg tablet 137 mcg PO DAILY 01/31/24 08/12/24 mupirocin 2 % topical ointment 1 applic topical DAILY 01/31/24 08/12/24 pantoprazole 40 mg tablet,delayed 40 mg PO DAILY 01/31/24 08/12/24 release topiramate 50 mg tablet 50 mg PO DAILY 01/31/24 08/12/24 diphenhydramine HCl 25 mg capsule 25 mg PO DAILY 07/12/24 08/12/24 (Benadryl) semaglutide 0.25 mg or 0.5 mg (2 0.25 mg SQ WEEKLY 07/12/24 08/12/24 mg/3 mL) subcutaneous pen injector (OzempCyberDefender) Previous Rx's ?Medication ?Instructions ?Recorded erythromycin with ethanol 2 % 1 applic topical BID 14 days #60 02/22/24 topical gel grams baclofen 10 mg tablet 10 mg PO TID #42 tabs 02/29/24 estradiol 0.01% (0.1 mg/gram) 1 appful vaginal DAILY #42.5 grams 04/15/24 vaginal cream (Estrace) empagliflozin 10 mg tablet 10 mg PO DAILY #30 tabs 05/30/24 buspirone 10 mg tablet 10 mg PO TID #90 tabs 07/03/24 hydroxyzine pamoate 50 mg capsule See Rx Instructions .Route 07/03/24 .COMPLEX PRN anxiety #120 caps mirtazapine 45 mg tablet 45 mg PO HS #30 tabs 07/03/24 paroxetine HCl 20 mg tablet 20 mg PO DAILY #30 tabs 07/03/24 prazosin 2 mg capsule 2 mg PO HS #30 caps 07/03/24 celecoxib 100 mg capsule 100 mg PO BID #60 caps 08/12/24 oxybutynin chloride 10 mg 10 mg PO DAILY #30 tabs 09/03/24 tablet,extended release 24 hr Allergies Allergy/AdvReac Type Severity Reaction Status Date / Time tirzepatide (From Yevgeniy) Allergy Rash Verified 09/19/24 18:51 PFSH PFS Disclaimer: The information contained in this section may have been updated after the patient was seen, as this information can be updated by other users. Medical History Diabetes Frequent urination Breakthrough bleeding on depo provera Abnormal uterine bleeding Borderline personality disorder Severe obesity (BMI >= 40) TAIGO on CPAP Insomnia Generalized anxiety disorder Bipolar II disorder Ulcer Migraine GERD (gastroesophageal reflux disease) Depression Anxiety Surgical History H/O knee surgery History of fusion of cervical spine Hx of cholecystectomy History of bilateral carpal tunnel release Family History Other Family history unknown Social History Smoking Status: Never smoker alcohol intake: never substance use type: denies use current occupational status: disabled Travel in the last 8 weeks?: None household members: none housing: apartment number of children: 0 caffeine: No Have you lived/traveled outside [place] in past 30 days?: No Contact w/someone who lives/traveled outside [place] past 30 days?: No Exposure to someone with infectious disease in past 14 days?: No Do you have a fever (greater than 100.4 F or 38 C)?: No Have you tested positive for COVID-19?: No Exposed to someone with COVID-19 in past 14 days?: No Do you have a sore throat?: No Do you have a cough?: No Do you have any weakness?: No Do you have any diarrhea?: No Are you experiencing any unusual bleeding?: No Do you have any muscle aches/pain?: No Do you have any abdominal pain?: No Are you experiencing loss of taste or smell?: No Other Medical History Have you received the Flu Vaccine for this season: No Have you received the Pneumonia Vaccine: No ROS Obtained: Yes All systems reviewed & no additional complaints except as documented Physical Exam General General appearance: alert and in no apparent distress Head Head exam: atraumatic and normocephalic Eye Eye exam: Present normal appearance, PERRL and EOMI ENT ENT exam: Present normal exam, normal oropharynx, mucous membranes moist and normal external ear exam Neck Neck exam: Present normal inspection, full ROM and trachea midline; Absent tenderness Chest Chest inspection: Present normal inspection and symmetric chest wall rise; Absent tenderness Respiratory Respiratory exam: Present normal lung sounds bilaterally; Absent respiratory distress, wheezes, stridor or accessory muscle use Cardiovascular Cardiovascular exam: Present regular rate and normal rhythm Abdominal Exam Abdominal exam: Present soft; Absent distention, tenderness or guarding Extremities Exam Extremities exam: Present full ROM, tenderness (Tenderness to palpation of the bilateral great toes with no redness, swelling, purulence, or significant skin changes.), normal capillary refill and other (Her right great toenail does have a yellowish/whitish discoloration but this is isolated to the toenail. Toes are warm and well-perfused with normal capillary refill.); Absent edema Back Exam Back exam: Present normal inspection and full ROM; Absent tenderness Neurological Exam Neurological exam: Present alert, oriented X3, CN II-XII intact and normal gait; Absent motor sensory deficit Psychiatric Psychiatric exam: Present normal affect and normal mood Skin Skin exam: Present warm and dry Medical Decision Making Medical Records Medical records reviewed: Yes I reviewed the patient's medical records. Screening: Per USPSTF and CDC recommendations, given the prevalence of disease in our region, it is our hospital?s policy to screen for HIV and viral Hepatitis for all patients aged 18 and over and those with ongoing risk factors. [place] Inquiry Pt receiving controlled substance: No Vital Signs: 09/19/24 18:47 09/19/24 19:29 Temperature 98.8 F 98.2 F Temperature Source Oral Pulse Rate 92 H Pulse Rate [Left Brachial] 102 H Respiratory Rate 17 22 Blood Pressure 135/77 Blood Pressure [Left Arm] 140/73 Blood Pressure Mean [Left Arm] 95 Blood Pressure Source [Left Arm] Automatic Cuff Blood Pressure Position [Left Arm] Sitting 02 Sat by Pulse Oximetry 100 Oxygen Delivery Method Room Air Room Air Lab Data Lab results reviewed: Yes I reviewed the patient's lab results. Medical Decision Narrative: In summary, this patient is a 39-year-old female presenting to the Emergency Department for evaluation of bilateral great toe pain since before . She came in today because her right great toenail now has a whitish-yellowish discoloration. Differential diagnoses considered include but are not limited to ingrown toenail, onychomycosis, peripheral neuropathy, gout. Ruling out the most morbid conditions drove assessment. It should be noted patient's history includes obesity, diabetes, hyperlipidemia which may or may not be at goal therapy. This complicates all aspects of care by increasing patient's risk for morbidity. Patient presents with concern for chronic bilateral toe pain this been going on since . She also has discoloration of her toenail, but her toe itself is pink, warm, well-perfused. I reviewed patient's past medical records and noted prior evaluations by podiatry in the past with her most recent evaluation being back in May. Ultimately, the patient has chronic bilateral toe pain with no concerns for infection noted on exam. She is warm and well-perfused. I feel the patient is appropriate for discharge home with PCP follow-up and podiatry follow-up. She expressed understanding and agreement. She was discharged after all questions were answered Critical Care Critical Care Time Critical Care Time: No
[2024-09-19 19:29] VITALS: BP 135/77; PULSE 92; RESP 22; TEMP 36.8; O2SAT 95
== END 2024-09-19 19:37 | disposition home or self-care (01) ==
PROVIDERS: Emergency Provider Emergency Medicine; PCP Nurse Practitioner Family
DX: M79.674 Pain in right toe(s) (principal); M79.675 Pain in left toe(s); E11.9 Type 2 diabetes mellitus without complications; E78.5 Hyperlipidemia, unspecified
CPT/HCPCS: 99282

== ENCOUNTER 2024-10-09 21:23 | Emergency (ER) | payer MEDICARE, MEDICAID, SELFPAY ==
--- OUTSIDE RECORDS SUMMARY | 2024-08-28 11:00 | XMS_ITS | Encounter Summary ---
Author Organization [facility] Address [address] [place] [address] Care Team Providers Care Apprentice Photographer Name Role Phone Alka Tracy APRN Primary Care Provider [phone] Daily Christy MD Unavailable [phone] Malgorzata Moseley Unavailable [phone] Shy Duque APRN Unavailable [phone] Arsalan Thompson MD Unavailable + [phone] Reason for Referral * Other Medical (Routine) - Pending Review Specialty Diagnoses / Procedures Referred By Nabil toussaint Referred To Contact Diagnoses Myofascial pain Procedures Inject Trigger Points, >3 Malgorzata Moseley PA [address] [address] Phone: tel: fax: Referral ID Status Reason Start Date Expiration Date V isits Requested Visits Authorized [id number] Pending Review 08/28/2024 02/27/2026 1 1 Reason for Visit * Other Medical (Routine) - Closed Specialty Diagnoses / Procedures Referred By Nabil toussaint Referred To Contact Neurology Diagnoses Myofascial pain Procedures Inject Trigger Points, >3 Malgorzata Moseley PA [address] [address] Phone: tel: fax: Referral ID Status Reason Start Date Expiration Date Visits Re quested Visits Authorized [id number] Closed 05/22/2024 11/21/2025 1 1 Encounter Details Date Type Department Care Team (Latest Contact Info) Description 08/28/2024 11:00 AM EDT Procedure Visit [place] [facility] [address] [place] [address] Malgorzata Moseley PA [address] [place] [address] Myofascial pain (Primary Dx) Social [...] How often do you attend chur or christianity services? Never 12/27/2023 Do you [...] Recorded Patient Health Questionnaire-2 Score 2 07/10/2024 [facility] - Occupational [...] any time in the past 12 m [facility], were you homeless or living in [...] Care Team (Late st Contact Info) Description 10/10/2024 10:20 AM EDT Office Visit [facility] [address] [place] [id number] Alka Tracy, BOLTING MACHINE OPERATOR [address] [place] [address] 12/11/2024 8:40 AM EDT Office Visit [facility] [address] [place] [address] Alka Tracy, BOLTING MACHINE OPERATOR [address] [place] [address] 12/11/2024 9:00 AM EDT Procedure Visit [place] [facility] [address] [place] [address] Malgorzata Moseley PA [address] [place] [address] 12/13/2024 11:00 AM EDT Procedure Visit [facility] [address] [address] Nicolás Hollis MD [address] [place] [address] Scheduled Orders Name Type Priority [...] documented as of this encounter Care Teams Apprentice Photographer Relationship Specialty Start Date End Date Alka Tracy APRN [address] [place] [address] PCP - General 07/03/20 Daily Christy MD [address] [place] [address] Service Attending Neurology 09/30/20 Malgorzata Moseley PA [address] [place] [address] Physician Milk Drier Neurology 11/18/20 Shy Duque APRN [address] [place] [address] Nurse Practitioner Neurosurgery 11/25/20 Arsalan Thompson MD [address] [place] [address] Surgeon Neurosurgery 07/02/21 documented as of this encounter
--- OUTSIDE RECORDS SUMMARY | 2024-09-09 08:20 | XMS_ITS | Encounter Summary ---
Author Organization [facility] Address [address] [place] [address] Care Team Providers Care Lead Portfolio Manager Name Role Phone Alka Tracy ASSISTANT PROFESSOR SURGICAL TECHNOLOGY Primary Care Provider [phone] Daily Christy MD Unavailable [phone] Malgorzata Moseley PA Unavailable [phone] Shy Duque ASSISTANT PROFESSOR SURGICAL TECHNOLOGY Unavailable [phone] Arsalan Thompson MD Unavailable + [phone] Reason for Visit * Reason Comments Diabetes Encounter Details Date Type Department Care Team (Late st Contact Info) Description 09/09/2024 8:20 AM EDT Office Visit [facility] [address] [place] [address] Alka Tracy, ASSISTANT PROFESSOR SURGICAL TECHNOLOGY [address] [place] [address] Type 2 diabetes mellitus with hyperglycemia, without long-term current use of insulin ([facility]) (Primary Dx); Encounter for female control; Chronic constipation Social History Tobacco Use Types Packs/Day Years Used Date Smoking Tobacco: Never Passive Smoke Exposure: Never Smokeless Tobacco: Never Alcohol Use Standard Drinks/Week Comments Not Currently 1 (1 standard drink = 0.6 oz pur e alcohol) Social Connection and Isolation Panel Answer Date Recorded In a typical week, how many times do you talk on the phone with family, friends, or neighbors? Never 12/27/2023 How often do you get togethe r with friends or relatives? Twice a week 12/27/2023 How often do you attend chur ch or alevism services? Never 12/27/2023 Do you belong to any clubs o r organizations such as shinto groups, unions, fraternal or athletic groups, or [...] Date Recorded Patient Health Questionnaire-2 Score 2 09/09/2024 [facility] Occupat ional Health - Occupational Stress [...] exercise at this level? 0 min 12/27/2023 Housing Stability Vital Sign Answer Emile e [...] Date Recorded Patient Health Questionnaire-9 Score 8 09/09/2024 Housing Stability Vital Sign Answer Emile e Recorded In the last 12 months, was t here a time when you were not able to pay the mortgage or rent on time? No 07/10/2024 In the past 12 months, how m any times have you moved where you were living? 0 07/10/2024 At [facility] time in the [facility] were you homeless or living in a correction (including now)? No 07/10/2024 Humiliation, Afraid, Rape, and Kick questionnair e Answer Date Recorded Within the last year, have y ou been afraid of your partner or ex-partner? No 09/09/2024 Within the last year, have y ou been humiliated or emotionally abused in other ways by your partner or ex-partner? No Within the last year, have y ou been kicked, hit, slapped, or otherwise physically hurt by your partner or ex-partner? No 09/09/2024 Within the last year, have y ou been raped or forced to have any kind of sexual activity by your partner or ex-partner? No 09/09/2024 AUDIT-C Answer Date Recorded Q1: How often do you have a drink containing alcohol? Never 09/09/2024 Q2: How many drinks containi ng alcohol do you have on a typical day when you are drinking? Patient does not drink Q3: How often do you have si x or more drinks on one occasion? Never 09/09/2024 Hunger Vital Sign Answer Date Recorded Within the past 12 months, y ou worried that your food would run out before you got the money to buy more. Often true 09/10/19 Within the past 12 months, t he food you bought just didn't last and you didn't have money to get more. Often true 09/09/2024 PRAPARE - Transportation Answer Date Re corded In the past 12 months, has l ack of transportation kept you from medical appointments or from getting medications? No 08/21 In the past 12 months, has l ack of transportation kept you from meetings, work, or from getting things needed for daily living? No 09/09/2024 Housing Stability Vital Sign Answer Emile e Recorded In the last 12 months, was t here a time when you were not able to pay the mortgage or rent on time? No 09/09/2024 In the past 12 months, how m any times have you moved where you were living? 0 09/09/2024 At any time in the past 12 m [facility], were you homeless or living in a correction (including now)? No 09/09/2024 Utilities Answer Date Recorded In the past 12 months has [employer], gas, oil, or water [employer] threatened to shut off services in your home? No 09/09/2024 PHQ-2A Answer Date Recorded Patient Health Questionnaire-2 Score 2 11/29/2022 Comments No Sex and Gender Information Value Date Recorded Sex Assigned at Not on file Legal Sex Female 6:31 PM EDT Gender Identity Not on file Sexual Orientation Not on file documented as of this encounter Last Filed Vital Signs Vital Sign Reading Time Taken Comments Blood Pressure 130/80 09/09/2024 7:57 AM EDT Pulse 87 09/09/2024 7:57 AM EDT Temperature 36.4 C (97.6 F) 09/09/2024 7:57 AM EDT Respiratory Rate 16 09/09/2024 7:57 AM EDT Oxygen Saturation 95% 09/09/2024 7:57 AM EDT Inhaled Oxygen Concentration - - Weight 132 kg (292 lb) 09/09/2024 7:57 AM EDT Height 157.5 cm (5' 2 ) 09/09/2024 7:57 AM EDT Body Mass Index 53.41 09/09/2024 7:57 AM EDT documented in this encounter Functional Status * AUDIT-C Score Answer Date of Assessment Author 0 09/09/2024 8:02 AM EDT Judith Beauchamp * Question Answer Date of Assessment Author Q1: How often do you have a drink containing alcohol? Never 09/09/2024 8:02 AM EDT Judith Beauchamp Q2: How many drinks containing alcohol do you have on a typical day when you are drinking? Patient does not drink 09/09/2024 8:02 AM TRACIT Judith Beauchamp Q3: How often do you have six or more drinks on one occasion? Never 09/09/2024 8:02 AM TRACIT Judith Beauchamp * Over the past 2 weeks, how often have you been bothered by any of the following problems? Question Answer Date of Assessment Author Little interest or pleasure in doing things Several days 09/09/2024 8:02 AM Judith Padgett Feeling down, depressed, or hopeless Several days 09/09/2024 8:02 AM Judith Padgett Patient Health Questionnaire -2 Score 2 09/09/2024 8:02 AM Judith Padgett * Question Answer Date of Assessment Author Trouble falling or staying asleep, or sleeping too much Nearly every day 09/09/2024 8:02 AM Judith Padgett Feeling tired or having little energy Nearly every day 09/09/2024 8:02 AM Judith Padgett Poor appetite or overeating Not at all 09/09/2024 8: 02 AM Judith Padgett Feeling bad about yourself - or that you are a failure or have let yourself or your family down Not at all 09/09/2024 8:02 AM Judith Padgett Trouble concentrating on things, such as reading the newspaper or watching television Not at all 09/09/2024 8:02 AM Judith Padgett Moving or speaking so slowly that other people could have noticed? Or the opposite - being so fidgety or restless that you have been moving around a lot more than usual. Not at all 09/09/2024 8:02 AM Judith Santiago Thoughts that you would be better off or hurting yourself in some way Not at all 09/09/2024 8:02 AM Judith Padgett Patient Health Questionnaire-9 Score 8 09/09/2024 8:02 AM Judith Padgett * Calculated C-SSRS Risk Score (Lifetime/Recent) Answer Date of Assessment Author No Risk Indicated 09/09/2024 8:05 AM Judith Santiago * If you checked off any problems on this questionnaire so far, Question Answer Date of Assessment Author How difficult have these problems made it for you to do your work, take care of things at home, or get along with other people? Somewhat difficult 09/09/2024 8:02 AM Israel Padgett * How difficult have these problems made it for you to do your work, take care of things at home, or get along with other people? Answer Date of Assessment Author Somewhat difficult 09/09/2024 8:02 AM EDT Judith Lopez * Question Answer Date of Assessment Author 1. Wish to be (Past 1 Month) No 025 8:05 AM EDT Judith Beauchamp 2. Non-Specific Active Suici tae Thoughts (Past 1 Month) No 09/09/2024 8:05 AM EDT Judith Beauchamp 6. Suicidal Behavior (Lifetime) No 8:05 AM EDT Judith Beauchamp documented as of this encounter Miscellaneous Notes * Clinician Note - Charmaine Monique RN - 09/09/2024 8:20 AM EDT Pre-Visit Review Note The following information was reviewed with patient via phone prior to appointment with Alka Tracy APRN on 09/09/24. Allergies Reviewed and up-to-date Immunizations Pended immunizations discussed with patient: N/A Additional immunizations discussed with patient: Prevnar -eligible due to DM- wished to further discuss Tdap - eligible due to last vaccine 2013- wished to further discuss Covid Hep B on care gap - please review - received Twinrix x2 doses Varicella - on care gap - unable to recall if had chicken pox as a child Medications Medications requiring provider review: Buspirone - taking differently - twice a day Trazodone - pt reported med - not taking - pt wanted to discuss Syringe [place]- not taking due to obtaining in clinic Sertraline - pt reported med - not taking - pt wanted to discuss Meloxicam- pt reported med - removed Miconazole - not taking Lancets and Test strips - taking as needed when feels high or low Diclofenac - taking twice a day Pended medications needing to be refilled: N/A Additional notes: Semaglutide - did not pend due to possible dose change - Pt would like refill for this med to go to[facility] Levothyroxine due to refill in October Did not pend lancets or test strips due to using differently Paroxetine due for in October Clinical Intervention: Gap statin therapy, Immunization recommendations, Lab work needed (A1c, lipids, etc), and Medication Adherence Immunizations: wished to discuss Prevnar and Tdap with provider. Please review hep B and Varicella on care gap . AHA and 2022 ADA guidelines recommend statin therapy in all patients with diabetes between the agesof 40 and 75, regardless of LDL level to prevent the development of CVD. Last A1C 9.4 on 06/20/24, Last Lipid appears to have been collected 06/08/2017 LDL was 87. Pt wished to discuss Statin with provider. Please collect updated lipid panel if decision is made to start statin. Updated Lipid panel Adherence- checking glucose PRN [facility]acy[facility] [place] - Would like Semaglutide to go to [facility] Additional Notes: Reported that she has been coughing / choking often. Feels like she is having a lot of fluid, feel like throwing up . Sick to stomach on side Wants to have renal function test at time of clinic visit Patient verbalized understanding of Pre-Visit Review. Patient to follow up with provider at upcoming clinic visit. Charmaine Monique RN, Pharmacy Patient Support Services * Clinician Note - Charmaine Monique RN - 09/09/2024 8:20 AM EDT Patient eligible for statin therapy per 2019 ACC/AHA guidelines. Patient source: PVR Statin Benefit Group: Age 40-75 with diagnosis of diabetes, regardless of LDL and estimated 10-yearASCVD risk score Most recent LDL: 87 mg/dL on [place] statin therapy: Moderate intensity Previous statin(s) patient has tried and adverse events: N/A Recommended interventions:Obtain updated lipid panel and further evaluation and Additional education surrounding benefit of statin therapy Additional info: Would like to further discuss at time of clinic visit Charmaine Monique RN * Clinician Note - Judith Beauchamp - 09/09/2024 8:20 AM EDT Fall risk protocol in place, pt in chair with arms * Progress Notes - Polina Lentz, PharmD - 09/09/2024 8:20 AM EDT See Pre-Visit Review completed on 09/05/2024. Notes linked to encounter for upcoming appointment on 09/09/2024. Patient indicated for moderate-intensity statin due to age 40-75 with T1DM or T2DM. Recommended discussion/education on benefit of statin therapy. Last lipid panel from 06/08/2017. Order for lipid panel has been pended due to most recent lipid panel being >6 months ago. Polina Torres, PharmD, BCACP [facility] & [address] [address] * Progress Notes - Alka Tracy, DEVORAH - 09/09/2024 8:20 AM EDT Subjective Chantal Bell Pt is here for labs and is concerned her daibtes is not under control Has not been checking but is fatigued and urinating often She was also told he needed her kidney function checked and needed to start statin She is concerned also with her chronic constipation the miralax works bets but can't afford OTC so will try to order for her Discussed has new aid and needs to work on diet Ms. Bell presents for follow up on her diabetes Past Medical History[1] Family History[2] Surgical History[3] Social History Socioeconomic History Marital status: [...] on file Food Insecurity: Food Insecurity Present (09/09/2024) Hunger Vital Sign Worried About Running Out of Food in the Last Year: Often true Ran Out of Food in the Last Year: Often true Transportation Needs: No Transportation Needs (09/09/2024) PRAPARE - Transportation Lack of Transportation (Medical): No Lack of Transportation (Non-Medical): No Physical Activity: Inactive (12/27/2023) Exercise Vital Sign Days of Exercise per Week: 0 days Minutes of Exercise per Session: 0 min Stress: Stress Concern Present (12/27/2023) [facility]ational [facility] - Occupational Stress Questionnaire Feeling of Stress : Very much Social Connections: Socially Isolated (12/27/2023) Social Connection and Isolation Panel Frequency of Communication with Friends and Family: Never Frequency of Social Gatherings with Friends and Family: Twice a week Attends Pentec[employer]al Services: Never Active Member of Clubs or Organizations: No Attends Club or Organization Meetings: More than 4 times per year Marital Status: Never Intimate Partner Violence: Not At Risk (09/09/2024) Humiliation, Afraid, Rape, and Kick questionnaire Fear of Current or Ex-Partner: No Emotionally Abused: No Physically Abused: No Sexually Abused: No Housing Stability: Low Risk (09/09/2024) Housing Stability Vital Sign Unable to Pay for Housing in the Last Year: No Number of Times Moved in the Last Year: 0 Homeless in the Last Year: No Medications Ordered Prior to Encounter[4] Allergies[5] Health Maintenance Due Topic Date Due [facility]-HIV Screening Never done [facility]-Hepatitis C Screening Never done Diabetes: Dental Exam Never done [facility]-Varicella Vaccines (1 of 2 - 13+ 2-dose series) Never done HPV Vaccines (1 - 3-dose series) Never done [facility]-Pneumococcal Vaccine: Pediatrics (0 to 5 Years) and At-Risk Patients (6 to 49 Years) (1 of 2 - PCV) Never done [facility]-Hepatitis B Vaccines (3 of 3 - Hep B Twinrix 3-dose series) 02/16/2014 [id number] Vaccine (2 - Efren risk series) 07/22/2020 [facility]-DTaP,Tdap,and Td Vaccines (2 - Td or Tdap) 08/27/2023 [facility]-Influenza Vaccine (1) 10/21/2024 All medications have been reviewed today. The following portions of the patient's chart were reviewed in this encounter and updated as appropriate: past medical history, surgical history, family history, tobacco history, allergies, and medications Over the last 2 weeks, how often have you been bothered by any of the following problems? Little interest or pleasure in doing things: Several days Feeling down, depressed, or hopeless: Several days Trouble falling or staying asleep, or sleeping too much: Nearly every day Feeling tired or having little energy: Nearly every day Poor appetite or overeating: Not at all Feeling bad about yourself - or that you are a failure or have let yourself or your family down: Not at all Trouble concentrating on things, such as reading the newspaper or watching television: Not at all Moving or speaking so slowly that other people could have noticed? Or the opposite - being so fidgety or restless that you have been moving around a lot more than usual.: Not at all Thoughts that you would be better off or hurting yourself in some way: Not at all Patient Health Questionnaire-9 Score: 8 Review of Systems Constitutional: Positive for fatigue. Respiratory: Negative. Cardiovascular: Negative. Endocrine: Positive for polyuria. Neurological: Negative. Psychiatric/Behavioral: Negative. Objective Vitals: 09/09/24 0757 BP: 130/80 Pulse: 87 Resp: 16 Temp: 36.4 ??C (97.6 ??F) SpO2: 95% Physical Exam Vitals and nursing note reviewed. [...] Thought content normal. Judgment: Judgment normal. Assessment/Plan Problem List Items Addressed This Visit None Visit Diagnoses Type 2 diabetes mellitus with hyperglycemia, without long-term current use of insulin ([facility]) - Primary Relevant Medications atorvastatin (Lipitor) 20 MG tablet Other Relevant Orders Comprehensive Metabolic Panel, Plasma Hemoglobin A1c Lipid Profile, Plasma Encounter for female control Relevant Medications medroxyPROGESTERone (Depo-Provera) injection 150 mg (Completed) (Start on 09/09/2024 9:15 AM) Chronic constipation Relevant Medications polyethylene glycol (Miralax) 17 g packet Will check labs and increase semiglutide but may need more meds for diabetes Alka Tracy APRN [1] Past Medical History: Diagnosis Date Anxiety Arthritis Clotting disorder ([facility]) CTS (carpal tunnel syndrome) Depression Diabetes mellitus ([facility]) Difficulty walking Dysphagia GERD (gastroesophageal reflux disease) Headache 1998 HL (hearing loss) Hypothyroidism Irritable bowel syndrome without diarrhea Legal blindness, as defined in [place] Low back pain Migraine Neck pain Obesity Restless leg syndrome Sleep apnea Sleep terrors (night terrors) [2] Family History Problem Relation Name Age of Onset Conversions - Other Other Family history unknown [3] Past Surgical History: Procedure Laterality Date ANTERIOR CERVICAL DISCECTOMY W/ FUSION 05/26/[address] C5-[address] Doll CARPAL TUNNEL RELEASE CHOLECYSTECTOMY GALLBLADDER SURGERY KNEE ARTHROPLASTY Left 07/29/2024 KNEE SURGERY Left 09/08/2022 [4] Current Outpatient Medications on File Prior to Visit Medication Sig Dispense Refill amitriptyline (Elavil) 100 MG tablet Take 1.5 tablets (150 mg) by mouth nightly. 45 tablet 11 celecoxib (CeleBREX) 100 MG capsule Take 1 capsule by mouth 2 times a day. dicyclomine (Bentyl) 20 MG tablet Take 1 tablet (20 mg) by mouth 2 (two) times a day. 180 tablet 3 diphenhydrAMINE (Benadryl) 25 MG capsule TAKE ONE CAPSULE BY MOUTH EVERY 8 HOURS NEEDED FOR allergies 90 capsule 0 empagliflozin (Jardiance) 25 MG Take 1 tablet by mouth daily. 30 tablet 11 Erenumab-aooe (Aimovig) 140 MG/ML solution auto-injector Inject 140 mg under the skin every 30 days. 1 mL 11 fluticasone (Flonase) 50 MCG/ACT nasal spray Administer 1 spray into each nostril daily. Shake gently. Before first use, prime pump. After use, clean tip and replace cap. 32 g 3 hydrOXYzine pamoate (Vistaril) 50 MG capsule Take 2 capsules (100 mg) by mouth nightly. Take 2 tabsnightly and then TID PRN levothyroxine (Synthroid, Levoxyl) 137 MCG tablet Take 1 tablet (137 mcg) by mouth daily. 90 tablet1 medroxyPROGESTERone (Depo-Provera) 150 MG/ML injection Use every 12 weeks 1 mL 3 mirtazapine (Remeron) 45 MG tablet Take 1 tablet (45 mg) by mouth nightly. nystatin (Mycostatin) cream APPLY TOPICALLY TO THE AFFECTED AREA(S) TWICE DAILY -- FOR EXTERNAL USEONLY-- 30 g 1 ondansetron (Zofran) 4 MG tablet Take 1 tablet by mouth every 8 hours as needed for nausea or vomiting. 20 tablet [...] each day in the evening.90 tablet 3 topiramate (Topamax) 100 MG tablet Take [...] (2) times a day 180 tablet 3 ubrogepant (Ubrelvy) 100 MG tablet Take 1 tablet (100 mg) by mouth 1 (one) time as needed for migraine for up to 1 dose. After 2 hours, a second dose may be taken if needed. Maximum dose: 200 mg in 24-hour period. 10 each 3 busPIRone (Buspar) 10 MG tablet Take 1 tablet (10 mg) by mouth 3 (three) times a day. (Patient taking differently: Take 1 tablet by mouth 2 times a day.) 270 tablet 3 diclofenac (Voltaren) 75 MG EC tablet Take 1 tablet (75 mg) by mouth 2 (two) times a day. Do not crush, chew, or split. (Patient not taking: Reported on 09/05/2024) 60 tablet 0 glucose blood test strip 1 each by Other route 1 (one) time each day. (Patient taking differently: as needed. 1 each by Other route 1 (one) time each day.) 100 strip 0 Lancets misc Test Blood sugar once daily (Patient taking differently: as needed. Test Blood sugar once daily) 100 each 0 miconazole (Micotin) 2 % powder Apply bid (Patient not taking: Reported on 09/05/2024) 71 g 1 oxybutynin XL (Ditropan-XL) 10 MG 24 hr tablet Take 1 tablet by mouth daily. Semaglutide,0.25 or 0.5MG/DOS, (Ozempic, 0.25 or 0.5 MG/DOSE,) 2 MG/3ML solution pen-injector Inject 0.25 mg under the skin 1 time per week. 3 mL 1 sertraline (Zoloft) 100 MG tablet (Patient not taking: Reported on 09/05/2024) Syringe/Needle, Disp, (B-D 3CC LUER-ASIM SYR 25GX1 ) 25G X 1 3 ML misc USE DIRECTED FOR depo shot (Patient not taking: Reported on 09/05/2024) 4 each 3 traZODone (Desyrel) 100 MG tablet Take 1 tablet (100 mg) by mouth. TAKE 2 TABLETS AT BEDTIME. (Patient not taking: Reported on 09/05/2024) [DISCONTINUED] diphenhydrAMINE (Benadryl) 25 MG capsule TAKE ONE CAPSULE BY MOUTH EVERY 8 HOURS NEEDED FOR allergies 30 capsule 2 [DISCONTINUED] meloxicam (Mobic) 7.5 MG tablet Take 1 tablet (7.5 mg) by mouth daily. (Patient not taking: Reported on 09/05/2024) No current facility-administered medications on file prior to visit. [5] Allergies Allergen Reactions Mounjaro [Tirzepatide] Diarrhea and Rash documented in this encounter Plan of Treatment Upcoming Encounters Date Type Department Care Team (Late st Contact Info) Description 10/10/2024 10:20 AM EDT Office Visit [facility] [address] [phone] Alka Tracy APRN [address] [place] [phone] 12/11/2024 8:40 AM EDT Office Visit [facility] [address] [place] [address] Alka Tracy, ASSISTANT PROFESSOR SURGICAL TECHNOLOGY [address] [address] 12/11/2024 9:00 AM EDT Procedure Visit [facility] [address] [place] [address] Malgorzata Moseley PA [address] [place] [address] 12/13/2024 11:00 AM EDT Procedure Visit [facility] [address] [place] [address] Nicolás Hollis MD [address] [place] [address] documented as of this encounter Procedures Procedure Name Priority Date/Time Associated Diagnosis Comments HEMOGLOBIN A1C Routine 09/09/2024 8:31 AM EDT Type 2 diabetes mellitus with hyperglycemia, without long-term current use of insulin ([facility]) LIPID PROFILE, PLASMA Routine 09/09/2024 8:31 AM EDT Type 2 diabetes mellitus with hyperglycemia, without long-term current use of insulin ([facility]) COMPREHENSIVE METABOLIC PANEL, PLASMA Routine 09/09/2024 8:31 AM EDT Type 2 diabetes mellitus with hyperglycemia, without long-term current use of insulin ([facility]) documented in this encounter Results * (ABNORMAL) Lipid Profile, Plasma (09/09/2024 8:31 AM EDT) Cholesterol, Plasma 208(H) <200 mg/dL 09/09/2024 2:21 PM EDT [facility] Comment: Cholesterol Reference Range (age >17 years): Desirable <200 mg/dL Borderline 200 to 239 mg/dL Undesirable >239 mg/dL HDL 42(L) >=50 mg/dL 09/09/2024 2:21 PM EDT [facility] Comment: HDL Cholesterol Reference Ranges (age >17 years): Female, acceptable > or = 50 mg/dL Male, acceptable > or = 40 mg/dL Triglycerides, Plasma 171(H) <150 mg/dL 09/09/2024 2:21 PM EDT [facility] Comment: Triglyceride Reference Range (age >17 years): Desirable: <150 mg/dL Borderline high: 150 to 199 mg/dL High: 200 to 499 mg/dL Very high: >499 mg/dL Increased risk of pancreatitis: >1000 mg/dL Cholesterol/HDL Ratio 5 09/09/2024 2:21 PM EDT [facility] LDL, Calculated 135(H) <100 mg/dL 2:21 PM EDT [facility] Comment: LDL Cholesterol Reference Range (age >17 years): Optimal: <100 mg/dL Near or above optimal: 100 - 129 mg/dL Borderline high: 130 - 159 mg/dL High: 160 - 189 mg/dL Very high: >189 mg/dL LDL Cholesterol Reference Range (age <18 years): Desirable: <110 mg/dL Borderline: 110 - 129 mg/dL Undesirable: >130 mg/dL LDL Cholesterol is calculated using the Pierre/NIH equation. Fasting greater than or equal to 12 hours? Yes 09/09/2024 2:21 PM EDT [facility] Blood Venous blood specimen / Unknown Venipuncture / Unknown 09/09/2024 8:31 AM EDT 09/09/2024 8:31 AM EDT us Alka Tracy APRN LAB BLOOD ORDERABLES Final Result [facility] [address] [place] [address] * (ABNORMAL) Hemoglobin A1c (09/09/2024 8:31 AM EDT) Hemoglobin A1c 8.6(H) <5.7 % 09/09/2024 1:58 PM EDT [facility] Blood Venous blood specimen / Unknown Venipuncture / Unknown 09/09/2024 8:31 AM EDT 09/09/2024 8:31 AM EDT Narrative [facility] - 09/09/2024 1:58 PM EDT HA1C Interpretive Data: Diagnosis of Diabetes: Diabetic > or = 6.5% Pre-diabetic 5.7 to 6.4% Non-diabetic < or = 5.6% Glycemic Targets for Type I and Type II Diabetics: Non- Adults <7.0% Adults <6.0% Children and Adolescents <7.5% Source: [place] [employer]. Standards of medical care in diabetes,2017. Diabetes Care.2017:40 (suppl 1):S1-S135. Alka Tracy APRN LAB BLOOD ORDERABLES Final Result [facility] [address] [place] [address] * (ABNORMAL) Comprehensive Metabolic Panel, Plasma (09/09/2024 8:31 AM EDT) Glucose, Plasma 202(H) 74 - 99 mg/dL 09/09/2024 2:21 PM EDT [facility] BUN, Plasma 13 7 - 21 mg/dL 09/09/2024 2:21 PM EDT [facility] Creatinine, Plasma 0.99 0.60 - 1.10 mg/dL 09/09/2024 2:21 PM EDT [facility] BUN/Creatinine Ratio 13 09/09/2024 2:21 PM EDT [facility] Sodium, Plasma 137 136 - 145 mmol/L 09/09/2024 2:21 PM EDT [facility] Potassium, Plasma 3.8 3.6 - 4.9 mmol/L 09/09/2024 2:21 PM EDT [facility] Chloride, Plasma 100 97 - 107 mmol/L 09/09/2024 2:21 PM EDT [facility] CO2, Plasma 23 22 - 29 mmol/L 09/09/2024 2:21 PM EDT [facility] Anion Gap 14 6 - 16 mmol/L 09/09/2024 2:21 PM EDT [facility] Total Calcium, Plasma 10.2 8.9 - 10.2 mg/dL 09/09/2024 2:21 PM EDT [facility] Total Protein 8.0(H) 6.3 - 7.9 g/dL 09/09/2024 2:21 PM EDT [facility] Albumin, Plasma 4.4 3.5 - 5.2 g/dL 09/09/2024 2:21 PM EDT [facility] AST, Plasma 16 10 - 35 U/L 09/09/2024 2:21 PM EDT [facility] ALT, Plasma 20 10 - 35 U/L 09/09/2024 2:21 PM EDT [facility] Alkaline Phosphatase, Plasma 120(H) 35 - 104 U/L 09/09/2024 2:21 PM EDT [facility] Total Bilirubin, Plasma 0.5 0.2 - 1.1 mg/dL 09/09/2024 2:21 PM EDT [facility] eGFRcr 73.6 mL/min/1.7 3m*2 09/09/2024 2:21 PM EDT [facility] Comment:Reported eGFRcr in m L/min/1.73m2 is based the CKD-EPI 2020 equation that does not use a race coefficient. Blood Venous blood specimen / Unknown Venipuncture / Unknown 09/09/2024 8:31 AM EDT 09/09/2024 8:31 AM EDT Alka Tracy APRN LAB BLOOD ORDERABLES Final Result [facility] [address] [place] [address] documented in this encounter Visit Diagnoses Diagnosis Type 2 diabetes mellitus with hyperglycemia, without long-term current use of insulin ([facility])- Primary Encounter for female control Chronic constipation Unspecified constipation documented in this encounter Administered Medications Inactive Administered Medications - up to 3 most recent administrations Medication Order MAR Action Action Date Dose Rate Site medroxyPROGESTERone (Depo-Provera) injection 150 mg 150 mg, Intramuscular, Once, 1 dose, On Mon09/09/24 at 0915, RoutineIndications:Encou nter for female control Given 09/09/2024 8:19 AM EDT 150 mg Left Ventrogluteal documented in this encounter Additional Health Concerns Assessment Noted Time PHQ-9 Depression Total Score: 8 09/10/19 8:02 AM EDT A fall risk assessment has been complete d for the patient 09/09/2024 8:05 AM EDT A Body Mass Index follow-up plan has been documented for the patient 09/09/2024 8:24 AM EDT documented as of this encounter Care Teams Lead Portfolio Manager Relationship Specialty Start Date End Date Alka Tracy APRN [address] [place] [id number] PCP - General 07/03/20 Daily Christy MD [address] [place] [address] Service Attending Neurology 09/30/20 Malgorzata Moseley PA [address] [place] [address] Physician Top Dyeing Machine Tender Neurology 11/18/20 Shy Duque APRN [address] [place] [address] Nurse Practitioner Neurosurgery 11/25/20 Arsalan Thompson MD [address] [place] [address] Surgeon Neurosurgery 07/02/21 documented as of this encounter
[2024-10-09 21:25] VITALS: BP 183/103; PULSE 112; RESP 18; TEMP 36.8; O2SAT 97; BMI 51.5
--- NOTE | 2024-10-09 21:31 | HMH.EDGENADL ---
Discharge Plan Disposition Patient Disposition: Home, Self-Care Condition: Good Prescriptions Prescriptions: No Action celecoxib 100 mg capsule 100 mg PO BID Qty: 60 2RF erythromycin with ethanol 2 % gel 1 applic topical BID 14 Days Qty: 60 0RF estradiol [Estrace] 0.01 % (0.1 mg/gram) cream 1 appful vaginal DAILY Qty: 42.5 2RF Rx Instructions: Use finger technique and not the applicator sticks. Apply daily for 14 days and then 3 times a week thereafter long-term. buspirone 10 mg tablet 10 mg PO TID Qty: 90 2RF hydroxyzine pamoate 50 mg capsule See Rx Instructions .ROUTE .COMPLEX PRN (Reason: anxiety) Qty: 120 1RF Rx Instructions: 50mg PO BID PRN; and 2 caps at HS. Not to exceed 4 caps daily. paroxetine HCl 20 mg tablet 20 mg PO DAILY Qty: 30 3RF prazosin 2 mg capsule 2 mg PO HS Qty: 30 3RF mirtazapine 45 mg tablet 45 mg PO HS Qty: 30 3RF oxybutynin chloride 10 mg tablet extended release 24hr 10 mg PO DAILY Qty: 30 1RF levothyroxine 137 mcg tablet 137 mcg PO DAILY Patient Comments: TAKE ONE TABLET BY MOUTH EVERY DAY pantoprazole 40 mg tablet,delayed release (DR/EC) 40 mg PO DAILY Patient Comments: TAKE ONE TABLET BY MOUTH TWICE DAILY mupirocin 2 % ointment 1 applic TOPICAL DAILY Patient Comments: APPLY TOPICALLY TO THE AFFECTED AREA(S) TWICE DAILY FOR FOURTEEN DAYS FOR infection amitriptyline 100 mg tablet 100 mg PO DAILY cyclobenzaprine 5 mg tablet 5 mg PO TID Patient Comments: TAKE ONE TABLET BY MOUTH THREE TIMES DAILY NEEDED FOR MUSCLE SPASMS MAY CAUSE DROWSINESS topiramate 50 mg tablet 50 mg PO DAILY [employer]ovig Autoinjector 140 mg/mL auto-injector 140 mg SQ WEEKLY diphenhydramine HCl [Benadryl] 25 mg Capsule 25 mg PO DAILY Ozempic 0.25 mg or 0.5 mg (2 mg/3 mL) Pen Injector 0.25 mg SQ WEEKLY Rx Instructions: for 4 weeks baclofen 10 mg tablet 10 mg PO TID Qty: 42 0RF empagliflozin 10 mg tablet 10 mg PO DAILY Qty: 30 2RF Activity Restrictions/Add. Instructions Additional Instructions/Restrictions: Follow-up with your primary care provider robertorrow. Continue taking your diabetic medications as prescribed. You do have a mass in your abdomen that has been seen on previous CT scans but you will need to follow-up with [employer]. You also have a lesion on your liver that you will need to follow-up with your primary care provider and they can do routine imaging as needed. Return to the emergency department for any acute or worsening symptoms. Clinical Impressions Clinical Impression: Acute hyperglycemia Instructions Patient Instructions: DI for Hyperglycemia -- Adult Print Language Print Language: Luxembourgish Discharge ED Provider: nAi Sofia Adult HPI General Chief complaint: Hyper/Hypoglycemia Stated complaint: hyperglycemia Time Seen by Provider: 10/09/24 21:25 Mode of Arrival: Ambulatory Source of Information: Patient Description of Symptoms (Recalled from ER Triage Doc. by RN): patient presents to ED today via EMS for hyperglycemia, back pain, and voiding excessively . PAtients glucose on arrival is 371 with a known history of diabetes. patient is noncomplaiant with regimen. Patient states she does not regularly take her insulin. Patient did ensorse taking pzympic and jardiance, last taken 15 minutes prior to calling EMS. History of Present Illness HPI narrative: Patient is a 39-year-old female with a past medical history of diabetes who presents to the emergency department with hyperglycemia nausea and abdominal pain. Patient states that she takes Jardiance and Mounjaro for her diabetes but only takes them intermittently. Patient does not frequently check her blood sugar at home. Patient states that she has been having some urinary frequency and she checked her blood sugar at home and it was in the 400s. Patient reports some nausea but no vomiting. Patient reports 1 episode of nonbloody diarrhea. Patient reports midline abdominal pain. Patient denies any flank pain or fevers. Patient denies any chest pain or shortness of breath. Patient states that she has a follow-up appointment with her primary care provider tomorrow. Related Data Home Medications ?Medication ?Instructions ?Recorded ?Confirmed amitriptyline 100 mg tablet 100 mg PO DAILY 01/31/24 10/03/24 cyclobenzaprine 5 mg tablet 5 mg PO TID 01/31/24 10/03/24 erenumab-aooe 140 mg/mL 140 mg SQ WEEKLY 01/31/24 10/03/24 subcutaneous auto-injector ([employer] Autoinjector) levothyroxine 137 mcg tablet 137 mcg PO DAILY 01/31/24 10/03/24 mupirocin 2 % topical ointment 1 applic topical DAILY 01/31/24 10/03/24 pantoprazole 40 mg tablet,delayed 40 mg PO DAILY 01/31/24 10/03/24 release topiramate 50 mg tablet 50 mg PO DAILY 01/31/24 10/03/24 diphenhydramine HCl 25 mg capsule 25 mg PO DAILY 07/12/24 10/03/24 (Benadryl) semaglutide 0.25 mg or 0.5 mg (2 0.25 mg SQ WEEKLY 07/12/24 10/03/24 mg/3 mL) subcutaneous pen injector ([employer] Previous Rx's ?Medication ?Instructions ?Recorded erythromycin with ethanol 2 % 1 applic topical BID 14 days #60 02/22/24 topical gel grams baclofen 10 mg tablet 10 mg PO TID #42 tabs 02/29/24 estradiol 0.01% (0.1 mg/gram) 1 appful vaginal DAILY #42.5 grams 04/15/24 vaginal cream (Estrace) empagliflozin 10 mg tablet 10 mg PO DAILY #30 tabs 05/30/24 buspirone 10 mg tablet 10 mg PO TID #90 tabs 07/03/24 hydroxyzine pamoate 50 mg capsule See Rx Instructions .Route 07/03/24 .COMPLEX PRN anxiety #120 caps mirtazapine 45 mg tablet 45 mg PO HS #30 tabs 07/03/24 paroxetine HCl 20 mg tablet 20 mg PO DAILY #30 tabs 07/03/24 prazosin 2 mg capsule 2 mg PO HS #30 caps 07/03/24 celecoxib 100 mg capsule 100 mg PO BID #60 caps 08/12/24 oxybutynin chloride 10 mg 10 mg PO DAILY #30 tabs 09/03/24 tablet,extended release 24 hr Allergies Allergy/AdvReac Type Severity Reaction Status Date / Time tirzepatide (From Yevgeniy) Allergy Rash Verified 10/03/24 09:02 [facility] Disclaimer: The information contained in this section may have been updated after the patient was seen, as this information can be updated by other users. Medical History Diabetes Frequent urination Breakthrough bleeding on depo provera Abnormal uterine bleeding Borderline personality disorder Severe obesity (BMI >= 40) TIAGO on CPAP Severe TIAGO with hypoxemia. Perfect compliance since 03/23/2023, status post EGD with dilatation Insomnia Generalized anxiety disorder Bipolar II disorder Ulcer Migraine GERD (gastroesophageal reflux disease) Depression Anxiety Surgical History H/O knee surgery right knee History of fusion of cervical spine Hx of cholecystectomy History of bilateral carpal tunnel release Family History Other Family history unknown Social History Smoking Status: Never smoker alcohol intake: never substance use type: denies use current occupational status: disabled Travel in the last 8 weeks?: None household members: none housing: apartment number of children: 0 caffeine: No Have you lived/traveled outside US in past 30 days?: No Contact w/someone who lives/traveled outside US past 30 days?: No Exposure to someone with infectious disease in past 14 days?: No Do you have a fever (greater than 100.4 F or 38 C)?: No Have you tested positive for COVID-19?: No Exposed to someone with COVID-19 in past 14 days?: No Do you have a sore throat?: No Do you have a cough?: No Do you have any weakness?: No Do you have any diarrhea?: No Are you experiencing any unusual bleeding?: No Do you have any muscle aches/pain?: No Do you have any abdominal pain?: No Are you experiencing loss of taste or smell?: No Other Medical History Have you received the Flu Vaccine for this season: No Have you received the Pneumonia Vaccine: No ROS Obtained: Yes All systems reviewed & no additional complaints except as documented and Yes Systems reviewed as appropriate & no additional complaints except as documented Physical Exam General General appearance: alert and in no apparent distress Head Head exam: atraumatic, normocephalic and normal inspection Eye Eye exam: Present normal appearance, PERRL and EOMI; Absent scleral icterus ENT ENT exam: Present normal exam and normal external ear exam Neck Neck exam: Present normal inspection and full ROM Chest Chest inspection: Present normal inspection and symmetric chest wall rise Respiratory Respiratory exam: Present normal lung sounds bilaterally; Absent respiratory distress or wheezes Cardiovascular Cardiovascular exam: Present regular rate, normal rhythm and normal heart sounds Abdominal Exam Abdominal exam: Present soft, distention and tenderness (midline abdominal tenderness); Absent guarding or rebound Extremities Exam Extremities exam: Present normal inspection and full ROM Back Exam Back exam: Present normal inspection and full ROM Neurological Exam Neurological exam: Present alert and oriented X3 Psychiatric Psychiatric exam: Present normal affect and normal mood Skin Skin exam: Present warm and dry Medical Decision Making Medical Records Medical records reviewed: Yes I reviewed the patient's medical records. Screening: Per USPSTF and CDC recommendations, given the prevalence of disease in our region, it is our hospital?s policy to screen for HIV and viral Hepatitis for all patients aged 18 and over and those with ongoing risk factors. [place] Inquiry Pt receiving controlled substance: No Vital Signs: 10/09/24 21:25 10/09/24 22:00 Temperature 98.2 F Temperature Source Oral Pulse Rate 105 H Pulse Rate [Right Radial] 112 H Respiratory Rate 18 13 Blood Pressure 164/88 H Blood Pressure [Right Arm] 183/103 H Blood Pressure Mean [Right Arm] 129 Blood Pressure Source [Right Arm] Automatic Cuff Blood Pressure Position [Right Arm] Sitting 02 Sat by Pulse Oximetry 97 97 Oxygen Delivery Method Room Air Lab Data Lab results reviewed: Yes I reviewed the patient's lab results. Lab Results 10/09/24 21:25: WBC 15.9 H, RBC 5.37, Hgb 16.5 H, Hct 48.7 H, MCV 90.7, MCH 30.7, MCHC 33.9, RDW 12.9, Plt Count 401, MPV 10.2, Neut % (Auto) 79.4, Lymph % (Auto) 13.1, [place] % (Auto) 6.1, Eos % (Auto) 0.3, Baso % (Auto) 0.4, Neut # (Auto) 12.6 H, Lymph # (Auto) 2.1, [place] # (Auto) 1.0, Eos # (Auto) 0.1, Baso # (Auto) 0.1, VBG pH 7.33, VBG pCO2 52.7 H, VBG pO2 30.7, VBG HCO3 27.2, VBG Total CO2 28.8 H, VBG O2 Saturation 57.0, VBG Base Excess 1.3, VBG Lactic Acid 3.9 H, Sodium 135 L, Potassium 4.2, Chloride 98, Carbon Dioxide 26, Anion Gap 15.2 H, BUN 24 H, Creatinine 0.90, Estimated Creat Clear 65, Estimated GFR 69, Est GFR ( Amer) 83, Glucose 354 H, Hemoglobin A1c 8.8 H, Calcium 10.3 H, Magnesium 1.8, Total Bilirubin 0.6, AST 24, ALT 19, Alkaline Phosphatase 159 H, Total Protein 8.1, Albumin 4.6, Globulin 3.5 H, Albumin/Globulin Ratio 1.3, Lipase 128, Serum HCG, Qual Negative 10/09/24 22:26: Urine Color Yellow, Urine Appearance Clear, Urine pH 6.0, Ur Specific Oakes 1.010, Urine Protein Negative, Urine Glucose (UA) 3+, Urine Ketones Negative, Urine Blood Negative, Urine Nitrate Negative, Urine Bilirubin Negative, Urine Urobilinogen 0.2, Ur Leukocyte Esterase Negative, Urine RBC 3-5, Ur Squamous Epith Cells 3-5 10/09/24 21:25 10/09/24 21:25 Orders (Tests/Meds): ED MEDICATIONS Generic Name Dose Route Start Last Admin Trade Name Freq PRN Reason Stop Dose Admin Sodium Chloride 10 ml 10/09/24 22:19 10/09/24 22:20 Sodium Chloride 0.9% 10ml Syr (Rad Only) IV 11/08/24 22:18 10 ml NEEDED PRN Administration Maintain IV Site Discontinued Medications Generic Name Dose Route Start Last Admin Trade Name Freq PRN Reason Stop Dose Admin Lactated Ringer's 1,000 mls @ 999 mls/hr 10/09/24 21:44 10/09/24 21:56 Lactated Ringer's 1000 Ml Bag IV 10/09/24 22:44 999 mls/hr .Q1H1M ONE Administration Iopamidol 75 ml 10/09/24 22:19 10/09/24 22:20 Iopamidol-370 (76%);100ml Bottle IV 10/09/24 22:20 75 ml ONCE ONE Administration Ondansetron HCl 4 mg 10/09/24 21:47 10/09/24 21:55 Ondansetron 4mg/2ml Vial IV 10/09/24 21:48 4 mg ONCE ONE Administration ORDERS Category Date Time Status CT abdomen pelvis w con Stat Cat Scan 10/09/24 21:44 Completed CBC w/Auto Diff [Complete Blood Count Auto Diff] Stat Lab 10/09/24 21:25 Completed CMP [Comprehensive Metabolic Panel] Stat Lab 10/09/24 21:25 Completed HCG Qualitative, Serum Stat Lab 10/09/24 21:25 Completed Hemoglobin A1C Stat Lab 10/09/24 21:25 Completed Lipase Stat Lab 10/09/24 21:25 Completed MAG [Magnesium] Stat Lab 10/09/24 21:25 Completed UA [Urinalysis and Microscopic] Stat Lab 10/09/24 22:26 Completed Urine Culture Stat Micro 10/09/24 22:26 Received VBG [Venous Blood Gas] Stat RT 10/09/24 21:25 Completed Medical Decision Narrative: Patient is an otherwise healthy 39-year-old female with a past medical history of diabetes who presented to the emergency department with abdominal pain, hyperglycemia and urinary frequency. On arrival, patient was hemodynamically stable with mild tachycardia vital signs otherwise unremarkable. Differential includes but not limited to: Hyperglycemia, HHS, DKA, dehydration, urinary tract infection, intra-abdominal process, amongst others. On arrival, patient's initial blood sugar was in the 300s. Patient CBC showed mild leukocytosis of 15, but otherwise unremarkable hemoglobin stable. VBG showed no acidosis lactate mildly elevated at 3.9. CMP showed no significant hyponatremia, gap was mildly elevated at 15. Glucose was 354. Hemoglobin A1c was 8.8. Magnesium 1.8. UA showed no evidence of infection. CT scan of the abdomen was reviewed and interpreted by myself: CT scan showed a small hypodense lesion in the liver as well as a right adnexal mass seen previously on CT scan. Patient was notified of these results and recommended that she follow-up with her primary care provider as well as gynecology. On further reassessment, patient's symptoms had resolved. Patient was given IV fluids as well as IV Zofran. Patient was able to tolerate oral intake. Patient had already taken her Jardiance and Mounjaro just prior to arrival. I did not feel that patient needed acute insulin intervention given unclear baseline with increasing hemoglobin A1c of 8.8. At this time, patient was discharged after IV fluids and improving glucose. Patient has a follow-up with her primary care provider tomorrow and I recommended that patient keep this appointment to further manage her worsening diabetes. Patient was otherwise discharged home in stable condition and was recommended to continue taking her medications as prescribed. Critical Care Critical Care Time Critical Care Time: No
--- OUTSIDE RECORDS SUMMARY | 2024-10-09 21:43 | XMS_ITS | Encounter Summary ---
Author Organization [facility] Address [address] [place] [address] Care Team Providers Care Trading Analyst Name Role Phone Alka Tracy APRN Primary Care Provider [phone] Daily Christy MD Unavailable [phone] Malgorzata Moseley Unavailable [phone] Shy Duque APRN Unavailable [phone] Arsalan Thompson MD Unavailable [phone] Reason for Referral * Consultation (Routine) - Authorized Specialty Diagnoses / Procedures Referred By Nabil toussaint Referred To Contact Podiatry Diagnoses Foot pain, bilateral [place] [address] Phone: tel: fax: Referral ID Status Reason Start Date Expiration Date Visits Requested Visits Authorized [id number] Authorized Specialty Services Required 09/09/2024 03/11/2026 1 1 Scheduling Instructions Wants some one other then Dr Calloway Encounter Details Date Type Department Care Team (Late st Contact Info) Description 09/09/2024 Orders Only [facility] [address] [place] [address] Alka Tracy APRN [address] [place] [address] Foot pain, bilateral (Primary Dx) [...] any clubs o r organizations such as rastafarian groups, unions, fraternal or athletic groups, or [...] Recorded Patient Health Questionnaire-2 Score 2 09/09/2024 [facility] - [...] any time in the past 12 m [facility], were you homeless or living in a retirement (including now)? No 07/10/2024 Humiliation, Afraid, Rape, [...] any time in the past 12 m [facility], were you homeless or living in a retirement (including now)? No 09/09/2024 Utilities Answer Date [...] Notes * Progress Notes - Alka Tracy, COMPUTATIONAL SCIENTIST - 09/09/2024 8:30 AM EDT Subjective Chantal [...] 0 min Stress: Stress Concern Present (12/27/2023) [place] [facility] - Occupational Stress Questionnaire Feeling of Stress : Very much Social Connections: Socially Isolated (12/27/2023) Social Connection and Isolation Panel Frequency of Communication with Friends and Family: Never Frequency of Social Gatherings with Friends and Family: Twice a week Attends Yazdanism Services: Never Active Member of Clubs or [...] - Hep B Twinrix 3-dose series) 02/16/2014 [id number] Vaccine (2 - Efren risk series) 07/22/2020 [...] Description 10/10/2024 10:20 AM EDT Office Visit [facility] [address] [place] [id number] [place] [id number] 12/11/2024 8:40 AM EDT Office Visit [facility] [place] [address] [place] [id number] 12/11/2024 9:00 AM EDT Procedure Visit [place] [facility] [address] [place] [address] Malgorzata Moseley PA [address] [place] [address] 12/13/2024 11:00 AM EDT Procedure Visit [facility] at [facility] [address] [place] [address] Nicolás Hollis MD [address] [place] [address] Scheduled Referrals Name Type Priority Associated Diagnoses [...] documented as of this encounter Care Teams Trading Analyst Relationship Specialty Start Date End Date Alka Tracy APRN [address] [place] [id number] PCP - General 07/03/20 Daily Christy MD [address] [place] [address] Service Attending Neurology 09/30/20 Malgorzata Moseley PA [address] [place] [address] Physician Drivability Technician Neurology 11/18/20 Shy Duque APRN [address] [place] [address] Nurse Practitioner Neurosurgery 11/25/20 Arsalan Thompson MD [address] [place] [address] Surgeon Neurosurgery 07/02/21 documented as of this encounter
--- OUTSIDE RECORDS SUMMARY | 2024-10-09 21:43 | XMS_ITS | Encounter Summary ---
Author Organization [facility] Address [address] [place] [address] Care Team Providers Care Field Service Specialist Name Role Phone DemarcusAlka Caitlin FAIRCHILD Primary Care Provider [phone] Daily Christy MD Unavailable [phone] Malgorzata Moseley Unavailable Shy Duque APRN Unavailable [phone] Arsalan Thompson MD Unavailable + [phone] Francis Wallace Unavailable Unavailable Encounter Details Date Type Department Care Team (Late st Contact Info) Description 07/12/2024 Telephone [place] [facility] [address] [place] [address] Arsalan Thompson MD [address] [place] [address] Social History Tobacco Use Types [...] often do you attend chur ch or yazidi services? Never 12/27/2023 Do you belong to any clubs o r organizations such as confucianism groups, unions, fraternal or athletic groups, or [...] Recorded Patient Health Questionnaire-2 Score 2 07/10/2024 [facility] Questionnaire [...] in a senior care (including now)? No 11/09/2023 PHQ-9 Answer Date [...] were you homeless or living in a senior care (including now)? No 07/10/2024 Utilities Answer Date Recorded In the past 12 months has th e [employer], gas, oil, or water [employer] threatened to shut off services in your [...] calling and needs xray orders fax[phone]. She needs to get this done before TH appointment on Monday. She asks for a call when this is done so she can go get it.Please advise. Best contact number and optimal time of day to reach caller: [phone] Note: Please do not reply to this message. Follow-up communication and further actions as a result of this message need to be communicated with the patient directly, if the patient is not active onMyChart. If the patient is active on MyChart, they will receive notification of the communication/outcome via [employer]. documented in this encounter Plan of Treatment Upcoming Encounters Date Type Department Care Team (Late st Contact Info) Description 10/10/2024 10:20 AM EDT Office Visit [facility] [address] [place] [address] Alka Tracy, BOOKKEEPING CLERK [address] [place] [address] 12/11/2024 8:40 AM EDT Office Visit [facility] [address] [place] [address] Alka Tracy, BOOKKEEPING CLERK [address] [place] [address] 12/11/2024 9:00 AM EDT Procedure Visit [place] [facility] [address] [place] [address] Malgorzata Moseley PA [address] [place] [phone] 12/13/2024 11:00 AM EDT Procedure Visit [facility] at [facility] [address] [place] [address] Nicolás Hollis MD [address] [place] [address] documented as of this encounter [...] documented as of this encounter Care Teams Field Service Specialist Relationship Specialty Start Date End Date Alka Tracy APRN [address] [place] [phone] PCP - General 07/03/20 Daily Christy MD [address] [place] [address] Service Attending Neurology 09/30/20 Malgorzata Moseley PA [address] [place] [address] Physician Canine Service Instructor Trainer Neurology 11/18/20 Shy Duque APRN [address] [place] [address] Nurse Practitioner Neurosurgery 11/25/20 Arsalan Thompson MD [address] [place] [address] Surgeon Neurosurgery 07/02/21 Francis Wallace Community Health Worker 07/10/24 07/17/24 documented as of this encounter
--- OUTSIDE RECORDS SUMMARY | 2024-10-09 21:43 | XMS_ITS | Clinical Summary ---
Author Organization [facility] Address [address] [place] [address] Care Team Providers Care Refuge Manager Name Role Phone DemarcusAlka Caitlin FAIRCHILD Primary Care Provider [phone] Daily Christy MD Unavailable Malgorzata Moseley Unavailable [phone] Shy Duque APRN Unavailable [phone] Arsalan Thompson MD Unavailable Allergies Active Allergy Reactions Criticality Noted Date Comments Tirzepatide Diarrhea,Rash Low 09/05/2024 Medications hydrOXYzine pamoate (Vistaril) 50 MG capsule Take 2 capsules (100 mg) by mouth nightly. Take 2 tabs nightly and then TID PRN 0 Active traZODone (Desyrel) 100 MG tablet Take 1 tablet (100 mg) by mouth. TAKE 2 TABLETS AT BEDTIME. 0 Active prazosin (Minipress) 2 MG capsule TAKE TWO CAPSULES BY MOUTH EVERY DAY AT BEDTIME 1 Active miconazole (Micotin) 2 % powder Apply bid 71 g 1 4 Active Additional Information Patient not taking.Reported on 09/05/2024 sertraline (Zoloft) 100 MG tablet Active rOPINIRole (Requip) 2 MG tablet Take 1 tablet (2 mg) by mouth 1 (one) time each day in the evening. 90 tablet 3 4 Active Syringe/Needle, Disp, (B-D 3CC LUER-ASIM SYR 25GX1 ) 25G X 1 3 ML misc USE DIRECTED FOR depo shot 4 each 3 4 Active Additional Information Patient not taking.Reported on 09/05/2024 diclofenac (Voltaren) 75 MG EC tablet Take 1 tablet (75 mg) by mouth 2 (two) times a day. Do not crush, chew, or split. 60 tablet 4 Active Additional Information Patient not taking.Reported on 09/05/2024 medroxyPROGESTER one (Depo-Provera) 150 MG/ML injectionIndicat ions:Anxiety and depression Use every 12 weeks 1 mL 3 4 Active busPIRone (Buspar) 10 MG tablet Take 1 tablet (10 mg) by mouth 3 (three) times a day. 270 tablet 3 4 12/08/19 Active Additional Information Patient taking differently:10 mg Oral2 times daily, Reported on 09/05/2024 dicyclomine (Bentyl) 20 MG tablet Take 1 tablet (20 mg) by mouth 2 (two) times a day. 180 tablet 3 4 Active pantoprazole (Protonix) 40 MG EC tabletIndication s:Gastroesophage al reflux disease, unspecified whether esophagitis present Take 1 tablet (40 mg) by mouth 2 (two) times a day. Do not crush, chew, or split. 180 tablet 3 4 Active nystatin (Mycostatin) creamIndications :Teagan albicans infection APPLY TOPICALLY TO THE AFFECTED AREA(S) TWICE DAILY -- FOR EXTERNAL USE ONLY-- 30 g 1 4 Active PARoxetine (Paxil) 20 MG tablet Take 1 tablet (20 mg) by mouth 1 (one) time each day. 90 tablet 2 4 Active mirtazapine (Remeron) 45 MG tablet Take 1 tablet (45 mg) by mouth nightly. 5 Active amitriptyline (Elavil) 100 MG tabletIndication s:Chronic daily headache Take 1.5 tablets (150 mg) by mouth nightly. 45 tablet 11 5 Active topiramate (Topamax) 100 MG tabletIndication s:Chronic daily headache Take 1 tablet (100 mg) by mouth 2 (two) times a day. 180 tablet 3 5 04/10/19 26 Active topiramate 50 MG tabletIndication s:Chronic daily headache Take 1 tablet (50 mg) by mouth 2 (two) times a day. Take with topiramate 100 mg tablet by mouth two (2) times a day to make up total dose of 150 mg two (2) times a day 180 tablet 5 04/10/19 26 Active ubrogepant (Ubrelvy) 100 MG tablet Take 1 tablet (100 mg) by mouth 1 (one) time as needed for migraine for up to 1 dose. After 2 hours, a second dose may be taken if needed. Maximum dose: 200 mg in 24-hour period. 10 each 5 Active levothyroxine (Synthroid, Levoxyl) 137 MCG tablet Take 1 tablet (137 mcg) by mouth daily. 90 tablet 1 5 Active Lancets miscIndications: Type 2 diabetes mellitus with hyperglycemia, without long-term current use of insulin ([facility]) Test Blood sugar once daily 100 each 5 Active Additional Information Patient taking differently: As needed, Test Blood sugar once daily, Reported on 09/05/2024 glucose blood test stripIndications :Type 2 diabetes mellitus with hyperglycemia, without long-term current use of insulin ([facility]) 1 each by Other route 1 (one) time each day. 100 strip 5 Active Additional Information Patient taking differently: As needed, 1 each by Other route 1 (one) time each day., Reported on 09/05/2024 Erenumab-aooe (Aimovig) 140 MG/ML solution auto-injector Inject 140 mg under the skin every 30 days. 1 mL 5 06/15/19 26 Active empagliflozin (Jardiance) 25 MG Take 1 tablet by mouth daily. 30 tablet 5 Active oxybutynin XL (Ditropan-XL) 10 MG 24 hr tablet Take 1 tablet by mouth daily. 5 Active ondansetron (Zofran) 4 MG tablet Take 1 tablet by mouth every 8 hours as needed for nausea or vomiting. 20 tablet 5 Active fluticasone (Flonase) 50 MCG/ACT nasal sprayIndications :Allergic rhinitis, unspecified seasonality, unspecified trigger Administer 1 spray into each nostril daily. Shake gently. Before first use, prime pump. After use, clean tip and replace cap. 32 g 3 5 Active diphenhydrAMINE (Benadryl) 25 MG capsuleIndicatio ns:Allergic rhinitis, unspecified seasonality, unspecified trigger TAKE ONE CAPSULE BY MOUTH EVERY 8 HOURS NEEDED FOR allergies 90 capsule 5 Active celecoxib (CeleBREX) 100 MG capsule Take 1 capsule by mouth 2 times a day. Active atorvastatin (Lipitor) 20 MG tabletIndication s:Type 2 diabetes mellitus with hyperglycemia, without long-term current use of insulin ([facility]) Take 1 tablet by mouth daily. 90 tablet 3 5 09/10/19 26 Active polyethylene glycol (Miralax) 17 g packetIndication s:Chronic constipation Take 17 g by mouth daily. 90 packet 3 5 09/10/19 26 Active Semaglutide,0.25 or 0.5MG/DOS, 2 MG/3ML solution pen-injectorIndi cations:Type 2 diabetes mellitus with hyperglycemia, without long-term current use of insulin ([facility]) Inject 0.5 mg under the skin 1 time per week. 3 mL 3 5 Active polyethylene glycol (GlycoLax) 17 GM/SCOOP powderIndication s:Chronic constipation Take 17 g by mouth daily. 510 g 3 5 Active Active Problems Problem Noted Date Diagnosed Date [...] Encounters Date Type Department Care Team Description 10/03/2024 Telephone [facility] [address], [address] [place] [address] Malgorzata Moseley PA 09/20/2024 Telephone [facility] [address] [place] [address] Alka Tracy, DEVORAH 09/10/2024 Results Follow-Up [facility] [address] [place] [address] Alka Tracy, DEVORAH 09/09/2024 8:20 AM EDT Office Visit [facility] [address] [place] [address] Alka Tracy, DRYWALL APPLICATOR Type 2 diabetes mellitus with hyperglycemia, without long-term current use of insulin ([facility]) (Primary Dx); Encounter for female control; Chronic constipation 09/09/2024 Orders Only [facility] [address] [place] [address] Alka Tracy, DRYWALL APPLICATOR Chronic constipation (Primary Dx) 09/09/2024 Orders Only [facility] [address] [place] [address] Alka Tracy, DEVORAH 09/09/2024 Telephone [facility] [address] [place] [address] Alka Tracy, DEVORAH 09/09/2024 Orders Only [facility] [address] [place] [address] Alka Tracy, DRYWALL APPLICATOR Foot pain, bilateral (Primary Dx) 09/09/2024 Travel 09/02/2024 Refill [facility] [address] [place] [address] Alka Tracy, DRYWALL APPLICATOR Allergic rhinitis, unspecified seasonality, unspecified trigger 08/28/2024 11:00 AM EDT Procedure Visit [facility] [address], [address] [place] [address] Malgorzata Moseley PA Myofascial pain (Primary Dx) 08/28/2024 Travel 08/19/2024 Orders Only [facility] [address] [place] [address] Alka Tracy, DRYWALL APPLICATOR Allergic rhinitis, unspecified seasonality, unspecified trigger 08/18/2024 Refill [facility] [address] [place] [address] Alka Tracy, DRYWALL APPLICATOR Allergic rhinitis, unspecified seasonality, unspecified trigger 08/15/2024 Refill [facility] [address] [place] [address] Alka Tracy DRYWALL APPLICATOR 07/31/2024 Telephone [facility] [address] [place] [address] Alka Tracy DRYWALL APPLICATOR HCN - Patient Message 07/31/2024 Telephone [facility] [address] [place] [address] Alka Tracy, DRYWALL APPLICATOR HCN Clinical Concern/Question (Please see note...) 07/26/2024 Orders Only External Location [address] [place] [address] Provider, External 07/26/2024 Refill [facility] [address] [place] [address] Alka Tracy, DRYWALL APPLICATOR Allergic rhinitis, unspecified seasonality, unspecified trigger 07/18/2024 Telephone [facility] [address] [place] [address] Alka Tracy APRN HCN Clinical Concern/Question 07/17/2024 Patient Outreach [place]ULATION [place] [id number] [place] [address] Francis Wallace [facility] Resources 07/16/2024 8:30 AM EDT Office Visit [facility] [address], [address] [place] [address] Arsalan Thompson MD S/P cervical spinal fusion (Primary Dx); Cervical spondylosis with myelopathy 07/16/2024 Travel 07/12/2024 Orders Only External Location [address] [place] [address] Provider, External 07/12/2024 Telephone [facility] [address], 1st [place] [address] Adrianne Singh Appointment 07/12/2024 Telephone [facility] [address], 1[address] [place] [address] Arsalan Thompson MD 07/10/2024 9:40 AM EDT Office Visit [facility] [address] [place] [address] Alka Tracy, DRYWALL APPLICATOR Type 2 diabetes mellitus with hyperglycemia, without long-term current use of insulin ([facility]) (Primary Dx) 07/10/2024 Patient Outreach [place] [place] [id number] [place] [address] Francis Wallace [facility] Resources 07/10/2024 Patient Outreach POPULATION HEALTH [facility] [address] [place] [address] Francis Wallace [facility] Resources 07/10/2024 Patient Outreach POPULATION HEALTH [facility] [address] [place] [address] Francis Wallace Community Resources 07/10/2024 Orders Only [facility] Medicine [address] [place] [address] Alka Tracy APRN Type 2 diabetes mellitus with hyperglycemia, without long-term current use of insulin (CMS/HCC) (Primary Dx) 07/10/2024 Travel from Last 3 Months Immunizations Immunization Administration [...] How often do you attend chur or latter-day services? Never 12/27/2023 Do you belong to [...] Recorded Patient Health Questionnaire-2 Score 2 09/09/2024 [facility] [place] of Occupat ional [facility] - Occupational Stress Questionnaire Answer Date [...] any time in the [facility] were you homeless or living in a snf (including now)? No 07/10/2024 Humiliation, Afraid, Rape, [...] any time in the past 12 m [facility], were you homeless or living in a snf (including now)? No 09/09/2024 Utilities Answer Date Recorded In the past 12 months has th e [employer], gas, oil, or water [employer] threatened to shut off services in your [...] Description 10/10/2024 10:20 AM EDT Office Visit [facility] [address] [place] [address] Alka Tracy, DRYWALL APPLICATOR [address] [place] [address] 12/11/2024 8:40 AM EDT Office Visit [facility] [address] [place] [address] Alka Tracy DRYWALL APPLICATOR [address] [place] [address] 12/11/2024 9:00 AM EDT Procedure Visit [facility] [address], [address] [place] [address] Malgorzata Moseley PA [address] [place] [address] 12/13/2024 11:00 AM EDT Procedure Visit [facility] [address] [place] [address] Nicolás Hollis MD [address] [place] [address] Health Maintenance Due Date Last Done Comments [facility]-HIV Screening 1983 [facility]-Hepatitis C Screening 1983 [facility]-Infant/Child/Adol SDOH Screenings 1983 Diabetes: Dental Exam 1993 [facility]-Varicella Vaccines (1 of 2 - 13+ 2-dose series) 1996 [facility]-Pneumococcal Vaccine: Pediatrics (0 to 5 Years) and At-Risk Patients (6 to 49 Years) (1 of 2 - PCV) 2002 HPV Vaccines (1 - 3-dose SCDM series) 2010 [facility]-Hepatitis B Vaccines (3 of 3 - Hep B Twinrix 3-dose series) 02/16/2014 09/16/2013, 08/15/2013 [id number] Vaccine (2 - Efren risk series) 07/22/2020 [...] [facility]-Cervical Cancer Screening 09/10/2025 [facility]-HPV/Cotest 09/10/2025 09/10/2020, 08/21, 08/21/2018 [facility]-Zoster Vaccines (1 of 2) 2033 [...] 8.6(H) <5.7 % 09/09/2024 1:58 PM EDT [facility] Blood Venous blood specimen / Unknown Venipuncture / Unknown 09/09/2024 8:31 AM EDT 09/09/2024 8:31 AM EDT Narrative [facility] - 09/09/2024 1:58 PM EDT HA1C Interpretive Data: Diagnosis of Diabetes: Diabetic > or = 6.5% Pre-diabetic 5.7 to 6.4% Non-diabetic < or = 5.6% Glycemic Targets for Type I and Type II Diabetics: Non- Adults <7.0% Adults <6.0% Children and Adolescents <7.5% Source: [place] [employer]. Standards of medical care in diabetes,2017. Diabetes Care.2017:40 (suppl 1):S1-S135. Alka Tracy DRYWALL APPLICATOR LAB BLOOD ORDERABLES Final Result [facility] [address] [place] [address] * (ABNORMAL) Lipid Profile, Plasma (09/09/2024 8:31 AM EDT) Cholesterol, Plasma 208(H) <200 mg/dL 09/09/2024 2:21 PM EDT [facility] Comment: Cholesterol Reference Range (age >17 years): Desirable <200 mg/dL Borderline 200 to 239 mg/dL Undesirable >239 mg/dL HDL 42(L) >=50 mg/dL 09/09/2024 2:21 PM EDT [facility] Comment: HDL Cholesterol Reference Ranges (age >17 years): Female, acceptable > or = 50 mg/dL Male, acceptable > or = 40 mg/dL Triglycerides, Plasma 171(H) <150 mg/dL 09/09/2024 2:21 PM EDT [facility] Comment: Triglyceride Reference Range (age >17 years): Desirable: <150 mg/dL Borderline high: 150 to 199 mg/dL High: 200 to 499 mg/dL Very high: >499 mg/dL Increased risk of pancreatitis: >1000 mg/dL Cholesterol/HDL Ratio 5 09/09/2024 2:21 PM EDT [facility] LDL, Calculated 135(H) <100 mg/dL 2:21 PM EDT [facility] Comment: LDL Cholesterol Reference Range (age [...] 12 hours? Yes 09/09/2024 2:21 PM EDT [facility] Blood Venous blood specimen / Unknown Venipuncture / Unknown 09/09/2024 8:31 AM EDT 09/09/2024 8:31 AM EDT Alka Tracy DRYWALL APPLICATOR LAB BLOOD ORDERABLES Final Result [facility] [address] [place] [address] * (ABNORMAL) Comprehensive Metabolic Panel, Plasma (09/09/2024 8:31 AM EDT) Glucose, Plasma 202(H) 74 - 99 mg/dL 09/09/2024 2:21 PM EDT [facility] BUN, Plasma 13 7 - 21 mg/dL 09/09/2024 2:21 PM EDT [facility] Creatinine, Plasma 0.99 0.60 - 1.10 mg/dL 09/09/2024 2:21 PM EDT [facility] BUN/Creatinine Ratio 13 09/09/2024 2:21 PM EDT [facility] Sodium, Plasma 137 136 - 145 mmol/L 09/09/2024 2:21 PM EDT [facility] Potassium, Plasma 3.8 3.6 - 4.9 mmol/L 09/09/2024 2:21 PM EDT [facility] Chloride, Plasma 100 97 - 107 mmol/L 09/09/2024 2:21 PM EDT [facility] CO2, Plasma 23 22 - 29 mmol/L 09/09/2024 2:21 PM EDT [facility] Anion Gap 14 6 - 16 mmol/L 09/09/2024 2:21 PM EDT [facility] Total Calcium, Plasma 10.2 8.9 - 10.2 mg/dL 09/09/2024 2:21 PM EDT [facility] Total Protein 8.0(H) 6.3 - 7.9 g/dL 09/09/2024 2:21 PM EDT [facility] Albumin, Plasma 4.4 3.5 - 5.2 g/dL 09/09/2024 2:21 PM EDT [facility] AST, Plasma 16 10 - 35 U/L 09/09/2024 2:21 PM EDT [facility] ALT, Plasma 20 10 - 35 U/L 09/09/2024 2:21 PM EDT [facility] Alkaline Phosphatase, Plasma 120(H) 35 - 104 U/L 09/09/2024 2:21 PM EDT [facility] Total Bilirubin, Plasma 0.5 0.2 - 1.1 mg/dL 09/09/2024 2:21 PM EDT [facility] eGFRcr 73.6 mL/min/1.7 3m*2 09/09/2024 2:21 PM EDT [facility] Comment:Reported eGFRcr in m L/min/1.73m2 is based the CKD-EPI 2020 equation that does not use a race coefficient. Blood Venous blood specimen / Unknown Venipuncture / Unknown 09/09/2024 8:31 AM EDT 09/09/2024 8:31 AM EDT Alka Tracy DRYWALL APPLICATOR LAB BLOOD ORDERABLES Final Result [facility] [address] [place] [address] * MR NEURO OUTSIDE IMAGES (07/26/2024 3:26 [...] Hemoglobin A1C 9.4 <5.7% Non-Diabe tic % [facility] Kit Lot Number 866 [facility] Kit Expiration Date 04/19/2026 [facility] Blood Venous blood specimen / Unknown 07/10/2024 10:58 AM EDT us Alka Caitlin Tracy DRYWALL APPLICATOR POINT OF CARE TEST ENTER/ED IT ORDERABLES Final Result [email or web address] [address] [place] [address] * (ABNORMAL) Pap smear (09/10/2020 10:55 AM EDT) Case Report Cytology Case: [id number] Authorizing Provider: Vivek Hill MD Collected: 09/10/2020 1055 Ordering Location: [facility] Received: 09/10/2020 1055 Medicine First Screen: LUIS Leiva Rescreen: Franca Zamora, LUIS Pathologist: Mekhi Moses MD Specimen: ThinPrep Pap Test, Liquid-Based Cervical/Vagina l, CERVICAL/VAGINA L 09/15/2020 2:00 PM EDT [facility] Interpretation ATYPICAL SQUAMOUS CELLS OF UNDETERMINED SIGNIFICANCE (ASCUS)(A) 09/15/2020 2:00 PM EDT [facility] at 1400 EDT Other Findings Hyperkeratosis. 09/15 2:00 PM EDT [facility] Specimen Adequacy Satisfactory for evaluation; endocervical/tr ansformation zone component absent/insuffic ient. Slide imaged and selected 22 wong reviewed then full manual screening. 09/15/2020 2:00 PM EDT [facility] Cervical cytology is a screening [...] results is suggested (please call Microbiology at [phone] for results). 09/15/2020 2:00 PM EDT [facility] Menstrual Status Cyclic 09/16/19 2:00 PM EDT [facility] Contraceptive History Not Applicable 09/15/2020 2:00 PM EDT [facility] Last Menstrual Period 08/27/2020 09/15/2020 2:00 PM EDT [facility] Screening Type Routine Screen 2020 2:00 PM EDT [facility] High Risk? No 09/15/2020 2:00 PM EDT [facility]ALTH[facility] HPV Testing Requested? Request HPV Testing if ASCUS (Women 25 Years or Older) 09/15/2020 2:00 PM EDT [facility]ALTH[facility] Previous Cancer History No 09/15/2020 2:00 PM EDT [facility] Swab Vaginal and cervical cytologic material / Unknown Non-blood Collection / Unknown 09/10/2020 10:55 AM EDT 09/10/2020 10:55 AM EDT Vivek Hill MD LAB CYTOLOGY ORDERABLES Final Result [facility] [address] [place] [phone] from Last 3 Months or Most Recently Relevant to Health Maintenance Insurance [place]ICAID-[place] MEDICARE Care Teams Refuge Manager Relationship Specialty Start Date End Date Alka Tracy APRN [facility] [place] [address] PCP - General 07/03/20 Daily Christy MD [address] [place] [address] Service Attending Neurology 09/30/20 Malgorzata Moseley PA [address] [place] [address] Physician Social Service Technician Neurology 11/18/20 Shy Duque APRN [address] [place] [address] Nurse Practitioner Neurosurgery 11/25/20 Arsalan Thompson MD [address] [place] [address] Surgeon Neurosurgery 07/02/21
--- OUTSIDE RECORDS SUMMARY | 2024-10-09 21:43 | XMS_ITS | Encounter Summary ---
Author Organization [facility] Address [address] [place] [address] Care Team Providers Care Java Scala Developer Name Role Phone Alka Tracy FLORAL ARRANGER Primary Care Provider [phone] Daily Christy MD Unavailable [phone] Malgorzata Moseley PA Unavailable [phone] Shy Duque FLORAL ARRANGER Unavailable [phone] Arsalan Thompson MD Unavailable + [phone] Adela Olivares FINANCE BROKER Unavailable Unavail able Amos Shah Unavailable Unavailable Linda Baker FINANCE BROKER Unavailable Unavailab Francis Morgan Unavailable Unavailable Reason for Visit * Reason Comments Med Refill Encounter Details Date Type Department Care Team (Late st Contact Info) Description 03/17/2021 Refill [facility] [address] [place] [address] Alka Tracy, FLORAL ARRANGER [address] [place] [address] Social History Tobacco Use Types [...] Description 10/10/2024 10:20 AM EDT Office Visit [facility] [address] [place] [address] Alka Tracy, FLORAL ARRANGER [address] [place] [address] 12/11/2024 8:40 AM EDT Office Visit [facility] [address] [place] [address] Alka Tracy, FLORAL ARRANGER [address] [place] [address] 12/11/2024 9:00 AM EDT Procedure Visit [facility] [address] [place] [address] Malgorzata Moseley PA [address] [place] [address] 12/13/2024 11:00 AM EDT Procedure Visit [facility] at [facility] [address] [place] [place] [address] Nicolás Hollis MD [address] [place] [address] documented as of this encounter Visit Diagnoses Not on filedocumented in this encounter Additional Health Concerns Assessment Noted Time PHQ-9 Depression Total Score: 9 01/22/20 21 9:38 AM EST documented as of this encounter Care Teams Java Scala Developer Relationship Specialty Start Date End Date Alka Tracy, FLORAL ARRANGER [address] [place] [address] PCP - General 07/03/20 Daily Christy MD [address] [place] [address] Service Attending Neurology 09/30/20 Malgorzata Moseley PA [address] [place] [address] Physician Splicer Helper Neurology 11/18/20 Shy Duque APRN [address] [place] [address] Nurse Practitioner Neurosurgery 11/25/20 Arsalan Thompson MD [address] [place] [address] Surgeon Neurosurgery 07/02/21 Adela Olivares LPN [employer] [address] TCM Nurse 02/15/23 02/15/23 Amos Shah Community Health Worker 04/20/23 05/08/23 Linda Baker LPN VALUE-BASED TRANSFORMATION PROGRAM Licensed Practical Nurse 12/27/23 06/24/24 Francis Wallace Community Health Worker 07/10/24 07/17/24 documented as of this encounter
--- OUTSIDE RECORDS SUMMARY | 2024-10-09 21:43 | XMS_ITS | Encounter Summary ---
Author Organization [facility] Address [address] [place] [address] Care Team Providers Care Vamp Maker Name Role Phone Alka Tracy FISH AND WILDLIFE SCIENTIFIC AID Primary Care Provider [phone] Daily Christy MD Unavailable [phone] Malgorzata Moseley PA Unavailable +[phone] Shy Duque FISH AND WILDLIFE SCIENTIFIC AID Unavailable [phone] Arsalan Thompson MD Unavailable + [phone] Adela Olivares DAY CARE HOME MOTHER Unavailable Unavail able Amos Shah Unavailable Unavailable Linda Baker DAY CARE HOME MOTHER Unavailable Unavailab Francis Morgan Unavailable Unavailable Reason for Visit * Reason Comments Med Refill Encounter Details Date Type Department Care Team (Late st Contact Info) Description 10/30/2020 Refill [facility] [address] [place] [address] Alka Tracy, FISH AND WILDLIFE SCIENTIFIC AID [address] [place] [address] Chronic daily headache Social History [...] Description 10/10/2024 10:20 AM EDT Office Visit [facility] [address] [place] [address] Alka Tracy, FISH AND W[place]DLIFE [place] [address] 12/11/2024 8:40 AM EDT Office Visit [facility] [address] [place] [address] Alka Tracy [employer] [place] [address] 12/11/2024 9:00 AM EDT Procedure Visit [place] [facility] [address] 1st [place] [address] Malgorzata Moseley PA [address] [place] [address] 12/13/2024 11:00 AM EDT Procedure Visit [facility] [address] [place] [address] Nicolás Hollis MD [address] [place] [address] documented as of this encounter Visit Diagnoses Diagnosis Chronic daily headache Headache documented in this encounter Additional Health Concerns Assessment Noted Time A fall risk assessment has been complete d for the patient 09/30/2020 11:30 AM EDT documented as of this encounter Care Teams Vamp Maker Relationship Specialty Start Date End Date Alka Tracy APRN [address] [place] [address] PCP - General 07/03/20 Daily Christy MD [address] [place] [address] Service Attending Neurology 09/30/20 Malgorzata Moseley PA [address] [place] [address] Physician Grill Attendant Neurology 11/18/20 Shy Duque, FISH AND WILDLIFE SCIENTIFIC AID [address] [place] [address] Nurse Practitioner Neurosurgery 11/25/20 Arsalan Thompson MD [address] [place] [address] Surgeon Neurosurgery 07/02/21 Adela Olivares LPN VALUE-BASED [place] [address] TCM Nurse 02/15/23 02/15/23 Amos Shah Community Health Worker 04/20/23 05/08/23 Linda Baker DAY CARE HOME MOTHER VALUE-BASED TRANSFORMATION PROGRAM Licensed Practical Nurse 12/27/23 06/24/24 Francis Wallace Community Health Worker 07/10/24 07/17/24 documented as of this encounter
--- OUTSIDE RECORDS SUMMARY | 2024-10-09 21:43 | XMS_ITS | Encounter Summary ---
Author Organization [facility] Address [address] [place] [address] Care Team Providers Care Newspaper Photojournalist Name Role Phone Alka Tracy CISTERN ROOM WORKING SUPERVISOR Primary Care Provider [phone] Daily Christy MD Unavailable [phone] Malgorzata Moseley PA Unavailable +[phone] Shy Duque CISTERN ROOM WORKING SUPERVISOR Unavailable [phone] Arsalan Thompson MD Unavailable + [phone] Adela Olivares BIOCHEMICAL DEVELOPMENT ENGINEER Unavailable Unavail able Amos Shah Unavailable Unavailable Linda Baker BIOCHEMICAL DEVELOPMENT ENGINEER Unavailable Unavailab Francis Morgan Unavailable Unavailable Reason for Visit * Reason Comments Med Refill Encounter Details Date Type Department Care Team (Late st Contact Info) Description 05/30/2022 Refill [facility] [address] [place] [address] Alka Tracy, CISTERN ROOM WORKING SUPERVISOR [address] [place] [address] Social History Tobacco Use Types [...] Description 10/10/2024 10:20 AM EDT Office Visit [facility] [address] [place] [address] Alka Tracy, CISTERN ROOM WORKING SUPERVISOR [address] [place] [address] 12/11/2024 8:40 AM EDT Office Visit [facility] [address] [place] [address] Alka Tracy, CISTERN ROOM WORKING SUPERVISOR [address] [place] [address] 12/11/2024 9:00 AM EDT Procedure Visit [place] [facility] [address], 1st [place] [address] Malgorzata Moseley PA [address] [place] [address] 12/13/2024 11:00 AM EDT Procedure Visit [facility] at [facility] [address] [place] [address] Nicolás Hollis MD [address] [place] [address] documented as of this encounter [...] documented as of this encounter Care Teams Newspaper Photojournalist Relationship Specialty Start Date End Date Alka Tracy APRN [place] [phone] PCP - General 07/03/20 Daily Christy MD [address] [place] [address] Service Attending Neurology 09/30/20 Malgorzata Moseley PA [address] [place] [address] Physician Spice Grinder Neurology 11/18/20 Shy Duque APRN [address] [place] [address] Nurse Practitioner Neurosurgery 11/25/20 Arsalan Thompson MD [address] [place] [address] Surgeon Neurosurgery 07/02/21 Adela Olivares LPN VALUE-[place] [address] TCM Nurse 02/15/23 02/15/23 Amos Shah Community Health Worker 04/20/23 05/08/23 Linda Baker LPN VALUE-BASED TRANSFORMATION PROGRAM Licensed Practical Nurse 12/27/23 06/24/24 Francis Wallace Community Health Worker 07/10/24 07/17/24 documented as of this encounter
--- OUTSIDE RECORDS SUMMARY | 2024-10-09 21:43 | XMS_ITS | Encounter Summary ---
Author Organization [facility] Address [address] [place] [address] Care Team Providers Care Sales Superintendent Name Role Phone Alka Tracy POST FRAMER Primary Care Provider [phone] Daily Christy MD Unavailable [phone] Malgorzata Moseley PA Unavailable +[phone] Shy Duque POST FRAMER Unavailable +[phone] Arsalan Thompson MD Unavailable + [phone] Encounter Details Date Type Department Care Team (Late st Contact Info) Description 09/09/2024 Orders Only [facility] [address] [place] [address] Alka Tracy, POST FRAMER [address] [place] [address] Social History Tobacco Use Types [...] week 12/27/2023 How often do you attend [facility] or hoahaoism services? Never 12/27/2023 Do you belong to [...] Patient Health Questionnaire-2 Score 2 09/09/2024 [facility] of Occupat ional [facility] - Occupational Stress Questionnaire Answer Date Recorded [...] In the past 12 months has th [employer], gas, oil, or water company threatened [...] Description 10/10/2024 10:20 AM EDT Office Visit [facility] [address] [place] [address] Alka Tracy [place] [address] 12/11/2024 8:40 AM EDT Office Visit [facility] [address] [place] [address] Alka Tracy APRN [address] [place] [address] 12/11/2024 9:00 AM EDT [facility] [place] [facility] [address], 1st [place] [address] Malgorzata Moseley PA [address] [place] [address] 12/13/2024 11:00 AM EDT Procedure Visit [facility] [address] [place] [address] Nicolás Hollis MD [address] [place] [address] documented as of this encounter [...] documented as of this encounter Care Teams Sales Superintendent Relationship Specialty Start Date End Date Alka Tracy APRN [address] [place] [address] PCP - General 07/03/20 Daily Christy MD [address] [place] [address] Service Attending Neurology 09/30/20 Malgorzata Moseley PA [address] [place] [address] Physician Lan Support Specialist Neurology 11/18/20 Shy Duque APRN [address] [place] [address] Nurse Practitioner Neurosurgery 11/25/20 Arsalan Thompson MD [address] [place] [address] Surgeon Neurosurgery 07/02/21 documented as of this encounter
--- OUTSIDE RECORDS SUMMARY | 2024-10-09 21:43 | XMS_ITS | Encounter Summary ---
Author Organization [facility] Address [address] [place] [address] Care Team Providers Care Tile Presser Name Role Phone Alka Tracy SHERIFF'S OFFICER Primary Care Provider [phone] Daily Christy MD Unavailable [phone] Malgorzata Moseley PA Unavailable [phone] Shy Duque SHERIFF'S OFFICER Unavailable +[phone] Arsalan Thompson MD Unavailable + [phone] Adela Oilvares JOSS HOUSE KEEPER Unavailable Unavail able Amos Shah Unavailable Unavailable Linda Baker JOSS HOUSE KEEPER Unavailable Unavailab Francis Morgan Unavailable Unavailable Reason for Visit * Reason Comments Med Refill Encounter Details Date Type Department Care Team (Late st Contact Info) Description 10/29/2020 Refill [facility] Community [facility] [address] [place] [address] Alka Tracy, SHERIFF'S OFFICER [address] [place] [address] Chronic daily headache Social History [...] Description 10/10/2024 10:20 AM EDT Office Visit [facility] [address] [place] [address] Alka Tracy, [place] [address] 12/11/2024 8:40 AM EDT Office Visit [facility] [address] [place] [address] Alka Tracy [place] [address] 12/11/2024 9:00 AM EDT Procedure Visit [place] [facility] [address], 1st [place] [address] Malgorzata Moseley PA [address] [place] [address] 12/13/2024 11:00 AM EDT Procedure Visit [facility] [address] [place] [address] Nicolás Hollis MD [address] [place] [address] documented as of this encounter Visit Diagnoses Diagnosis Chronic daily headache Headache documented in this encounter Additional Health Concerns Assessment Noted Time A fall risk assessment has been complete d for the patient 09/30/2020 11:30 AM EDT documented as of this encounter Care Teams Tile Presser Relationship Specialty Start Date End Date Alka Tracy APRN [address] [place] [address] PCP - General 07/03/20 Daily Christy MD [address] [place] [address] Service Attending Neurology 09/30/20 Malgorzata Moseley PA [address] [place] [address] Physician Teacher Adult Education Neurology 11/18/20 Shy Duque, SHERIFF'S OFFICER [address] [place] [address] Nurse Practitioner Neurosurgery 11/25/20 Arsalan Thompson MD [address] [place] [address] Surgeon Neurosurgery 07/02/21 Adela Olivares LPN VALUE-BASED [place] [address] TCM Nurse 02/15/23 02/15/23 Amos Shah Community Health Worker 04/20/23 05/08/23 Linda Baker JOSS HOUSE KEEPER VALUE-BASED TRANSFORMATION PROGRAM Licensed Practical Nurse 12/27/23 06/24/24 Francis Wallace Community Health Worker 07/10/24 07/17/24 documented as of this encounter
--- OUTSIDE RECORDS SUMMARY | 2024-10-09 21:43 | XMS_ITS | Encounter Summary ---
Author Organization [facility] Address [address] [place] [place] [address] Care Team Providers Care Legal Consultant Name Role Phone Alka Tracy POLICY CHANGE CLERKS SUPERVISOR Primary Care Provider [phone] Daily Christy MD Unavailable [phone] Malgorzata Moseley PA Unavailable [phone] Shy Duque POLICY CHANGE CLERKS SUPERVISOR Unavailable +[phone] Arsalan Thompson MD Unavailable + [phone] Reason for Visit * Reason Onset Date Comments Med Refill 08/18/2024 Encounter Details Date Type Department Care Team (Late st Contact Info) Description 08/18/2024 Refill [facility] [address] [place] [address] Alka Tracy, POLICY CHANGE CLERKS SUPERVISOR [address] [place] [address] Allergic rhinitis, unspecified seasonality, unspecified [...] How often do you attend chur or taoist services? Never 12/27/2023 Do you belong to [...] Recorded Patient Health Questionnaire-2 Score 2 07/10/2024 [facility] Questionnaire Answer Date [...] any time in the past 12 m [facility], were you homeless or living in a jail (including now)? No 07/10/2024 Utilities Answer Date Recorded In the past 12 months has th e [employer], gas, oil, or water [employer] threatened to shut off services in your [...] Description 10/10/2024 10:20 AM EDT Office Visit [facility] [address] [place] [address] Alka Tracy POLICY CHANGE CLERKS SUPERVISOR [address] [place] [address] 12/11/2024 8:40 AM EDT Office Visit [facility] [address] [place] [address] Alka Tracy, POLICY CHANGE CLERKS SUPERVISOR [address] [place] [address] 12/11/2024 9:00 AM EDT Procedure Visit [place] [facility] [address], 1st [place] [address] Malgorzata Moseley PA [address] [place] [address] 12/13/2024 11:00 AM EDT Procedure Visit [facility] at [facility] [address] [place] [address] Nicolás Hollis MD [address] [place] [address] documented as of this encounter [...] documented as of this encounter Care Teams Legal Consultant Relationship Specialty Start Date End Date Alka Tracy APRN [address] [place] [address] PCP - General 07/03/20 Daily Christy MD [address] [place] [address] Service Attending Neurology 09/30/20 Malgorzata Moseley PA [address] [place] [address] Physician Student Success Coach Neurology 11/18/20 Shy Duque APRN [address] [place] [address] Nurse Practitioner Neurosurgery 11/25/20 Arsalan Thompson MD [address] [place] [address] Surgeon Neurosurgery 07/02/21 documented as of this encounter
--- OUTSIDE RECORDS SUMMARY | 2024-10-09 21:43 | XMS_ITS | Encounter Summary ---
Author Organization [facility] Address [address] [place] [address] Care Team Providers Care Underground Foreman Name Role Phone Alka Tracy APRN Primary Care Provider [phone] Daily Christy MD Unavailable [phone] Malgorzata Moseley Unavailable +[phone] Shy Duque APRN Unavailable +[phone] Arsalan Thompson MD Unavailable + [phone] Linda Baker LPN Unavailable Unavailab Francis Morgan Unavailable Unavailable Encounter Details Date Type Department Care Team (Late st Contact Info) Description 09/13/2023 Orders Only External Location [address] [place] [id number] Provider, External Social History Tobacco Use Types [...] in a nursing home (including now)? No 04/20/2023 Utilities Answer Date [...] Description 10/10/2024 10:20 AM EDT Office Visit [facility] [place] [address] Alka Tracy, SPICE MILLER HAMMER MILL [place] [address] 12/11/2024 8:40 AM EDT Office Visit [facility] [address] [place] [address] Alka Tracy APRN [address] [place] [address] 12/11/2024 9:00 AM EDT Procedure Visit [place] [facility] [address], 1st [place] [address] Malgorzata Moseley PA [address] [place] [address] 12/13/2024 11:00 AM EDT Procedure Visit [facility] at [facility] [address] [place] [address] Nicolás Hollis MD [address] [place] [address] documented as of this encounter [...] documented as of this encounter Care Teams Underground Foreman Relationship Specialty Start Date End Date Alka Tracy APRN [address] [place] [address] PCP - General 07/03/20 Daily Christy MD [address] [place] [address] Service Attending Neurology 09/30/20 Malgorzata Moseley PA [address] [place] [address] Physician Lead Game Designer Neurology 11/18/20 Shy Duque APRN [address] [place] [address] Nurse Practitioner Neurosurgery 11/25/20 Arsalan Thompson MD [address] [place] [address] Surgeon Neurosurgery 07/02/21 Linda Baker LPN VALUE-BASED TRANSFORMATION PROGRAM Licensed Practical Nurse 12/27/23 06/24/24 Francis Wallace Community Health Worker 07/10/24 07/17/24 documented as of this encounter
--- OUTSIDE RECORDS SUMMARY | 2024-10-09 21:43 | XMS_ITS | Encounter Summary ---
Author Organization [facility] Address [address] [place] [address] Care Team Providers Care Repair Supervisor Name Role Phone Alka Tracy MACHINE ASSISTANT Primary Care Provider [phone] Daily Christy MD Unavailable [phone] Malgorzata Moseley PA Unavailable [phone] Shy Duque APRN Unavailable +[phone] Arsalan Thompson MD Unavailable + [phone] Encounter Details Date Type Department Care Team (Late st Contact Info) Description 09/09/2024 Telephone [facility] Medicine [address] [place] [address] Alka Tracy, MACHINE ASSISTANT [address] [place] [address] Social History Tobacco Use Types [...] week 12/27/2023 How often do you attend [facility] or quaker services? Never 12/27/2023 Do you belong to [...] Recorded Patient Health Questionnaire-2 Score 2 09/09/2024 [facility] Occupat ional Health - [...] Recorded In the past 12 months has [employer] electric, gas, oil, or water company threatened [...] Description 10/10/2024 10:20 AM EDT Office Visit [facility] [address] [place] [address] Alka Tracy APRN [address] [place] [address] 12/11/2024 8:40 AM EDT Office Visit [facility] [address] [place] [address] Alka Tracy APRN [address] [place] [address] 12/11/2024 9:00 AM EDT Procedure Visit [place] [facility] [address] 1st [place] [address] Malgorzata Moseley PA [address] [place] [address] 12/13/2024 11:00 AM EDT Procedure Visit [facility] at [facility] [address] [place] [address] Nicolás Hollis MD [address] [place] [address] documented as of this encounter [...] documented as of this encounter Care Teams Repair Supervisor Relationship Specialty Start Date End Date Alka Tracy APRN [address] [place] [phone] PCP - General 07/03/20 Daily Christy MD [address] [place] [address] Service Attending Neurology 09/30/20 Malgorzata Moseley PA [address] [place] [address] Physician Oracle Applications Developer Neurology 11/18/20 Shy Duque, MACHINE ASSISTANT [address] [place] [address] Nurse Practitioner Neurosurgery 11/25/20 Arsalan Thompson MD [address] [place] [address] Surgeon Neurosurgery 07/02/21 documented as of this encounter
--- OUTSIDE RECORDS SUMMARY | 2024-10-09 21:43 | XMS_ITS | Encounter Summary ---
Author Organization [facility] Address [address] [place] [address] Care Team Providers Care Qa Consultant Name Role Phone Alka Tracy SURFACE WATER MANAGER Primary Care Provider [phone] Daily Christy MD Unavailable [phone] Malgorzata Moseley PA Unavailable [phone] Shy Duque SURFACE WATER MANAGER Unavailable [phone] Arsalan Thompson MD Unavailable + [phone] Adela Olivares SUPERVISOR MAPPING Unavailable Unavail able Amos Shah Unavailable Unavailable Linda Baker SUPERVISOR MAPPING Unavailable Unavailab Fracnis [place] Unavailable Unavailable Reason for Visit * Reason Onset Date Comments Med Refill 02/21/2022 Encounter Details Date Type Department Care Team (Late st Contact Info) Description 02/21/2022 Refill [facility] [address] [place] [address] Alka Tracy, SURFACE WATER MANAGER [address] [place] [address] Allergic rhinitis, unspecified seasonality, unspecified [...] Description 10/10/2024 10:20 AM EDT Office Visit [facility] [address] [place] [address] Alka Tracy, SURFACE WATER MANAGER [address] [place] [address] 12/11/2024 8:40 AM EDT Office Visit [facility] [address] [place] [address] Alka Tracy, SURFACE WATER MANAGER [address] [place] [address] 12/11/2024 9:00 AM EDT Procedure [facility] [place] [facility] [address] 1st [place] [address] Malgorzata Moseley PA [address] [place] [address] 12/13/2024 11:00 AM EDT Procedure Visit [facility] [address] [place] [address] Nicolás Hollis MD [address] [place] [address] documented as of this encounter Visit Diagnoses Diagnosis Allergic rhinitis, unspecified seasonality, unspecified trigger 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 documented in this encounter Additional Health Concerns Assessment Noted Time PHQ-9 Depression Total Score: 9 01/22/20 21 9:38 AM EST A fall risk assessment has been complete d for the patient 07/02/2021 10:07 AM EDT documented as of this encounter Care Teams Qa Consultant Relationship Specialty Start Date End Date Alka Tracy APRN [address] [place] [address] PCP - General 07/03/20 Daily Christy MD [address] [place] [address] Service Attending Neurology 09/30/20 Malgorzata Moseley PA [address] [place] [address] Physician Slip Feeder Neurology 11/18/20 Shy Duque APRN [address] [place] [address] Nurse Practitioner Neurosurgery 11/25/20 Arsalan Thompson MD [address] [place] [address] Surgeon Neurosurgery 07/02/21 Adela Olivares LPN VALUE-[place] [address] TCM Nurse 02/15/23 02/15/23 Amos Shah Community Health Worker 04/20/23 05/08/23 Linda Baker LPN VALUE-BASED TRANSFORMATION PROGRAM Licensed Practical Nurse 12/27/23 06/24/24 Francis Wallace Community Health Worker 07/10/24 07/17/24 documented as of this encounter
--- OUTSIDE RECORDS SUMMARY | 2024-10-09 21:43 | XMS_ITS | Encounter Summary ---
Author Organization [facility] Address [address] [place] [address] Care Team Providers Care Software Quality Test Engineer Name Role Phone Alka Tracy APRN Primary Care Provider [phone] Daily Christy MD Unavailable [phone] Malgorzata Moseley PA Unavailable [phone] Shy Duque MANUFACTURING ELECTRICIAN Unavailable [phone] Arsalan Thompson MD Unavailable + [phone] Reason for Visit * Reason Comments Med Refill Encounter Details Date Type Department Care Team (Late st Contact Info) Description 09/02/2024 Refill [facility] [address] [place] [id number] Alka Tracy, MANUFACTURING ELECTRICIAN [address] [place] [address] Allergic rhinitis, unspecified seasonality, unspecified [...] How often do you attend chur or spiritism services? Never 12/27/2023 Do you belong to any clubs o r organizations such as anglican groups, unions, fraternal or athletic groups, or [...] Recorded Patient Health Questionnaire-2 Score 2 07/10/2024 [facility] Health - Occupational Stress Questionnaire [...] any time in the past 12 m [facility], were you homeless or living in a jail (including now)? No 07/10/2024 Utilities Answer Date Recorded In the past 12 months has th e [employer], gas, oil, or water [email or web address] threatened to shut off services in your [...] Description 10/10/2024 10:20 AM EDT Office Visit [facility] Medicine [address] [place] [address] Alka Tracy APRN [address] [place] [address] 12/11/2024 8:40 AM EDT Office Visit [facility] [address] [place] [address] Alka Tracy APRN [address] [place] [address] 12/11/2024 9:00 AM EDT Procedure Visit [facility] [address], [address] [place] [address] Malgorzata Moseley PA [address] [place] [address] 12/13/2024 11:00 AM EDT Procedure Visit [facility] [address] [place] [address] Nicolás Hollis MD [address] [place] [address] documented as of this encounter [...] documented as of this encounter Care Teams Software Quality Test Engineer Relationship Specialty Start Date End Date Alka Tracy APRN [address] [place] [address] PCP - General 07/03/20 Daily Christy MD [address] [place] [address] Service Attending Neurology 09/30/20 Malgorzata Moseley PA [address] [place] [address] Physician Retail District Manager Neurology 11/18/20 Shy Duque APRN [address] [place] [address] Nurse Practitioner Neurosurgery 11/25/20 Arsalan Thompson MD [address] [place] [address] Surgeon Neurosurgery 07/02/21 documented as of this encounter
--- OUTSIDE RECORDS SUMMARY | 2024-10-09 21:43 | XMS_ITS | Encounter Summary ---
Author Organization [facility] Address [address] [place] [address] Care Team Providers Care Head Custodian Name Role Phone Alka Tracy CERTIFIED NOVELL ADMINISTRATOR Primary Care Provider [phone] Daily Christy MD Unavailable [phone] Malgorzata Moseley PA Unavailable [phone] Shy Duque CERTIFIED NOVELL ADMINISTRATOR Unavailable [phone] Arsalan Thompson MD Unavailable + [phone] Reason for Visit * Reason Onset Date Comments Med Refill 08/15/2024 Encounter Details Date Type Department Care Team (Late st Contact Info) Description 08/15/2024 Refill [facility] [address] [place] [address] Alka Tracy, CERTIFIED NOVELL ADMINISTRATOR [address] [place] [address] Social History Tobacco Use Types [...] How often do you attend chur or buddhist services? Never 12/27/2023 Do you belong to any clubs o r organizations such as zoroastrian groups, unions, fraternal or athletic groups, or [...] Health Questionnaire-2 Score 2 07/10/2024 [facility] [...] place to sleep or slept in a fpc (including now)? No 11/09/2023 PHQ-9 Answer Date [...] time in the past 12 m [facility], were you homeless or living in a fpc (including now)? No 07/10/2024 Utilities Answer Date Recorded In the past 12 months has th e [employer], gas, oil, or water [employer] threatened to shut off services in your [...] Description 10/10/2024 10:20 AM EDT Office Visit [facility] Medicine 202 [facility] [place] [address] Alka Tracy, CERTIFIED NOVELL ADMINISTRATOR [address] [place] [address] 12/11/2024 8:40 AM EDT Office [facility] [address] [place] [address] Alka Tracy, CERTIFIED NOVELL ADMINISTRATOR [address] [place] [address] 12/11/2024 9:00 AM EDT Procedure Visit [place] [facility] [address] 1[address] [place] [address] Malgorzata Moseley PA [address] [place] [address] 12/13/2024 11:00 AM EDT Procedure Visit [facility] [address] [place] [address] Nicolás Hollis MD [address] [place] [address] documented as of this encounter [...] documented as of this encounter Care Teams Head Custodian Relationship Specialty Start Date End Date Alka Tracy, DEVORAH [address] [place] [address] PCP - General 07/03/20 Daily Christy MD [address] [place] [address] Service Attending Neurology 09/30/20 Malgorzata Moseley PA [address] [place] [address] Physician Loss Control Manager Neurology 11/18/20 Shy Duque APRN [address] [place] [address] Nurse Practitioner Neurosurgery 11/25/20 Arsalan Thompson MD [address] [place] [address] Surgeon Neurosurgery 07/02/21 documented as of this encounter
--- OUTSIDE RECORDS SUMMARY | 2024-10-09 21:43 | XMS_ITS | Encounter Summary ---
Author Organization [facility] Address [address] [place] [address] Care Team Providers Care Osteopathic Resident Name Role Phone Alka Tracy DOOR AND ARRIVAL ATTENDANT Primary Care Provider [phone] Daily Christy MD Unavailable [phone] Malgorzata Moseley PA Unavailable [phone] Shy Duque DOOR AND ARRIVAL ATTENDANT Unavailable [phone] Arsalan Thompson MD Unavailable + [phone] Encounter Details Date Type Department Care Team (Late st Contact Info) Description 08/19/2024 Orders Only [facility] Transplant Center [address] [place] [address] Alka Tracy, DOOR AND ARRIVAL ATTENDANT [address] [place] [address] Allergic rhinitis, unspecified seasonality, unspecified [...] How often do you attend chur or yazdanism services? Never 12/27/2023 Do you belong to [...] Questionnaire-2 Score 2 07/10/2024 [facility] Health - Occupational Stress Questionnaire Answer Date [...] in a half-way (including now)? No 07/10/2024 Utilities Answer Date Recorded In the past 12 months has e [employer], gas, oil, or water [employer] threatened to shut off services in your [...] Description 10/10/2024 10:20 AM EDT Office Visit [facility] [address] [place] [address] Alka Tracy, DOOR AND ARRIVAL ATTENDANT [address] [place] [address] 12/11/2024 8:40 AM EDT Office Visit [facility] [address] [place] [address] Alka Tracy, DOOR AND ARRIVAL ATTENDANT [address] [place] [address] 12/11/2024 9:00 AM EDT Procedure Visit [place] [facility] [address] [place] [address] Malgorzata Moseley PA [address] [place] [address] 12/13/2024 11:00 AM EDT Procedure Visit [facility] [address] [place] [address] Nicolás Hollis MD [address] [place] [address] documented as of this encounter [...] documented as of this encounter Care Teams Osteopathic Resident Relationship Specialty Start Date End Date Alka Tracy, DEVORAH [address] [place] [address] PCP - General 07/03/20 Daily Christy MD [address] [place] [address] Service Attending Neurology 09/30/20 Malgorzata Moseley PA [address] [place] [address] Physician Plant Physiologist Neurology 11/18/20 Shy Duque APRN [address] [place] [address] Nurse Practitioner Neurosurgery 11/25/20 Arsalan Thompson MD [address] [place] [address] Surgeon Neurosurgery 07/02/21 documented as of this encounter
--- OUTSIDE RECORDS SUMMARY | 2024-10-09 21:43 | XMS_ITS | Encounter Summary ---
Author Organization [facility] Address [address] [place] [address] Care Team Providers Care Customer Orders Clerk Name Role Phone Demarcus Alka Caitlin FAIRCHILD Primary Care Provider [phone] Daily Christy MD Unavailable Malgorzata Moseley Unavailable [phone] Shy Duque APRN Unavailable [phone] Arsalan Thompson MD Unavailable Encounter Details Date Type Department Care Team (Late st Contact Info) Description 10/03/2024 Telephone [place] [facility] [address] [place] [address] Malgorzata Moseley PA [address] [place] [address] Social History Tobacco Use Types [...] week 12/27/2023 How often do you attend [facility] or religion services? Never 12/27/2023 Do you belong to [...] Recorded Patient Health Questionnaire-2 Score 2 09/09/2024 [facility] - Occupational Stress Questionnaire Answer Date [...] in a mcc (including now)? No 07/10/2024 Humiliation, Afraid, Rape, [...] living in a mcc (including now)? No 09/09/2024 Utilities Answer Date Recorded In the past 12 months has [employer] electric, gas, oil, or water company threatened [...] encounter Miscellaneous Notes * Telephone Encounter - Macarena Kulkarni - 10/03/2024 10:51 AM EDT Patient Phone Message Reason for Call: Patient needs to r/s TPI Please call back Best contact number and optimal time of day to reach caller: [phone] Pt Note: Please do not reply to this message. Follow-up communication and further actions as a result of this message need to be communicated with the patient directly, if the patient is not active onMyChart. If the patient is active on MyChart, they will receive notification of the communication/outcome via Scannxhart. documented in this encounter Plan of Treatment Upcoming Encounters Date Type Department Care Team (Late st Contact Info) Description 10/10/2024 10:20 AM EDT Office Visit [facility] [place] [address] Alka Tracy, CHURN [place] [address] 12/11/2024 8:40 AM EDT Office Visit [facility] [place] [address] Alka Tracy, CHURN TENDER [place] [address] 12/11/2024 9:00 AM EDT [facility] [place] [facility] [address] 1st [place] [address] Malgorzata Moseley PA [address] [place] [address] 12/13/2024 11:00 AM EDT Procedure Visit [facility] at [facility] [address] [address] Nicolás Hollis MD [address] [place] [address] documented as of this encounter [...] documented as of this encounter Care Teams Customer Orders Clerk Relationship Specialty Start Date End Date Alka Tracy APRN [address] [place] [phone] PCP - General 07/03/20 Daily Christy MD [address] [place] [address] Service Attending Neurology 09/30/20 Malgorzata Moseley PA [address] [place] [address] Physician Software Engineering Analyst Neurology 11/18/20 Shy Duque APRN [address] [place] [address] Nurse Practitioner Neurosurgery 11/25/20 Arsalan Thompson MD [address] [place] [address] Surgeon Neurosurgery 07/02/21 documented as of this encounter
--- OUTSIDE RECORDS SUMMARY | 2024-10-09 21:43 | XMS_ITS | Encounter Summary ---
Author Organization [facility] Address [address] [place] [address] Care Team Providers Care Fisheries Specialist Name Role Phone DemarcusAlka Caitlin FAIRCHILD Primary Care Provider [phone] Daily Christy MD Unavailable [phone] Malgorzata Moseley Unavailable [phone] Shy Duque SALES ASSOCIATE Unavailable [phone] Arsalan Thompson MD Unavailable + [phone] Adela Olivares BAND BOOKER Unavailable Unavail able Amos Shah Unavailable Unavailable Linda Baker BAND BOOKER Unavailable Unavailab Francis Morgan Unavailable Unavailable Reason for Visit * Reason Comments Med Refill Encounter Details Date Type Department Care Team (Late st Contact Info) Description 09/15/2021 Refill [facility] [address] [place] [address] Emily Denise MD [address] [place] [address] Social History Tobacco Use Types [...] Description 10/10/2024 10:20 AM EDT Office Visit [facility] [address] [place] [address] Alka Tracy, SALES ASSOCIATE [address] [place] [address] 12/11/2024 8:40 AM EDT Office Visit [facility] [address] [place] [address] Alka Tracy, SALES ASSOCIATE [address] [place] [address] 12/11/2024 9:00 AM EDT Procedure Visit [place] [facility] [address] 1st [place] [address] Malgorzata Moseley PA [address] [place] [address] 12/13/2024 11:00 AM EDT Procedure Visit [facility] [address] [place] [address] Nicolás Hollis MD [address] [place] [address] documented as of this encounter Visit Diagnoses Not on filedocumented in this encounter Additional Health Concerns Assessment Noted Time PHQ-9 Depression Total Score: 9 01/22/20 9:38 AM EST A fall risk assessment has been complete d for the patient 07/02/2021 10:07 AM EDT documented as of this encounter Care Teams Fisheries Specialist Relationship Specialty Start Date End Date Alka Tracy APRN [address] [place] [address] PCP - General 07/03/20 Daily Christy MD [address] [place] [address] Service Attending Neurology 09/30/20 Malgorzata Moseley PA [address] [place] [address] Physician Commercial Lines Account Assistant Neurology 11/18/20 Shy Duque APRN [address] [place] [address] Nurse Practitioner Neurosurgery 11/25/20 Arsalan Thompson MD [address] [place] [address] Surgeon Neurosurgery 07/02/21 Adela Olivares LPN VALUE-[place] [address] TCM Nurse 02/15/23 02/15/23 Amos Shah Community Health Worker 04/20/23 05/08/23 Linda Baker LPN VALUE-BASED TRANSFORMATION PROGRAM Licensed Practical Nurse 12/27/23 06/24/24 Francis Wallace Community Health Worker 07/10/24 07/17/24 documented as of this encounter
--- OUTSIDE RECORDS SUMMARY | 2024-10-09 21:43 | XMS_ITS | Encounter Summary ---
Author Organization [facility] Address [address] [place] [address] Care Team Providers Care System Dispatcher Name Role Phone Alka Tracy GROCERY CLERK MARKING Primary Care Provider [phone] Daily Christy MD Unavailable [phone] Malgorzata Moseley PA Unavailable [phone] Shy Duque GROCERY CLERK MARKING Unavailable [phone] Arsalan Thompson MD Unavailable + [phone] Reason for Visit * Reason Onset Date Comments HCN Clinical Concern/Question 07/18/2024 Encounter Details Date Type Department Care Team (Late st Contact Info) Description 07/18/2024 Telephone [facility] [address] [place] [address] Alka Tracy, GROCERY CLERK MARKING [address] [place] [address] HCN Clinical Concern/Question Social History [...] How often do you attend chur or episcopalian services? Never 12/27/2023 Do you belong to any clubs o r organizations such as episcopalian groups, unions, fraternal or athletic groups, or [...] Score 2 07/10/2024 [facility] Health - Occupational Stress Questionnaire [...] any time in the past 12 m [facility], were you homeless or living in a usp (including now)? No 07/10/2024 Utilities Answer Date Recorded In the past 12 months has th e [employer], gas, oil, or water [employer] threatened to shut off services in your [...] pt for more information. Best contact number: [phone] (mobile) Optimal time of day to reach caller: ANYTIME Additional comments/information from caller: None Note: Please do not reply to this message. Follow-up communication and further actions as a result of this message need to be communicated with the patient directly, if the patient is not active onMyChart. If the patient is active on MyChart, they will receive notification of the communication/outcome via [employer]verify. documented in this encounter Plan of Treatment Upcoming Encounters Date Type Department Care Team (Late st Contact Info) Description 10/10/2024 10:20 AM EDT Office Visit [facility] [place] [address] lAka Tracy [place] [address] 12/11/2024 8:40 AM EDT Office Visit [facility] [place] [address] Alka Tracy [place] [address] 12/11/2024 9:00 AM EDT Procedure Visit [place] [facility] [address] [place] [address] Malgorzata Moseley PA [address] [place] [address] 12/13/2024 11:00 AM EDT Procedure Visit [facility] [address] [place] [address] Nicolás Hollis MD [address] [place] [address] documented as of this encounter [...] documented as of this encounter Care Teams System Dispatcher Relationship Specialty Start Date End Date Alka Tracy APRN [address] [place] [address] PCP - General 07/03/20 Daily Christy MD [address] [place] [address] Service Attending Neurology 09/30/20 Malgorzata Moseley PA [address] [place] [address] Physician Toll Ticket Clerk Neurology 11/18/20 Shy Duque APRN [address] [place] [address] Nurse Practitioner Neurosurgery 11/25/20 Arsalan Thompson MD [address] [place] [address] Surgeon Neurosurgery 07/02/21 documented as of this encounter
--- OUTSIDE RECORDS SUMMARY | 2024-10-09 21:43 | XMS_ITS | Encounter Summary ---
Author Organization [facility] Address [address] [place] [address] Care Team Providers Care Data Examination Clerk Name Role Phone Alka Tracy TELEVISION REPAIRMAN Primary Care Provider [phone] Daily Christy MD Unavailable [phone] Malgorzata Moseley PA Unavailable [phone] Shy Duque TELEVISION REPAIRMAN Unavailable [phone] Arsalan Thompson MD Unavailable + [phone] Adela Olivares SPLICER MACHINE OPERATOR Unavailable Unavail able Amos Shah Unavailable Unavailable Linda Baker SPLICER MACHINE OPERATOR Unavailable Unavailab Francis Morgan Unavailable Unavailable Reason for Visit * Reason Comments Med Refill Encounter Details Date Type Department Care Team (Late st Contact Info) Description 10/22/2020 Refill [facility] [address] [place] [address] Alka Tracy, TELEVISION REPAIRMAN [address] [place] [address] [...] Description 10/10/2024 10:20 AM EDT Office Visit [facility] [address] [place] [address] Alka Tracy, TELEVISION REPAIRMAN [address] [place] [address] 12/11/2024 8:40 AM EDT Office Visit [facility] [address] [place] [address] Alka Tracy, TELEVISION REPAIRMAN [address] [place] [address] 12/11/2024 9:00 AM EDT Procedure Visit [facility] [address] 1st [place] [address] Malgorzata Moseley PA [address] [place] [address] 12/13/2024 11:00 AM EDT Procedure Visit [facility] at [facility] [address] [place] [address] Nicolás Hollis MD [address] [place] [address] documented as of this encounter Visit Diagnoses Diagnosis Chronic daily headache Headache documented in this encounter Additional Health Concerns Assessment Noted Time A fall risk assessment has been complete d for the patient 09/30/2020 11:30 AM EDT documented as of this encounter Care Teams Data Examination Clerk Relationship Specialty Start Date End Date Alka Tracy, TELEVISION REPAIRMAN [address] [place] [address] PCP - General 07/03/20 Daily Christy MD [address] [place] [address] Service Attending Neurology 09/30/20 Malgorzata Moseley PA [address] [place] [address] Physician Strip Presser Neurology 11/18/20 Shy Duque APRN [address] [place] [address] Nurse Practitioner Neurosurgery 11/25/20 Arsalan Thompson MD [address] [place] [address] Surgeon Neurosurgery 07/02/21 Adela Olivares LPN VALUE-BASED [place] [address] TCM Nurse 02/15/23 02/15/23 Amos Shah Community Health Worker 04/20/23 05/08/23 Linda Baker LPN VALUE-BASED TRANSFORMATION PROGRAM Licensed Practical Nurse 12/27/23 06/24/24 Francis Wallace Community Health Worker 07/10/24 07/17/24 documented as of this encounter
--- OUTSIDE RECORDS SUMMARY | 2024-10-09 21:43 | XMS_ITS | Encounter Summary ---
Author Organization [facility] Address [address] [place] [address] Care Team Providers Care Supervisor Functional Testing Name Role Phone Alka Tracy BASIC SCIENCES PROFESSOR Primary Care Provider [phone] Daily Christy MD Unavailable [phone] Malgorzata Moseley PA Unavailable [phone] Shy Duque APRN Unavailable [phone] Arsalan Thompson MD Unavailable + [phone] Encounter Details Date Type Department Care Team (Late st Contact Info) Description 09/20/2024 Telephone [facility] [address] [place] [address] Alka Tracy, BASIC SCIENCES PROFESSOR [address] [place] [address] Social History Tobacco Use Types [...] week 12/27/2023 How often do you attend [facility] or yazdanism services? Never 12/27/2023 Do you belong to any clubs o r organizations such as caodaism groups, unions, fraternal or athletic groups, or [...] Recorded Patient Health Questionnaire-2 Score 2 09/09/2024 [facility] Occup[facility] ional Health - Occupational [...] any time in the past 12 m [facility], were you homeless or living in a longterm (including now)? No 07/10/2024 Humiliation, Afraid, Rape, [...] any time in the past 12 m [facility], were you homeless or living in a longterm (including now)? No 09/09/2024 Utilities Answer Date Recorded In the past 12 months has [employer] electric, gas, oil, or water company threatened [...] encounter Miscellaneous Notes * Telephone Encounter - Joan Souza - 09/20/2024 9:53 AM EDT Clinical Concern/Question Reason for Call: [facility] wanted to let PCP know that she went to the emergency room yesterday due to her big toe. Stated it was hurting pt yesterday but the ED couldn't do anything for the pt because of her diabetes. Wanted to let PCP know that pt already has sean with foot drAlly Thank you! Best contact number: Other: [phone] Optimal time of day to reach caller: ANYTIME Additional comments/information from caller: None Note: Please do not reply to this message. Follow-up communication and further actions as a result of this message need to be communicated with the patient directly, if the patient is not active onMyChart. If the patient is active on MyChart, they will receive notification of the communication/outcome via MyChart. documented in this encounter Plan of Treatment Upcoming Encounters Date Type Department Care Team (Late st Contact Info) Description 10/10/2024 10:20 AM EDT Office Visit [facility] [address] [place] [address] Alka Tracy [place] [address] 12/11/2024 8:40 AM EDT Office Visit [facility] [address] [place] [address] Alka Tracy APRN [address] [place] [address] 12/11/2024 9:00 AM EDT [facility] [address], 1st [place] [address] Malgorzata Moseley PA [address] [place] [address] 12/13/2024 11:00 AM EDT Procedure Visit [facility] at [facility] [address] [place] [address] Nicolás Hollis MD [address] [place] [address] documented as of this encounter [...] as of this encounter Care Teams Supervisor Functional Testing Relationship Specialty Start Date End Date Alka Tracy APRN [address] [place] [address] PCP - General 07/03/20 Daily Christy MD [address] [place] [address] Service Attending Neurology 09/30/20 Malgorzata Moseley PA [address] [place] [address] Physician Wood Mechanist Neurology 11/18/20 Shy Duque APRN [address] [place] [address] Nurse Practitioner Neurosurgery 11/25/20 Arsalan Thompson MD [address] [place] [address] Surgeon Neurosurgery 07/02/21 documented as of this encounter
--- OUTSIDE RECORDS SUMMARY | 2024-10-09 21:43 | XMS_ITS | Encounter Summary ---
Author Organization [facility] Address [address] [place] [address] Care Team Providers Care Structural Biologist Name Role Phone Alka Tracy UX DESIGN LEAD Primary Care Provider [phone] Daily Christy MD Unavailable [phone] Malgorzata Moseley PA Unavailable [phone] Shy Duque UX DESIGN LEAD Unavailable [phone] Arsalan Thompson MD Unavailable + [phone] Encounter Details Date Type Department Care Team (Late st Contact Info) Description 09/09/2024 Orders Only [facility] [address] [place] [address] Alka Tracy, UX DESIGN LEAD [address] [place] [address] Chronic constipation (Primary Dx) Social [...] often do you attend [facility] or mandaeism services? Never 12/27/2023 Do you belong to any clubs o r organizations such as oriental orthodox groups, unions, fraternal or athletic groups, or [...] [facility] No 07/10/2024 Humiliation, Afraid, Rape, [...] [facility] ([facility])? No 09/09/2024 Utilities Answer Date [...] Description 10/10/2024 10:20 AM EDT Office Visit [facility] [address] [place] [address] Alka Tracy APRN [address] [place] [address] 12/11/2024 8:40 AM EDT Office Visit [facility] [address] [place] [address] Alka Tracy APRN [address] [place] [address] 12/11/2024 9:00 AM EDT [facility] [address], 1st [place] [address] Malgorzata Moseley PA [address] [place] [address] 12/13/2024 11:00 AM EDT Procedure Visit [facility] [address] [place] [address] Nicolás Hollis MD [address] [place] [address] documented as of this encounter [...] documented as of this encounter Care Teams Structural Biologist Relationship Specialty Start Date End Date Alka Tracy APRN [address] [place] [address] PCP - General 07/03/20 Daily Christy MD [address] [place] [address] Service Attending Neurology 09/30/20 Malgorzata Moseley PA [address] [place], [place] [address] Physician Music Critic Neurology 11/18/20 Shy Duque APRN [address] [place], [place] [address] Nurse Practitioner Neurosurgery 11/25/20 Arsalan Thompson MD [address] [place], [place] [address] Surgeon Neurosurgery 07/02/21 documented as of this encounter
--- OUTSIDE RECORDS SUMMARY | 2024-10-09 21:43 | XMS_ITS | Encounter Summary ---
Author Organization [facility] Address [address] [place] [address] Care Team Providers Care Manager Of Sustainability Name Role Phone Alka Tracy APRN Primary Care Provider [phone] Daily Christy MD Unavailable [phone] Malgorzata Moseley Unavailable [phone] Shy Duque APRN Unavailable [phone] Arsalan Thompson MD Unavailable + [phone] Encounter Details Date Type Department Care Team (Late st Contact Info) Description 09/10/2024 Results Follow-Up [facility] [address] [place] [address] Alka Tracy, DATA LIBRARIAN [address] [place] [address] Social History Tobacco Use Types [...] 12/27/2023 How often do you attend [facility] or religion services? Never 12/27/2023 Do you [...] [facility] of Occupat ional [facility] - Occupational Stress Questionnaire Answer Date [...] Recorded In the past 12 months has [employer] electric, gas, oil, or water company threatened [...] Description 10/10/2024 10:20 AM EDT [facility] [address] [place] [address] Alka Tracy, [place] [address] 12/11/2024 8:40 AM EDT [facility] Visit [facility] [address] [place] [address] Alka Tracy, DATA LIBRARIAN [address] [place] [address] 12/11/2024 9:00 AM EDT Procedure Visit [facility] [address], 1st [place] [address] Malgorzata Moseley PA [address] [place] [address] 12/13/2024 11:00 AM EDT Procedure Visit [facility] [address] [place] [address] Nicolás Hollis MD [address] [place] [address] documented as of this encounter [...] documented as of this encounter Care Teams Manager Of Sustainability Relationship Specialty Start Date End Date Alka Tracy APRN [address] [place] [address] PCP - General 07/03/20 Daily Christy MD [address] [place] [address] Service Attending Neurology 09/30/20 Malgorzata Moseley PA [address] [place] [address] Physician Clinical Applications Specialist Neurology 11/18/20 Shy Duque APRN [address] [place] [address] Nurse Practitioner Neurosurgery 11/25/20 Arsalan Thompson MD [address] [place] [address] Surgeon Neurosurgery 07/02/21 documented as of this encounter
--- OUTSIDE RECORDS SUMMARY | 2024-10-09 21:43 | XMS_ITS | Encounter Summary ---
Author Organization [facility] Address [address] [place] [address] Care Team Providers Care Anthropology Faculty Member Name Role Phone Alka Tracy APRN Primary Care Provider [phone] Daily Chirsty MD Unavailable [phone] Malgorzata Moseley Unavailable [phone] Shy Duque APRN Unavailable [phone] Arsalan Thompson MD Unavailable + [phone] Encounter Details Date Type Department Care Team [...] often do you attend chur ch or jain services? Never 12/27/2023 Do you belong to [...] Recorded Patient Health Questionnaire-2 Score 2 07/10/2024 [facility] - Occupational Stress Questionnaire Answer [...] any time in the past 12 m [facility], were you homeless or living in a assisted (including now)? No 07/10/2024 Utilities Answer Date [...] EDT Office Visit [facility] [place] [facility] [place] [address] Alka Tracy [place] [address] 12/11/2024 8:40 AM EDT Office Visit [facility] [address] [place] [address] Alka Tracy APRN [address] [place] [address] 12/11/2024 9:00 AM EDT Procedure Visit [facility] [address] [place] [address] Malgorzata Moseley PA [address] [place] [address] 12/13/2024 11:00 AM EDT Procedure Visit [facility] at [facility] [address] [place] [address] Nicolás Hollis MD [address] [place] [address] documented as of this [...] documented as of this encounter Care Teams Anthropology Faculty Member Relationship Specialty Start Date End Date Alka Tracy, DEVORAH [address] [place] [address] PCP - General 07/03/20 Daily Christy MD [address] [place] [address] Service Attending Neurology 09/30/20 Malgorzata Moseley PA [address] [place] [address] Physician Plaster Mechanic Neurology 11/18/20 Shy Duque APRN [address] [place] [address] Nurse Practitioner Neurosurgery 11/25/20 Arsalan Thompson MD [address] [place] [address] Surgeon Neurosurgery 07/02/21 documented as of this encounter
--- OUTSIDE RECORDS SUMMARY | 2024-10-09 21:43 | XMS_ITS | Encounter Summary ---
Author Organization [facility] Address [address] [place] [address] Care Team Providers Care Electrical Assembly Technician Name Role Phone Alka Tracy APRN Primary Care Provider [phone] Daily Christy MD Unavailable [phone] Malgorzata Moseley Unavailable [phone] Shy Duque APRN Unavailable [phone] Arsalan Thompson MD Unavailable + [phone] Encounter Details Date Type Department Care Team [...] Recorded Patient Health Questionnaire-2 Score 2 09/09/2024 [facility] of Occupat ional [facility] - Occupational Stress Questionnaire Answer Date Recorded [...] Description 10/10/2024 10:20 AM EDT Office Visit [facility] [address] [place] [address] Alka Tracy APRN [address] [place] [address] 12/11/2024 8:40 AM EDT Office Visit [facility] [address] [place] [address] Alka Tracy APRN [address] [place] [address] 12/11/2024 9:00 AM EDT Procedure [facility] [address] 1[address] [place] [address] Malgorzata Moseley PA [address] [place] [address] 12/13/2024 11:00 AM EDT Procedure Visit [facility] at [facility] [address] [address] Nicolás Hollis MD [address] [place] [address] documented as of this encounter [...] documented as of this encounter Care Teams Electrical Assembly Technician Relationship Specialty Start Date End Date Alka Tracy APRN [address] [place] [address] PCP - General 07/03/20 Daily Christy MD [address] [place] [address] Service Attending Neurology 09/30/20 Malgorzata Moseley PA [address] [place] [address] Physician Health Informatics Advisor Neurology 11/18/20 Shy Duque APRN [address] [place] [address] Nurse Practitioner Neurosurgery 11/25/20 Arsalan Thompson MD [address] [facility] [place] [address] Surgeon Neurosurgery 07/02/21 documented as of this encounter
--- NOTE | 2024-10-09 21:44 | CT_ITS ---
PROCEDURE INFORMATION: Exam: CT Abdomen And Pelvis With Contrast Exam date and time: 10/09/2024 10:19 PM Age: 39 years old Clinical indication: Abdominal pain; Additional info: Rlq tenderness TECHNIQUE: Imaging protocol: Computed tomography of the abdomen and pelvis with contrast. Radiation optimization: All CT scans at this facility use at least one of these dose optimization techniques: automated exposure control; mA and/or kV adjustment per patient size (includes targeted exams where dose is matched to clinical indication); or iterative reconstruction. Contrast material: ISOVUE; Contrast volume: 75 ml; Contrast route: IV; COMPARISON: 1. CT ABDOMEN PELVIS W CON 02/23/2023 1:07 AM 2. US TRANSVAGINAL 07/03/2024 9:20 AM FINDINGS: Lungs: Lung bases are clear. Liver: Hepatomegaly, with liver measuring over 21 cm in craniocaudad diameter. An 8 mm subcapsular hypodense lesion in segment 6 of the liver, not clearly visualized on the prior CT. Gallbladder and biliary ducts: Gallbladder appears to be surgically absent. No biliary dilatation. Pancreas: Normal pancreas. No ductal dilation. Spleen: Normal spleen. No splenomegaly. Adrenal glands: Normal adrenal glands. Kidneys and ureters: No hydronephrosis or calculus. Stable malrotation of the right kidney. Stomach and bowel: No acute bowel abnormality. No obstruction. No mucosal thickening. No definite gastric abnormality. Appendix: No evidence of acute appendicitis. Intraperitoneal space: No free fluid or free air. Vasculature: No abdominal aortic aneurysm or dissection. Portal vein and mesenteric arteries appear grossly patent. Lymph nodes: No adenopathy. Urinary bladder: Normal urinary bladder. Reproductive: A 2.3 cm, fat containing right adnexal mass. Uterus and adnexal structures otherwise unremarkable. Bones/joints: No acute osseous abnormality. Soft tissues: Tiny fat containing umbilical hernia. IMPRESSION: 1. No acute findings. 2. Hepatomegaly, with liver measuring over 21 cm in craniocaudad diameter. 3. An 8 mm subcapsular hypodense lesion in segment 6 of the liver, not clearly visualized on the prior CT. In a low-risk patient, this is most likely to be benign and no further follow-up is recommended. In a high-risk patient, follow-up MRI in 3-6 months is recommended (or earlier if warranted by the patient's specific clinical circumstances). (Reference: Kathryn) 4. Status post cholecystectomy. 5. No evidence of acute appendicitis. 6. A 2.3 cm, fat containing right adnexal mass. Increased in comparison to 02/23/2023, when it measured about 1 cm in retrospect. Favor ovarian dermoid cyst. Usually managed by application consultant, may require periodic imaging. (Reference: Tino) REFERENCES: 1. Kathryn AMAYA, et al. Management of Incidental Liver Lesions on CT: A White Paper of the ACR Incidental Findings Committee. J Am Earlene Radiol. 2017;14(11):1448-4629. 2. Tino et al. Management of Incidental Adnexal Findings on CT and MRI: A White Paper of the ACR Incidental Findings Committee, J Am Earlene Radiol. 2019;17(2):248-254.
--- OUTSIDE RECORDS SUMMARY | 2024-10-09 21:44 | XMS_ITS | Clinical Summary ---
[facility] Address [address] [place] [address] Care Team Providers Care Accelerator Operator Name Role Phone TracyAlka khalil DEVORAH Primary [...] age to complete this topic Insurance [place] Care Teams Accelerator Operator Relationship Specialty Start Date End Date Alka Tracy APRN [address] [place] [address] PCP - General Family Medicine 02/20/22
--- OUTSIDE RECORDS SUMMARY | 2024-10-09 21:44 | XMS_ITS | Encounter Summary ---
Author Organization [facility] Address [address] [place] [address] Care Team Providers Care Family Counselor Name Role Phone Alka Tracy INSTALLMENT ACCOUNT CHECKER Primary Care Provider [phone] Daily Christy MD Unavailable [phone] Malgorzata Moseley PA Unavailable [phone] Shy Duque INSTALLMENT ACCOUNT CHECKER Unavailable [phone] Arsalan Thompson MD Unavailable + [phone] Reason for Visit * Reason Onset Date Comments HCN - Patient Message 07/31/2024 Encounter Details Date Type Department Care Team (Late st Contact Info) Description 07/31/2024 Telephone [facility] [address] [place] [address] Alka Tracy, INSTALLMENT ACCOUNT CHECKER [address] [place] [address] [facility] - Patient Message Social [...] How often do you attend chur or congregation services? Never 12/27/2023 Do you belong to any clubs o r organizations such as hinduism groups, unions, fraternal or athletic groups, or [...] Recorded Patient Health Questionnaire-2 Score 2 07/10/2024 [facility] - [facility]ational [...] the past 12 months has th e [employer], gas, oil, or water [employer] threatened to shut off services in your [...] and optimal time of day to reach caller:[phone] Note: Please do not reply to this message. Follow-up communication and further actions as a result of this message need to be communicated with the patient directly, if the patient is not active onMyChart. If the patient is active on MyChart, they will receive notification of the communication/outcome via [employer] documented in this encounter Plan of Treatment Upcoming Encounters Date Type Department Care Team (Late st Contact Info) Description 10/10/2024 10:20 AM EDT Office Visit [facility] [place] [address] Alka Tracy, INSTALLMENT ACCOUNT CHECK[place] [address] 12/11/2024 8:40 AM EDT Office Visit [facility] [address] [place] [address] Alka Tracy APRN [address] [place] [address] 12/11/2024 9:00 AM EDT [facility] [address], 1st [place] [address] Malgorzata Moseley PA [address] [place] [address] 12/13/2024 11:00 AM EDT Procedure Visit [facility] at [facility] [address] [place] [address] Nicolás Hollis MD [address] [place] [address] documented as of this encounter [...] documented as of this encounter Care Teams Family Counselor Relationship Specialty Start Date End Date Alka Tracy APRN [address] [place] [address] PCP - General 07/03/20 Daily Christy MD [address] [place] [address] Service Attending Neurology 09/30/20 Malgorzata Moseley PA [address] [place] [address] Physician Mail Messenger Neurology 11/18/20 Shy Duque APRN [address] [place] [address] Nurse Practitioner Neurosurgery 11/25/20 Arsalan Thompson MD [address] [place] [address] Surgeon Neurosurgery 07/02/21 documented as of this encounter
--- OUTSIDE RECORDS SUMMARY | 2024-10-09 21:44 | XMS_ITS | Encounter Summary ---
Author Organization [facility] Address [address] [place] [address] Care Team Providers Care Hot Dog Vendor Name Role Phone Alka Tracy SEARCH ENGINE OPTIMIZATION ANALYST Primary Care Provider [phone] Daily Christy MD Unavailable [phone] Malgorzata Moseley Unavailable [phone] Shy Duque APRN Unavailable [phone] Arsalan Thompson MD Unavailable + [phone] Reason for Visit * Reason Onset Date Comments [facility] Clinical Concern/Question 07/31/2024 Pl ease see note... Encounter Details Date Type Department Care Team (Late st Contact Info) Description 07/31/2024 Telephone [facility] [address] [place] [address] Alka Trayc, SEARCH ENGINE OPTIMIZATION ANALYST [address] [place] [address] [facility] Clinical Concern/Question (Please see [...] How often do you attend chur or hoahaoism services? Never 12/27/2023 Do you belong to any clubs o r organizations such as evangelical groups, unions, fraternal or athletic groups, or [...] Recorded Patient Health Questionnaire-2 Score 2 07/10/2024 [facility] - [...] any time in the past 12 m [facility], were you homeless or living [...] PM EDT Faxed Rx for cane to [employer] * Telephone Encounter - Ita [facility] - 07/31/2024 10:42 AM EDT Clinical Concern/Question Reason for Call: Stanislav patients case maker with waiver program is calling regarding patient recently having outpatient surgery for torn meniscus and is asking if provider will give an order for patient a cane. Stanislav would like a call back to let her know. Best contact number: Other: [phone] Optimal time of day to reach caller: ANYTIME Additional comments/information from caller: Not Applicable Note: Please do not reply to this message. Follow-up communication and further actions as a result of this message need to be communicated with the patient directly, if the patient is not active onMyChart. If the patient is active on MyChart, they will receive notification of the communication/outcome via [employer]. documented in this encounter Plan of Treatment Upcoming Encounters Date Type Department Care Team (Late st Contact Info) Description 10/10/2024 10:20 AM EDT Office Visit [facility] [place] [address] Alka Tracy, SEARCH ENGINE OPTIMIZATION [place] [address] 12/11/2024 8:40 AM EDT Office Visit [facility] [place] [address] Alka Tracy, SEARCH ENGINE OPTIMIZATION ANALY[place] [address] 12/11/2024 9:00 AM EDT Procedure Visit [facility] [address] [place] [address] Malgorzata Moseley PA [address] [place] [address] 12/13/2024 11:00 AM EDT Procedure Visit [facility] [address] [place] [address] Nicolás Hollis MD [address] [place] [address] documented as of this [...] documented as of this encounter Care Teams Hot Dog Vendor Relationship Specialty Start Date End Date Alka Tracy APRN [address] [place] [address] PCP - General 07/03/20 Daily Christy MD [address] [facility] [place] [address] Service Attending Neurology 09/30/20 Malgorzata Moseley PA [address] [place] [address] Physician Live Ammunition Inspector Neurology 11/18/20 Shy Duque APRN [address] [place] [address] Nurse Practitioner Neurosurgery 11/25/20 Arsalan Thompson MD [address] [facility] [address] [place] [address] Surgeon Neurosurgery 07/02/21 documented as of this encounter
[2024-10-09 21:51] LABS: Hematocrit 48.7 % (37.0-47.0); Hemoglobin 16.5 g/dL (12.2-16.2); Immature Granulocytes % 0.7 %; Mean Corpuscular HGB Conc 33.9 g/dL (31.8-35.4); Mean Corpuscular Hemoglobin 30.7 pg (27.0-31.2); Mean Corpuscular Volume 90.7 fl (81-99); Nucleated Red Blood Cells % 0 %; Platelet Count 401 K/mm3 (142-424); Red Blood Count 5.37 M/mm3 (4.20-5.40); Red Cell Distribution Width-SD 42.5 fL; White Blood Count 15.9 K/mm3 (4.8-10.8)
[2024-10-09] MEDS: ONDANSETRON 4MG/2ML VIAL 4 MG IV (21:55)
[2024-10-09 21:56] LABS: VBG HCO3 27.2 mmol/L (23-30); VBG PH 7.33 mmol/L (7.31-7.41); VBG PO2 30.7 mmol/L (28-40)
[2024-10-09] MEDS: LACTATED RINGERS 1000ML 1,000 ML 999 ML IV (21:56)
[2024-10-09 21:57] LABS: Albumin Level 4.6 g/dl (3.5-5.0); Chloride 98 mmol/L (98-107); Potassium 4.2 mmoL/L (3.5-5.1); Sodium 135 mmol/L (136-145)
[2024-10-09 21:58] LABS: Lactate Venous 3.9 mmol/L (0.4-2.0); VBG PCO2 52.7 mmol/L (35-51)
[2024-10-09 22:00] VITALS: BP 164/88; PULSE 105; RESP 13; O2SAT 97
[2024-10-09 22:00] LABS: Alanine Aminotransferase 19 U/L (12-78); Albumin/Globulin Ratio 1.3 (1.1-1.8); Alkaline Phosphatase 159 U/L (38-126); Anion Gap 15.2 mEq/L (5-15); Aspartate Amino Transferase 24 U/L (14-36); Bilirubin,Total 0.6 mg/dl (0.2-1.3); Blood Urea Nitrogen 24 mg/dl (7-17); Calcium 10.3 mg/dl (8.4-10.2); Carbon Dioxide 26 mmol/L (22.0-30.0); Creatinine Clearance Estimated 65 mL/min (50-200); Creatinine,Serum 0.90 mg/dl (0.52-1.04); Estimated Glomerular Filt Rate 69 ml/min (>60); GFR (African American) 83 ML/MIN (>60); Globulin 3.5 g/dL (1.3-3.2); Glucose 354 mg/dl (74-100); Magnesium 1.8 mg/dl (1.6-2.3); Total Protein,Serum 8.1 g/dl (6.3-8.2)
[2024-10-09 22:01] LABS: HCG Qualitative, Serum Negative (Negative)
[2024-10-09 22:04] LABS: Lipase 128 U/L (23-300)
[2024-10-09] MEDS: IOPAMIDOL-370 (76%);100ML BOTTLE 75 ML IV (22:20)
[2024-10-09] MEDS: SODIUM CHLORIDE 0.9% 10ML SYR (RAD ONLY) 10 ML IV (22:20)
[2024-10-09 22:32] LABS: Microscopic, Urine URINE MICROSCOPIC (MICROSCOPIC)
[2024-10-09 22:34] LABS: Bilirubin,Urine Negative (Negative); Color,Urine YELLOW (Yellow); Glucose,Urine (UA) 3+ (Negative); Ketones,Urine Negative (Negative); Leukocyte Esterase,Urine Negative (Negative); PH,Urine 6.0 (5.0-8.5); Protein,Urine Negative (Negative); Specific Gravity, Urine 1.010 (1.005-1.030); Urobilinogen,Urine 0.2 EU/dl (0.2)
--- NOTE | 2024-10-09 22:54 | PC.NURSE ---
tick removed by Dr Sofia, tick intact.
[2024-10-09 23:13] LABS: Hemoglobin A1C 8.8 % (4.0-6.0)
[2024-10-10 00:25] VITALS: BP 156/89; PULSE 84; RESP 17; TEMP 36.6; O2SAT 98
[2024-10-10 01:57] LABS: Reflex Lactic Add Lactic Reflex
== END 2024-10-10 00:26 | disposition home or self-care (01) ==
PROVIDERS: Emergency Provider Student in an Organized Health Care Education/Training Program; PCP Nurse Practitioner Family
DX: R10.9 Unspecified abdominal pain (principal); E11.65 Type 2 diabetes mellitus with hyperglycemia; R74.02 Elevation of levels of lactic acid dehydrogenase [LDH]; R11.0 Nausea; Z79.85 Long-term (current) use of injectable non-insulin antidiabetic drugs
CPT/HCPCS: 74177; 80053; 81001; 82803; 83036; 83690; 83735; 84703; 85025; 87086; 96361; 96374; 99284; J2405; J7120; Q9967